=== PATIENT | female | born 1940 | race Caucasian/White ===

== ENCOUNTER 2017-09-07 13:44 | Inpatient (IN) ==
--- NOTE | 2017-09-07 18:03 | Emergency Department Note ---
Disposition Clinical Impression: Compression fracture, Hyponatremia Pneumonia Qualifiers: Pneumonia type: due to unspecified organism Laterality: unspecified laterality Lung location: unspecified part of lung Qualified Code(s): J18.9 - Pneumonia, unspecified organism Disposition: Admitted As Inpatient Condition: Fair Referrals: Yared Akhtar Jr, MD [Primary Care Provider] - Forms: ED Satisfaction Letter Time of Disposition: 21:38 Fall HPI - General Chief Complaint: ED Fall Stated Complaint: Fall/Back Pain Time Seen by Provider: 09/07/17 17:46 Source: patient Mode of arrival: ambulatory Limitations: no limitations Nursing Notes Reviewed: Yes Vital Signs Reviewed: Yes - History of Present Illness HPI Narrative: 77-year-old who says she's been treated for a cold for the last couple weeks was taking a bath today got out of the tub and thinks she got her legs tangled up in a rug and fell. She complains of back pain she did strike her head. Patient denies being on a blood thinner. Pt Subjective Complaint: fall Onset (ago): Just [employer]INE[employer] Fall From: standing Fall Witnessed: no Place Fall Occurred: home Loss of Consciousness: none Prolonged Down Time?: no Symptoms Prior to Fall: none Context: tripped/slipped Location of injury: head, neck, back Severity: moderate Quality: aching Associated symptoms (after fall): Reports: neck pain - Related Data Home Medications Medication Instructions Recorded Confirmed Amlodipine Besylate 2.5 mg PO DAILY 02/03/17 09/07/17 Folic Acid 1 mg PO DAILY 02/03/17 09/07/17 Levothyroxine [Synthroid] 100 mcg PO 0630 02/03/17 09/07/17 Losartan Potassium [Cozaar] 100 mg PO DAILY 02/03/17 09/07/17 Omeprazole 20 mg PO DAILY 02/03/17 09/07/17 Multivit-Min/Iron/Folic/Lutein 1 each PO DAILY 02/24/17 09/07/17 [Centrum Silver Women Tablet] Propranolol [Inderal] 20 mg PO BID 09/07/17 09/07/17 predniSONE [PredniSONE] 5 mg PO DAILY 09/07/17 09/07/17 Allergies Allergy/AdvReac Type Severity Reaction Status Date / Time No Known Allergies Allergy Verified 07/31/16 13:26 All systems ED: reviewed and negative except as stated. Constitutional: Denies: fever, chills, weakness, weight change Eyes: Denies: eye pain, eye discharge, vision change ENT ED: Denies: ear pain, throat pain, dental pain, hearing loss, epistaxis, congestion, dysphagia Cardiovascular: Denies: chest pain, palpitations, dyspnea on exertion, edema, syncope Respiratory: Denies: cough, dyspnea, wheezes, hemoptysis, stridor Gastrointestinal: Denies: abdominal pain, nausea, vomiting, diarrhea, constipation, hematemesis, melena, hematochezia Genitourinary: Denies: dysuria, frequency, hematuria, discharge Musculoskeletal: Denies: back pain, neck pain, arthralgia, myalgia Integumentary: Denies: rash, abrasion, lesions Neurological: Denies: headache, weakness, numbness, paresthesias, confusion, abnormal gait, vertigo Psychiatric: Denies: anxiety, depression, suicidal thoughts, homicidal thoughts , auditory hallucinations, visual hallucinations Endocrine: Denies: fatigue Hematological/Lymphatic: Denies: easy bleeding, easy bruising Allergic/Immunologic: Denies: facial swelling, urticaria Fall PMH - Past Medical History Medical history: Reports: COPD, hyperlipidemia, hypertension, RA, thyroid disease Psychiatric history: Reports: no psych history - Social History Smoking Status: Never smoker Alcohol use: Reports: none Drug use: Reports: none Physical Exam - General Limitations: no limitations General appearance: alert Course - Reevaluation(s) Reevaluation #1: 77-year-old female who comes in after a fall she's got compression fractures of the back. She is also noted to have a sodium of 117 and pneumonia on chest x- ray. Time: 22:08 - Consultations Consultation #1: I discussed with , admit. Time: 22:06 Consultation #2: S with Dr. Rg he will see the patient in consult. Time: 22:08 Vital Signs Temperature 97.9 F 09/07/17 14:25 Pulse Rate 119 09/07/17 14:25 Respiratory Rate 22 09/07/17 14:25 Blood Pressure 152/76 09/07/17 14:25 O2 Sat by Pulse Oximetry 0 09/07/17 14:25 Temperature 97.9 F 09/07/17 14:25 Pulse Rate 77 09/07/17 20:09 Respiratory Rate 16 09/07/17 20:09 Blood Pressure 149/85 09/07/17 20:09 O2 Sat by Pulse Oximetry 90 09/07/17 20:09 Oxygen Delivery Oxygen Delivery Nasal Cannula Fall - Lab Data Lab results reviewed: Yes I reviewed the patient's lab results. Result diagrams: 09/07/17 20:46 09/07/17 18:59 Lab Results 09/07/17 09/07/17 09/07/17 Range/Units 18:59 18:59 20:46 WBC 10.6 (4.3-11.1) K/mcL RBC 3.77 L (3.82-4.97) M/mcL Hgb 11.1 L (11.5-15.4) g/dL Hct 30.5 L (35.3-44.9) % MCV 80.9 L (83.0-100.0) fL MCH 29.4 (28.0-33.3) pg MCHC 36.4 H (31.6-35.5) g/dL RDW 13.0 (11.5-14.5) % Plt Count TNP MPV TNP Immature Gran % 3.5 (0-4) % Seg Neutrophils % 81.5 % Lymphocytes % 4.6 % Monocytes % 10.2 % Eosinophils % 0.1 % Basophils % 0.1 % Neutrophils # 8.6 (1.6-8.9) K/mcL Lymphocytes # 0.5 L (0.6-4.6) K/mcL Monocytes # 1.1 (0.0-1.3) K/mcL Eosinophils # 0.0 (0.0-0.6) K/mcL Basophils # 0.0 (0.0-0.2) K/mcL Nucleated RBCs/100 WBC 0.2 H (0) /100 WBC Plt Count ,Citrate (150-600) Immature Plt Fraction TNP Sodium 117 L* (136-145) mEq/L Potassium 3.6 (3.5-4.5) mEq/L Chloride 77 L (98-109) mEq/L Carbon Dioxide 30 H (19-29) mEq/L BUN 11 (7-20) mg/dL Creatinine 0.47 L (0.57-1.11) mg/dL Est GFR ( Amer) > 60 (> 60) Est GFR (Non-Af Amer) > 60 (> 60) BUN/Creatinine Ratio 23 (6-26) Glucose 94 (70-99) mg/dL Calculated Osmolality 243 L (280-300) Calcium 8.8 (8.6-10.8) mg/dL Specimen Rejected Miscellaneous 09/07/17 Range/Units 20:46 WBC (4.3-11.1) K/mcL RBC (3.82-4.97) M/mcL Hgb (11.5-15.4) g/dL Hct (35.3-44.9) % MCV (83.0-100.0) fL MCH (28.0-33.3) pg MCHC (31.6-35.5) g/dL RDW (11.5-14.5) % Plt Count MPV 9.0 L Immature Gran % (0-4) % Seg Neutrophils % % Lymphocytes % % Monocytes % % Eosinophils % % Basophils % % Neutrophils # (1.6-8.9) K/mcL Lymphocytes # (0.6-4.6) K/mcL Monocytes # (0.0-1.3) K/mcL Eosinophils # (0.0-0.6) K/mcL Basophils # (0.0-0.2) K/mcL Nucleated RBCs/100 WBC (0) /100 WBC Plt Count ,Citrate 147.4 L (150-600) Immature Plt Fraction Sodium (136-145) mEq/L Potassium (3.5-4.5) mEq/L Chloride (98-109) mEq/L Carbon Dioxide (19-29) mEq/L BUN (7-20) mg/dL Creatinine (0.57-1.11) mg/dL Est GFR ( Amer) (> 60) Est GFR (Non-Af Amer) (> 60) BUN/Creatinine Ratio (6-26) Glucose (70-99) mg/dL Calculated Osmolality (280-300) Calcium (8.6-10.8) mg/dL Specimen Rejected - Radiology Data Radiology results reviewed: Yes I reviewed the patient's radiology results. Cervical Spine CT 09/07/17 18:00 IMPRESSION: No acute abnormality of the cervical spine. D/ / Florence Acevedo MD / Florence Acevedo MD Interpreting Provider: Florence Acevedo MD Chest X-Ray 09/07/17 18:00 IMPRESSION: New right lower lobe airspace disease suggesting pneumonia. Follow-up is recommended to ensure resolution D/ / Chadwick Joel MD / Chadwick Joel MD Interpreting Provider: Chadwick Joel MD Head CT 09/07/17 18:00 IMPRESSION: No acute intracranial abnormality. D/ / 09/07/2017 18:57:16 Florence Acevedo MD / neal Interpreting Provider: Florence Acevedo MD Lumbar Spine CT 09/07/17 18:00 IMPRESSION: 1. Acute compression deformities of T5 and T7 as described. 2. Diffuse airspace opacities, findings are concerning for acute infection versus aspiration superimposed on chronic lung changes including bronchiectasis. 3. 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 4. Thyromegaly with a large left thyroid nodule. Nodule is increased in size since 2010. Dedicated thyroid ultrasound can be considered. RECOMMENDATIONS: Managing Incidental Thyroid Nodule Detected at CT or MRI or US 1. Further evaluation by thyroid Ultrasound recommended for these incidental nodules: Patient Age 35 years or more - Nodule 1.5 cm in size or greater Note: These recommendations do not apply to pts. w/ increased risk for thyroid cancer or pts. with symptomatic thyroid disease. Recommendations for f/u of Incidental Thyroid Nodules (ITN) found on CT, MR, NM and Extrathyroidal US are based upon the ACR white paper and Keith 3-tiered system for managing ITNs: J Am Rogerio Radiol. 2015 Nov;12(2): 143-50 D/ / 09/07/2017 19:08:31 Mohini Smith MD / neal Interpreting Provider: Mohini Smith MD Thoracic Spine CT 09/07/17 18:00
[2017-09-07 19:22] LABS: BUN/Creatinine Ratio 23 (6-26); Blood Urea Nitrogen 11 mg/dL (7-20); Calcium 8.8 mg/dL (8.6-10.8); Carbon Dioxide 30 mEq/L (19-29); Chloride 77 mEq/L (98-109); Glucose 94 mg/dL (70-99); Osmolality,Calculated 243 (280-300); Potassium 3.6 mEq/L (3.5-4.5); eGFR For African Americans > 60 (> 60); eGFR For Non-African Americans > 60 (> 60)
[2017-09-07 19:24] LABS: Sodium 117 mEq/L (136-145)
[2017-09-07] MEDS ORDERED: Azithromycin 500 MG in D5% in Water 250 ML IVPB ONE (19:25)
[2017-09-07] MEDS ORDERED: 0.9 % Sodium Chloride 1,000 ML IVC SCH (19:30)
[2017-09-07 21:06] LABS: Basophils % 0.1 %; Eosinophils % 0.1 %; Hematocrit 30.5 % (35.3-44.9); Hemoglobin 11.1 g/dL (11.5-15.4); Immature Granulocytes % 3.5 % (0-4); Lymphocytes # 0.5 K/mcL (0.6-4.6); Lymphocytes % 4.6 %; Mean Corpuscular HGB Conc 36.4 g/dL (31.6-35.5); Mean Corpuscular Hemoglobin 29.4 pg (28.0-33.3); Mean Corpuscular Volume 80.9 fL (83.0-100.0); Monocytes # 1.1 K/mcL (0.0-1.3); Monocytes % 10.2 %; Nucleated Red Blood Cells 0.2 /100 WBC (0); Red Blood Count 3.77 M/mcL (3.82-4.97); Segmented Neutrophils % 81.5 %
[2017-09-07 21:16] LABS: Neutrophils # 8.6 K/mcL (1.6-8.9)
[2017-09-07] MEDS ORDERED: cefTRIAXone 1,000 MG in Water for inj. (sterile) 10 ML IVP ONE (23:00)
[2017-09-08] MEDS ORDERED: Naloxone 0.4 MG/ML INJ IVP PRN (01:05)
[2017-09-08] MEDS ORDERED: Acetaminophen 325 MG TABLET PO PRN (01:05)
[2017-09-08] MEDS ORDERED: *HR* HYDROmorphone (PF) 1 MG/ML SYRINGE IVP PRN (01:05)
--- NOTE | 2017-09-08 01:27 | Internal Med History&Physical ---
<LetaEnrique - Last Filed: 09/08/17 01:25> Date of Encounter: 09/08/17 Time of Encounter: 00:15 Assessment and Plan (1) Compression fracture Current visit: Yes Status: Acute - Ortho consult. - PRN Pain control with dilaudid, norco, and tylenol. (2) Pneumonia Current visit: Yes Status: Acute Afebrile. BP 149/85. Given 1st dose of azithromycin and ceftriaxone today. Patient will need a 5-day course. - UA. - Blood culture. Qualifiers: Pneumonia type: due to unspecified organism Laterality: right Lung location: lower lobe of lung Qualified Code(s): J18.1 - Lobar pneumonia, unspecified organism (3) Hyponatremia Current visit: Yes Status: Acute - NS IVF 60 ml/hr. - Chem 6 panel q4hr. (4) Hypertension Current visit: Yes Status: Acute Placed on home meds. - Amlodipine - Losartan - Propanolol. Qualifiers: Hypertension type: unspecified Qualified Code(s): I10 - Essential (primary ) hypertension (5) Hypothyroidism Current visit: Yes Status: Acute - Synthroid. Qualifiers: Hypothyroidism type: unspecified Qualified Code(s): E03.9 - Hypothyroidism , unspecified (6) Thyroid nodule Current visit: Yes Status: Acute Thyromegaly with a large left thyroid nodule. Nodule is increased in size since 2010. Size is 1.5 cm or greater. - TSH. - Patient will need to f/u with outpatient care for thyroid u/s and FNA pending TSH results. (7) Rheumatoid arthritis Current visit: No Status: Acute - Prednisone. Qualifiers: Laterality: bilateral Qualified Code(s): M06.9 - Rheumatoid arthritis, unspecified Internal Medicine - H&P: HPI Chief complaint: Fall/Back pain Admitted From: Emergency Dept History of present illness: Ms. Laurent is a 77 year old female with a PMH of HTN, hyperlipidemia, rheumatoid arthritis, and hypothyroidism that presents s/p mechanical fall. Patient says that she was taking a shower and accidentally slipped on the bathroom rug. She landed on her back and hit her head. She denies LOC, dizziness , light-headedness, weakness, chest pain, RFANK, or vision changes. She was brought to the ER where imaging found acute decompression fracture of T5 and T7. She denies any numbness/tingling and denies any loss of bladder function. She states she has non-radiating mid-thoracic back pain and rates it as a 5/10 on pain scale. Patient also states that she was diagnosed with PNA on August 24. She was placed on a 7-day course of antibiotics, for which she said she started to feel better after completing the course. However, 2 days ago, she has started to have a productive cough with yellow sputum. She denies any fever , chills, or shortness of breath. CXR in ER found new right lower lobe airspace disease suggesting pneumonia. She was placed on azithromycin and ceftriaxone. Past Med Surg Social Fam HX - Past Medical History Medical history: COPD, hyperlipidemia, hypertension, RA, thyroid disease Psychiatric history: no psych history - Social History Smoking Status: Never smoker Smokeless Tobacco Status: No Alcohol use: none Drug use: none Internal Medicine - H&P: Meds Amlodipine Besylate 2.5 mg PO DAILY 02/03/17 [History] Folic Acid 1 mg PO DAILY 02/03/17 [History] Levothyroxine [Synthroid] 100 mcg PO 0630 02/03/17 [History] Losartan Potassium [Cozaar] 100 mg PO DAILY 02/03/17 [History] Omeprazole 20 mg PO DAILY 02/03/17 [History] Multivit-Min/Iron/Folic/Lutein [Centrum Silver Women Tablet] 1 each PO DAILY 07/05 [History] Propranolol [Inderal] 20 mg PO BID 09/07/17 [History] predniSONE [PredniSONE] 5 mg PO DAILY 09/07/17 [History] 3 Allergy/AdvReac Type Severity Reaction Status Date / Time No Known Allergies Allergy Verified 07/31/16 13:26 All Systems PM: A 10-system review of systems was performed and is negative for pertinent findings except as documented above in the HPI. - Constitutional Constitutional: as per HPI, lethargy, no chills, no fever(s), no weakness - EENT Eyes: no blurry vision, no change in vision, no spots in vision - Cardiovascular Cardiovascular ROS IM: no chest pain, no dyspnea, no lightheadedness, no syncope - Respiratory Respiratory: cough, change in phlegm color, no dyspnea, no hemoptysis, no wheezing - Gastrointestinal Gastrointestinal: as per HPI - Genitourinary Genitourinary: as per HPI, no difficulty urinating, no difficulty voiding - Musculoskeletal Musculoskeletal ROS IM: back pain, limited range of motion, myalgias Additional comments: Mid-thoracic back pain. - Neurological Neurological ROS: no dizziness, no focal weakness, no headache(s), no numbness, no tingling, no weakness - Constitutional Vitals: Temp Pulse Resp BP Pulse Ox 97.7 F 71 20 155/94 94 09/07/17 22:51 09/07/17 22:51 09/07/17 22:51 09/07/17 22:51 09/07/17 22:51 General appearance: Present: cachectic, A&O X 3, no acute distress, answers questions appropriately - Respiratory Respiratory exam: Present: CTAB. Absent: wheezes, tachypnea - Cardiovascular Cardiovascular exam: Present: RRR, +S1, +S2 - GI/Abdominal GI/Abdominal exam: Present: normal bowel sounds, soft. Absent: guarding, rebound, tenderness - Extremities Exam Extremities exam: Present: radial pulses palpable and symmetrical. Absent: pedal edema Additional comments: Severe rheumatoid arthritic features of hands (ulnar deviation with flexure contraction bilaterally). - Back Exam Back exam: Present: vertebral tenderness Additional comments: Tenderness to mid-throacic region. Severe scoliosis. - Neurological Exam Neurological exam: Present: CN II-XII intact, reflexes normal, no focal deficits , strengths equal and symetr throughout Internal Med - H&P Results - Labs CBC & Chem 7: 09/07/17 20:46 09/07/17 18:59 <Jaden Whaley - Last Filed: 09/08/17 02:46> Date of Encounter: 09/08/17 Internal Medicine - H&P: HPI History of present illness: Ms. Laurent is a 77 year old female All Systems PM: A 10-system review of systems was performed and is negative for pertinent findings except as documented above in the HPI. - Constitutional Vitals: Temp Pulse Resp BP Pulse Ox 97.7 F 71 20 155/94 94 09/07/17 22:51 09/07/17 22:51 09/07/17 22:51 09/07/17 22:51 09/07/17 22:51 Internal Med - H&P Results - Labs CBC & Chem 7: 09/08/17 01:40 09/08/17 01:40 Labs: Short CBC 09/08/17 Range/Units 01:40 WBC 7.6 (4.3-11.1) K/mcL Hgb 10.5 L (11.5-15.4) g/dL Hct 30.1 L (35.3-44.9) % Plt Count 106 L (140-400) K/mcL Neutrophils # 6.5 (1.6-8.9) K/mcL BMP 09/08/17 01:40 Sodium 116 L* Potassium 2.8 L Chloride 82 L Carbon Dioxide 29 BUN 7 Creatinine 0.40 L Glucose 75 Calcium 7.4 L D - Attending Attestation I have independelty seen and this patient with the resident on 09/08/17 and discussed plan of care with resident and patient Agree with plan 77 F who presented with fall, she has steroid dependent RA,, recently treated for PNA as out-patient No urinary retention, no LE weakness She is cachectic, not in distress, moves all extremities, sensation is intact. Chest with RLL rhonchi, otherwise clinicaly stable Labs and Imaging reviewed Pnuemonia with failed Outpatient therapy Severe hyponatremia Fall Compression fractures Rheumatoid arthritis Malnutrition OP Steroid dependent Check lipids/TSH/UA/Urine Osm, Chem q6h, goal Na correction within 24 hrs 6 meq. Nephrology eval. Spine eval for fractures. Continue home meds Pain control Rest of details as in resident physician's documentation
[2017-09-08 01:47] LABS: Basophils % 0.3 %; Eosinophils % 0.3 %; Hematocrit 30.1 % (35.3-44.9); Hemoglobin 10.5 g/dL (11.5-15.4); Immature Granulocytes % 0.7 % (0-4); Lymphocytes # 0.4 K/mcL (0.6-4.6); Lymphocytes % 4.8 %; Mean Corpuscular HGB Conc 34.9 g/dL (31.6-35.5); Mean Corpuscular Hemoglobin 29.1 pg (28.0-33.3); Mean Corpuscular Volume 83.4 fL (83.0-100.0); Monocytes # 0.6 K/mcL (0.0-1.3); Monocytes % 8.3 %; Neutrophils # 6.5 K/mcL (1.6-8.9); Platelet Count 106 K/mcL (140-400); Red Blood Count 3.61 M/mcL (3.82-4.97); Red Cell Distribution Width 12.9 % (11.5-14.5); Segmented Neutrophils % 85.6 %
[2017-09-08 01:59] LABS: BUN/Creatinine Ratio 18 (6-26); Blood Urea Nitrogen 7 mg/dL (7-20); Carbon Dioxide 29 mEq/L (19-29); Chloride 82 mEq/L (98-109); Glucose 75 mg/dL (70-99); Osmolality,Calculated 239 (280-300); Potassium 2.8 mEq/L (3.5-4.5); eGFR For African Americans > 60 (> 60); eGFR For Non-African Americans > 60 (> 60)
[2017-09-08 02:00] LABS: Calcium 7.4 mg/dL (8.6-10.8); Chol/HDL Ratio 2.5 (0-4.9)
[2017-09-08 02:01] LABS: Sodium 116 mEq/L (136-145)
[2017-09-08] MEDS ORDERED: 0.9 % Sodium Chloride 250 ML IVC ONE (02:30)
[2017-09-08] MEDS: 0.9 % Sodium Chloride 1,000 ML IVC SCH ×2 (04:40→18:54)
[2017-09-08] MEDS: *HR* HYDROcodone/Acet 5/325 mg TABLET PO PRN ×2 (04:41→13:52)
[2017-09-08 06:28] LABS: BUN/Creatinine Ratio 13 (6-26); Blood Urea Nitrogen 6 mg/dL (7-20); Calcium 7.9 mg/dL (8.6-10.8); Carbon Dioxide 25 mEq/L (19-29); Chloride 84 mEq/L (98-109); Glucose 76 mg/dL (70-99); Osmolality,Calculated 246 (280-300); Potassium 3.2 mEq/L (3.5-4.5); eGFR For African Americans > 60 (> 60); eGFR For Non-African Americans > 60 (> 60)
[2017-09-08 06:39] LABS: Sodium 120 mEq/L (136-145)
[2017-09-08] MEDS: Folic Acid 1 MG TABLET PO SCH (08:19)
[2017-09-08] MEDS: predniSONE 5 MG TABLET PO SCH (08:19)
[2017-09-08] MEDS: Multivit/Ca/Min/Fe/FA 1 TAB TABLET PO SCH (08:19)
[2017-09-08] MEDS: amLODIPine 5 MG TABLET PO SCH (08:20)
[2017-09-08 08:23] LABS: BUN/Creatinine Ratio 17 (6-26); Blood Urea Nitrogen 7 mg/dL (7-20); Calcium 7.9 mg/dL (8.6-10.8); Carbon Dioxide 26 mEq/L (19-29); Chloride 85 mEq/L (98-109); Glucose 78 mg/dL (70-99); Osmolality,Calculated 247 (280-300); Potassium 3.6 mEq/L (3.5-4.5); eGFR For African Americans > 60 (> 60); eGFR For Non-African Americans > 60 (> 60)
[2017-09-08 08:26] LABS: Sodium 120 mEq/L (136-145)
[2017-09-08 10:23] LABS: BUN/Creatinine Ratio 17 (6-26); Blood Urea Nitrogen 7 mg/dL (7-20); Calcium 7.8 mg/dL (8.6-10.8); Carbon Dioxide 26 mEq/L (19-29); Chloride 85 mEq/L (98-109); Glucose 77 mg/dL (70-99); Osmolality,Calculated 245 (280-300); eGFR For African Americans > 60 (> 60); eGFR For Non-African Americans > 60 (> 60)
[2017-09-08 10:24] LABS: Sodium 119 mEq/L (136-145)
[2017-09-08 12:01] LABS: Bilirubin,Urine Negative (Negative); Blood,Urine Negative (Negative); Clarity,Urine Clear (Clear); Color,Urine Yellow (Yellow); Glucose,Urine (UA) Normal (Normal); Ketones,Urine 15 mg/dL (Negative); Leukocyte Esterase,Urine Negative (Negative); Nitrite,Urine Negative (Negative); Protein,Urine Negative (Neg-Trace); Specific Gravity,Urine 1.013 (1.010-1.025); Urobilinogen,Urine Normal (Normal)
[2017-09-08] MEDS: Levofloxacin 750 MG/150 ML 750 MG/150 ML BAG IVPB SCH (13:52)
--- NOTE | 2017-09-08 14:22 | Electrocardiograph Report ---
[address] [place], [place] [address] Test Date: 2017-09-07 Pat Name: Shyla Laurent Department: 102 Room: 2NE28 Gender: F Backup Administrator: Ang : 1940 Requested By: Jim Lal Order Number: [id number] Reading MD: Magaly Martínez Measurements Intervals [place] Rate: 75 P: 61 WA: 158 QRS: 1 QRSD: 93 T: 41 QT: 405 QTc: 434 Interpretive Statements SINUS RHYTHM SEPTAL MYOCARDIAL INFARCTION [40+ ms Q WAVE IN V1/V2], OF INDETERMINATE AGE Electronically Signed On 09-08-2017 14:20:40 EST by Magaly Martínez
--- NOTE | 2017-09-08 17:17 | Pain Management Consultation ---
Date of Encounter: 09/08/17 Time of Encounter: 17:14 Assessment and Plan (1) Compression fracture Current Visit: Yes Status: Chronic Medically, the patient does not have pain associated with her fractures. This finding suggests that the fracture sites are old and healed. No interventional options needed at this time. I did have a discussion with the patient, her , and her son in the room today that she should be aware of the risk for further fracture in years to come. If she would experience severe pain in her back as a result of coughing, she should seek out the advice of spine Center physicians. As of now, recommend allowing her to eat. Recommend allowing her activity out of bed with respect to making sure that she is safe when it comes to ambulating and keeping the risk of fall at a minimum. The assessment and plan as outlined above was discussed with the patient and/or family members who expressed understanding and agreement. All questions were answered. History of Present Illness Chief complaint: compression fracture HPI: Ms. Laurent is a 77 year old female who was recently admitted to the hospital for suspected pneumonia. A CT scan of her lungs incidentally revealed a compression fracture at T5 and T7. The patient denies pain. She states that she had a bout of severe coughing approximately 2 years ago which seemed to have been associated with severe pain in her upper back just above her bra strap. Pain at that time was severe, 10/10, but the pain subsided after a few weeks. She denied any radiating pain now or then. She feels able to get up out of bed. Prior to coming into the hospital, she had experienced no falls. She denies any pain in her back at this time. She does not routinely take pain medication at home. No radiating pain. Past Med Surg Social Fam HX - Past Medical History Medical history: COPD, hyperlipidemia, hypertension, RA, thyroid disease Psychiatric history: no psych history - Past Surgical History Surgical History: hysterectomy - Social History Smoking Status: Never smoker Smokeless Tobacco Status: No Alcohol use: none Drug use: none Medications and Allergies Amlodipine Besylate 2.5 mg PO DAILY 02/03/17 [History] Folic Acid 1 mg PO DAILY 02/03/17 [History] Levothyroxine [Synthroid] 100 mcg PO 0630 02/03/17 [History] Losartan Potassium [Cozaar] 100 mg PO DAILY 02/03/17 [History] Omeprazole 20 mg PO DAILY 02/03/17 [History] Multivit-Min/Iron/Folic/Lutein [Centrum Silver Women Tablet] 1 each PO DAILY 07/05 [History] Propranolol [Inderal] 20 mg PO BID 09/07/17 [History] predniSONE [PredniSONE] 5 mg PO DAILY 09/07/17 [History] 3 Allergy/AdvReac Type Severity Reaction Status Date / Time No Known Allergies Allergy Verified 07/31/16 13:26 Review of Systems - Constitutional Constitutional ROS IM: no photophobia, no phonophobia, no daytime sleepiness, no fever(s), no stops breathing during sleep - EENT Nose, mouth and throat: no headache(s), no neck pain, no neck trauma - Cardiovascular Cardiovascular ROS: no chest pain, no leg edema, no lightheadedness - Respiratory Respiratory: no pain on inspiration, no pain with cough - Gastrointestinal Gastrointestinal: no abdominal pain, no constipation, no diarrhea, no heartburn - Genitourinary Genitourinary ROS: no difficulty urinating, no flank pain, no urinary hesitancy - Musculoskeletal Musculoskeletal ROS: no muscle weakness, no numbness, no radiating pain into limb, no tingling - Integumentary Integumentary: no erythema, no lesions, no swelling - Neurological Neurological ROS: no abnormal gait, no behavioral changes, no focal weakness, no radicular pain - Psychiatric Psychiatric general: no anxiety, no confusion, no depression - Hematologic/Lymphatic Hematologic/Lymphatic pediatric: no easy bleeding, no easy bruising Physical Exam Initial Vital Signs Temp Pulse Resp BP Pulse Ox 97.9 F 119 22 152/76 0 09/07/17 14:25 09/07/17 14:25 09/07/17 14:25 09/07/17 14:25 09/07/17 14:25 - Additional Findings EYES:: pupils equal and round, no myosis. SKIN:: no areas of echymoses or petechiae CARDIOVASCULAR:: regular rate PULMONARY:: Quiet, normal respiratory pattern. GASTROINTESTINAL:: active bowel sounds. MUSCULOSKELETAL GAIT:: antalgic. INSPECTION:: severe kyphosis in thoracic spine PALPATION:: There is no tenderness in the upper thoracic spine. Percussion of the spine is nonpainful. ROM:: Active flexion and extension are reduced in the lumbar area. Active Rotation is reduced in the lumbar area. STRENGTH:: RIGHT hip flexors: 5/5 :: LEFT hip flexors: 5/5 RIGHT hip adduction 5/5 :: LEFT hip adduction 5/5 RIGHT hip abduction 5/5 :: LEFT hip abduction 5/5 RIGHT knee extension 5/5 :: LEFT knee extension 5/5 RIGHT knee flexion 5/5 :: LEFT knee flexion 5/5 RIGHT ankle dorsiflexion 5/5 :: LEFT ankle dorsiflexion 5/5 RIGHT ankle plantarflexion 5/5 :: LEFT ankle plantarflexion 5/5 RIGHT great toe dorsiflexion 5/5 :: LEFT great toe dorsiflexion 5/5 RIGHT great toe plantarflexion 5/5 :: LEFT great toe plantarflexion 5/5 NEUROLOGIC SENSATION:: hypesthesia is not noted in lower extremity dermatomes. PSYCHIATRIC:: ORIENTATION:: awake and alert. INSIGHT:: good awareness of illness. AFFECT:: pleasant. Radiology Images Viewed By Me:: August 2017 CT scan of the chest incidentally shows T5 and T7 compression fractures. I have reviewed and agree with information documented in the scribed documentation, ROS, patient medications, allergies, medical history, surgical history, social history, and family history. Results - Labs 09/08/17 01:40 09/08/17 10:00 Abnormal lab results RBC 3.61 M/mcL (3.82-4.97) L 09/08/17 01:40 Hgb 10.5 g/dL (11.5-15.4) L 09/08/17 01:40 Hct 30.1 % (35.3-44.9) L 09/08/17 01:40 Plt Count 106 K/mcL (140-400) L 09/08/17 01:40 Lymphocytes # 0.4 K/mcL (0.6-4.6) L 09/08/17 01:40 Nucleated RBCs/100 WBC 0.2 /100 WBC (0) H 09/07/17 20:46 Plt Count ,Citrate 147.4 (150-600) L 09/07/17 20:46 Sodium 119 mEq/L (136-145) L* 09/08/17 10:00 Chloride 85 mEq/L (98-109) L 09/08/17 10:00 Creatinine 0.42 mg/dL (0.57-1.11) L 09/08/17 10:00 Calculated Osmolality 245 (280-300) L 09/08/17 10:00 Calcium 7.8 mg/dL (8.6-10.8) L 09/08/17 10:00 Urine Ketones 15 mg/dL (Negative) H 09/08/17 09:15 Diabetes panel 09/08/17 09/08/17 09/08/17 Range/Units 01:40 01:40 05:50 Sodium 116 L* 120 L* (136-145) mEq/L Potassium 2.8 L 3.2 L (3.5-4.5) mEq/L Chloride 82 L 84 L (98-109) mEq/L Carbon Dioxide 29 25 (19-29) mEq/L BUN 7 6 L (7-20) mg/dL Creatinine 0.40 L 0.45 L (0.57-1.11) mg/dL Glucose 75 76 (70-99) mg/dL Calcium 7.4 L D 7.9 L (8.6-10.8) mg/dL Triglycerides 68 (< 150) mg/dL HDL Cholesterol 45 (40-59) mg/dL 09/08/17 09/08/17 Range/Units 07:55 10:00 Sodium 120 L* 119 L* (136-145) mEq/L Potassium 3.6 4.0 (3.5-4.5) mEq/L Chloride 85 L 85 L (98-109) mEq/L Carbon Dioxide 26 26 (19-29) mEq/L BUN 7 7 (7-20) mg/dL Creatinine 0.42 L 0.42 L (0.57-1.11) mg/dL Glucose 78 77 (70-99) mg/dL Calcium 7.9 L 7.8 L (8.6-10.8) mg/dL Triglycerides (< 150) mg/dL HDL Cholesterol (40-59) mg/dL Thyroid panel 09/08/17 Range/Units 01:40 TSH 2.904 (0.350-4.840) mcIU/mL Calcium panel 09/08/17 09/08/17 09/08/17 Range/Units 01:40 05:50 07:55 Calcium 7.4 L D 7.9 L 7.9 L (8.6-10.8) mg/dL 09/08/17 Range/Units 10:00 Calcium 7.8 L (8.6-10.8) mg/dL Pituitary panel 09/08/17 09/08/17 09/08/17 Range/Units 01:40 01:40 05:50 Sodium 116 L* 120 L* (136-145) mEq/L Potassium 2.8 L 3.2 L (3.5-4.5) mEq/L Chloride 82 L 84 L (98-109) mEq/L Carbon Dioxide 29 25 (19-29) mEq/L BUN 7 6 L (7-20) mg/dL Creatinine 0.40 L 0.45 L (0.57-1.11) mg/dL Glucose 75 76 (70-99) mg/dL Calcium 7.4 L D 7.9 L (8.6-10.8) mg/dL TSH 2.904 (0.350-4.840) mcIU/mL 09/08/17 09/08/17 Range/Units 07:55 10:00 Sodium 120 L* 119 L* (136-145) mEq/L Potassium 3.6 4.0 (3.5-4.5) mEq/L Chloride 85 L 85 L (98-109) mEq/L Carbon Dioxide 26 26 (19-29) mEq/L BUN 7 7 (7-20) mg/dL Creatinine 0.42 L 0.42 L (0.57-1.11) mg/dL Glucose 78 77 (70-99) mg/dL Calcium 7.9 L 7.8 L (8.6-10.8) mg/dL TSH (0.350-4.840) mcIU/mL Adrenal panel 09/08/17 09/08/17 09/08/17 Range/Units 01:40 05:50 07:55 Sodium 116 L* 120 L* 120 L* (136-145) mEq/L Potassium 2.8 L 3.2 L 3.6 (3.5-4.5) mEq/L Chloride 82 L 84 L 85 L (98-109) mEq/L Carbon Dioxide 29 25 26 (19-29) mEq/L BUN 7 6 L 7 (7-20) mg/dL Creatinine 0.40 L 0.45 L 0.42 L (0.57-1.11) mg/dL Glucose 75 76 78 (70-99) mg/dL Calcium 7.4 L D 7.9 L 7.9 L (8.6-10.8) mg/dL 09/08/17 Range/Units 10:00 Sodium 119 L* (136-145) mEq/L Potassium 4.0 (3.5-4.5) mEq/L Chloride 85 L (98-109) mEq/L Carbon Dioxide 26 (19-29) mEq/L BUN 7 (7-20) mg/dL Creatinine 0.42 L (0.57-1.11) mg/dL Glucose 77 (70-99) mg/dL Calcium 7.8 L (8.6-10.8) mg/dL All other labs normal. Consult Discharge Plan - Plan Referrals: Yared Akhtar Jr, MD [Primary Care Provider] -
--- NOTE | 2017-09-08 18:29 | Internal Med Progress Note ---
Date of Encounter: 09/08/17 Time of Encounter: 11:00 - Assessment and plan (1) Compression fracture Current Visit: Yes Status: Chronic Assessment and plan: -Patient with thoracic compression fracture and orthopedics was consulted. -Appreciate recommendations. (2) Pneumonia Current Visit: Yes Status: Acute Assessment and plan: -Continue treatment with IV Levaquin. Qualifiers: Pneumonia type: due to unspecified organism Laterality: right Lung location: lower lobe of lung Qualified Code(s): J18.1 - Lobar pneumonia, unspecified organism (3) Hyponatremia Current Visit: Yes Status: Acute Assessment and plan: -Continue IV fluids with normal saline to gradually raise sodium levels. -Will monitor sodium levels. (4) Hypertension Current Visit: Yes Status: Acute Assessment and plan: -Stable; continue current management Qualifiers: Hypertension type: unspecified Qualified Code(s): I10 - Essential (primary ) hypertension (5) Hypothyroidism Current Visit: Yes Status: Acute Assessment and plan: -Stable; continue current management. Qualifiers: Hypothyroidism type: unspecified Qualified Code(s): E03.9 - Hypothyroidism , unspecified (6) Rheumatoid arthritis Current Visit: No Status: Acute Assessment and plan: -Continue home medications. Qualifiers: Laterality: unspecified laterality Qualified Code(s): M06.9 - Rheumatoid arthritis, unspecified - Subjective Interval history: No acute events overnight. - Constitutional Vitals: Temp Pulse Resp BP Pulse Ox 97.7 F 77 12 155/91 99 09/08/17 15:13 09/08/17 15:13 09/08/17 15:13 09/08/17 15:13 09/08/17 15:13 General appearance: Present: cachectic, A&O X 3, no acute distress, answers questions appropriately - Respiratory Respiratory exam: Present: CTAB. Absent: accessory muscle use, rales, rhonchi, wheezes - Cardiovascular Cardiovascular exam: Present: RRR, +S1, +S2. Absent: diastolic murmur, gallop, rubs, systolic murmur Internal Medicine: Result - Labs CBC & Chem 7: 09/08/17 01:40 09/08/17 10:00 Labs: Short CBC 09/08/17 Range/Units 01:40 WBC 7.6 (4.3-11.1) K/mcL Hgb 10.5 L (11.5-15.4) g/dL Hct 30.1 L (35.3-44.9) % Plt Count 106 L (140-400) K/mcL Neutrophils # 6.5 (1.6-8.9) K/mcL BMP 09/08/17 09/08/17 09/08/17 01:40 05:50 07:55 Sodium 116 L* 120 L* 120 L* Potassium 2.8 L 3.2 L 3.6 Chloride 82 L 84 L 85 L Carbon Dioxide 29 25 26 BUN 7 6 L 7 Creatinine 0.40 L 0.45 L 0.42 L Glucose 75 76 78 Calcium 7.4 L D 7.9 L 7.9 L 09/08/17 10:00 Sodium 119 L* Potassium 4.0 Chloride 85 L Carbon Dioxide 26 BUN 7 Creatinine 0.42 L Glucose 77 Calcium 7.8 L Urine 09/08/17 Range/Units 09:15 Urine Color Yellow (Yellow) Urine Clarity Clear (Clear) Urine pH 7.0 (5.0-8.0) pH Units Ur Specific [place] 1.013 (1.010-1.025) Urine Protein Negative (Neg-Trace) mg/dL Urine Glucose (UA) Normal (Normal) mg/dL Consult Discharge Plan - Plan Referrals: Yared Akhtar Jr, MD [Primary Care Provider] -
[2017-09-08] MEDS: Ondansetron 4 MG/2 ML VIAL IVP PRN (18:54)
[2017-09-09 08:51] LABS: Basophils % 0.2 %; Eosinophils % 0.2 %; Hemoglobin 11.3 g/dL (11.5-15.4); Immature Granulocytes % 0.5 % (0-4); Lymphocytes # 0.3 K/mcL (0.6-4.6); Lymphocytes % 4.5 %; Mean Corpuscular HGB Conc 33.2 g/dL (31.6-35.5); Mean Corpuscular Hemoglobin 29.4 pg (28.0-33.3); Mean Corpuscular Volume 88.5 fL (83.0-100.0); Mean Platelet Volume 9.1 fL (9.4-12.4); Monocytes # 0.5 K/mcL (0.0-1.3); Monocytes % 7.4 %; Neutrophils # 5.4 K/mcL (1.6-8.9); Red Blood Count 3.84 M/mcL (3.82-4.97); Red Cell Distribution Width 13.5 % (11.5-14.5); Segmented Neutrophils % 87.2 %
[2017-09-09 09:06] LABS: BUN/Creatinine Ratio 19 (6-26); Blood Urea Nitrogen 10 mg/dL (7-20); Calcium 8.3 mg/dL (8.6-10.8); Carbon Dioxide 25 mEq/L (19-29); Chloride 90 mEq/L (98-109); Glucose 127 mg/dL (70-99); Osmolality,Calculated 253 (280-300); Sodium 121 mEq/L (136-145); eGFR For African Americans > 60 (> 60); eGFR For Non-African Americans > 60 (> 60)
[2017-09-09] MEDS: Folic Acid 1 MG TABLET PO SCH (10:08)
[2017-09-09] MEDS: *HR* HYDROcodone/Acet 5/325 mg TABLET PO PRN (10:08)
[2017-09-09] MEDS: predniSONE 5 MG TABLET PO SCH (10:08)
[2017-09-09] MEDS: Multivit/Ca/Min/Fe/FA 1 TAB TABLET PO SCH (10:08)
[2017-09-09] MEDS: Levofloxacin 750 MG/150 ML 750 MG/150 ML BAG IVPB SCH (10:09)
[2017-09-09] MEDS: amLODIPine 5 MG TABLET PO SCH (10:12)
[2017-09-09] MEDS: 0.9 % Sodium Chloride 1,000 ML IVC SCH (10:19)
[2017-09-09] MEDS: *HR* Heparin 5,000 UNIT/ML VIAL SQ SCH (17:10)
--- NOTE | 2017-09-09 19:04 | Internal Med Progress Note ---
Date of Encounter: 09/09/17 Time of Encounter: 11:00 - Assessment and plan (1) Compression fracture Current Visit: Yes Status: Chronic Assessment and plan: -Patient with thoracic compression fracture and orthopedics was consulted for recommendations for medical management and pain control. (2) Pneumonia Current Visit: Yes Status: Acute Assessment and plan: -Continue treatment with IV Levaquin. Qualifiers: Pneumonia type: due to unspecified organism Laterality: right Lung location: lower lobe of lung Qualified Code(s): J18.1 - Lobar pneumonia, unspecified organism (3) Hyponatremia Current Visit: Yes Status: Acute Assessment and plan: -Continue IV fluids with normal saline to gradually raise sodium levels. -Will monitor sodium levels. (4) Hypertension Current Visit: Yes Status: Acute Assessment and plan: -Stable; continue current management Qualifiers: Hypertension type: unspecified Qualified Code(s): I10 - Essential (primary ) hypertension (5) Hypothyroidism Current Visit: Yes Status: Acute Assessment and plan: -Stable; continue current management. Qualifiers: Hypothyroidism type: unspecified Qualified Code(s): E03.9 - Hypothyroidism , unspecified (6) Rheumatoid arthritis Current Visit: No Status: Acute Assessment and plan: -Continue home medications. Qualifiers: Laterality: unspecified laterality Qualified Code(s): M06.9 - Rheumatoid arthritis, unspecified - Subjective Interval history: No acute events overnight. - Constitutional Vitals: Temp Pulse Resp BP Pulse Ox 97.5 F L 77 12 99/59 97 09/09/17 15:19 09/09/17 15:19 09/09/17 15:19 09/09/17 15:19 09/09/17 15:19 General appearance: Present: cachectic, A&O X 3, no acute distress, answers questions appropriately - Respiratory Respiratory exam: Present: CTAB. Absent: accessory muscle use, rales, rhonchi, wheezes - Cardiovascular Cardiovascular exam: Present: RRR, +S1, +S2. Absent: diastolic murmur, gallop, rubs, systolic murmur Internal Medicine: Result - Labs CBC & Chem 7: 09/09/17 08:43 09/09/17 08:43 Labs: Short CBC 09/09/17 Range/Units 08:43 WBC 6.2 (4.3-11.1) K/mcL Hgb 11.3 L (11.5-15.4) g/dL Hct 34.0 L (35.3-44.9) % Plt Count TNP Neutrophils # 5.4 (1.6-8.9) K/mcL [facility] 09/09/17 08:43 Sodium 121 L Potassium 4.0 Chloride 90 L Carbon Dioxide 25 BUN 10 Creatinine 0.53 L Glucose 127 H Calcium 8.3 L Consult Discharge Plan - Plan Referrals: Yared Akhtar Jr, MD [Primary Care Provider] -
[2017-09-10] MEDS: 0.9 % Sodium Chloride 1,000 ML IVC SCH (00:19)
[2017-09-10] MEDS: *HR* Heparin 5,000 UNIT/ML VIAL SQ SCH ×2 (05:36→18:28)
[2017-09-10 10:40] LABS: Basophils % 0.2 %; Eosinophils % 0.2 %; Hematocrit 33.2 % (35.3-44.9); Hemoglobin 10.7 g/dL (11.5-15.4); Immature Granulocytes % 1.9 % (0-4); Lymphocytes # 0.3 K/mcL (0.6-4.6); Lymphocytes % 4.5 %; Mean Corpuscular HGB Conc 32.2 g/dL (31.6-35.5); Mean Corpuscular Hemoglobin 28.9 pg (28.0-33.3); Mean Corpuscular Volume 89.7 fL (83.0-100.0); Monocytes # 0.7 K/mcL (0.0-1.3); Monocytes % 11.5 %; Red Cell Distribution Width 13.7 % (11.5-14.5); Segmented Neutrophils % 81.7 %
[2017-09-10 10:51] LABS: BUN/Creatinine Ratio 24 (6-26); Blood Urea Nitrogen 14 mg/dL (7-20); Calcium 8.2 mg/dL (8.6-10.8); Carbon Dioxide 25 mEq/L (19-29); Chloride 94 mEq/L (98-109); Glucose 119 mg/dL (70-99); Osmolality,Calculated 260 (280-300); Potassium 4.6 mEq/L (3.5-4.5); Sodium 124 mEq/L (136-145); eGFR For African Americans > 60 (> 60); eGFR For Non-African Americans > 60 (> 60)
[2017-09-10 10:52] LABS: Neutrophils # 4.7 K/mcL (1.6-8.9)
[2017-09-10 11:19] LABS: Mean Platelet Volume 8.5 fL (9.4-12.4)
[2017-09-10] MEDS: Folic Acid 1 MG TABLET PO SCH (11:33)
[2017-09-10] MEDS: amLODIPine 5 MG TABLET PO SCH (11:34)
[2017-09-10] MEDS: Multivit/Ca/Min/Fe/FA 1 TAB TABLET PO SCH (11:34)
[2017-09-10] MEDS: Levofloxacin 750 MG/150 ML 750 MG/150 ML BAG IVPB SCH (11:34)
[2017-09-10] MEDS: predniSONE 5 MG TABLET PO SCH (11:34)
[2017-09-10] MEDS: Ketorolac 15 MG/ML VIAL IVP PRN (11:42)
[2017-09-10] MEDS: GuaiFENesin/Dextromethorphan TABLET PO SCH ×2 (16:36→20:43)
[2017-09-10] MEDS: Ondansetron 4 MG/2 ML VIAL IVP PRN (18:23)
--- NOTE | 2017-09-10 20:11 | Internal Med Progress Note ---
Date of Encounter: 09/10/17 Time of Encounter: 11:00 - Assessment and plan (1) Compression fracture Current Visit: Yes Status: Chronic Assessment and plan: -Patient with thoracic compression fracture and orthopedics was consulted for recommendations for medical management and pain control. (2) Pneumonia Current Visit: Yes Status: Acute Assessment and plan: -Continue treatment with IV Levaquin. Qualifiers: Pneumonia type: due to unspecified organism Laterality: right Lung location: lower lobe of lung Qualified Code(s): J18.1 - Lobar pneumonia, unspecified organism (3) Hyponatremia Current Visit: Yes Status: Acute Assessment and plan: -Hypornatremia gradually improving from 117 to 124 over 3 days -Will monitor sodium levels. (4) Hypertension Current Visit: Yes Status: Acute Assessment and plan: -Stable; continue current management Qualifiers: Hypertension type: unspecified Qualified Code(s): I10 - Essential (primary ) hypertension (5) Hypothyroidism Current Visit: Yes Status: Acute Assessment and plan: -Stable; continue current management. Qualifiers: Hypothyroidism type: unspecified Qualified Code(s): E03.9 - Hypothyroidism , unspecified (6) Rheumatoid arthritis Current Visit: No Status: Acute Assessment and plan: -Continue home medications. Qualifiers: Laterality: unspecified laterality Qualified Code(s): M06.9 - Rheumatoid arthritis, unspecified - Subjective Interval history: No acute events overnight. - Constitutional Vitals: Temp Pulse Resp BP Pulse Ox 98.5 F 64 12 111/68 98 09/10/17 19:21 09/10/17 19:21 09/10/17 19:21 09/10/17 19:21 09/10/17 19:21 General appearance: Present: cachectic, A&O X 3, no acute distress, answers questions appropriately - Respiratory Respiratory exam: Present: CTAB. Absent: accessory muscle use, rales, rhonchi, wheezes - Cardiovascular Cardiovascular exam: Present: RRR, +S1, +S2. Absent: diastolic murmur, gallop, rubs, systolic murmur Internal Medicine: Result - Labs CBC & Chem 7: 09/10/17 10:33 09/10/17 10:33 Labs: Short CBC 09/10/17 Range/Units 10:33 WBC 5.8 (4.3-11.1) K/mcL Hgb 10.7 L (11.5-15.4) g/dL Hct 33.2 L (35.3-44.9) % Plt Count TNP Neutrophils # 4.7 (1.6-8.9) K/mcL [facility] 09/10/17 10:33 Sodium 124 L Potassium 4.6 H Chloride 94 L Carbon Dioxide 25 BUN 14 Creatinine 0.59 Glucose 119 H Calcium 8.2 L Consult Discharge Plan - Plan Referrals: Yared Akhtar Jr, MD [Primary Care Provider] -
[2017-09-11] MEDS: *HR* Heparin 5,000 UNIT/ML VIAL SQ SCH ×2 (05:41→18:16)
[2017-09-11] MEDS ORDERED: Naloxone 0.4 MG/ML INJ IVP ONE (08:34)
[2017-09-11] MEDS ORDERED: Naloxone 0.4 MG/ML INJ ONE (08:39)
[2017-09-11 08:51] LABS: ABG Base Excess 1 mEq/L (-2 to 3); ABG HCO3 27 mEq/L (21-27); ABG Oxygen Saturation 92 % (95-98); ABG PCO2 50 mmHg (35-45); ABG PH 7.34 pH Units (7.32-7.45); ABG PO2 68 mmHg (85-104); ABG TCO2 29 mEq/L (20-26)
[2017-09-11] MEDS ORDERED: 0.9 % Sodium Chloride 1,000 ML ONE (08:52)
[2017-09-11 09:41] LABS: Basophils % 0.2 %; Hematocrit 31.3 % (35.3-44.9); Hemoglobin 10.4 g/dL (11.5-15.4); Immature Platelets 18.4 % (1.1-6.1); Lymphocytes # 0.3 K/mcL (0.6-4.6); Lymphocytes % 3.9 %; Mean Corpuscular HGB Conc 33.2 g/dL (31.6-35.5); Mean Corpuscular Volume 87.2 fL (83.0-100.0); Monocytes # 0.9 K/mcL (0.0-1.3); Monocytes % 11.2 %; Red Blood Count 3.59 M/mcL (3.82-4.97); Red Cell Distribution Width 13.6 % (11.5-14.5); Segmented Neutrophils % 83.7 %
[2017-09-11 09:51] LABS: Alanine Aminotransferase 16 Units/L (0-55); Albumin 2.6 g/dL (3.5-5.0); Albumin/Globulin Ratio 0.7 (1.1-2.2); Alkaline Phosphatase 86 Units/L (38-126); Aspartate Amino Transferase 37 Units/L (5-34); BUN/Creatinine Ratio 23 (6-26); Bilirubin,Total 0.3 mg/dL (0.2-1.2); Blood Urea Nitrogen 12 mg/dL (7-20); Calcium 8.5 mg/dL (8.6-10.8); Carbon Dioxide 25 mEq/L (19-29); Chloride 89 mEq/L (98-109); Globulin 3.7 g/dL (2.4-3.5); Glucose 117 mg/dL (70-99); Magnesium 1.5 mg/dL (1.6-2.6); Osmolality,Calculated 257 (280-300); Phosphorous 1.7 mg/dL (2.3-4.7); Potassium 3.6 mEq/L (3.5-4.5); Sodium 123 mEq/L (136-145); Total Protein 6.3 g/dL (6.0-8.3); eGFR For African Americans > 60 (> 60); eGFR For Non-African Americans > 60 (> 60)
--- NOTE | 2017-09-11 09:53 | Pulmonology Consult Note ---
<EnriquemarvaMoise barajas M - Last Filed: 09/11/17 12:41> Date of Encounter: 09/11/17 Medications and Allergies Amlodipine Besylate 2.5 mg PO DAILY 02/03/17 [History] Folic Acid 1 mg PO DAILY 02/03/17 [History] Levothyroxine [Synthroid] 100 mcg PO 0630 02/03/17 [History] Losartan Potassium [Cozaar] 100 mg PO DAILY 02/03/17 [History] Omeprazole 20 mg PO DAILY 02/03/17 [History] Multivit-Min/Iron/Folic/Lutein [Centrum Silver Women Tablet] 1 each PO DAILY 07/05 [History] Propranolol [Inderal] 20 mg PO BID 09/07/17 [History] predniSONE [PredniSONE] 5 mg PO DAILY 09/07/17 [History] 3 Allergy/AdvReac Type Severity Reaction Status Date / Time No Known Allergies Allergy Verified 07/31/16 13:26 All Systems: A 10-system review of systems was performed and is negative for pertinent findings except as documented above in the HPI. Physical Examination Vital Signs: Vital Signs, Last 4 Hours Temp Pulse Resp BP Pulse Ox 09/11/17 12:14 22 100 09/11/17 11:11 87 123/71 97 09/11/17 10:04 81 28 105/65 98 09/11/17 09:30 134 16 106/74 96 09/11/17 09:00 98.0 F 82 24 108/63 100 Results - Laboratory Findings CBC and BMP: 09/11/17 08:40 09/11/17 08:40 ABG ABG pH 7.34 pH Units (7.32-7.45) 09/11/17 08:47 ABG pCO2 50 mmHg (35-45) H 09/11/17 08:47 ABG pO2 68 mmHg (85-104) L 09/11/17 08:47 ABG O2 Saturation 92 % (95-98) L 09/11/17 08:47 PT/INR, D-dimer PT 12.8 Seconds (9.4-12.1) H 09/11/17 08:40 Abnormal lab findings: Abnormal lab results RBC 3.59 M/mcL (3.82-4.97) L 09/11/17 08:40 Hgb 10.4 g/dL (11.5-15.4) L 09/11/17 08:40 Hct 31.3 % (35.3-44.9) L 09/11/17 08:40 MPV 8.9 fL (9.4-12.4) L 09/11/17 08:40 Lymphocytes # 0.3 K/mcL (0.6-4.6) L 09/11/17 08:40 Nucleated RBCs/100 WBC 0.2 /100 WBC (0) H 09/07/17 20:46 Plt Count ,Citrate 148.5 (150-600) L 09/11/17 08:40 Immature Plt Fraction 18.4 % (1.1-6.1) H 09/11/17 08:40 PT 12.8 Seconds (9.4-12.1) H 09/11/17 08:40 ABG pCO2 50 mmHg (35-45) H 09/11/17 08:47 ABG pO2 68 mmHg (85-104) L 09/11/17 08:47 ABG Total CO2 29 mEq/L (20-26) H 09/11/17 08:47 ABG O2 Saturation 92 % (95-98) L 09/11/17 08:47 Sodium 123 mEq/L (136-145) L 09/11/17 08:40 Chloride 89 mEq/L (98-109) L 09/11/17 08:40 Creatinine 0.52 mg/dL (0.57-1.11) L 09/11/17 08:40 Glucose 117 mg/dL (70-99) H 09/11/17 08:40 POC Glucose 99 (58-89) H 09/11/17 09:22 Calculated Osmolality 257 (280-300) L 09/11/17 08:40 Calcium 8.5 mg/dL (8.6-10.8) L 09/11/17 08:40 Phosphorus 1.7 mg/dL (2.3-4.7) L 09/11/17 08:40 Magnesium 1.5 mg/dL (1.6-2.6) L 09/11/17 08:40 AST 37 Units/L (5-34) H 09/11/17 08:40 Troponin I 0.65 ng/mL (0-0.03) H* 09/11/17 08:40 Albumin 2.6 g/dL (3.5-5.0) L 09/11/17 08:40 Globulin 3.7 g/dL (2.4-3.5) H 09/11/17 08:40 Albumin/Globulin Ratio 0.7 (1.1-2.2) L 09/11/17 08:40 Urine Ketones 15 mg/dL (Negative) H 09/08/17 09:15 - Microbiology Findings Microbiology Findings: Microbiology, Last 48 Hours 09/10/17 16:56 Sputum Culture - Preliminary Sputum - Clinical Findings Intake & Output: Intake & Output 09/10/17 09/11/17 09/11/17 23:59 07:59 15:59 Intake Total 120 / 120 1000 / 1000 Output Total 300 / 300 50 / 50 Balance -180 / -180 950 / 950 Weight 48.3 kg 48.3 kg Consult Discharge Plan - Plan Referrals: Yared Akhtar Jr, MD [Primary Care Provider] - - Attending Attestation I examined this patient and my medical decision-making was reviewed with the Resident Physician. I agree with the documented findings, disposition and treatment plan as described except to the extent set forth below. Patient seen and examined. Labs, radiology, chart personally reviewed. 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 Gradually patient was more responsive and will continue to monitor. Pulmonary: Concerns about protecting the airway and as patient become more responsive she had some cough and try to do airway clearance, patient has significant thick secretion that needed a bronchoscopy. I discussed with the and the family if she does not protect her airway. She will need invasive mechanical ventilation and they agreed. At this time noninvasive is acceptable oxygenation and ventilation on noninvasive ventilation. I will change her antibiotics for more broad-spectrum. Cardiovascular: Patient with new onset A. fib which I suspect could be related to the respiratory acute respiratory failure and hypoxia will treat symptomatically. Echocardiogram and follow-up troponin trend. GI: Nutrition per dietary and GI prophylaxis per routine she will be nothing by mouth at this time Heme: DVT prophylaxis per routine ID: Continue antibiotics and plan to de-escalation Renal; urine out put and renal funtion reviewed Endorcine: blood glucose is monitored Lines: all lines checked and no evidence of infections Skin: skin care to prevent pressure ulcers per nursing routine care Patient has multiple comorbidities and she could deteriorate clinically. Discussed with the family multiple times. I spent 40 min of Critical Care time with this patient. It involved decision making of high complexity to assess, manipulate, and support vital organ system failure and/or to prevent further life threatening deterioration of the patient' s condition. The time involved in the performance of separately reportable procedures was not counted toward critical care time. <Leigh Fuller - Last Filed: 09/11/17 13:27> Date of Encounter: 09/11/17 Time of Encounter: 09:00 Assessment and Plan (1) Acute respiratory failure with hypoxia Current Visit: Yes Status: Acute - Desaturation to 85% noted when patient is off from BiPAP. - ABG pH 7.34, pCO2 50, pO2 68 and HCO3 27. - Likely secondary to mucus plug in the setting of pneumonia. - Bronchoscopy today found mucus plug in the right main bronchus. BAL was obtained. - IV Zosyn for pneumonia. - Continue non-invasive ventilation. - Patient is full code and patient's is okay for intubation if it's medically necessary. (2) Acute encephalopathy Current Visit: Yes Status: Acute - Patient was noted to be unresponsive this morning that triggered the rapid response. - Likely related to patient's acute respiratory failure in the setting of pneumonia and hyponatremia. - CT head found no acute intracranial abnormality. - Improves as patient becomes more awake. - Continue to monitor. (3) Pneumonia Current Visit: Yes Status: Acute - CXR on admission found new right lower lobe airspace disease suggesting pneumonia. - Sputum gram stain found few GPC with culture pending. - BAL was obtained today and gram stain/culture ordered. - Due to levofloxacin's potential contribution to patient's unresponsiveness, will switch IV Zosyn which also gives broader coverage. Further de-escalation based on clinical course and culture result. Qualifiers: Pneumonia type: due to unspecified organism Laterality: right Lung location: lower lobe of lung Qualified Code(s): J18.1 - Lobar pneumonia, unspecified organism (4) New onset atrial fibrillation Current Visit: Yes Status: Acute - Patient was noted to have A-fib at rate of 130s-140s during the rapid response this morning. - Likely related to acute respiratory failure. - Converted back to sinus rhythm at rate of 70s-80s after one dose of Cardizem IV 10 mg. - Will obtain echocardiogram as further work-up. - Continue to monitor with telemetry. (5) Hyponatremia Current Visit: Yes Status: Acute - Na 117 on admission. - Hypotonoic hypovolemic hyponatremia - Jerrod 74 and FENa = 1% today. Likely renal loss or SIADH. - Na stable at 123 today. - Continue IV NS. - Continue to monitor Na. (6) Elevated troponin Current Visit: Yes Status: Acute - Troponin 0.65 today. - Likely secondary to new-onset A-fib. - No significant ischemic change on EKG. - Continue to trend troponin. (7) Compression fracture Current Visit: Yes Status: Chronic - Acute compression deformities of T5 and T7 per spine X-ray - Continue medical management and pain control as recommended by orthopedic. (8) Rheumatoid arthritis Current Visit: No Status: Chronic - Continue home dose prednisone 5 mg daily. Qualifiers: Rheumatoid arthritis location: multiple sites Rheumatoid factor presence: unspecified presence Qualified Code(s): M06.9 - Rheumatoid arthritis, unspecified (9) Hypothyroidism Current Visit: Yes Status: Chronic - Continue Synthroid. Qualifiers: Hypothyroidism type: unspecified Qualified Code(s): E03.9 - Hypothyroidism , unspecified (10) DVT prophylaxis Current Visit: Yes Status: Acute - Continue SQ heparin. History of Present Illness Consult date: 09/11/17 Requesting physician: Gil Healy Reason for consult: other (Unresponsiveness and desaturation if off from BiPAP. Concern if patient's airway is protected.) Chief complaint: Unresponsiveness History of present illness: Ms. Laurent is a 77 yo female with PMH with HTN, hyperlipidemia, rheumatoid arthritis, and hypothyroidism who was sent to ED after a mechanical fall. Spine XR found acute compression deformities of T5 and T7. CXR also found new right lower lobe airspace disease suggesting pneumonia. Patient was admitted on for thoracic spine compression fracture and pneumonia and started on IV levofloxacin. Rapid response was called at about 8:30 this morning for unresponsiveness. Patient is on BiPAP and appeared to have A-fib with rate of 130s-140s per bedside monitor. Narcan 0.2 mg IV was given but patient remained unresponsiveness despite of noxious stimuli. Patient's heart rate changed back to sinus rhythm with rate of 70s-80s after one dose of Cardizem 10mg IV. Blood gas showed pH 7.34, pCO2 50, pO2 68 and HCO3 27. Given the concern if patient can protect her airway on BiPAP while remaining unresponsive, patient was transferred to ICU for further monitoring and management and critical care/ pulmonology is consulted. Patient was seen and examined in ICU this morning. Patient remains unresponsive despite of verbal and noxious stimuli. Given patient's mental status, much of history was obtained from reviewing medical record and talking to patient's at bedside. Per patient's , patient was alerted and oriented prior but became more confused for past two days. No known history of A-fib in the past but patient does have family history of heart diseases (brothers had open heart surgeries). Patient is full code per patient's . Past Med Surg Social Fam HX - Past Medical History Medical history: COPD, hyperlipidemia, hypertension, RA, thyroid disease Psychiatric history: no psych history - Past Surgical History Surgical History: hysterectomy - Social History Smoking Status: Never smoker Smokeless Tobacco Status: No Alcohol use: none Drug use: none - Family History Mother Living Status: Age at : 86 Hx Family Cardiac Disorders: Yes (NH, HTN) Hx Family Endocrine Disorder: Yes (DM) Father Living Status: Age at : 58 Hx Family Cardiac Disorders: Yes (NH) Brother Hx Family Cardiac Disorders: Yes (Heart disease) ROS unobtainable: due to mental status Physical Examination Vital Signs: Vital Signs, Last 4 Hours Pulse Resp BP Pulse Ox 09/11/17 09:30 134 16 106/74 96 09/11/17 07:00 118 21 133/79 94 General appearance: no acute distress, other (Unresponsive to verbal and noxious stimuli, on BiPAP) ENT: oropharynx dry Neck: supple Effort: mildly labored Auscultation: bilateral: diminished breath sounds Cardiovascular: regular rate and rhythm Gastrointestinal: hypoactive bowel sounds, soft, non-distended Integumentary: normal Extremities: no cyanosis, no edema Results - Laboratory Findings CBC and BMP: 09/11/17 08:40 09/11/17 08:40 ABG ABG pH 7.34 pH Units (7.32-7.45) 09/11/17 08:47 ABG pCO2 50 mmHg (35-45) H 09/11/17 08:47 ABG pO2 68 mmHg (85-104) L 09/11/17 08:47 ABG O2 Saturation 92 % (95-98) L 09/11/17 08:47 Abnormal lab findings: Abnormal lab results RBC 3.59 M/mcL (3.82-4.97) L 09/11/17 08:40 Hgb 10.4 g/dL (11.5-15.4) L 09/11/17 08:40 Hct 31.3 % (35.3-44.9) L 09/11/17 08:40 Lymphocytes # 0.3 K/mcL (0.6-4.6) L 09/11/17 08:40 Nucleated RBCs/100 WBC 0.2 /100 WBC (0) H 09/07/17 20:46 Plt Count ,Citrate 141.9 (150-600) L 09/10/17 11:06 Immature Plt Fraction 18.4 % (1.1-6.1) H 09/11/17 08:40 ABG pCO2 50 mmHg (35-45) H 09/11/17 08:47 ABG pO2 68 mmHg (85-104) L 09/11/17 08:47 ABG Total CO2 29 mEq/L (20-26) H 09/11/17 08:47 ABG O2 Saturation 92 % (95-98) L 09/11/17 08:47 Sodium 124 mEq/L (136-145) L 09/10/17 10:33 Potassium 4.6 mEq/L (3.5-4.5) H 09/10/17 10:33 Chloride 94 mEq/L (98-109) L 09/10/17 10:33 Glucose 119 mg/dL (70-99) H 09/10/17 10:33 POC Glucose 99 (58-89) H 09/11/17 09:22 Calculated Osmolality 260 (280-300) L 09/10/17 10:33 Calcium 8.2 mg/dL (8.6-10.8) L 09/10/17 10:33 Troponin I 0.65 ng/mL (0-0.03) H* 09/11/17 08:40 Urine Ketones 15 mg/dL (Negative) H 09/08/17 09:15 - Diagnostic Findings Chest x-ray: report reviewed, image reviewed - Clinical Findings Intake & Output: Intake & Output 09/10/17 09/11/17 09/11/17 23:59 07:59 15:59 Intake Total 120 / 120 Output Total 300 / 300 Balance -180 / -180 Weight 48.3 kg
[2017-09-11 09:56] LABS: Mean Platelet Volume 8.9 fL (9.4-12.4)
[2017-09-11] MEDS: 0.9 % Sodium Chloride 1,000 ML IVC SCH ×3 (10:01→23:06)
[2017-09-11 10:06] LABS: INR 1.2; Prothrombin Time 12.8 Seconds (9.4-12.1)
[2017-09-11 10:09] LABS: Activated Partial Thrombo Time 28.8 Seconds (26.0-36.0)
[2017-09-11 11:05] LABS: Thyroid Stimulating Hormone 0.874 mcIU/mL (0.350-4.840)
[2017-09-11] MEDS ORDERED: Lidocaine Viscous Oral Soln 15 ML SOLUTION ONE (11:43)
[2017-09-11] MEDS ORDERED: cefTRIAXone 2,000 MG in Water for inj. (sterile) 20 ML IVP SCH (13:00)
[2017-09-11] MEDS ORDERED: *HR* Metoprolol 5 MG/5 ML VIAL IVP ONE (14:33)
[2017-09-11] MEDS: Piperacillin/Tazobactam 3.375 GM in 0.9 % Sodium Chloride Mini Bag 100 ML IVPB SCH ×2 (15:01→23:19)
[2017-09-11 15:04] LABS: Appearance of Body Fluid Cloudy (Clear); Volume of Body Fluid 18 mL
[2017-09-11] MEDS ORDERED: Lidocaine -MPF 1% 5 ML AMPUL INFILT ONE (15:46)
[2017-09-11] MEDS: GuaiFENesin/Dextromethorphan TABLET PO SCH ×2 (16:13→19:27)
[2017-09-11] MEDS: Folic Acid 1 MG TABLET PO SCH (16:13)
[2017-09-11] MEDS: amLODIPine 5 MG TABLET PO SCH (16:13)
[2017-09-11] MEDS: predniSONE 5 MG TABLET PO SCH (16:13)
[2017-09-11] MEDS: Multivit/Ca/Min/Fe/FA 1 TAB TABLET PO SCH (16:13)
[2017-09-11] MEDS ORDERED: *HR* Metoprolol 5 MG/5 ML VIAL IVP PRN (16:26)
--- NOTE | 2017-09-11 18:33 | Internal Med Progress Note ---
Date of Encounter: 09/11/17 Time of Encounter: 08:00 - Assessment and plan (1) Altered mental status Current Visit: Yes Status: Acute Assessment and plan: -Called by nurse to evaluate patient this morning due to being found unresponsive. -Rapid response was called and labs and imaging were ordered. -She was placed on BiPAP and a bolus of Cardizem was given due to atrial fibrillation with RVR; patient cardioverted -She was transferred to ICU for closer monitoring Qualifiers: Altered mental status type: unspecified Qualified Code(s): R41.82 - Altered mental status, unspecified (2) Compression fracture Current Visit: Yes Status: Chronic Assessment and plan: -Patient with thoracic compression fracture and orthopedics was consulted for recommendations for medical management and pain control. (3) Pneumonia Current Visit: Yes Status: Acute Assessment and plan: -Continue treatment with IV Levaquin. Qualifiers: Pneumonia type: due to unspecified organism Laterality: right Lung location: lower lobe of lung Qualified Code(s): J18.1 - Lobar pneumonia, unspecified organism (4) Hyponatremia Current Visit: Yes Status: Acute Assessment and plan: -Hypornatremia gradually improving from 117 to 124 over 4 days -Will monitor sodium levels. (5) Hypertension Current Visit: Yes Status: Acute Assessment and plan: -Stable; continue current management Qualifiers: Hypertension type: unspecified Qualified Code(s): I10 - Essential (primary ) hypertension (6) Hypothyroidism Current Visit: Yes Status: Chronic Assessment and plan: -Stable; continue current management. Qualifiers: Hypothyroidism type: unspecified Qualified Code(s): E03.9 - Hypothyroidism , unspecified (7) Rheumatoid arthritis Current Visit: No Status: Chronic Assessment and plan: -Continue home medications. Qualifiers: Rheumatoid arthritis location: multiple sites Rheumatoid factor presence: unspecified presence Qualified Code(s): M06.9 - Rheumatoid arthritis, unspecified - Subjective Interval history: -Called by nurse to evaluate patient this morning due to being found unresponsive. -Rapid response was called and labs and imaging were ordered. -She was placed on BiPAP and a bolus of Cardizem was given due to atrial fibrillation with RVR; patient cardioverted -She was transferred to ICU for closer monitoring - Constitutional Vitals: Temp Pulse Resp BP Pulse Ox 97.8 F 108 20 135/89 97 09/11/17 16:00 09/11/17 17:00 09/11/17 17:00 09/11/17 17:00 09/11/17 17:00 General appearance: Present: cachectic, A&O X 0, A&O X 3, no acute distress, severe distress, answers questions appropriately - Cardiovascular Cardiovascular exam: Present: tachycardia Internal Medicine: Result - Labs CBC & Chem 7: 09/11/17 08:40 09/11/17 08:40 Labs: Short CBC 09/11/17 Range/Units 08:40 WBC 8.4 (4.3-11.1) K/mcL Hgb 10.4 L (11.5-15.4) g/dL Hct 31.3 L (35.3-44.9) % Plt Count TNP Neutrophils # 7.0 (1.6-8.9) K/mcL BMP 09/11/17 08:40 Sodium 123 L Potassium 3.6 D Chloride 89 L Carbon Dioxide 25 BUN 12 Creatinine 0.52 L Glucose 117 H Calcium 8.5 L Cardiac Enzymes 09/11/17 09/11/17 Range/Units 08:40 14:51 Troponin I 0.65 H* 0.55 H* (0-0.03) ng/mL Liver Function 09/11/17 Range/Units 08:40 Total Bilirubin 0.3 (0.2-1.2) mg/dL AST 37 H (5-34) Units/L ALT 16 (0-55) Units/L Alkaline Phosphatase 86 (38-126) Units/L Albumin 2.6 L (3.5-5.0) g/dL - ABG Interpretation ABG results: ABG ABG pH 7.34 pH Units (7.32-7.45) 09/11/17 08:47 ABG pCO2 50 mmHg (35-45) H 09/11/17 08:47 ABG pO2 68 mmHg (85-104) L 09/11/17 08:47 ABG O2 Saturation 92 % (95-98) L 09/11/17 08:47 PT/INR, D-dimer PT 12.8 Seconds (9.4-12.1) H 09/11/17 08:40 - Impressions Impressions Head CT 09/11/17 08:27 IMPRESSION: 1. No acute intracranial abnormality. 2. Global parenchymal volume loss with chronic microvascular ischemic change. 3. Atherosclerosis. 4. Trace left mastoid effusion. D/ / Jerrod Mendoza MD / Jerrod Mendoza MD Interpreting Provider: Jerrod Mendoza MD Chest X-Ray 09/11/17 10:16 IMPRESSION: Small to moderate bilateral pleural effusions, right slightly greater than left. There are bilateral airspace opacities, right greater than left as well suspicious for pneumonia. Prominence of the right hilum is also noted which could be related to patient rotation. D/ / 09/11/2017 11:03:12 Isamar Paula MD / Naomi Malagon Interpreting Provider: Isamar Paula MD Echocardiogram 09/11/17 10:19 Impressions: LVEF 60-65%. Normal LV chamber size, wall thickness and function. Mild left ventricular diastolic dysfunction. Normal right ventricular structure and function. Moderately dilated left atrium. No evidence of pulmonary hypertension. No significant valvular dysfunction. Left Ventricular Wall Motion: Rest Echo Findings All wall segments showed normal motion. Findings: Study Quality * Technically adequate exam. ECG Findings * Normal sinus rhythm. Left Ventricle * LVEF 60-65%. * Normal LV chamber size, wall thickness and function. * Mild left ventricular diastolic dysfunction. Right Ventricle * Normal right ventricular structure and function. Left Atrium * Moderately dilated left atrium. Right Atrium * Mildly dilated right atrium. Interatrial Septum * Interatrial septum not well evaluated. Aortic Valve * Trileaflet aortic valve. * Moderately calcified noncoronary cusp. * No aortic regurgitation. * No aortic stenosis. Mitral Valve * Normal mitral valve structure and function. * No mitral stenosis. * Trace mitral regurgitation. Tricuspid Valve * Normal tricuspid valve structure and function. * Trace tricuspid regurgitation. * No evidence of pulmonary hypertension. Pulmonic Valve * Normal pulmonic valve structure and function. * Trace pulmonic regurgitation. Aorta * Normally sized aortic root. Pericardium * The pericardium appears normal. IVC * Normal IVC dimensions and inspiratory collapse. Pulmonary Artery * Normal visualized portions of the main pulmonary artery. Consult Discharge Plan - Plan Referrals: Yared Akhtar Jr, MD [Primary Care Provider] -
[2017-09-11] MEDS: *HR* Metoprolol 5 MG/5 ML VIAL IVP SCH (23:19)
[2017-09-12 03:44] LABS: Basophils % 0.1 %; Hemoglobin 9.2 g/dL (11.5-15.4); Immature Granulocytes % 0.5 % (0-4); Lymphocytes # 0.4 K/mcL (0.6-4.6); Lymphocytes % 5.5 %; Mean Corpuscular HGB Conc 31.7 g/dL (31.6-35.5); Mean Corpuscular Hemoglobin 28.8 pg (28.0-33.3); Mean Corpuscular Volume 90.6 fL (83.0-100.0); Mean Platelet Volume 8.8 fL (9.4-12.4); Monocytes # 0.9 K/mcL (0.0-1.3); Monocytes % 12.1 %; Neutrophils # 6.3 K/mcL (1.6-8.9); Platelet Count 135 K/mcL (140-400); Red Cell Distribution Width 13.7 % (11.5-14.5); Segmented Neutrophils % 81.8 %
[2017-09-12 03:56] LABS: BUN/Creatinine Ratio 27 (6-26); Blood Urea Nitrogen 13 mg/dL (7-20); Carbon Dioxide 23 mEq/L (19-29); Chloride 98 mEq/L (98-109); Glucose 85 mg/dL (70-99); Magnesium 1.2 mg/dL (1.6-2.6); Osmolality,Calculated 265 (280-300); Potassium 3.7 mEq/L (3.5-4.5); Sodium 128 mEq/L (136-145); eGFR For African Americans > 60 (> 60); eGFR For Non-African Americans > 60 (> 60)
[2017-09-12 03:57] LABS: Phosphorous 2.6 mg/dL (2.3-4.7)
[2017-09-12] MEDS: *HR* Heparin 5,000 UNIT/ML VIAL SQ SCH ×2 (04:01→18:06)
[2017-09-12] MEDS ORDERED: Magnesium Sulfate 1 GM in 0.9 % Sodium Chloride 50 ML IVPB ONE (06:00)
[2017-09-12] MEDS: 0.9 % Sodium Chloride 1,000 ML IVC SCH ×3 (08:01→21:49)
[2017-09-12] MEDS: Piperacillin/Tazobactam 3.375 GM in 0.9 % Sodium Chloride Mini Bag 100 ML IVPB SCH ×2 (08:05→15:35)
[2017-09-12] MEDS: *HR* Metoprolol 5 MG/5 ML VIAL IVP SCH (08:05)
--- NOTE | 2017-09-12 08:50 | Pulmonology Progress Note ---
<Leigh Fuller - Last Filed: 09/12/17 10:12> Date of Encounter: 09/12/17 Time of Encounter: 07:30 Assessment and Plan (1) Acute respiratory failure with hypoxia Current Visit: Yes Status: Acute - Desaturation to 85% noted when patient was off from BiPAP. - ABG pH 7.34, pCO2 50, pO2 68 and HCO3 27. - Likely secondary to mucus plug in the setting of pneumonia. - Bronchoscopy on 09/11 found mucus plug in the right main bronchus. BAL culture pending. - IV Zosyn for pneumonia. - Patient is full code and patient's is okay for intubation if it's medically necessary. - Will wean off from BiPAP to see if patient tolerates just supplemental oxygen. - Continue to monitor closely. (2) Pneumonia Current Visit: Yes Status: Acute - CXR on admission found new right lower lobe airspace disease suggesting pneumonia. - Concern of aspiration pneumonia as significant mucus plug was found only on the right lung per bronchoscopy. - Sputum gram stain found few GPC with culture pending. - BAL was obtained today and gram stain/culture ordered. - Continue IV Zosyn (since 09/11/17). Further de-escalation based on clinical course and culture result. - Will obtain swallow evaluation. Qualifiers: Pneumonia type: due to unspecified organism Laterality: right Lung location: lower lobe of lung Qualified Code(s): J18.1 - Lobar pneumonia, unspecified organism (3) Acute encephalopathy Current Visit: Yes Status: Resolved - Patient was noted to be unresponsive 09/11 morning that triggered the rapid response. - Likely multifactorial including acute respiratory failure in the setting of pneumonia, hyponatremia and A-fib - CT head found no acute intracranial abnormality. - Improves as patient becomes more alert and oriented. - Continue to monitor. (4) New onset atrial fibrillation Current Visit: Yes Status: Acute - Patient was noted to have A-fib at rate of 130s-140s during the rapid response on 09/11/17 morning. - Likely related to acute respiratory failure in the setting of missing home dose propanolol. - Converted back to sinus rhythm at rate of 70s-80s after one dose of Cardizem IV 10 mg. - Echocardiogram on 09/11/17 found LVEF 60-65%, mild LV diastolic dysfunction, no significant valvular dysfunction nor evidence of pulmonary hypertension. - Continue IV Lopressor scheduled with prn for rate control but will switch back to her home PO propanolol once patient passes swallow evaluation. - Continue to monitor with telemetry. (5) Hyponatremia Current Visit: Yes Status: Acute - Na 117 on admission. - Hypotonoic hypovolemic hyponatremia - Jerrod 74 and FENa = 1% today. Likely renal loss or SIADH. - Na continues to improve with 128 today. - Continue IV NS but will decrease the rate to 75 cc/hr - Continue to monitor Na. (6) Elevated troponin Current Visit: Yes Status: Acute - Elevated troponin 0.65 on 09/11/17 but then downtrend to 0.55 and 0.39. - No significant ischemic change on EKG. - Likely secondary to new-onset A-fib during the rapid response. (7) Compression fracture Current Visit: Yes Status: Chronic - Acute compression deformities of T5 and T7 per spine X-ray - Continue medical management and pain control as recommended by orthopedic. (8) Rheumatoid arthritis Current Visit: No Status: Chronic - Continue home dose prednisone 5 mg daily. Qualifiers: Rheumatoid arthritis location: multiple sites Rheumatoid factor presence: unspecified presence Qualified Code(s): M06.9 - Rheumatoid arthritis, unspecified (9) Hypothyroidism Current Visit: Yes Status: Chronic - Continue Synthroid. Qualifiers: Hypothyroidism type: unspecified Qualified Code(s): E03.9 - Hypothyroidism , unspecified (10) DVT prophylaxis Current Visit: Yes Status: Acute - Continue SQ heparin. Subjective Principal diagnosis: Acute respiratory failure with hypoxia Interval history: No significant event noted overnight. Patient was seen and examined this morning. Patient is much more alert and oriented compared to yesterday. Patient is still on BiPAP on my encounter. Patient reports breathing better and denies chest pain, abdominal pain. Objective PUL Vital signs: Last Vital Signs Temp 97.7 F 09/12/17 08:07 Pulse 66 09/12/17 08:00 Resp 14 09/12/17 08:00 BP 117/63 09/12/17 08:00 Pulse Ox 99 09/12/17 08:00 General appearance: no acute distress Eyes: nonicteric ENT: oropharynx dry Neck: supple Effort: normal Auscultation: bilateral: rhonchi Cardiovascular: regular rate and rhythm Gastrointestinal: hypoactive bowel sounds, soft, non-tender Integumentary: normal Extremities: no cyanosis, no edema Musculoskeletal: no deformities normal mental status, non-focal exam Results - Laboratory Findings CBC and BMP: 09/12/17 03:35 09/12/17 03:35 ABG ABG pH 7.34 pH Units (7.32-7.45) 09/11/17 08:47 ABG pCO2 50 mmHg (35-45) H 09/11/17 08:47 ABG pO2 68 mmHg (85-104) L 09/11/17 08:47 ABG O2 Saturation 92 % (95-98) L 09/11/17 08:47 PT/INR, D-dimer PT 12.8 Seconds (9.4-12.1) H 09/11/17 08:40 Abnormal lab findings: Abnormal lab results RBC 3.20 M/mcL (3.82-4.97) L 09/12/17 03:35 Hgb 9.2 g/dL (11.5-15.4) L 09/12/17 03:35 Hct 29.0 % (35.3-44.9) L 09/12/17 03:35 Plt Count 135 K/mcL (140-400) L 09/12/17 03:35 MPV 8.8 fL (9.4-12.4) L 09/12/17 03:35 Lymphocytes # 0.4 K/mcL (0.6-4.6) L 09/12/17 03:35 Nucleated RBCs/100 WBC 0.2 /100 WBC (0) H 09/07/17 20:46 Plt Count ,Citrate 148.5 (150-600) L 09/11/17 08:40 Immature Plt Fraction 18.4 % (1.1-6.1) H 09/11/17 08:40 PT 12.8 Seconds (9.4-12.1) H 09/11/17 08:40 ABG pCO2 50 mmHg (35-45) H 09/11/17 08:47 ABG pO2 68 mmHg (85-104) L 09/11/17 08:47 ABG Total CO2 29 mEq/L (20-26) H 09/11/17 08:47 ABG O2 Saturation 92 % (95-98) L 09/11/17 08:47 Sodium 128 mEq/L (136-145) L 09/12/17 03:35 Creatinine 0.49 mg/dL (0.57-1.11) L 09/12/17 03:35 BUN/Creatinine Ratio 27 (6-26) H 09/12/17 03:35 POC Glucose 99 (58-89) H 09/11/17 09:22 Calculated Osmolality 265 (280-300) L 09/12/17 03:35 Calcium 8.0 mg/dL (8.6-10.8) L 09/12/17 03:35 Magnesium 1.2 mg/dL (1.6-2.6) L 09/12/17 03:35 AST 37 Units/L (5-34) H 09/11/17 08:40 Troponin I 0.39 ng/mL (0-0.03) H* 09/11/17 20:30 Albumin 2.6 g/dL (3.5-5.0) L 09/11/17 08:40 Globulin 3.7 g/dL (2.4-3.5) H 09/11/17 08:40 Albumin/Globulin Ratio 0.7 (1.1-2.2) L 09/11/17 08:40 Urine Ketones 15 mg/dL (Negative) H 09/08/17 09:15 Fluid Appearance Cloudy (Clear) A 09/11/17 12:57 - Microbiology Findings Microbiology Findings: Microbiology, Last 48 Hours 09/10/17 16:56 Sputum Culture - Preliminary Sputum Gram Negative Adam 09/11/17 12:56 Gram Stain - Final Right Lower Lobe Lung - Clinical Findings Intake & Output: Intake & Output 09/11/17 09/12/17 09/12/17 23:59 07:59 15:59 Intake Total 1100 / 1100 100 / 100 1000 / 1000 Output Total 275 / 275 60 / 60 50 / 50 Balance 825 / 825 40 / 40 950 / 950 Weight 49.2 kg Consult Discharge Plan - Plan Referrals: Yared Akhtar Jr, MD [Primary Care Provider] - <Moise Aquino - Last Filed: 09/12/17 10:54> Date of Encounter: 09/12/17 Objective PUL Vital signs: Last Vital Signs Temp 97.7 F 09/12/17 08:07 Pulse 64 09/12/17 10:00 Resp 17 09/12/17 10:00 BP 115/60 09/12/17 10:00 Pulse Ox 100 09/12/17 10:00 Results - Laboratory Findings CBC and BMP: 09/12/17 03:35 09/12/17 03:35 ABG ABG pH 7.34 pH Units (7.32-7.45) 09/11/17 08:47 ABG pCO2 50 mmHg (35-45) H 09/11/17 08:47 ABG pO2 68 mmHg (85-104) L 09/11/17 08:47 ABG O2 Saturation 92 % (95-98) L 09/11/17 08:47 PT/INR, D-dimer PT 12.8 Seconds (9.4-12.1) H 09/11/17 08:40 Abnormal lab findings: Abnormal lab results RBC 3.20 M/mcL (3.82-4.97) L 09/12/17 03:35 Hgb 9.2 g/dL (11.5-15.4) L 09/12/17 03:35 Hct 29.0 % (35.3-44.9) L 09/12/17 03:35 Plt Count 135 K/mcL (140-400) L 09/12/17 03:35 MPV 8.8 fL (9.4-12.4) L 09/12/17 03:35 Lymphocytes # 0.4 K/mcL (0.6-4.6) L 09/12/17 03:35 Nucleated RBCs/100 WBC 0.2 /100 WBC (0) H 09/07/17 20:46 Plt Count ,Citrate 148.5 (150-600) L 09/11/17 08:40 Immature Plt Fraction 18.4 % (1.1-6.1) H 09/11/17 08:40 PT 12.8 Seconds (9.4-12.1) H 09/11/17 08:40 ABG pCO2 50 mmHg (35-45) H 09/11/17 08:47 ABG pO2 68 mmHg (85-104) L 09/11/17 08:47 ABG Total CO2 29 mEq/L (20-26) H 09/11/17 08:47 ABG O2 Saturation 92 % (95-98) L 09/11/17 08:47 Sodium 128 mEq/L (136-145) L 09/12/17 03:35 Creatinine 0.49 mg/dL (0.57-1.11) L 09/12/17 03:35 BUN/Creatinine Ratio 27 (6-26) H 09/12/17 03:35 POC Glucose 99 (58-89) H 09/11/17 09:22 Calculated Osmolality 265 (280-300) L 09/12/17 03:35 Calcium 8.0 mg/dL (8.6-10.8) L 09/12/17 03:35 Magnesium 1.2 mg/dL (1.6-2.6) L 09/12/17 03:35 AST 37 Units/L (5-34) H 09/11/17 08:40 Troponin I 0.39 ng/mL (0-0.03) H* 09/11/17 20:30 Albumin 2.6 g/dL (3.5-5.0) L 09/11/17 08:40 Globulin 3.7 g/dL (2.4-3.5) H 09/11/17 08:40 Albumin/Globulin Ratio 0.7 (1.1-2.2) L 09/11/17 08:40 Urine Ketones 15 mg/dL (Negative) H 09/08/17 09:15 Fluid Appearance Cloudy (Clear) A 09/11/17 12:57 - Microbiology Findings Microbiology Findings: Microbiology, Last 48 Hours 09/10/17 16:56 Sputum Culture - Preliminary Sputum Gram Negative Adam 09/11/17 12:56 Gram Stain - Final Right Lower Lobe Lung - Clinical Findings Intake & Output: Intake & Output 09/11/17 09/12/17 09/12/17 23:59 07:59 15:59 Intake Total 1100 / 1100 100 / 100 1050 / 1050 Output Total 275 / 275 60 / 60 50 / 50 Balance 825 / 825 40 / 40 1000 / 1000 Weight 49.2 kg - Attending Attestation I examined this patient and my medical decision-making was reviewed with the Resident Physician. I agree with the documented findings, disposition and treatment plan as described except to the extent set forth below. Patient seen and examined. Labs, radiology, chart personally reviewed. 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 Pulmonary: Acceptable oxygenation and ventilation. Continue pulmonary hygiene and incentive spirometry with noninvasive ventilation when necessary. Cardiovascular: stable GI: Nutrition per dietary and GI prophylaxis per routine Heme: DVT prophylaxis per routine ID: Continue antibiotics and plan to de-escalation Renal; urine out put and renal funtion reviewed. Lower IV fluid rate with improvement and hyponatremia. Endorcine: blood glucose is monitored Lines: all lines checked and no evidence of infections Skin: skin care to prevent pressure ulcers per nursing routine care Continue monitoring in ICU for another 1-2 days. She will high risk for complications due to her comorbidities.
[2017-09-12] MEDS: GuaiFENesin/Dextromethorphan TABLET PO SCH ×2 (09:36→20:01)
[2017-09-12] MEDS: predniSONE 5 MG TABLET PO SCH (09:36)
[2017-09-12] MEDS: Multivit/Ca/Min/Fe/FA 1 TAB TABLET PO SCH (09:36)
[2017-09-12] MEDS: Folic Acid 1 MG TABLET PO SCH (09:36)
[2017-09-12] MEDS: amLODIPine 5 MG TABLET PO SCH (09:42)
[2017-09-13] MEDS: Piperacillin/Tazobactam 3.375 GM in 0.9 % Sodium Chloride Mini Bag 100 ML IVPB SCH ×3 (00:27→15:58)
[2017-09-13 04:13] LABS: Basophils % 0.1 %; Eosinophils % 0.1 %; Hematocrit 30.2 % (35.3-44.9); Hemoglobin 9.5 g/dL (11.5-15.4); Immature Granulocytes % 0.8 % (0-4); Lymphocytes # 0.5 K/mcL (0.6-4.6); Lymphocytes % 4.7 %; Mean Corpuscular HGB Conc 31.5 g/dL (31.6-35.5); Mean Corpuscular Hemoglobin 28.7 pg (28.0-33.3); Mean Corpuscular Volume 91.2 fL (83.0-100.0); Mean Platelet Volume 8.9 fL (9.4-12.4); Monocytes # 1.4 K/mcL (0.0-1.3); Monocytes % 14.1 %; Neutrophils # 7.8 K/mcL (1.6-8.9); Platelet Count 153 K/mcL (140-400); Red Blood Count 3.31 M/mcL (3.82-4.97); Red Cell Distribution Width 13.8 % (11.5-14.5); Segmented Neutrophils % 80.2 %
[2017-09-13 04:27] LABS: BUN/Creatinine Ratio 36 (6-26); Blood Urea Nitrogen 19 mg/dL (7-20); Calcium 7.9 mg/dL (8.6-10.8); Carbon Dioxide 22 mEq/L (19-29); Chloride 103 mEq/L (98-109); Glucose 100 mg/dL (70-99); Magnesium 1.4 mg/dL (1.6-2.6); Osmolality,Calculated 274 (280-300); Phosphorous 2.8 mg/dL (2.3-4.7); Potassium 4.2 mEq/L (3.5-4.5); Sodium 131 mEq/L (136-145); eGFR For African Americans > 60 (> 60); eGFR For Non-African Americans > 60 (> 60)
[2017-09-13 04:29] LABS: VBG HCO3 22 mEq/L (21-27); VBG PCO2 43 mmHg (41-51); VBG PH 7.33 pH Units (7.32-7.42); VBG PO2 144 mmHg (25-50)
[2017-09-13 05:00] LABS: VBG Ionized Calcium 1.11 mmol/L (1.15-1.35); VBG PH 7.43 pH Units (7.32-7.42)
[2017-09-13] MEDS: *HR* Heparin 5,000 UNIT/ML VIAL SQ SCH ×2 (06:17→17:07)
--- NOTE | 2017-09-13 08:57 | Pulmonology Progress Note ---
<MilesMoise M - Last Filed: 09/13/17 12:11> Date of Encounter: 09/13/17 Objective PUL Vital signs: Last Vital Signs Temp 97.9 F 09/13/17 12:05 Pulse 83 09/13/17 11:00 Resp 27 09/13/17 11:00 BP 138/96 09/13/17 11:00 Pulse Ox 97 09/13/17 11:00 Results - Laboratory Findings CBC and BMP: 09/13/17 04:05 09/13/17 04:05 ABG ABG pH 7.34 pH Units (7.32-7.45) 09/11/17 08:47 ABG pCO2 50 mmHg (35-45) H 09/11/17 08:47 ABG pO2 68 mmHg (85-104) L 09/11/17 08:47 ABG O2 Saturation 92 % (95-98) L 09/11/17 08:47 PT/INR, D-dimer PT 12.8 Seconds (9.4-12.1) H 09/11/17 08:40 Abnormal lab findings: Abnormal lab results RBC 3.31 M/mcL (3.82-4.97) L 09/13/17 04:05 Hgb 9.5 g/dL (11.5-15.4) L 09/13/17 04:05 Hct 30.2 % (35.3-44.9) L 09/13/17 04:05 MCHC 31.5 g/dL (31.6-35.5) L 09/13/17 04:05 MPV 8.9 fL (9.4-12.4) L 09/13/17 04:05 Lymphocytes # 0.5 K/mcL (0.6-4.6) L 09/13/17 04:05 Monocytes # 1.4 K/mcL (0.0-1.3) H 09/13/17 04:05 Nucleated RBCs/100 WBC 0.2 /100 WBC (0) H 09/07/17 20:46 Plt Count ,Citrate 148.5 (150-600) L 09/11/17 08:40 Immature Plt Fraction 18.4 % (1.1-6.1) H 09/11/17 08:40 PT 12.8 Seconds (9.4-12.1) H 09/11/17 08:40 ABG pCO2 50 mmHg (35-45) H 09/11/17 08:47 ABG pO2 68 mmHg (85-104) L 09/11/17 08:47 ABG Total CO2 29 mEq/L (20-26) H 09/11/17 08:47 ABG O2 Saturation 92 % (95-98) L 09/11/17 08:47 VBG pH 7.43 pH Units (7.32-7.42) H 09/13/17 04:57 VBG pO2 144 mmHg (25-50) H 09/13/17 04:21 Sodium 131 mEq/L (136-145) L 09/13/17 04:05 Creatinine 0.53 mg/dL (0.57-1.11) L 09/13/17 04:05 BUN/Creatinine Ratio 36 (6-26) H 09/13/17 04:05 Glucose 100 mg/dL (70-99) H 09/13/17 04:05 POC Glucose 99 (58-89) H 09/11/17 09:22 Calculated Osmolality 274 (280-300) L 09/13/17 04:05 Calcium 7.9 mg/dL (8.6-10.8) L 09/13/17 04:05 Venous Ioniz Calcium 1.11 mmol/L (1.15-1.35) L 09/13/17 04:57 Magnesium 1.4 mg/dL (1.6-2.6) L 09/13/17 04:05 AST 37 Units/L (5-34) H 09/11/17 08:40 Troponin I 0.39 ng/mL (0-0.03) H* 09/11/17 20:30 Albumin 2.6 g/dL (3.5-5.0) L 09/11/17 08:40 Globulin 3.7 g/dL (2.4-3.5) H 09/11/17 08:40 Albumin/Globulin Ratio 0.7 (1.1-2.2) L 09/11/17 08:40 Urine Ketones 15 mg/dL (Negative) H 09/08/17 09:15 Fluid Appearance Cloudy (Clear) A 09/11/17 12:57 - Microbiology Findings Microbiology Findings: Microbiology, Last 48 Hours 09/11/17 12:56 Gram Stain - Final Right Lower Lobe Lung Respiratory Culture - Preliminary Yeast Species Staphylococcus aureus 09/10/17 16:56 Sputum Culture - Final Sputum Serratia marcescens 09/11/17 10:42 Urine Culture - Final Urine,Clean Catch No growth. - Clinical Findings Intake & Output: Intake & Output 09/12/17 09/13/17 09/13/17 23:59 07:59 15:59 Intake Total 1360 / 1360 150 / 150 1000 / 1000 Output Total 275 / 275 150 / 150 525 / 525 Balance 1085 / 1085 0 / 0 475 / 475 Weight 52.5 kg Consult Discharge Plan - Plan Referrals: Yared Akhtar Jr, MD [Primary Care Provider] - - Attending Attestation I examined this patient and my medical decision-making was reviewed with the Resident Physician. I agree with the documented findings, disposition and treatment plan as described except to the extent set forth below. Patient seen and examined. Labs, radiology, chart personally reviewed. 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 Continue broad-spectrum antibiotics and CT chest to make sure there is no parapneumonic empyema. Cardiovascular: Patient with evidence of A. fib with slow rate and EKG confirmed that. GI: Nutrition per dietary and GI prophylaxis per routine. Heme: DVT prophylaxis per routine ID: Continue antibiotics and plan to de-escalation Renal; urine out put and renal funtion reviewed Endorcine: blood glucose is monitored Lines: all lines checked and no evidence of infections Skin: skin care to prevent pressure ulcers per nursing routine care Patient still have symptoms even though she is improving I would prefer to keep her in ICU for next 24 hours. Discussed with the at the bedside. <Leigh Fuller - Last Filed: 09/13/17 13:11> Date of Encounter: 09/13/17 Time of Encounter: 08:00 Assessment and Plan (1) Acute respiratory failure with hypoxia Current Visit: Yes Status: Acute - Desaturation to 85% noted when patient was off from BiPAP. - ABG pH 7.34, pCO2 50, pO2 68 and HCO3 27 on 09/11 - Likely secondary to mucus plug in the setting of pneumonia. - Bronchoscopy on 09/11 found mucus plug in the right main bronchus. - Continue IV Zosyn (since 09/11) and add IV vancomycin for pneumonia. - Patient is full code and patient's is okay for intubation if it's medically necessary. - Continue supplemental oxygen and close monitoring. Patient can use BiPAP as needed. (2) Pneumonia Current Visit: Yes Status: Acute - CXR on admission found new right lower lobe airspace disease suggesting pneumonia. - Concern of aspiration pneumonia as significant mucus plug was found only on the right lung per bronchoscopy. - Sputum culture form 09/10/17 grew Serratia marcescens, torres-sensitive except resistance to cefazolin. - RLLL BAL from 09/11/17 grew yeast species and MRSA. - CT chest today found moderate bilateral pleural effusions with near complete right middle lobe and left lower lobe atelectasis and complete atelectasis of the right lower lobe. Focal narrowing of the right interlobar bronchus with occlusion of the right lower lobe bronchus which could be related to mucoid impaction. Multifocal airspace opacities are noted predominately within the right upper lobe suspicious for pneumonia. - Continue IV Zosyn (since 09/11) and add IV vancomycin for MRSA coverage. Further de-escalation based on clinical course and culture result. Qualifiers: Pneumonia type: due to unspecified organism Laterality: right Lung location: lower lobe of lung Qualified Code(s): J18.1 - Lobar pneumonia, unspecified organism (3) Hyponatremia Current Visit: Yes Status: Acute - Na 117 on admission. - Hypotonoic hypovolemic hyponatremia - Jerrod 74 and FENa = 1%. Likely renal loss or SIADH. - Na continues to improve with 131 today. - Continue IV fluid. - Continue to monitor Na. (4) New onset atrial fibrillation Current Visit: Yes Status: Acute - Patient was noted to have A-fib at rate of 130s-140s during the rapid response on 09/11/17 morning. - Likely related to acute respiratory failure in the setting of missing doses of propanolol. - Converted back to sinus rhythm at rate of 70s-80s after one dose of Cardizem IV 10 mg. - Echocardiogram on 09/11/17 found LVEF 60-65%, mild LV diastolic dysfunction, no significant valvular dysfunction nor evidence of pulmonary hypertension. - Continue reate control with home dose Propranolol. - Continue to monitor with telemetry. (5) Acute encephalopathy Current Visit: Yes Status: Resolved - Patient was noted to be unresponsive 09/11 morning that triggered the rapid response. - Likely multifactorial including acute respiratory failure in the setting of pneumonia, hyponatremia and A-fib - CT head found no acute intracranial abnormality. - Resolved as patient becomes more alert and oriented. - Continue to monitor. (6) Elevated troponin Current Visit: Yes Status: Acute - Elevated troponin 0.65 on 09/11/17 but then downtrend to 0.55 and 0.39. - No significant ischemic change on EKG. - Likely secondary to new-onset A-fib during the rapid response. (7) Compression fracture Current Visit: Yes Status: Chronic - Acute compression deformities of T5 and T7 per spine X-ray - Continue medical management and pain control as recommended by orthopedic. (8) Rheumatoid arthritis Current Visit: No Status: Chronic - Continue home dose prednisone 5 mg daily. Qualifiers: Rheumatoid arthritis location: multiple sites Rheumatoid factor presence: unspecified presence Qualified Code(s): M06.9 - Rheumatoid arthritis, unspecified (9) Hypothyroidism Current Visit: Yes Status: Chronic - Continue Synthroid. Qualifiers: Hypothyroidism type: unspecified Qualified Code(s): E03.9 - Hypothyroidism , unspecified (10) DVT prophylaxis Current Visit: Yes Status: Acute - Continue SQ heparin. Subjective Principal diagnosis: Acute respiratory failure with hypoxia Interval history: Patient did not require BiPAP overnight. Patient was seen and examined this morning. Patient is alert and oriented. Patient reports breathing fine and denies chest pain, abdominal pain, fever, chills. Objective PUL Vital signs: Last Vital Signs Temp 98.0 F 09/13/17 08:26 Pulse 61 09/13/17 07:00 Resp 20 09/13/17 07:00 BP 141/64 09/13/17 07:00 Pulse Ox 97 09/13/17 07:00 General appearance: no acute distress, alert Eyes: nonicteric ENT: oropharynx dry Neck: supple Effort: normal Auscultation: bilateral: diminished breath sounds Cardiovascular: regular rate and rhythm Gastrointestinal: normoactive bowel sounds, soft, non-tender Integumentary: normal Extremities: no cyanosis, no edema Musculoskeletal: no deformities Results - Laboratory Findings CBC and BMP: 09/13/17 04:05 09/13/17 04:05 ABG ABG pH 7.34 pH Units (7.32-7.45) 09/11/17 08:47 ABG pCO2 50 mmHg (35-45) H 09/11/17 08:47 ABG pO2 68 mmHg (85-104) L 09/11/17 08:47 ABG O2 Saturation 92 % (95-98) L 09/11/17 08:47 PT/INR, D-dimer PT 12.8 Seconds (9.4-12.1) H 09/11/17 08:40 Abnormal lab findings: Abnormal lab results RBC 3.31 M/mcL (3.82-4.97) L 09/13/17 04:05 Hgb 9.5 g/dL (11.5-15.4) L 09/13/17 04:05 Hct 30.2 % (35.3-44.9) L 09/13/17 04:05 MCHC 31.5 g/dL (31.6-35.5) L 09/13/17 04:05 MPV 8.9 fL (9.4-12.4) L 09/13/17 04:05 Lymphocytes # 0.5 K/mcL (0.6-4.6) L 09/13/17 04:05 Monocytes # 1.4 K/mcL (0.0-1.3) H 09/13/17 04:05 Nucleated RBCs/100 WBC 0.2 /100 WBC (0) H 09/07/17 20:46 Plt Count ,Citrate 148.5 (150-600) L 09/11/17 08:40 Immature Plt Fraction 18.4 % (1.1-6.1) H 09/11/17 08:40 PT 12.8 Seconds (9.4-12.1) H 09/11/17 08:40 ABG pCO2 50 mmHg (35-45) H 09/11/17 08:47 ABG pO2 68 mmHg (85-104) L 09/11/17 08:47 ABG Total CO2 29 mEq/L (20-26) H 09/11/17 08:47 ABG O2 Saturation 92 % (95-98) L 09/11/17 08:47 VBG pH 7.43 pH Units (7.32-7.42) H 09/13/17 04:57 VBG pO2 144 mmHg (25-50) H 09/13/17 04:21 Sodium 131 mEq/L (136-145) L 09/13/17 04:05 Creatinine 0.53 mg/dL (0.57-1.11) L 09/13/17 04:05 BUN/Creatinine Ratio 36 (6-26) H 09/13/17 04:05 Glucose 100 mg/dL (70-99) H 09/13/17 04:05 POC Glucose 99 (58-89) H 09/11/17 09:22 Calculated Osmolality 274 (280-300) L 09/13/17 04:05 Calcium 7.9 mg/dL (8.6-10.8) L 09/13/17 04:05 Venous Ioniz Calcium 1.11 mmol/L (1.15-1.35) L 09/13/17 04:57 Magnesium 1.4 mg/dL (1.6-2.6) L 09/13/17 04:05 AST 37 Units/L (5-34) H 09/11/17 08:40 Troponin I 0.39 ng/mL (0-0.03) H* 09/11/17 20:30 Albumin 2.6 g/dL (3.5-5.0) L 09/11/17 08:40 Globulin 3.7 g/dL (2.4-3.5) H 09/11/17 08:40 Albumin/Globulin Ratio 0.7 (1.1-2.2) L 09/11/17 08:40 Urine Ketones 15 mg/dL (Negative) H 09/08/17 09:15 Fluid Appearance Cloudy (Clear) A 09/11/17 12:57 - Microbiology Findings Microbiology Findings: Microbiology, Last 48 Hours 09/11/17 12:56 Gram Stain - Final Right Lower Lobe Lung Respiratory Culture - Preliminary Yeast Species Staphylococcus aureus 09/10/17 16:56 Sputum Culture - Final Sputum Serratia marcescens 09/11/17 10:42 Urine Culture - Final Urine,Clean Catch No growth. - Diagnostic Findings Chest x-ray: report reviewed, image reviewed CT scan - chest: report reviewed, image reviewed - Clinical Findings Intake & Output: Intake & Output 09/12/17 09/13/17 09/13/17 23:59 07:59 15:59 Intake Total 1360 / 1360 150 / 150 Output Total 275 / 275 150 / 150 225 / 225 Balance 1085 / 1085 0 / 0 -225 / -225 Weight 52.5 kg
[2017-09-13] MEDS ORDERED: Vancomycin 1,000 MG in D5% in Water 250 ML IVPB SCH ×2 (09:00→11:00)
[2017-09-13] MEDS: Folic Acid 1 MG TABLET PO SCH (09:09)
[2017-09-13] MEDS: GuaiFENesin/Dextromethorphan TABLET PO SCH ×3 (09:09→21:21)
[2017-09-13] MEDS: Multivit/Ca/Min/Fe/FA 1 TAB TABLET PO SCH (09:10)
[2017-09-13] MEDS: predniSONE 5 MG TABLET PO SCH (09:10)
[2017-09-13] MEDS: amLODIPine 5 MG TABLET PO SCH (09:10)
[2017-09-13] MEDS: 0.9 % Sodium Chloride 1,000 ML IVC SCH (11:21)
[2017-09-13] MEDS: Vancomycin 1,000 MG in D5% in Water 250 ML IVPB SCH (13:26)
[2017-09-13 17:17] LABS: Magnesium 1.5 mg/dL (1.6-2.6); Phosphorous 2.7 mg/dL (2.3-4.7)
[2017-09-13] MEDS: Ketorolac 15 MG/ML VIAL IVP PRN (17:35)
[2017-09-13 21:31] LABS: ABG Base Excess 0 mEq/L (-2 to 3); ABG HCO3 26 mEq/L (21-27); ABG Oxygen Saturation 100 % (95-98); ABG PCO2 46 mmHg (35-45); ABG PH 7.36 pH Units (7.32-7.45); ABG PO2 172 mmHg (85-104); ABG TCO2 27 mEq/L (20-26)
[2017-09-14] MEDS: Piperacillin/Tazobactam 3.375 GM in 0.9 % Sodium Chloride Mini Bag 100 ML IVPB SCH ×3 (00:12→16:34)
[2017-09-14] MEDS: 0.9 % Sodium Chloride 1,000 ML IVC SCH (00:48)
[2017-09-14 04:12] LABS: Basophils % 0.1 %; Hematocrit 28.1 % (35.3-44.9); Immature Granulocytes % 0.8 % (0-4); Lymphocytes # 0.3 K/mcL (0.6-4.6); Lymphocytes % 2.4 %; Mean Corpuscular Hemoglobin 29.2 pg (28.0-33.3); Mean Corpuscular Volume 91.2 fL (83.0-100.0); Monocytes # 1.6 K/mcL (0.0-1.3); Monocytes % 13.3 %; Neutrophils # 9.9 K/mcL (1.6-8.9); Platelet Count 125 K/mcL (140-400); Red Blood Count 3.08 M/mcL (3.82-4.97); Red Cell Distribution Width 14.2 % (11.5-14.5); Segmented Neutrophils % 83.4 %
[2017-09-14 04:21] LABS: BUN/Creatinine Ratio 26 (6-26); Blood Urea Nitrogen 12 mg/dL (7-20); Calcium 7.9 mg/dL (8.6-10.8); Carbon Dioxide 26 mEq/L (19-29); Chloride 103 mEq/L (98-109); Glucose 115 mg/dL (70-99); Magnesium 2.2 mg/dL (1.6-2.6); Osmolality,Calculated 279 (280-300); Potassium 3.2 mEq/L (3.5-4.5); Sodium 134 mEq/L (136-145); eGFR For African Americans > 60 (> 60); eGFR For Non-African Americans > 60 (> 60)
[2017-09-14 04:32] LABS: Phosphorous 4.2 mg/dL (2.3-4.7)
[2017-09-14] MEDS: *HR* Heparin 5,000 UNIT/ML VIAL SQ SCH ×2 (05:19→17:59)
[2017-09-14] MEDS ORDERED: Furosemide 20 MG/2 ML VIAL IVP ONE (07:24)
[2017-09-14] MEDS: amLODIPine 5 MG TABLET PO SCH (08:42)
[2017-09-14] MEDS: Multivit/Ca/Min/Fe/FA 1 TAB TABLET PO SCH (08:42)
[2017-09-14] MEDS: predniSONE 5 MG TABLET PO SCH (08:42)
[2017-09-14] MEDS: GuaiFENesin/Dextromethorphan TABLET PO SCH ×3 (08:42→21:10)
[2017-09-14] MEDS: Folic Acid 1 MG TABLET PO SCH (08:43)
--- NOTE | 2017-09-14 09:47 | Pulmonology Progress Note ---
<Leigh Fuller - Last Filed: 09/14/17 14:01> Date of Encounter: 09/14/17 Time of Encounter: 09:15 Assessment and Plan (1) Acute respiratory failure with hypoxia Current Visit: Yes Status: Acute - Desaturation to 85% noted when patient was off from BiPAP. - ABG pH 7.34, pCO2 50, pO2 68 and HCO3 27 on 09/11 - Likely secondary to mucus plug in the setting of pneumonia. - Bronchoscopy on 09/11 found mucus plug in the right main bronchus. - Continue IV Zosyn (since 09/11) and IV vancomycin (since 09/13) for pneumonia. - Start chest physiotherapy/pulmonary toileting to facilitate mucus movement. - Continue supplemental oxygen/non-invasive ventilation. Continue close monitoring. - Patient is full code and patient's is okay for intubation if it's medically necessary. (2) Pneumonia Current Visit: Yes Status: Acute - CXR on admission found new right lower lobe airspace disease suggesting pneumonia. - Concern of aspiration pneumonia as significant mucus plug was found only on the right lung per bronchoscopy. - Sputum culture form 09/10/17 grew Serratia marcescens, torres-sensitive except resistance to cefazolin. - RLLL BAL from 09/11/17 grew yeast species, MRSA and GNR. - CT chest on 09/13/17 found moderate bilateral pleural effusions with near complete right middle lobe and left lower lobe atelectasis and complete atelectasis of the right lower lobe. Focal narrowing of the right interlobar bronchus with occlusion of the right lower lobe bronchus which could be related to mucoid impaction. Multifocal airspace opacities are noted predominately within the right upper lobe suspicious for pneumonia. - Continue IV Zosyn (since 09/11) and IV vancomycin (since 09/13). Further de- escalation based on clinical course and culture result. Qualifiers: Pneumonia type: due to unspecified organism Laterality: right Lung location: lower lobe of lung Qualified Code(s): J18.1 - Lobar pneumonia, unspecified organism (3) Hyponatremia Current Visit: Yes Status: Acute - Na 117 on admission. - Hypotonoic hypovolemic hyponatremia - Jerrod 74 and FENa = 1%. Likely renal loss or SIADH. - Na continues to improve with 134 today. - Will discontinue IV saline at this time. - Continue to monitor Na. (4) New onset atrial fibrillation Current Visit: Yes Status: Acute - Patient was noted to have A-fib at rate of 130s-140s during the rapid response on 09/11/17 morning. - Likely related to acute respiratory failure in the setting of missing doses of propanolol. - Converted back to sinus rhythm at rate of 70s-80s after one dose of Cardizem IV 10 mg. - Echocardiogram on 09/11/17 found LVEF 60-65%, mild LV diastolic dysfunction, no significant valvular dysfunction nor evidence of pulmonary hypertension. - Continue rate control with home dose Propranolol. - Continue to monitor with telemetry. (5) Acute encephalopathy Current Visit: Yes Status: Resolved - Patient was noted to be unresponsive 09/11 morning that triggered the rapid response. - Likely multifactorial including acute respiratory failure in the setting of pneumonia, hyponatremia and A-fib - CT head found no acute intracranial abnormality. - Improves as patient becomes more alert and oriented. - Continue to monitor. (6) Elevated troponin Current Visit: Yes Status: Acute - Elevated troponin 0.65 on 09/11/17 but then downtrend to 0.55 and 0.39. - No significant ischemic change on EKG. - Likely secondary to new-onset A-fib during the rapid response. (7) Compression fracture Current Visit: Yes Status: Chronic - Acute compression deformities of T5 and T7 per spine X-ray - Continue medical management and pain control as recommended by orthopedic. (8) Rheumatoid arthritis Current Visit: No Status: Chronic - Continue home dose prednisone 5 mg daily. Qualifiers: Rheumatoid arthritis location: multiple sites Rheumatoid factor presence: unspecified presence Qualified Code(s): M06.9 - Rheumatoid arthritis, unspecified (9) Hypothyroidism Current Visit: Yes Status: Chronic - Continue Synthroid. Qualifiers: Hypothyroidism type: unspecified Qualified Code(s): E03.9 - Hypothyroidism , unspecified (10) DVT prophylaxis Current Visit: Yes Status: Acute - Continue SQ heparin. Subjective Principal diagnosis: Acute respiratory failure with hypoxia Interval history: Patient was on BiPAP overnight and nurse reports patient becomes tachycardic every times being off from BiPAP. Patient was seen and examined this morning. Patient is somnolent but arousable by verbal stimuli. Patient denies chest pain or abdominal pain. Objective PUL Vital signs: Last Vital Signs Temp 97.7 F 09/14/17 07:10 Pulse 112 09/14/17 09:00 Resp 28 09/14/17 09:00 BP 140/73 09/14/17 09:00 Pulse Ox 99 09/14/17 09:00 General appearance: asleep (Arousable by verbal stimuli) Eyes: nonicteric ENT: other (On BiPAP) Neck: supple Effort: normal Auscultation: bilateral: rales (Bibasilar crackles) Cardiovascular: regular rate and rhythm Gastrointestinal: normoactive bowel sounds, soft, non-tender Integumentary: normal Extremities: no cyanosis, no edema Musculoskeletal: no deformities non-focal exam Results - Laboratory Findings CBC and BMP: 09/14/17 03:56 09/14/17 11:05 ABG ABG pH 7.36 pH Units (7.32-7.45) 09/13/17 21:24 ABG pCO2 46 mmHg (35-45) H 09/13/17 21:24 ABG pO2 172 mmHg (85-104) H 09/13/17 21:24 ABG O2 Saturation 100 % (95-98) H 09/13/17 21:24 PT/INR, D-dimer PT 12.8 Seconds (9.4-12.1) H 09/11/17 08:40 Abnormal lab findings: Abnormal lab results WBC 11.9 K/mcL (4.3-11.1) H 09/14/17 03:56 RBC 3.08 M/mcL (3.82-4.97) L 09/14/17 03:56 Hgb 9.0 g/dL (11.5-15.4) L 09/14/17 03:56 Hct 28.1 % (35.3-44.9) L 09/14/17 03:56 Plt Count 125 K/mcL (140-400) L 09/14/17 03:56 MPV 9.0 fL (9.4-12.4) L 09/14/17 03:56 Neutrophils # 9.9 K/mcL (1.6-8.9) H 09/14/17 03:56 Lymphocytes # 0.3 K/mcL (0.6-4.6) L 09/14/17 03:56 Monocytes # 1.6 K/mcL (0.0-1.3) H 09/14/17 03:56 Nucleated RBCs/100 WBC 0.2 /100 WBC (0) H 09/07/17 20:46 Plt Count ,Citrate 148.5 (150-600) L 09/11/17 08:40 Immature Plt Fraction 18.4 % (1.1-6.1) H 09/11/17 08:40 PT 12.8 Seconds (9.4-12.1) H 09/11/17 08:40 ABG pCO2 46 mmHg (35-45) H 09/13/17 21:24 ABG pO2 172 mmHg (85-104) H 09/13/17 21:24 ABG Total CO2 27 mEq/L (20-26) H 09/13/17 21:24 ABG O2 Saturation 100 % (95-98) H 09/13/17 21:24 VBG pH 7.43 pH Units (7.32-7.42) H 09/13/17 04:57 VBG pO2 144 mmHg (25-50) H 09/13/17 04:21 Sodium 134 mEq/L (136-145) L 09/14/17 03:56 Potassium 3.2 mEq/L (3.5-4.5) L D 09/14/17 03:56 Creatinine 0.46 mg/dL (0.57-1.11) L 09/14/17 03:56 Glucose 115 mg/dL (70-99) H 09/14/17 03:56 POC Glucose 99 (58-89) H 09/11/17 09:22 Calculated Osmolality 279 (280-300) L 09/14/17 03:56 Calcium 7.9 mg/dL (8.6-10.8) L 09/14/17 03:56 Venous Ioniz Calcium 1.11 mmol/L (1.15-1.35) L 09/13/17 04:57 AST 37 Units/L (5-34) H 09/11/17 08:40 Troponin I 0.39 ng/mL (0-0.03) H* 09/11/17 20:30 Albumin 2.6 g/dL (3.5-5.0) L 09/11/17 08:40 Globulin 3.7 g/dL (2.4-3.5) H 09/11/17 08:40 Albumin/Globulin Ratio 0.7 (1.1-2.2) L 09/11/17 08:40 Urine Ketones 15 mg/dL (Negative) H 09/08/17 09:15 Fluid Appearance Cloudy (Clear) A 09/11/17 12:57 - Microbiology Findings Microbiology Findings: Microbiology, Last 48 Hours 09/11/17 12:56 Gram Stain - Final Right Lower Lobe Lung Respiratory Culture - Preliminary Yeast Species Methicillin Resistant S.aureus Gram Negative Adam 09/10/17 16:56 Sputum Culture - Final Sputum Serratia marcescens 09/11/17 10:42 Urine Culture - Final Urine,Clean Catch No growth. - Clinical Findings Intake & Output: Intake & Output 09/13/17 09/14/17 09/14/17 23:59 07:59 15:59 Intake Total 150 / 150 1600 / 1600 Output Total 200 / 200 525 / 525 Balance -50 / -50 1075 / 1075 Weight 56.6 kg Consult Discharge Plan - Plan Referrals: Yared Akhtar Jr, MD [Primary Care Provider] - <Niles Huber - Last Filed: 09/14/17 22:59> Date of Encounter: 09/14/17 Objective PUL Vital signs: Last Vital Signs Temp 98.0 F 09/14/17 18:08 Pulse 82 09/14/17 18:00 Resp 19 09/14/17 18:00 BP 116/72 09/14/17 18:00 Pulse Ox 100 09/14/17 18:00 Results - Laboratory Findings CBC and BMP: 09/14/17 03:56 09/14/17 11:05 ABG ABG pH 7.36 pH Units (7.32-7.45) 09/13/17 21:24 ABG pCO2 46 mmHg (35-45) H 09/13/17 21:24 ABG pO2 172 mmHg (85-104) H 09/13/17 21:24 ABG O2 Saturation 100 % (95-98) H 09/13/17 21:24 PT/INR, D-dimer PT 12.8 Seconds (9.4-12.1) H 09/11/17 08:40 Abnormal lab findings: Abnormal lab results WBC 11.9 K/mcL (4.3-11.1) H 09/14/17 03:56 RBC 3.08 M/mcL (3.82-4.97) L 09/14/17 03:56 Hgb 9.0 g/dL (11.5-15.4) L 09/14/17 03:56 Hct 28.1 % (35.3-44.9) L 09/14/17 03:56 Plt Count 125 K/mcL (140-400) L 09/14/17 03:56 MPV 9.0 fL (9.4-12.4) L 09/14/17 03:56 Neutrophils # 9.9 K/mcL (1.6-8.9) H 09/14/17 03:56 Lymphocytes # 0.3 K/mcL (0.6-4.6) L 09/14/17 03:56 Monocytes # 1.6 K/mcL (0.0-1.3) H 09/14/17 03:56 Nucleated RBCs/100 WBC 0.2 /100 WBC (0) H 09/07/17 20:46 Plt Count ,Citrate 148.5 (150-600) L 09/11/17 08:40 Immature Plt Fraction 18.4 % (1.1-6.1) H 09/11/17 08:40 PT 12.8 Seconds (9.4-12.1) H 09/11/17 08:40 ABG pCO2 46 mmHg (35-45) H 09/13/17 21:24 ABG pO2 172 mmHg (85-104) H 09/13/17 21:24 ABG Total CO2 27 mEq/L (20-26) H 09/13/17 21:24 ABG O2 Saturation 100 % (95-98) H 09/13/17 21:24 VBG pH 7.43 pH Units (7.32-7.42) H 09/13/17 04:57 VBG pO2 144 mmHg (25-50) H 09/13/17 04:21 Sodium 134 mEq/L (136-145) L 09/14/17 03:56 Potassium 3.3 mEq/L (3.5-4.5) L 09/14/17 11:05 Creatinine 0.46 mg/dL (0.57-1.11) L 09/14/17 03:56 Glucose 115 mg/dL (70-99) H 09/14/17 03:56 POC Glucose 99 (58-89) H 09/11/17 09:22 Calculated Osmolality 279 (280-300) L 09/14/17 03:56 Calcium 7.9 mg/dL (8.6-10.8) L 09/14/17 03:56 Venous Ioniz Calcium 1.11 mmol/L (1.15-1.35) L 09/13/17 04:57 AST 37 Units/L (5-34) H 09/11/17 08:40 Troponin I 0.39 ng/mL (0-0.03) H* 09/11/17 20:30 Albumin 2.6 g/dL (3.5-5.0) L 09/11/17 08:40 Globulin 3.7 g/dL (2.4-3.5) H 09/11/17 08:40 Albumin/Globulin Ratio 0.7 (1.1-2.2) L 09/11/17 08:40 Urine Ketones 15 mg/dL (Negative) H 09/08/17 09:15 Fluid Appearance Cloudy (Clear) A 09/11/17 12:57 - Microbiology Findings Microbiology Findings: Microbiology, Last 48 Hours 09/11/17 12:56 Gram Stain - Final Right Lower Lobe Lung Respiratory Culture - Preliminary Yeast Species Methicillin Resistant S.aureus Gram Negative Adam 09/10/17 16:56 Sputum Culture - Final Sputum Serratia marcescens - Clinical Findings Intake & Output: Intake & Output 09/14/17 09/14/17 09/14/17 07:59 15:59 23:59 Intake Total 1600 / 1600 910 / 910 450 / 450 Output Total 525 / 525 850 / 850 550 / 550 Balance 1075 / 1075 60 / 60 -100 / -100 Weight 56.6 kg - Attending Attestation I saw the patient with the resident agree with History and Physical exam findings. Labs and Radiology were reviewed Patient is on BIPAP TRANSPORT SPECIALIST: Patient is conscious following commands with on and off confusion NECK : No JVD appreciated Pulmonary : Patient has hypoxic respiratory failure due to Right lower lobe pneumonia , patient had mucous plugging in the Right main bronchus had bronchoscopy with lot of secretion BAL is growing MRSA and GNR . Will do aggressive bronchopulmonary toileting . Cardiac : Hemodynamically stable , A fib with RVR episodes happens when there is increased work of breathing Nutrition/GI: Patient is NPO except for meds . PPI prophylaxis Renal : Labs and UOP reviewed Heme onc : No acute issues ID : Pneumonia BAL growing MRSA and GNR to continue broad spectrum antibiotics Musculo skeletal / skin issues : no acute issues Disposition : High chance of respiratory decline will monitor in ICU Code status: Full Code Family/POA: and Daughter . Spent 35 minutes of Critical Care in making medical decision making in prevention of vital organ decline and support of vital organ function.
--- NOTE | 2017-09-14 11:37 | Electrocardiograph Report ---
[address] [place], [place] [address] Test Date: 2017-09-13 Pat Name: Shyla Laurent Department: 109 Room: [facility] Gender: F Margarine Churn Operator: MINERVA : 1940 Requested By: Moise Aquino Order Number: [id number] Reading MD: Jay Martínez Measurements Intervals [place] Rate: 72 P: [place]: 0 QRS: -4 QRSD: 95 T: -2 QT: 356 QTc: 381 Interpretive Statements ATRIAL FIBRILLATION ABNORMAL RHYTHM ECG Electronically Signed On 09-14-2017 11:36:14 EST by Jay Martínez
[2017-09-14] MEDS: Vancomycin 1,000 MG in D5% in Water 250 ML IVPB SCH (14:15)
--- NOTE | 2017-09-14 19:14 | Electrocardiograph Report ---
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
--- NOTE | 2017-09-14 19:22 | Electrocardiograph Report ---
[address] [place], [place] [address] Test Date: 2017-09-11 Pat Name: Shyla Laurent Department: 109 Room: [facility] Gender: F Machine I Coremaker: : 1940 Requested By: Leigh Fuller Order Number: [id number] Reading MD: Joe Smith MD Measurements Intervals [place] Rate: 87 P: 59 [place]: 146 QRS: 7 QRSD: 86 T: 53 QT: 351 QTc: 396 Interpretive Statements SINUS RHYTHM WITH OCCASIONAL SUPRAVENTRICULAR PREMATURE COMPLEXES Electronically Signed On 09-14-2017 19:20:46 EST by Joe Smith MD
[2017-09-15] MEDS: Piperacillin/Tazobactam 3.375 GM in 0.9 % Sodium Chloride Mini Bag 100 ML IVPB SCH ×2 (01:11→07:49)
[2017-09-15 03:25] LABS: Basophils % 0.1 %; Eosinophils # 0.1 K/mcL (0.0-0.6); Eosinophils % 0.6 %; Hematocrit 27.5 % (35.3-44.9); Hemoglobin 8.9 g/dL (11.5-15.4); Immature Granulocytes % 1.2 % (0-4); Lymphocytes # 0.7 K/mcL (0.6-4.6); Mean Corpuscular HGB Conc 32.4 g/dL (31.6-35.5); Mean Corpuscular Volume 89.6 fL (83.0-100.0); Mean Platelet Volume 9.8 fL (9.4-12.4); Monocytes # 1.3 K/mcL (0.0-1.3); Monocytes % 12.6 %; Neutrophils # 7.8 K/mcL (1.6-8.9); Platelet Count 125 K/mcL (140-400); Red Blood Count 3.07 M/mcL (3.82-4.97); Red Cell Distribution Width 14.3 % (11.5-14.5); Segmented Neutrophils % 78.5 %
[2017-09-15 03:38] LABS: BUN/Creatinine Ratio 24 (6-26); Blood Urea Nitrogen 12 mg/dL (7-20); Carbon Dioxide 27 mEq/L (19-29); Chloride 101 mEq/L (98-109); Glucose 94 mg/dL (70-99); Magnesium 1.5 mg/dL (1.6-2.6); Osmolality,Calculated 276 (280-300); Potassium 3.9 mEq/L (3.5-4.5); Sodium 133 mEq/L (136-145); eGFR For African Americans > 60 (> 60); eGFR For Non-African Americans > 60 (> 60)
[2017-09-15 03:39] LABS: Phosphorous 1.9 mg/dL (2.3-4.7)
[2017-09-15] MEDS: *HR* Heparin 5,000 UNIT/ML VIAL SQ SCH ×2 (05:39→18:01)
--- NOTE | 2017-09-15 09:41 | Pulmonology Progress Note ---
<Leigh Fuller - Last Filed: 09/15/17 11:17> Date of Encounter: 09/15/17 Time of Encounter: 08:30 Assessment and Plan (1) Acute respiratory failure with hypoxia Current Visit: Yes Status: Acute - Desaturation to 85% noted when patient was off from BiPAP. - ABG pH 7.34, pCO2 50, pO2 68 and HCO3 27 on 09/11 - Likely secondary to mucus plug in the setting of pneumonia. - Bronchoscopy on 09/11 found mucus plug in the right main bronchus. - Continue IV Zosyn (since 09/11) and IV vancomycin (since 09/13) for pneumonia. - Continue chest physiotherapy/pulmonary toileting to facilitate mucus movement. - Continue Lasix to minimize fluid overload. - Continue supplemental oxygen/non-invasive ventilation. Continue close monitoring. - Patient is full code and patient's is okay for intubation if it's medically necessary. (2) Pneumonia Current Visit: Yes Status: Acute - CXR on admission found new right lower lobe airspace disease suggesting pneumonia. - Concern of aspiration pneumonia as significant mucus plug was found only on the right lung per bronchoscopy. - Sputum culture form 09/10/17 grew Serratia marcescens, torres-sensitive except resistance to cefazolin. - RLLL BAL from 09/11/17 grew yeast species, MRSA and Serratia marcescens. - CT chest on 09/13/17 found moderate bilateral pleural effusions with near complete right middle lobe and left lower lobe atelectasis and complete atelectasis of the right lower lobe. Focal narrowing of the right interlobar bronchus with occlusion of the right lower lobe bronchus which could be related to mucoid impaction. Multifocal airspace opacities are noted predominately within the right upper lobe suspicious for pneumonia. - Continue IV Zosyn (since 09/11) and IV vancomycin (since 09/13). Further de- escalation based on clinical course and culture result. Qualifiers: Pneumonia type: due to methicillin-resistant Staphylococcus aureus (MRSA) Laterality: right Lung location: lower lobe of lung Qualified Code(s): J15.212 - Pneumonia due to Methicillin resistant Staphylococcus aureus (3) Hyponatremia Current Visit: Yes Status: Acute - Na 117 on admission. - Hypotonoic hypovolemic hyponatremia - Jerrod 74 and FENa = 1%. Likely renal loss or SIADH. - Improves as Na 133 today. - Continue to monitor. (4) New onset atrial fibrillation Current Visit: Yes Status: Acute - Patient was noted to have A-fib at rate of 130s-140s during the rapid response on 09/11/17 morning. - Likely related to acute respiratory failure in the setting of missing doses of propanolol. - Converted back to sinus rhythm at rate of 70s-80s after one dose of Cardizem IV 10 mg. - Echocardiogram on 09/11/17 found LVEF 60-65%, mild LV diastolic dysfunction, no significant valvular dysfunction nor evidence of pulmonary hypertension. - Noted to have tachycardia while being off from BiPAP. - Given patient is currently NPO, will switch to Cardizem IV 10 mg q6H for now. - Continue to monitor with telemetry. (5) Acute encephalopathy Current Visit: Yes Status: Resolved - Patient was noted to be unresponsive 09/11 morning that triggered the rapid response. - Likely multifactorial including acute respiratory failure in the setting of pneumonia, hyponatremia and A-fib - CT head found no acute intracranial abnormality. - Improves as patient becomes more alert and oriented. - Continue to monitor. (6) Elevated troponin Current Visit: Yes Status: Acute - Elevated troponin 0.65 on 09/11/17 but then downtrend to 0.55 and 0.39. - No significant ischemic change on EKG. - Likely secondary to new-onset A-fib during the rapid response. (7) Compression fracture Current Visit: Yes Status: Chronic - Acute compression deformities of T5 and T7 per spine X-ray - Continue medical management and pain control as recommended by orthopedic. (8) Rheumatoid arthritis Current Visit: No Status: Chronic - On prednisone 5 mg daily at home. Qualifiers: Rheumatoid arthritis location: multiple sites Rheumatoid factor presence: unspecified presence Qualified Code(s): M06.9 - Rheumatoid arthritis, unspecified (9) Hypothyroidism Current Visit: Yes Status: Chronic - Continue Synthroid. Qualifiers: Hypothyroidism type: unspecified Qualified Code(s): E03.9 - Hypothyroidism , unspecified (10) DVT prophylaxis Current Visit: Yes Status: Acute - Continue SQ heparin. Subjective Principal diagnosis: Acute respiratory failure with hypoxia Interval history: Patient remained on BiPAP overnight. Patient was seen and examined this morning. Patient is more alert compared to yesterday. Patient denies chest pain or abdominal pain. Objective PUL Vital signs: Last Vital Signs Temp 98.3 F 09/15/17 07:59 Pulse 81 09/15/17 06:00 Resp 25 09/15/17 08:38 BP 142/51 09/15/17 08:38 Pulse Ox 100 09/15/17 08:38 General appearance: no acute distress Eyes: nonicteric ENT: oropharynx dry (On BiPAP) Neck: supple Effort: normal Auscultation: bilateral: diminished breath sounds Cardiovascular: regular rate and rhythm Gastrointestinal: normoactive bowel sounds, soft, non-tender Integumentary: normal Extremities: no cyanosis, no edema Musculoskeletal: other (Significant hadn arthritis consistent with rheumatoid arthritis.) normal mental status Results - Laboratory Findings CBC and BMP: 09/15/17 03:10 09/15/17 03:10 ABG ABG pH 7.36 pH Units (7.32-7.45) 09/13/17 21:24 ABG pCO2 46 mmHg (35-45) H 09/13/17 21:24 ABG pO2 172 mmHg (85-104) H 09/13/17 21:24 ABG O2 Saturation 100 % (95-98) H 09/13/17 21:24 PT/INR, D-dimer PT 12.8 Seconds (9.4-12.1) H 09/11/17 08:40 Abnormal lab findings: Abnormal lab results RBC 3.07 M/mcL (3.82-4.97) L 09/15/17 03:10 Hgb 8.9 g/dL (11.5-15.4) L 09/15/17 03:10 Hct 27.5 % (35.3-44.9) L 09/15/17 03:10 Plt Count 125 K/mcL (140-400) L 09/15/17 03:10 Nucleated RBCs/100 WBC 0.2 /100 WBC (0) H 09/07/17 20:46 Plt Count ,Citrate 148.5 (150-600) L 09/11/17 08:40 Immature Plt Fraction 18.4 % (1.1-6.1) H 09/11/17 08:40 PT 12.8 Seconds (9.4-12.1) H 09/11/17 08:40 ABG pCO2 46 mmHg (35-45) H 09/13/17 21:24 ABG pO2 172 mmHg (85-104) H 09/13/17 21:24 ABG Total CO2 27 mEq/L (20-26) H 09/13/17 21:24 ABG O2 Saturation 100 % (95-98) H 09/13/17 21:24 VBG pH 7.43 pH Units (7.32-7.42) H 09/13/17 04:57 VBG pO2 144 mmHg (25-50) H 09/13/17 04:21 Sodium 133 mEq/L (136-145) L 09/15/17 03:10 Creatinine 0.49 mg/dL (0.57-1.11) L 09/15/17 03:10 POC Glucose 99 (58-89) H 09/11/17 09:22 Calculated Osmolality 276 (280-300) L 09/15/17 03:10 Calcium 8.0 mg/dL (8.6-10.8) L 09/15/17 03:10 Venous Ioniz Calcium 1.11 mmol/L (1.15-1.35) L 09/13/17 04:57 Phosphorus 1.9 mg/dL (2.3-4.7) L D 09/15/17 03:10 Magnesium 1.5 mg/dL (1.6-2.6) L 09/15/17 03:10 AST 37 Units/L (5-34) H 09/11/17 08:40 Troponin I 0.39 ng/mL (0-0.03) H* 09/11/17 20:30 Albumin 2.6 g/dL (3.5-5.0) L 09/11/17 08:40 Globulin 3.7 g/dL (2.4-3.5) H 09/11/17 08:40 Albumin/Globulin Ratio 0.7 (1.1-2.2) L 09/11/17 08:40 Urine Ketones 15 mg/dL (Negative) H 09/08/17 09:15 Fluid Appearance Cloudy (Clear) A 09/11/17 12:57 - Microbiology Findings Microbiology Findings: Microbiology, Last 48 Hours 09/11/17 12:56 Gram Stain - Final Right Lower Lobe Lung Respiratory Culture - Preliminary Yeast Species Methicillin Resistant S.aureus Gram Negative Adam - Clinical Findings Intake & Output: Intake & Output 09/14/17 09/15/17 09/15/17 23:59 07:59 15:59 Intake Total 710 / 710 200 / 200 100 / 100 Output Total 700 / 700 150 / 150 Balance 50 / 50 100 / 100 Weight 55.28 kg Consult Discharge Plan - Plan Referrals: Yared Akhtar Jr, MD [Primary Care Provider] - <DarrinNiles che S - Last Filed: 09/15/17 20:09> Date of Encounter: 09/15/17 Objective PUL Vital signs: Last Vital Signs Temp 98.0 F 09/15/17 15:53 Pulse 89 09/15/17 18:00 Resp 22 09/15/17 18:00 BP 133/83 09/15/17 18:00 Pulse Ox 90 09/15/17 18:29 Results - Laboratory Findings CBC and BMP: 09/15/17 03:10 09/15/17 12:25 ABG ABG pH 7.36 pH Units (7.32-7.45) 09/13/17 21:24 ABG pCO2 46 mmHg (35-45) H 09/13/17 21:24 ABG pO2 172 mmHg (85-104) H 09/13/17 21:24 ABG O2 Saturation 100 % (95-98) H 09/13/17 21:24 PT/INR, D-dimer PT 12.8 Seconds (9.4-12.1) H 09/11/17 08:40 Abnormal lab findings: Abnormal lab results RBC 3.07 M/mcL (3.82-4.97) L 09/15/17 03:10 Hgb 8.9 g/dL (11.5-15.4) L 09/15/17 03:10 Hct 27.5 % (35.3-44.9) L 09/15/17 03:10 Plt Count 125 K/mcL (140-400) L 09/15/17 03:10 Nucleated RBCs/100 WBC 0.2 /100 WBC (0) H 09/07/17 20:46 Plt Count ,Citrate 148.5 (150-600) L 09/11/17 08:40 Immature Plt Fraction 18.4 % (1.1-6.1) H 09/11/17 08:40 PT 12.8 Seconds (9.4-12.1) H 09/11/17 08:40 ABG pCO2 46 mmHg (35-45) H 09/13/17 21:24 ABG pO2 172 mmHg (85-104) H 09/13/17 21:24 ABG Total CO2 27 mEq/L (20-26) H 09/13/17 21:24 ABG O2 Saturation 100 % (95-98) H 09/13/17 21:24 VBG pH 7.43 pH Units (7.32-7.42) H 09/13/17 04:57 VBG pO2 144 mmHg (25-50) H 09/13/17 04:21 Sodium 133 mEq/L (136-145) L 09/15/17 03:10 Creatinine 0.49 mg/dL (0.57-1.11) L 09/15/17 03:10 POC Glucose 99 (58-89) H 09/11/17 09:22 Calculated Osmolality 276 (280-300) L 09/15/17 03:10 Calcium 8.0 mg/dL (8.6-10.8) L 09/15/17 03:10 Venous Ioniz Calcium 1.11 mmol/L (1.15-1.35) L 09/13/17 04:57 Phosphorus 1.9 mg/dL (2.3-4.7) L D 09/15/17 03:10 AST 37 Units/L (5-34) H 09/11/17 08:40 Troponin I 0.39 ng/mL (0-0.03) H* 09/11/17 20:30 Albumin 2.6 g/dL (3.5-5.0) L 09/11/17 08:40 Globulin 3.7 g/dL (2.4-3.5) H 09/11/17 08:40 Albumin/Globulin Ratio 0.7 (1.1-2.2) L 09/11/17 08:40 Urine Ketones 15 mg/dL (Negative) H 09/08/17 09:15 Fluid Appearance Cloudy (Clear) A 09/11/17 12:57 Vancomycin Trough 6.7 mcg/mL (10-20) L 09/15/17 12:25 - Microbiology Findings Microbiology Findings: Microbiology, Last 48 Hours 09/11/17 12:56 Gram Stain - Final Right Lower Lobe Lung Respiratory Culture - Final Amalia albicans Methicillin Resistant S.aureus Serratia marcescens - Clinical Findings Intake & Output: Intake & Output 09/15/17 09/15/17 09/15/17 07:59 15:59 23:59 Intake Total 250 / 250 800 / 800 460 / 460 Output Total 150 / 150 1700 / 1700 Balance 100 / 100 -900 / -900 460 / 460 Weight 55.28 kg - Attending Attestation I saw the patient with the resident agree with History and Physical exam findings. Labs and Radiology were reviewed Patient is on BIPAP settings reviewed , tolerating well . 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 Patient V/Q mismatch is getting better will try to give break from BIPAP put her on high flow BIPAP will need BIPAP in the night Cardiac : Hemodynamically stable , A fib with RVR episodes happens when there is increased work of breathing , started on IV Cardizem if stable will transition to PO cardizem or PO Lopressor Nutrition/GI: According to speech patient passed the evaluation will follow their recs . PPI prophylaxis Renal : Labs and UOP reviewed Heme onc : No acute issues ID : Pneumonia BAL growing MRSA and Serratia to continue broad spectrum antibiotics Musculo skeletal / skin issues : no acute issues Disposition : High chance of respiratory decline will monitor in ICU Code status: Full Code Family/POA: and Daughter . Spent 35 minutes of Critical care time in making medical decision making to support vital organ function
[2017-09-15] MEDS: amLODIPine 5 MG TABLET PO SCH (10:11)
[2017-09-15] MEDS: GuaiFENesin/Dextromethorphan TABLET PO SCH (10:11)
[2017-09-15] MEDS: Folic Acid 1 MG TABLET PO SCH (10:11)
[2017-09-15] MEDS: Multivit/Ca/Min/Fe/FA 1 TAB TABLET PO SCH (10:11)
[2017-09-15] MEDS: predniSONE 5 MG TABLET PO SCH (10:11)
[2017-09-15] MEDS: Furosemide 20 MG/2 ML VIAL IVP SCH (10:23)
[2017-09-15 12:52] LABS: Magnesium 1.6 mg/dL (1.6-2.6); Potassium 3.9 mEq/L (3.5-4.5)
[2017-09-15 13:09] LABS: Vancomycin,Trough 6.7 mcg/mL (10-20)
[2017-09-15] MEDS: Vancomycin 1,000 MG in D5% in Water 250 ML IVPB SCH (13:31)
[2017-09-15] MEDS: Piperacillin/Tazobactam 3.375 GM/200 ML BAG IVPB SCH ×2 (16:42→23:56)
[2017-09-15 21:13] LABS: VBG HCO3 31 mEq/L (21-27); VBG Ionized Calcium 1.06 mmol/L (1.15-1.35); VBG PCO2 55 mmHg (41-51); VBG PH 7.36 pH Units (7.32-7.42); VBG PO2 91 mmHg (25-50)
[2017-09-15 22:33] LABS: Magnesium 1.9 mg/dL (1.6-2.6); Phosphorous 2.9 mg/dL (2.3-4.7); Potassium 3.8 mEq/L (3.5-4.5)
[2017-09-15] MEDS: Calcium Gluconate 1,000 MG in D5% in Water 100 ML IVPB PRN (23:52)
[2017-09-16] MEDS: Vancomycin 750 MG in D5% in Water 250 ML IVPB SCH ×2 (03:46→16:15)
[2017-09-16 04:05] LABS: Basophils % 0.2 %; Eosinophils # 0.1 K/mcL (0.0-0.6); Eosinophils % 1.1 %; Hematocrit 28.7 % (35.3-44.9); Hemoglobin 9.1 g/dL (11.5-15.4); Immature Granulocytes % 0.6 % (0-4); Lymphocytes # 0.7 K/mcL (0.6-4.6); Lymphocytes % 6.4 %; Mean Corpuscular HGB Conc 31.7 g/dL (31.6-35.5); Mean Corpuscular Hemoglobin 29.2 pg (28.0-33.3); Mean Platelet Volume 9.4 fL (9.4-12.4); Monocytes # 1.1 K/mcL (0.0-1.3); Monocytes % 10.6 %; Neutrophils # 8.7 K/mcL (1.6-8.9); Platelet Count 125 K/mcL (140-400); Red Blood Count 3.12 M/mcL (3.82-4.97); Red Cell Distribution Width 14.2 % (11.5-14.5); Segmented Neutrophils % 81.1 %
[2017-09-16 04:07] LABS: BUN/Creatinine Ratio 17 (6-26); Blood Urea Nitrogen 7 mg/dL (7-20); Calcium 7.4 mg/dL (8.6-10.8); Carbon Dioxide 27 mEq/L (19-29); Chloride 96 mEq/L (98-109); Glucose 83 mg/dL (70-99); Osmolality,Calculated 279 (280-300); Potassium 4.1 mEq/L (3.5-4.5); Sodium 136 mEq/L (136-145); eGFR For African Americans > 60 (> 60); eGFR For Non-African Americans > 60 (> 60)
[2017-09-16 04:25] LABS: Phosphorous 15.3 mg/dL (2.3-4.7)
[2017-09-16] MEDS: *HR* Heparin 5,000 UNIT/ML VIAL SQ SCH ×2 (05:18→17:47)
[2017-09-16] MEDS: Piperacillin/Tazobactam 3.375 GM/200 ML BAG IVPB SCH ×2 (08:18→17:45)
--- NOTE | 2017-09-16 08:57 | Pulmonology Progress Note ---
<Leigh Fuller - Last Filed: 09/16/17 10:57> Date of Encounter: 09/16/17 Time of Encounter: 08:20 Assessment and Plan (1) Acute respiratory failure with hypoxia Current Visit: Yes Status: Acute - Desaturation to 85% noted when patient was off from BiPAP. - ABG pH 7.34, pCO2 50, pO2 68 and HCO3 27 on 09/11 - Likely secondary to mucus plug in the setting of pneumonia. - Bronchoscopy on 09/11 found mucus plug in the right main bronchus. - Continue IV Zosyn (since 09/11) and IV vancomycin (since 09/13) for pneumonia. - Continue chest physiotherapy/pulmonary toileting to facilitate mucus movement. - Continue Lasix to minimize fluid overload. - Continue supplemental oxygen. Continue close monitoring. - Patient is full code and patient's is okay for intubation if it's medically necessary. (2) Pneumonia Current Visit: Yes Status: Acute - CXR on admission found new right lower lobe airspace disease suggesting pneumonia. - Concern of aspiration pneumonia as significant mucus plug was found only on the right lung per bronchoscopy. - Sputum culture form 09/10/17 grew Serratia marcescens, torres-sensitive except resistance to cefazolin. - RLLL BAL from 09/11/17 grew yeast species, MRSA and Serratia marcescens. - CT chest on 09/13/17 found moderate bilateral pleural effusions with near complete right middle lobe and left lower lobe atelectasis and complete atelectasis of the right lower lobe. Focal narrowing of the right interlobar bronchus with occlusion of the right lower lobe bronchus which could be related to mucoid impaction. Multifocal airspace opacities are noted predominately within the right upper lobe suspicious for pneumonia. - Continue IV Zosyn (since 09/11) and IV vancomycin (since 09/13). Qualifiers: Pneumonia type: due to methicillin-resistant Staphylococcus aureus (MRSA) Laterality: right Lung location: lower lobe of lung Qualified Code(s): J15.212 - Pneumonia due to Methicillin resistant Staphylococcus aureus (3) Hyponatremia Current Visit: Yes Status: Acute - Na 117 on admission. - Hypotonoic hypovolemic hyponatremia - Jerrod 74 and FENa = 1%. Likely renal loss or SIADH. - Improves as Na 136 today. - Continue to monitor. (4) New onset atrial fibrillation Current Visit: Yes Status: Acute - Patient was noted to have A-fib at rate of 130s-140s during the rapid response on 09/11/17 morning. - Likely related to acute respiratory failure in the setting of missing doses of propanolol. - Converted back to sinus rhythm at rate of 70s-80s after one dose of Cardizem IV 10 mg. - Echocardiogram on 09/11/17 found LVEF 60-65%, mild LV diastolic dysfunction, no significant valvular dysfunction nor evidence of pulmonary hypertension. - As patient is weaned off from BiPAP, will switch Cardizem from IV to PO 30 mg q6H. - Continue to monitor with telemetry. (5) Acute encephalopathy Current Visit: Yes Status: Resolved - Patient was noted to be unresponsive 09/11 morning that triggered the rapid response. - Likely multifactorial including acute respiratory failure in the setting of pneumonia, hyponatremia and A-fib - CT head found no acute intracranial abnormality. - Resolved as patient becomes alert and oriented. - Continue to monitor. (6) Elevated troponin Current Visit: Yes Status: Acute - Elevated troponin 0.65 on 09/11/17 but then downtrend to 0.55 and 0.39. - No significant ischemic change on EKG. - Likely secondary to new-onset A-fib during the rapid response. (7) Compression fracture Current Visit: Yes Status: Chronic - Acute compression deformities of T5 and T7 per spine X-ray - Continue medical management and pain control as recommended by orthopedic. (8) Rheumatoid arthritis Current Visit: No Status: Chronic - On prednisone 5 mg daily at home. Qualifiers: Rheumatoid arthritis location: multiple sites Rheumatoid factor presence: unspecified presence Qualified Code(s): M06.9 - Rheumatoid arthritis, unspecified (9) Hypothyroidism Current Visit: Yes Status: Chronic - Continue Synthroid. Qualifiers: Hypothyroidism type: unspecified Qualified Code(s): E03.9 - Hypothyroidism , unspecified (10) DVT prophylaxis Current Visit: Yes Status: Acute - Continue SQ heparin. Subjective Principal diagnosis: Acute respiratory failure with hypoxia Interval history: Patient remained on high-flow oxygen overnight. Patient was seen and examined this morning. Patient is sleepy but arousable to verbal stimuli. Patient denies chest pain or abdominal pain. Objective PUL Vital signs: Last Vital Signs Temp 98.1 F 09/16/17 07:40 Pulse 101 09/16/17 08:50 Resp 19 09/16/17 08:50 BP 111/93 09/16/17 08:50 Pulse Ox 98 09/16/17 08:50 General appearance: no acute distress, asleep Eyes: nonicteric ENT: oropharynx dry Neck: supple Effort: normal Auscultation: bilateral: clear Cardiovascular: regular rate and rhythm Gastrointestinal: normoactive bowel sounds, soft, non-tender Integumentary: normal Extremities: no cyanosis, no edema Musculoskeletal: no deformities normal mental status, non-focal exam mood appropriate, affect normal Results - Laboratory Findings CBC and BMP: 09/16/17 03:45 09/16/17 03:45 ABG ABG pH 7.36 pH Units (7.32-7.45) 09/13/17 21:24 ABG pCO2 46 mmHg (35-45) H 09/13/17 21:24 ABG pO2 172 mmHg (85-104) H 09/13/17 21:24 ABG O2 Saturation 100 % (95-98) H 09/13/17 21:24 PT/INR, D-dimer PT 12.8 Seconds (9.4-12.1) H 09/11/17 08:40 Abnormal lab findings: Abnormal lab results RBC 3.12 M/mcL (3.82-4.97) L 09/16/17 03:45 Hgb 9.1 g/dL (11.5-15.4) L 09/16/17 03:45 Hct 28.7 % (35.3-44.9) L 09/16/17 03:45 Plt Count 125 K/mcL (140-400) L 09/16/17 03:45 Nucleated RBCs/100 WBC 0.2 /100 WBC (0) H 09/07/17 20:46 Plt Count ,Citrate 148.5 (150-600) L 09/11/17 08:40 Immature Plt Fraction 18.4 % (1.1-6.1) H 09/11/17 08:40 PT 12.8 Seconds (9.4-12.1) H 09/11/17 08:40 ABG pCO2 46 mmHg (35-45) H 09/13/17 21:24 ABG pO2 172 mmHg (85-104) H 09/13/17 21:24 ABG Total CO2 27 mEq/L (20-26) H 09/13/17 21:24 ABG O2 Saturation 100 % (95-98) H 09/13/17 21:24 VBG pCO2 55 mmHg (41-51) H 09/15/17 21:08 VBG pO2 91 mmHg (25-50) H 09/15/17 21:08 VBG HCO3 31 mEq/L (21-27) H 09/15/17 21:08 Chloride 96 mEq/L (98-109) L 09/16/17 03:45 Creatinine 0.41 mg/dL (0.57-1.11) L 09/16/17 03:45 POC Glucose 99 (58-89) H 09/11/17 09:22 Calculated Osmolality 279 (280-300) L 09/16/17 03:45 Calcium 7.4 mg/dL (8.6-10.8) L 09/16/17 03:45 Venous Ioniz Calcium 1.06 mmol/L (1.15-1.35) L 09/15/17 21:08 Phosphorus 15.3 mg/dL (2.3-4.7) H D 09/16/17 03:45 AST 37 Units/L (5-34) H 09/11/17 08:40 Troponin I 0.39 ng/mL (0-0.03) H* 09/11/17 20:30 Albumin 2.6 g/dL (3.5-5.0) L 09/11/17 08:40 Globulin 3.7 g/dL (2.4-3.5) H 09/11/17 08:40 Albumin/Globulin Ratio 0.7 (1.1-2.2) L 09/11/17 08:40 Urine Ketones 15 mg/dL (Negative) H 09/08/17 09:15 Fluid Appearance Cloudy (Clear) A 09/11/17 12:57 Vancomycin Trough 6.7 mcg/mL (10-20) L 09/15/17 12:25 - Microbiology Findings Microbiology Findings: Microbiology, Last 48 Hours 09/11/17 12:56 Gram Stain - Final Right Lower Lobe Lung Respiratory Culture - Final Amalia albicans Methicillin Resistant S.aureus Serratia marcescens - Clinical Findings Intake & Output: Intake & Output 09/15/17 09/16/17 09/16/17 23:59 07:59 15:59 Intake Total 710 / 710 1010 / 1010 Output Total 775 / 775 900 / 900 Balance -65 / -65 110 / 110 Weight 57.8 kg Consult Discharge Plan - Plan Referrals: Yared Akhtar Jr, MD [Primary Care Provider] - <Niles Huber S - Last Filed: 09/16/17 20:48> Date of Encounter: 09/16/17 Objective PUL Vital signs: Last Vital Signs Temp 98.3 F 09/16/17 16:34 Pulse 95 09/16/17 20:00 Resp 22 09/16/17 20:00 BP 132/72 09/16/17 20:00 Pulse Ox 93 09/16/17 20:00 Results - Laboratory Findings CBC and BMP: 09/16/17 03:45 09/16/17 03:45 ABG ABG pH 7.36 pH Units (7.32-7.45) 09/13/17 21:24 ABG pCO2 46 mmHg (35-45) H 09/13/17 21:24 ABG pO2 172 mmHg (85-104) H 09/13/17 21:24 ABG O2 Saturation 100 % (95-98) H 09/13/17 21:24 PT/INR, D-dimer PT 12.8 Seconds (9.4-12.1) H 09/11/17 08:40 Abnormal lab findings: Abnormal lab results RBC 3.12 M/mcL (3.82-4.97) L 09/16/17 03:45 Hgb 9.1 g/dL (11.5-15.4) L 09/16/17 03:45 Hct 28.7 % (35.3-44.9) L 09/16/17 03:45 Plt Count 125 K/mcL (140-400) L 09/16/17 03:45 Nucleated RBCs/100 WBC 0.2 /100 WBC (0) H 09/07/17 20:46 Plt Count ,Citrate 148.5 (150-600) L 09/11/17 08:40 Immature Plt Fraction 18.4 % (1.1-6.1) H 09/11/17 08:40 PT 12.8 Seconds (9.4-12.1) H 09/11/17 08:40 ABG pCO2 46 mmHg (35-45) H 09/13/17 21:24 ABG pO2 172 mmHg (85-104) H 09/13/17 21:24 ABG Total CO2 27 mEq/L (20-26) H 09/13/17 21:24 ABG O2 Saturation 100 % (95-98) H 09/13/17 21:24 VBG pCO2 55 mmHg (41-51) H 09/15/17 21:08 VBG pO2 91 mmHg (25-50) H 09/15/17 21:08 VBG HCO3 31 mEq/L (21-27) H 09/15/17 21:08 Chloride 96 mEq/L (98-109) L 09/16/17 03:45 Creatinine 0.41 mg/dL (0.57-1.11) L 09/16/17 03:45 POC Glucose 96 (58-89) H 09/16/17 11:44 Calculated Osmolality 279 (280-300) L 09/16/17 03:45 Calcium 7.4 mg/dL (8.6-10.8) L 09/16/17 03:45 Venous Ioniz Calcium 1.06 mmol/L (1.15-1.35) L 09/15/17 21:08 AST 37 Units/L (5-34) H 09/11/17 08:40 Troponin I 0.39 ng/mL (0-0.03) H* 09/11/17 20:30 Albumin 2.6 g/dL (3.5-5.0) L 09/11/17 08:40 Globulin 3.7 g/dL (2.4-3.5) H 09/11/17 08:40 Albumin/Globulin Ratio 0.7 (1.1-2.2) L 09/11/17 08:40 Urine Ketones 15 mg/dL (Negative) H 09/08/17 09:15 Fluid Appearance Cloudy (Clear) A 09/11/17 12:57 Vancomycin Trough 6.7 mcg/mL (10-20) L 09/15/17 12:25 - Microbiology Findings Microbiology Findings: Microbiology, Last 48 Hours 09/11/17 12:56 Gram Stain - Final Right Lower Lobe Lung Respiratory Culture - Final Amalia albicans Methicillin Resistant S.aureus Serratia marcescens - Clinical Findings Intake & Output: Intake & Output 09/16/17 09/16/17 09/16/17 07:59 15:59 23:59 Intake Total 1270 / 1270 400 / 400 250 / 250 Output Total 900 / 900 2075 / 2075 725 / 725 Balance 370 / 370 -1675 / -1675 -475 / -475 Weight 57.8 kg - Attending Attestation I saw the patient with the resident agree with History and Physical exam findings. 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 PPI prophylaxis Renal : Labs and UOP reviewed , to continue gentle diuresis Heme onc : No acute issues ID : Pneumonia BAL growing MRSA and Serratia to continue broad spectrum antibiotics Musculo skeletal / skin issues : no acute issues Disposition : High chance of respiratory decline will monitor in ICU Code status: Full Code Family/POA: and Daughter .
[2017-09-16] MEDS: Furosemide 20 MG/2 ML VIAL IVP SCH (08:58)
[2017-09-16] MEDS: Multivit/Ca/Min/Fe/FA 1 TAB TABLET PO SCH (08:58)
[2017-09-16] MEDS: Folic Acid 1 MG TABLET PO SCH (08:58)
[2017-09-16] MEDS: predniSONE 5 MG TABLET PO SCH (08:58)
[2017-09-16] MEDS: amLODIPine 5 MG TABLET PO SCH (09:11)
[2017-09-17] MEDS: Piperacillin/Tazobactam 3.375 GM/200 ML BAG IVPB SCH ×2 (02:30→08:11)
[2017-09-17 05:11] LABS: Basophils % 0.1 %; Eosinophils # 0.1 K/mcL (0.0-0.6); Eosinophils % 0.7 %; Hematocrit 30.2 % (35.3-44.9); Hemoglobin 9.8 g/dL (11.5-15.4); Immature Granulocytes % 0.5 % (0-4); Lymphocytes # 0.5 K/mcL (0.6-4.6); Lymphocytes % 5.6 %; Mean Corpuscular HGB Conc 32.5 g/dL (31.6-35.5); Mean Corpuscular Hemoglobin 28.7 pg (28.0-33.3); Mean Corpuscular Volume 88.6 fL (83.0-100.0); Mean Platelet Volume 9.8 fL (9.4-12.4); Monocytes # 0.9 K/mcL (0.0-1.3); Monocytes % 9.7 %; Neutrophils # 7.7 K/mcL (1.6-8.9); Platelet Count 133 K/mcL (140-400); Red Blood Count 3.41 M/mcL (3.82-4.97); Red Cell Distribution Width 13.8 % (11.5-14.5); Segmented Neutrophils % 83.4 %
[2017-09-17 05:12] LABS: VBG Ionized Calcium 1.02 mmol/L (1.15-1.35); VBG PH 7.41 pH Units (7.32-7.42)
[2017-09-17 05:24] LABS: BUN/Creatinine Ratio 13 (6-26); Carbon Dioxide 38 mEq/L (19-29); Chloride 87 mEq/L (98-109); Glucose 91 mg/dL (70-99); Magnesium 1.5 mg/dL (1.6-2.6); Osmolality,Calculated 269 (280-300); Phosphorous 2.2 mg/dL (2.3-4.7); Sodium 131 mEq/L (136-145); eGFR For African Americans > 60 (> 60); eGFR For Non-African Americans > 60 (> 60)
[2017-09-17 05:25] LABS: Blood Urea Nitrogen 5 mg/dL (7-20); Potassium 2.7 mEq/L (3.5-4.5)
[2017-09-17] MEDS: Vancomycin 750 MG in D5% in Water 250 ML IVPB SCH (06:07)
[2017-09-17] MEDS: *HR* Heparin 5,000 UNIT/ML VIAL SQ SCH ×2 (06:10→17:17)
[2017-09-17] MEDS: Calcium Gluconate 1,000 MG in D5% in Water 100 ML IVPB PRN ×2 (06:25→20:23)
--- NOTE | 2017-09-17 07:37 | Pulmonology Progress Note ---
Addendum entered and electronically signed by Jayjay Will DO 09/17/17 17:35: Zosyn discontinued and patient started on Cefepime based on BAL culture sensitivity results. Original Note: <Jayjay Will - Last Filed: 09/17/17 17:24> Date of Encounter: 09/17/17 Time of Encounter: 07:37 Assessment and Plan (1) Acute respiratory failure with hypoxia Current Visit: Yes Status: Acute -Desaturation to 85% noted when patient was off from BiPAP. - ABG pH 7.34, pCO2 50, pO2 68 and HCO3 27 on 09/11 - Likely secondary to mucus plug in the setting of pneumonia. - Bronchoscopy on 09/11 found mucus plug in the right main bronchus. - Continue IV Zosyn (since 09/11) and IV vancomycin (since 09/13) for pneumonia. - Continue chest physiotherapy/pulmonary toileting to facilitate mucus movement. - Continue Lasix to minimize fluid overload. - Continue supplemental oxygen. Continue close monitoring. - Patient is full code and patient's is okay for intubation if it's medically necessary. (2) Pneumonia Current Visit: Yes Status: Acute - CXR on admission found new right lower lobe airspace disease suggesting pneumonia. - Concern of aspiration pneumonia as significant mucus plug was found only on the right lung per bronchoscopy. - Sputum culture form 09/10/17 grew Serratia marcescens, torres-sensitive except resistance to cefazolin. - RLLL BAL from 09/11/17 grew yeast species, MRSA and Serratia marcescens. - CT chest on 09/13/17 found moderate bilateral pleural effusions with near complete right middle lobe and left lower lobe atelectasis and complete atelectasis of the right lower lobe. Focal narrowing of the right interlobar bronchus with occlusion of the right lower lobe bronchus which could be related to mucoid impaction. Multifocal airspace opacities are noted predominately within the right upper lobe suspicious for pneumonia. - Continue IV Zosyn (since 09/11) and IV vancomycin (since 09/13). Qualifiers: Pneumonia type: due to methicillin-resistant Staphylococcus aureus (MRSA) Laterality: right Lung location: lower lobe of lung Qualified Code(s): J15.212 - Pneumonia due to Methicillin resistant Staphylococcus aureus (3) Acute encephalopathy Current Visit: Yes Status: Resolved - Patient was noted to be unresponsive 09/11 morning that triggered the rapid response. - Likely multifactorial including acute respiratory failure in the setting of pneumonia, hyponatremia and A-fib - CT head found no acute intracranial abnormality. - Resolved as patient becomes alert and oriented. - Continue to monitor. (4) Compression fracture Current Visit: Yes Status: Chronic - Acute compression deformities of T5 and T7 per spine X-ray - Continue medical management and pain control as recommended by orthopedic surgery. (5) New onset atrial fibrillation Current Visit: Yes Status: Acute - Patient was noted to have A-fib at rate of 130s-140s during the rapid response on 09/11/17 morning. - Likely related to acute respiratory failure in the setting of missing doses of propanolol. - Converted back to sinus rhythm at rate of 70s-80s after one dose of Cardizem IV 10 mg. - Echocardiogram on 09/11/17 found LVEF 60-65%, mild LV diastolic dysfunction, no significant valvular dysfunction nor evidence of pulmonary hypertension. - As patient is weaned off from BiPAP, switched Cardizem from IV to PO 30 mg q6H. - Continue to monitor with telemetry. (6) Elevated troponin Current Visit: Yes Status: Acute - Elevated troponin 0.65 on 09/11/17 but then downtrend to 0.55 and 0.39. - No significant ischemic change on EKG. - Likely secondary to new-onset A-fib during the rapid response. (7) Hyponatremia Current Visit: Yes Status: Acute - Na 117 on admission. - Hypotonoic hypovolemic hyponatremia - Jerrod 74 and FENa = 1%. Likely renal loss or SIADH. - Continue to monitor. (8) Rheumatoid arthritis Current Visit: No Status: Chronic - On prednisone 5 mg daily at home. Qualifiers: Rheumatoid arthritis location: multiple sites Rheumatoid factor presence: unspecified presence Qualified Code(s): M06.9 - Rheumatoid arthritis, unspecified (9) Hypothyroidism Current Visit: Yes Status: Chronic - Continue Synthroid. Qualifiers: Hypothyroidism type: unspecified Qualified Code(s): E03.9 - Hypothyroidism , unspecified (10) DVT prophylaxis Current Visit: Yes Status: Acute - Continue SQ heparin. Subjective Principal diagnosis: Acute respiratory failure with hypoxia Interval history: Patient remained on high-flow oxygen overnight. Patient was seen and examined this morning. Patient is awake and reports constipation. Patient denies chest pain or abdominal pain. Objective PUL Vital signs: Last Vital Signs Temp 97.5 F L 09/17/17 04:00 Pulse 101 09/17/17 06:00 Resp 18 09/17/17 06:00 BP 144/86 09/17/17 06:00 Pulse Ox 98 09/17/17 06:00 General appearance: no acute distress Eyes: nonicteric ENT: oropharynx dry Mallampati (class): 3 Neck: supple, no JVD Effort: normal Auscultation: bilateral: clear Percussion: bilateral: not dull Cardiovascular: other (tachycardia) Gastrointestinal: normoactive bowel sounds, soft, non-tender Integumentary: normal Extremities: no cyanosis, no edema Musculoskeletal: no deformities normal mental status, non-focal exam mood appropriate, affect normal Results - Laboratory Findings CBC and BMP: 09/17/17 04:53 09/17/17 04:53 ABG ABG pH 7.36 pH Units (7.32-7.45) 09/13/17 21:24 ABG pCO2 46 mmHg (35-45) H 09/13/17 21:24 ABG pO2 172 mmHg (85-104) H 09/13/17 21:24 ABG O2 Saturation 100 % (95-98) H 09/13/17 21:24 PT/INR, D-dimer PT 12.8 Seconds (9.4-12.1) H 09/11/17 08:40 Abnormal lab findings: Abnormal lab results RBC 3.41 M/mcL (3.82-4.97) L 09/17/17 04:53 Hgb 9.8 g/dL (11.5-15.4) L 09/17/17 04:53 Hct 30.2 % (35.3-44.9) L 09/17/17 04:53 Plt Count 133 K/mcL (140-400) L 09/17/17 04:53 Lymphocytes # 0.5 K/mcL (0.6-4.6) L 09/17/17 04:53 Nucleated RBCs/100 WBC 0.2 /100 WBC (0) H 09/07/17 20:46 Plt Count ,Citrate 148.5 (150-600) L 09/11/17 08:40 Immature Plt Fraction 18.4 % (1.1-6.1) H 09/11/17 08:40 PT 12.8 Seconds (9.4-12.1) H 09/11/17 08:40 ABG pCO2 46 mmHg (35-45) H 09/13/17 21:24 ABG pO2 172 mmHg (85-104) H 09/13/17 21:24 ABG Total CO2 27 mEq/L (20-26) H 09/13/17 21:24 ABG O2 Saturation 100 % (95-98) H 09/13/17 21:24 VBG pCO2 55 mmHg (41-51) H 09/15/17 21:08 VBG pO2 91 mmHg (25-50) H 09/15/17 21:08 VBG HCO3 31 mEq/L (21-27) H 09/15/17 21:08 Sodium 131 mEq/L (136-145) L 09/17/17 04:53 Potassium 2.7 mEq/L (3.5-4.5) L D 09/17/17 04:53 Chloride 87 mEq/L (98-109) L 09/17/17 04:53 Carbon Dioxide 38 mEq/L (19-29) H 09/17/17 04:53 BUN 5 mg/dL (7-20) L 09/17/17 04:53 Creatinine 0.39 mg/dL (0.57-1.11) L 09/17/17 04:53 POC Glucose 98 (58-89) H 09/17/17 00:18 Calculated Osmolality 269 (280-300) L 09/17/17 04:53 Calcium 8.0 mg/dL (8.6-10.8) L 09/17/17 04:53 Venous Ioniz Calcium 1.02 mmol/L (1.15-1.35) L 09/17/17 05:08 Phosphorus 2.2 mg/dL (2.3-4.7) L 09/17/17 04:53 Magnesium 1.5 mg/dL (1.6-2.6) L 09/17/17 04:53 AST 37 Units/L (5-34) H 09/11/17 08:40 Troponin I 0.39 ng/mL (0-0.03) H* 09/11/17 20:30 Albumin 2.6 g/dL (3.5-5.0) L 09/11/17 08:40 Globulin 3.7 g/dL (2.4-3.5) H 09/11/17 08:40 Albumin/Globulin Ratio 0.7 (1.1-2.2) L 09/11/17 08:40 Urine Ketones 15 mg/dL (Negative) H 09/08/17 09:15 Fluid Appearance Cloudy (Clear) A 09/11/17 12:57 Vancomycin Trough 9.1 mcg/mL (10-20) L 09/17/17 04:53 - Microbiology Findings Microbiology Findings: Microbiology, Last 48 Hours 09/11/17 12:56 Gram Stain - Final Right Lower Lobe Lung Respiratory Culture - Final Amalia albicans Methicillin Resistant S.aureus Serratia marcescens - Clinical Findings Intake & Output: Intake & Output 09/16/17 09/16/17 09/17/17 15:59 23:59 07:59 Intake Total 400 / 400 710 / 710 300 / 300 Output Total 2075 / 2075 1475 / 1475 525 / 525 Balance -1675 / -1675 -765 / -765 -225 / -225 Weight 53.31 kg Consult Discharge Plan - Plan Referrals: Yared Akhtar Jr, MD [Primary Care Provider] - (SENT WEB REQUEST ON 09-17-17 @ 1395) <Niles Huber S - Last Filed: 09/18/17 00:29> Date of Encounter: 09/18/17 Objective PUL Vital signs: Last Vital Signs Temp 97.8 F 09/18/17 00:04 Pulse 102 09/18/17 00:04 Resp 16 09/18/17 00:04 BP 131/72 09/18/17 00:04 Pulse Ox 98 09/18/17 00:04 Results - Laboratory Findings CBC and BMP: 09/17/17 04:53 09/17/17 18:00 ABG ABG pH 7.36 pH Units (7.32-7.45) 09/13/17 21:24 ABG pCO2 46 mmHg (35-45) H 09/13/17 21:24 ABG pO2 172 mmHg (85-104) H 09/13/17 21:24 ABG O2 Saturation 100 % (95-98) H 09/13/17 21:24 PT/INR, D-dimer PT 12.8 Seconds (9.4-12.1) H 09/11/17 08:40 Abnormal lab findings: Abnormal lab results RBC 3.41 M/mcL (3.82-4.97) L 09/17/17 04:53 Hgb 9.8 g/dL (11.5-15.4) L 09/17/17 04:53 Hct 30.2 % (35.3-44.9) L 09/17/17 04:53 Plt Count 133 K/mcL (140-400) L 09/17/17 04:53 Lymphocytes # 0.5 K/mcL (0.6-4.6) L 09/17/17 04:53 Nucleated RBCs/100 WBC 0.2 /100 WBC (0) H 09/07/17 20:46 Plt Count ,Citrate 148.5 (150-600) L 09/11/17 08:40 Immature Plt Fraction 18.4 % (1.1-6.1) H 09/11/17 08:40 PT 12.8 Seconds (9.4-12.1) H 09/11/17 08:40 ABG pCO2 46 mmHg (35-45) H 09/13/17 21:24 ABG pO2 172 mmHg (85-104) H 09/13/17 21:24 ABG Total CO2 27 mEq/L (20-26) H 09/13/17 21:24 ABG O2 Saturation 100 % (95-98) H 09/13/17 21:24 VBG pCO2 55 mmHg (41-51) H 09/15/17 21:08 VBG pO2 91 mmHg (25-50) H 09/15/17 21:08 VBG HCO3 31 mEq/L (21-27) H 09/15/17 21:08 Sodium 128 mEq/L (136-145) L 09/17/17 18:00 Potassium 3.2 mEq/L (3.5-4.5) L 09/17/17 18:00 Chloride 82 mEq/L (98-109) L 09/17/17 18:00 Carbon Dioxide 36 mEq/L (19-29) H 09/17/17 18:00 BUN 6 mg/dL (7-20) L 09/17/17 18:00 Creatinine 0.52 mg/dL (0.57-1.11) L 09/17/17 18:00 Glucose 196 mg/dL (70-99) H 09/17/17 18:00 POC Glucose 126 (58-89) H 09/17/17 11:36 Calculated Osmolality 269 (280-300) L 09/17/17 18:00 Calcium 7.8 mg/dL (8.6-10.8) L 09/17/17 18:00 Venous Ioniz Calcium 1.02 mmol/L (1.15-1.35) L 09/17/17 05:08 Magnesium 1.5 mg/dL (1.6-2.6) L 09/17/17 18:00 AST 37 Units/L (5-34) H 09/11/17 08:40 Troponin I 0.39 ng/mL (0-0.03) H* 09/11/17 20:30 Albumin 2.6 g/dL (3.5-5.0) L 09/11/17 08:40 Globulin 3.7 g/dL (2.4-3.5) H 09/11/17 08:40 Albumin/Globulin Ratio 0.7 (1.1-2.2) L 09/11/17 08:40 Urine Ketones 15 mg/dL (Negative) H 09/08/17 09:15 Fluid Appearance Cloudy (Clear) A 09/11/17 12:57 Vancomycin Trough 9.1 mcg/mL (10-20) L 09/17/17 04:53 - Clinical Findings Intake & Output: Intake & Output 09/17/17 09/17/17 09/18/17 15:59 23:59 07:59 Intake Total 1040 / 1040 330 / 330 60 / 60 Output Total 1999 / 1999 300 / 300 Balance -960 / -960 60 / 60 - Attending Attestation I saw the patient with the resident agree with History and Physical exam findings. 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 A X3 NECK : No JVD appreciated Pulmonary : Patient has hypoxic respiratory failure due to Right lower lobe pneumonia , patient had mucous plugging in the Right main bronchus had bronchoscopy with lot of secretion BAL is growing MRSA and growing serratia Will continue aggressive bronchopulmonary toileting , will do high flow Nc cannula to consider BIPAP at night Cardiac : Hemodynamically stable , A fib with RVR on Cardizem Nutrition/GI: PPI prophylaxis Renal : Labs and UOP reviewed , to continue gentle diuresis Heme onc : No acute issues ID : Pneumonia BAL growing MRSA and Serratia to continue broad spectrum antibiotics Musculo skeletal / skin issues : no acute issues Disposition : Transfer to Code status: Full Code Family/POA: and Daughter .
[2017-09-17] MEDS: Multivit/Ca/Min/Fe/FA 1 TAB TABLET PO SCH (08:43)
[2017-09-17] MEDS: Folic Acid 1 MG TABLET PO SCH (08:43)
[2017-09-17] MEDS: predniSONE 5 MG TABLET PO SCH (08:43)
[2017-09-17] MEDS: Furosemide 20 MG/2 ML VIAL IVP SCH (08:43)
[2017-09-17] MEDS: amLODIPine 5 MG TABLET PO SCH (08:43)
[2017-09-17] MEDS ORDERED: *HR* Alteplase (Cathflo) 2 MG VIAL IVP ONE ×2 (11:55→13:20)
[2017-09-17] MEDS ORDERED: Bisacodyl 10 MG RECTAL SUPPOSITORY RC ONE ×2 (12:00→13:20)
[2017-09-17] MEDS ORDERED: Ondansetron 4 MG/2 ML VIAL IVP PRN (13:20)
[2017-09-17] MEDS ORDERED: Naloxone 0.4 MG/ML INJ IVP PRN (13:20)
[2017-09-17] MEDS ORDERED: Vancomycin 1,000 MG in D5% in Water 250 ML IVPB SCH (14:00)
[2017-09-17] MEDS: Vancomycin 1,000 MG in D5% in Water 250 ML IVPB SCH (15:02)
[2017-09-17] MEDS ORDERED: Cefepime HCl 2,000 MG in Water for inj. (sterile) 20 ML IVP SCH (16:00)
[2017-09-17] MEDS: Cefepime HCl 2,000 MG in Water for inj. (sterile) 20 ML IVP SCH ×2 (16:04→23:22)
[2017-09-17 18:26] LABS: BUN/Creatinine Ratio 12 (6-26); Blood Urea Nitrogen 6 mg/dL (7-20); Calcium 7.8 mg/dL (8.6-10.8); Carbon Dioxide 36 mEq/L (19-29); Chloride 82 mEq/L (98-109); Glucose 196 mg/dL (70-99); Magnesium 1.5 mg/dL (1.6-2.6); Osmolality,Calculated 269 (280-300); Phosphorous 2.4 mg/dL (2.3-4.7); Potassium 3.2 mEq/L (3.5-4.5); Sodium 128 mEq/L (136-145); eGFR For African Americans > 60 (> 60); eGFR For Non-African Americans > 60 (> 60)
[2017-09-17] MEDS: Sennosides/Docusate Sodium TABLET PO SCH (20:05)
[2017-09-17] MEDS ORDERED: Sennosides/Docusate Sodium TABLET PO SCH (21:00)
[2017-09-18] MEDS: Vancomycin 1,000 MG in D5% in Water 250 ML IVPB SCH ×2 (01:59→14:55)
[2017-09-18 04:42] LABS: Hematocrit 28.4 % (35.3-44.9); Hemoglobin 9.2 g/dL (11.5-15.4); Mean Corpuscular HGB Conc 32.4 g/dL (31.6-35.5)
[2017-09-18 04:44] LABS: Immature Platelets 18.4 % (1.1-6.1); Mean Corpuscular Hemoglobin 28.8 pg (28.0-33.3); Mean Platelet Volume 10.8 fL (9.4-12.4); Red Blood Count 3.19 M/mcL (3.82-4.97)
[2017-09-18 04:58] LABS: Alanine Aminotransferase 14 Units/L (0-55); Albumin/Globulin Ratio 0.6 (1.1-2.2); Alkaline Phosphatase 93 Units/L (38-126); Aspartate Amino Transferase 33 Units/L (5-34); BUN/Creatinine Ratio 13 (6-26); Bilirubin,Total 0.3 mg/dL (0.2-1.2); Blood Urea Nitrogen 6 mg/dL (7-20); Calcium 7.7 mg/dL (8.6-10.8); Carbon Dioxide 39 mEq/L (19-29); Chloride 83 mEq/L (98-109); Globulin 3.4 g/dL (2.4-3.5); Glucose 102 mg/dL (70-99); Magnesium 1.8 mg/dL (1.6-2.6); Osmolality,Calculated 264 (280-300); Potassium 2.8 mEq/L (3.5-4.5); Sodium 128 mEq/L (136-145); Total Protein 5.4 g/dL (6.0-8.3); eGFR For African Americans > 60 (> 60); eGFR For Non-African Americans > 60 (> 60)
[2017-09-18 04:59] LABS: Phosphorous 3.7 mg/dL (2.3-4.7)
[2017-09-18 05:01] LABS: VBG Ionized Calcium 1.01 mmol/L (1.15-1.35)
[2017-09-18] MEDS: *HR* Heparin 5,000 UNIT/ML VIAL SQ SCH (06:01)
[2017-09-18] MEDS: Calcium Gluconate 1,000 MG in D5% in Water 100 ML IVPB PRN (06:37)
[2017-09-18] MEDS: predniSONE 5 MG TABLET PO SCH (08:17)
[2017-09-18] MEDS: Multivit/Ca/Min/Fe/FA 1 TAB TABLET PO SCH (08:18)
[2017-09-18] MEDS: Sennosides/Docusate Sodium TABLET PO SCH ×2 (08:18→22:00)
[2017-09-18] MEDS: Cefepime HCl 2,000 MG in Water for inj. (sterile) 20 ML IVP SCH ×2 (08:18→17:18)
[2017-09-18] MEDS: Folic Acid 1 MG TABLET PO SCH (08:18)
[2017-09-18] MEDS: amLODIPine 5 MG TABLET PO SCH (08:18)
[2017-09-18] MEDS: Furosemide 20 MG/2 ML VIAL IVP SCH (08:19)
--- NOTE | 2017-09-18 13:25 | Internal Med Progress Note ---
Date of Encounter: 09/18/17 Time of Encounter: 13:23 - Assessment and plan (1) Acute respiratory failure with hypoxia Current Visit: Yes Status: Acute Assessment and plan: Current Visit: Yes Status: Acute Acute hypoxic and hypercapnic respiratory failure secondary to multifocal pneumonia with MRSA and Serratia infection associated with bilateral pleural effusions worse on the right than the left likely due to diastolic CHF exacerbation -Desaturation to 85% noted when patient was off from BiPAP. - ABG pH 7.34, pCO2 50, pO2 68 and HCO3 27 on 09/11 - Likely secondary to mucus plug in the setting of pneumonia. - Bronchoscopy on 09/11 found mucus plug in the right main bronchus. - Continue IV Zosyn D8 (since 09/11) and IV vancomycin D6 (since 09/13) for pneumonia. - Continue Lasix - Continue supplemental oxygen. - Patient is full code and patient's is okay for intubation if it's medically necessary. (2) Pneumonia Current Visit: Yes Status: Acute - CXR on admission found new right lower lobe airspace disease suggesting pneumonia. - Concern of aspiration pneumonia as significant mucus plug was found only on the right lung per bronchoscopy. - Sputum culture form 09/10/17 grew Serratia marcescens, torres-sensitive except resistance to cefazolin. - RLLL BAL from 09/11/17 grew yeast species, MRSA and Serratia marcescens. - CT chest on 09/13/17 found moderate bilateral pleural effusions with near complete right middle lobe and left lower lobe atelectasis and complete atelectasis of the right lower lobe. Focal narrowing of the right interlobar bronchus with occlusion of the right lower lobe bronchus which could be related to mucoid impaction. Multifocal airspace opacities are noted predominately within the right upper lobe suspicious for pneumonia. Qualifiers: Pneumonia type: due to methicillin-resistant Staphylococcus aureus (MRSA) Laterality: right Lung location: lower lobe of lung Qualified Code(s): J15.212 - Pneumonia due to Methicillin resistant Staphylococcus aureus (3) Acute encephalopathy Current Visit: Yes Status: Resolved - Patient was noted to be unresponsive 09/11 morning that triggered the rapid response. - Likely multifactorial including acute respiratory failure in the setting of pneumonia, hyponatremia and A-fib - CT head found no acute intracranial abnormality. (4) Compression fracture Current Visit: Yes Status: Chronic - Acute compression deformities of T5 and T7 per spine X-ray - Continue medical management and pain control as recommended by orthopedic surgery. (5) New onset atrial fibrillation Current Visit: Yes Status: Acute - Patient was noted to have A-fib at rate of 130s-140s during the rapid response on 09/11/17 morning. - Likely related to acute respiratory failure in the setting of missing doses of propanolol. - Converted back to sinus rhythm at rate of 70s-80s after one dose of Cardizem IV 10 mg. - Echocardiogram on 09/11/17 found LVEF 60-65%, mild LV diastolic dysfunction, no significant valvular dysfunction nor evidence of pulmonary hypertension. - As patient is weaned off from BiPAP, switched Cardizem from IV to PO 30 mg q6H. (6) Elevated troponin Current Visit: Yes Status: Acute - Elevated troponin 0.65 on 09/11/17 but then downtrend to 0.55 and 0.39. - No significant ischemic change on EKG. - Likely secondary to new-onset A-fib during the rapid response. (7) Hyponatremia and hypokalemia Current Visit: Yes Status: Acute - Na 117 on admission. - Hypotonoic hypovolemic hyponatremia - Jerrod 74 and FENa = 1%. Likely renal loss or SIADH. Replete as needed (8) Rheumatoid arthritis Current Visit: No Status: Chronic - On prednisone 5 mg daily at home. Qualifiers: Rheumatoid arthritis location: multiple sites Rheumatoid factor presence: unspecified presence Qualified Code(s): M06.9 - Rheumatoid arthritis, unspecified (9) Hypothyroidism Current Visit: Yes Status: Chronic - Continue Synthroid. Qualifiers: Hypothyroidism type: unspecified Qualified Code(s): E03.9 - Hypothyroidism , unspecified - Subjective Interval history: Very hard of hearing, still feeling short of breath and bringing up less phlegm. No fevers overnight denies any chest pain, no abdominal pain or dysuria. Feels very weak - Constitutional Vitals: Temp Pulse Resp BP Pulse Ox 98.0 F 73 15 127/73 100 09/18/17 06:51 09/18/17 08:20 09/18/17 06:51 09/18/17 06:51 09/18/17 06:51 General appearance: Present: cachectic, A&O X 0, A&O X 3, no acute distress, severe distress, answers questions appropriately Exam: Severe deconditioning - Head Head exam: Present: atraumatic, normocephalic - Eye Eye exam: Present: PERRL, conjuntiva pink, sclera anicteric Pupils: Present: PERRL - Neck Neck exam general surgery: Present: supple, trachea midline. Absent: lymphadenopathy - Respiratory Respiratory exam: Present: CTAB. Absent: accessory muscle use, rales, rhonchi, wheezes Additional comments: Blunted breath sounds in both bases worse on the right with diffuse crackles Severe kyphosis - Cardiovascular Cardiovascular exam: Present: RRR, +S1, +S2. Absent: diastolic murmur, gallop, rubs, systolic murmur - GI/Abdominal GI/Abdominal exam: Present: normal bowel sounds, soft, no peritoneal signs. Absent: distended, tenderness - Extremities Exam Extremities exam: Present: warm, radial pulses palpable and symmetrical. Absent : calf tenderness, cyanotic, pedal edema - Neurological Exam Neurological exam: Present: CN II-XII intact, oriented X3, no focal deficits. Absent: pronater drift, facial droop, speech deficit - Skin Skin exam: Present: dry, intact Additional comments: Severe deformities in all upper and lower extremities from rheumatoid arthritis Internal Medicine: Result - Labs CBC & Chem 7: 09/18/17 04:10 09/18/17 04:10 Labs: Short CBC 09/18/17 Range/Units 04:10 WBC 10.8 (4.3-11.1) K/mcL Hgb 9.2 L (11.5-15.4) g/dL Hct 28.4 L (35.3-44.9) % Plt Count 65 L D (140-400) K/mcL BMP 09/17/17 09/18/17 18:00 04:10 Sodium 128 L 128 L Potassium 3.2 L 2.8 L Chloride 82 L 83 L Carbon Dioxide 36 H 39 H BUN 6 L 6 L Creatinine 0.52 L 0.48 L Glucose 196 H 102 H Calcium 7.8 L 7.7 L Liver Function 09/18/17 Range/Units 04:10 Total Bilirubin 0.3 (0.2-1.2) mg/dL AST 33 (5-34) Units/L ALT 14 (0-55) Units/L Alkaline Phosphatase 93 (38-126) Units/L Albumin 2.0 L (3.5-5.0) g/dL - ABG Interpretation ABG results: ABG ABG pH 7.36 pH Units (7.32-7.45) 09/13/17 21:24 ABG pCO2 46 mmHg (35-45) H 09/13/17 21:24 ABG pO2 172 mmHg (85-104) H 09/13/17 21:24 ABG O2 Saturation 100 % (95-98) H 09/13/17 21:24 PT/INR, D-dimer PT 12.8 Seconds (9.4-12.1) H 09/11/17 08:40 - VTE Documentation of Mechanical Device: Intermittent pneumatic compression device Consult Discharge Plan - Plan Referrals: Renetta Hurtado CNP [Partnered Physician] - 09/28/17 2:00 pm Yared Akhtar Jr, MD [Primary Care Provider] - (SENT WEB REQUEST ON 09-17-17 @ 0300)
[2017-09-18 14:14] LABS: VBG Ionized Calcium 1.01 mmol/L (1.15-1.35)
[2017-09-18 19:40] LABS: Magnesium 1.8 mg/dL (1.6-2.6); Potassium 3.6 mEq/L (3.5-4.5)
[2017-09-18] MEDS: Acetaminophen 325 MG TABLET PO PRN (22:10)
[2017-09-19] MEDS: Cefepime HCl 2,000 MG in Water for inj. (sterile) 20 ML IVP SCH ×3 (00:36→16:14)
[2017-09-19] MEDS: Vancomycin 1,000 MG in D5% in Water 250 ML IVPB SCH ×2 (03:03→14:39)
[2017-09-19 03:54] LABS: BUN/Creatinine Ratio 20 (6-26); Blood Urea Nitrogen 10 mg/dL (7-20); Carbon Dioxide 38 mEq/L (19-29); Chloride 82 mEq/L (98-109); Glucose 94 mg/dL (70-99); Osmolality,Calculated 263 (280-300); Potassium 3.8 mEq/L (3.5-4.5); Sodium 127 mEq/L (136-145); eGFR For African Americans > 60 (> 60); eGFR For Non-African Americans > 60 (> 60)
[2017-09-19 08:04] LABS: Magnesium 1.6 mg/dL (1.6-2.6)
[2017-09-19 08:15] LABS: VBG HCO3 44 mEq/L (21-27); VBG Ionized Calcium 1.01 mmol/L (1.15-1.35); VBG PCO2 62 mmHg (41-51); VBG PH 7.46 pH Units (7.32-7.42); VBG PO2 67 mmHg (25-50)
[2017-09-19] MEDS: Folic Acid 1 MG TABLET PO SCH (08:18)
[2017-09-19] MEDS: Multivit/Ca/Min/Fe/FA 1 TAB TABLET PO SCH (08:19)
[2017-09-19] MEDS: amLODIPine 5 MG TABLET PO SCH (08:19)
[2017-09-19] MEDS: predniSONE 5 MG TABLET PO SCH (08:19)
[2017-09-19] MEDS: Furosemide 20 MG/2 ML VIAL IVP SCH (08:20)
[2017-09-19] MEDS: Sennosides/Docusate Sodium TABLET PO SCH ×2 (08:20→21:38)
[2017-09-19] MEDS ORDERED: Water for inj. (sterile) 10 ML IV ONE (08:22)
--- NOTE | 2017-09-19 10:22 | Internal Med Progress Note ---
Date of Encounter: 09/19/17 Time of Encounter: 10:20 - Assessment and plan (1) Acute respiratory failure with hypoxia Current Visit: Yes Status: Acute Assessment and plan: Current Visit: Yes Status: Acute Acute hypoxic and hypercapnic respiratory failure secondary to multifocal pneumonia with MRSA and Serratia infection associated with bilateral pleural effusions worse on the right than the left likely due to diastolic CHF exacerbation -Desaturation to 85% noted when patient was off from BiPAP. - ABG pH 7.34, pCO2 50, pO2 68 and HCO3 27 on 09/11 - Likely secondary to mucus plug in the setting of pneumonia. - Bronchoscopy on 09/11 found mucus plug in the right main bronchus. - Took Zosyn for 7 days D8 (since 09/11 discontinued on 09/17), was switched to Cefepime Day 3 and IV vancomycin D7 (since 09/13) for pneumonia. - Continue Lasix - Continue supplemental oxygen. - Patient is full code and patient's is okay for intubation if it's medically necessary. (2) Pneumonia Current Visit: Yes Status: Acute - CXR on admission found new right lower lobe airspace disease suggesting pneumonia. - Concern of aspiration pneumonia as significant mucus plug was found only on the right lung per bronchoscopy. - Sputum culture form 09/10/17 grew Serratia marcescens, torres-sensitive except resistance to cefazolin. - RLLL BAL from 09/11/17 grew yeast species, MRSA and Serratia marcescens. - CT chest on 09/13/17 found moderate bilateral pleural effusions with near complete right middle lobe and left lower lobe atelectasis and complete atelectasis of the right lower lobe. Focal narrowing of the right interlobar bronchus with occlusion of the right lower lobe bronchus which could be related to mucoid impaction. Multifocal airspace opacities are noted predominately within the right upper lobe suspicious for pneumonia. Qualifiers: Pneumonia type: due to methicillin-resistant Staphylococcus aureus (MRSA) Laterality: right Lung location: lower lobe of lung Qualified Code(s): J15.212 - Pneumonia due to Methicillin resistant Staphylococcus aureus (3) Acute encephalopathy Current Visit: Yes Status: Resolved - Patient was noted to be unresponsive 09/11 morning that triggered the rapid response. - Likely multifactorial including acute respiratory failure in the setting of pneumonia, hyponatremia and A-fib - CT head found no acute intracranial abnormality. (4) Compression fracture Current Visit: Yes Status: Chronic - Acute compression deformities of T5 and T7 per spine X-ray - Continue medical management and pain control as recommended by orthopedic surgery. (5) New onset atrial fibrillation Current Visit: Yes Status: Acute - Patient was noted to have A-fib at rate of 130s-140s during the rapid response on 09/11/17 morning. - Likely related to acute respiratory failure in the setting of missing doses of propanolol. - Converted back to sinus rhythm at rate of 70s-80s after one dose of Cardizem IV 10 mg. - Echocardiogram on 09/11/17 found LVEF 60-65%, mild LV diastolic dysfunction, no significant valvular dysfunction nor evidence of pulmonary hypertension. - As patient is weaned off from BiPAP, switched Cardizem from IV to PO 30 mg q6H. (6) Elevated troponin Current Visit: Yes Status: Acute - Elevated troponin 0.65 on 09/11/17 but then downtrend to 0.55 and 0.39. - No significant ischemic change on EKG. - Likely secondary to new-onset A-fib during the rapid response. (7) Hyponatremia and hypokalemia Current Visit: Yes Status: Acute - Na 117 on admission. - Hypotonoic hypovolemic hyponatremia - Jerrod 74 and FENa = 1%. Likely renal loss or SIADH. Replete as needed (8) Rheumatoid arthritis Current Visit: No Status: Chronic - On prednisone 5 mg daily at home. Qualifiers: Rheumatoid arthritis location: multiple sites Rheumatoid factor presence: unspecified presence Qualified Code(s): M06.9 - Rheumatoid arthritis, unspecified (9) Hypothyroidism Current Visit: Yes Status: Chronic - Continue Synthroid. Qualifiers: Hypothyroidism type: unspecified Qualified Code(s): E03.9 - Hypothyroidism , unspecified - Subjective Interval history: No new complaints Very hard of hearing, still feeling short of breath and bringing up less phlegm. No fevers overnight denies any chest pain, no abdominal pain or dysuria. Feels very weak - Constitutional Vitals: Temp Pulse Resp BP Pulse Ox 97.1 F L 70 18 139/96 95 09/19/17 08:15 09/19/17 08:15 09/19/17 08:15 09/19/17 08:15 09/19/17 03:28 General appearance: Present: cachectic, A&O X 0, A&O X 3, no acute distress, severe distress, answers questions appropriately Exam: Severe deconditioning - Head Head exam: Present: atraumatic, normocephalic - Eye Eye exam: Present: PERRL, conjuntiva pink, sclera anicteric Pupils: Present: PERRL - Neck Neck exam general surgery: Present: supple, trachea midline. Absent: lymphadenopathy - Respiratory Respiratory exam: Present: CTAB. Absent: accessory muscle use, rales, rhonchi, wheezes Additional comments: Blunted breath sounds in both bases worse on the right with diffuse crackles Severe kyphosis - Cardiovascular Cardiovascular exam: Present: RRR, +S1, +S2. Absent: diastolic murmur, gallop, rubs, systolic murmur - GI/Abdominal GI/Abdominal exam: Present: normal bowel sounds, soft, no peritoneal signs. Absent: distended, tenderness - Extremities Exam Extremities exam: Present: warm, radial pulses palpable and symmetrical. Absent : calf tenderness, cyanotic - Neurological Exam Neurological exam: Present: CN II-XII intact, oriented X3, no focal deficits. Absent: pronater drift, facial droop, speech deficit - Skin Skin exam: Present: dry, intact Additional comments: Severe deformities in all upper and lower extremities from rheumatoid arthritis +2 pitting edema in both lower extremities Internal Medicine: Result - Labs CBC & Chem 7: 09/18/17 04:10 09/19/17 03:20 Labs: BMP 09/18/17 09/19/17 13:40 03:20 Sodium 127 L Potassium 3.6 3.8 Chloride 82 L Carbon Dioxide 38 H BUN 10 Creatinine 0.51 L Glucose 94 Calcium 8.0 L - ABG Interpretation ABG results: ABG ABG pH 7.36 pH Units (7.32-7.45) 09/13/17 21:24 ABG pCO2 46 mmHg (35-45) H 09/13/17 21:24 ABG pO2 172 mmHg (85-104) H 09/13/17 21:24 ABG O2 Saturation 100 % (95-98) H 09/13/17 21:24 PT/INR, D-dimer PT 12.8 Seconds (9.4-12.1) H 09/11/17 08:40 - VTE Documentation of Mechanical Device: Intermittent pneumatic compression device Consult Discharge Plan - Plan Referrals: Renetta Hurtado CNP [Partnered Physician] - 09/28/17 2:00 pm Yared Akhtar Jr, MD [Primary Care Provider] - (SENT WEB REQUEST ON 09-17-17 @ [phone])
[2017-09-20] MEDS: Cefepime HCl 2,000 MG in Water for inj. (sterile) 20 ML IVP SCH ×3 (01:00→17:24)
[2017-09-20] MEDS: Vancomycin 1,000 MG in D5% in Water 250 ML IVPB SCH (02:47)
[2017-09-20] MEDS: Sennosides/Docusate Sodium TABLET PO SCH ×2 (08:47→21:25)
[2017-09-20] MEDS: amLODIPine 5 MG TABLET PO SCH (08:47)
[2017-09-20] MEDS: Furosemide 20 MG/2 ML VIAL IVP SCH (08:47)
[2017-09-20] MEDS: Multivit/Ca/Min/Fe/FA 1 TAB TABLET PO SCH (08:47)
[2017-09-20] MEDS: Folic Acid 1 MG TABLET PO SCH (08:48)
[2017-09-20] MEDS: predniSONE 5 MG TABLET PO SCH (08:48)
--- NOTE | 2017-09-20 09:21 | Internal Med Progress Note ---
Date of Encounter: 09/20/17 Time of Encounter: 09:14 - Assessment and plan (1) Acute respiratory failure with hypoxia Current Visit: Yes Status: Acute Assessment and plan: Current Visit: Yes Status: Acute Acute metabolic encephalopathy due to Acute hypoxic and hypercapnic respiratory failure secondary to multifocal pneumonia with MRSA and Serratia infection associated with bilateral pleural effusions worse on the right than the left likely due to diastolic CHF exacerbation -Desaturation to 85% noted when patient was off from BiPAP. - Likely secondary to mucus plug in the setting of pneumonia. - Bronchoscopy on 09/11 found mucus plug in the right main bronchus. - Took Zosyn for 7 days (since 09/11 discontinued on 09/17), was switched to Cefepime Day 4 and IV vancomycin D8 (since 09/13) for pneumonia. - Continue Lasix - Continue supplemental oxygen. - Patient is full code and patient's is okay for intubation if it's medically necessary. REPEAT ABG due to confusion (2) Pneumonia Current Visit: Yes Status: Acute - CXR on admission found new right lower lobe airspace disease suggesting pneumonia. - Concern of aspiration pneumonia as significant mucus plug was found only on the right lung per bronchoscopy. - Sputum culture form 09/10/17 grew Serratia marcescens, torres-sensitive except resistance to cefazolin. - RLLL BAL from 09/11/17 grew yeast species, MRSA and Serratia marcescens. - CT chest on 09/13/17 found moderate bilateral pleural effusions with near complete right middle lobe and left lower lobe atelectasis and complete atelectasis of the right lower lobe. Focal narrowing of the right interlobar bronchus with occlusion of the right lower lobe bronchus which could be related to mucoid impaction. Multifocal airspace opacities are noted predominately within the right upper lobe suspicious for pneumonia. Qualifiers: Pneumonia type: due to methicillin-resistant Staphylococcus aureus (MRSA) Laterality: right Lung location: lower lobe of lung Qualified Code(s): J15.212 - Pneumonia due to Methicillin resistant Staphylococcus aureus (3) Acute encephalopathy Current Visit: Yes Status: Resolved - Patient was noted to be unresponsive 09/11 morning that triggered the rapid response. - Likely multifactorial including acute respiratory failure in the setting of pneumonia, hyponatremia and A-fib - CT head found no acute intracranial abnormality. (4) Compression fracture Current Visit: Yes Status: Chronic - Acute compression deformities of T5 and T7 per spine X-ray - Continue medical management and pain control as recommended by orthopedic surgery. (5) New onset atrial fibrillation Current Visit: Yes Status: Acute - Patient was noted to have A-fib at rate of 130s-140s during the rapid response on 09/11/17 morning. - Likely related to acute respiratory failure in the setting of missing doses of propanolol. - Converted back to sinus rhythm at rate of 70s-80s after one dose of Cardizem IV 10 mg. - Echocardiogram on 09/11/17 found LVEF 60-65%, mild LV diastolic dysfunction, no significant valvular dysfunction nor evidence of pulmonary hypertension. - As patient is weaned off from BiPAP, switched Cardizem from IV to PO 30 mg q6H. (6) Elevated troponin Current Visit: Yes Status: Acute - Elevated troponin 0.65 on 09/11/17 but then downtrend to 0.55 and 0.39. - No significant ischemic change on EKG. - Likely secondary to new-onset A-fib during the rapid response. (7) Hyponatremia and hypokalemia Current Visit: Yes Status: Acute - Na 117 on admission. - Hypotonoic hypovolemic hyponatremia - Jerrod 74 and FENa = 1%. Likely renal loss or SIADH. Replete as needed (8) Rheumatoid arthritis Current Visit: No Status: Chronic - On prednisone 5 mg daily at home. Qualifiers: Rheumatoid arthritis location: multiple sites Rheumatoid factor presence: unspecified presence Qualified Code(s): M06.9 - Rheumatoid arthritis, unspecified (9) Hypothyroidism Current Visit: Yes Status: Chronic - Continue Synthroid. Qualifiers: Hypothyroidism type: unspecified Qualified Code(s): E03.9 - Hypothyroidism , unspecified - Subjective Interval history: Very confused. Very hard of hearing, feeling less short of breath and bringing up less phlegm. No fevers overnight denies any chest pain, no abdominal pain or dysuria. Feels very weak - Constitutional Vitals: Temp Pulse Resp BP Pulse Ox 98.0 F 78 18 124/78 98 09/20/17 08:13 09/20/17 08:13 09/20/17 08:13 09/20/17 08:13 09/20/17 08:13 General appearance: Present: cachectic, A&O X 1, no acute distress, severe distress, answers questions appropriately. Absent: A&O X 0, A&O X 3 Exam: Severe deconditioning - Head Head exam: Present: atraumatic, normocephalic - Eye Eye exam: Present: PERRL, conjuntiva pink, sclera anicteric Pupils: Present: PERRL - Neck Neck exam general surgery: Present: supple, trachea midline. Absent: lymphadenopathy - Respiratory Respiratory exam: Present: CTAB. Absent: accessory muscle use, rales, rhonchi, wheezes Additional comments: Blunted breath sounds in both bases worse on the right with diffuse crackles Severe kyphosis - Cardiovascular Cardiovascular exam: Present: RRR, +S1, +S2. Absent: diastolic murmur, gallop, rubs, systolic murmur - GI/Abdominal GI/Abdominal exam: Present: normal bowel sounds, soft, no peritoneal signs. Absent: distended, tenderness - Extremities Exam Extremities exam: Present: warm, radial pulses palpable and symmetrical. Absent : calf tenderness, cyanotic - Neurological Exam Neurological exam: Present: CN II-XII intact, oriented X1, no focal deficits. Absent: pronater drift, facial droop, speech deficit - Skin Skin exam: Present: dry, intact Additional comments: Severe deformities in all upper and lower extremities from rheumatoid arthritis +2 pitting edema in both lower extremities Internal Medicine: Result - Labs CBC & Chem 7: 09/18/17 04:10 09/19/17 03:20 - ABG Interpretation ABG results: ABG ABG pH 7.36 pH Units (7.32-7.45) 09/13/17 21:24 ABG pCO2 46 mmHg (35-45) H 09/13/17 21:24 ABG pO2 172 mmHg (85-104) H 09/13/17 21:24 ABG O2 Saturation 100 % (95-98) H 09/13/17 21:24 PT/INR, D-dimer PT 12.8 Seconds (9.4-12.1) H 09/11/17 08:40 - VTE Documentation of Mechanical Device: Intermittent pneumatic compression device Consult Discharge Plan - Plan Referrals: Renetta Hurtado CNP [Partnered Physician] - 09/28/17 2:00 pm Yared Akhtar Jr, MD [Primary Care Provider] - (SENT WEB REQUEST ON 09-17-17 @ [phone])
[2017-09-20 11:16] LABS: ABG Base Excess 16 mEq/L (-2 to 3); ABG HCO3 42 mEq/L (21-27); ABG Oxygen Saturation 95 % (95-98); ABG PCO2 55 mmHg (35-45); ABG PH 7.49 pH Units (7.32-7.45); ABG PO2 72 mmHg (85-104); ABG TCO2 43 mEq/L (20-26)
[2017-09-20] MEDS ORDERED: Vancomycin 1 EACH in D5% in Water 250 ML IVPB PRN (13:00)
[2017-09-21] MEDS: Cefepime HCl 2,000 MG in Water for inj. (sterile) 20 ML IVP SCH ×4 (00:50→23:49)
[2017-09-21 04:25] LABS: Red Cell Distribution Width 14.3 % (11.5-14.5)
[2017-09-21 04:27] LABS: Hematocrit 26.6 % (35.3-44.9); Hemoglobin 8.6 g/dL (11.5-15.4); Immature Platelets 19.5 % (1.1-6.1); Mean Corpuscular HGB Conc 32.3 g/dL (31.6-35.5); Mean Corpuscular Hemoglobin 29.1 pg (28.0-33.3); Mean Corpuscular Volume 89.9 fL (83.0-100.0); Mean Platelet Volume 10.9 fL (9.4-12.4); Red Blood Count 2.96 M/mcL (3.82-4.97)
[2017-09-21 04:39] LABS: BUN/Creatinine Ratio 19 (6-26); Blood Urea Nitrogen 10 mg/dL (7-20); Calcium 8.1 mg/dL (8.6-10.8); Chloride 78 mEq/L (98-109); Glucose 97 mg/dL (70-99); Osmolality,Calculated 265 (280-300); Potassium 3.6 mEq/L (3.5-4.5); Sodium 128 mEq/L (136-145); eGFR For African Americans > 60 (> 60); eGFR For Non-African Americans > 60 (> 60)
[2017-09-21 04:47] LABS: Carbon Dioxide 42 mEq/L (19-29)
[2017-09-21] MEDS: Vancomycin 1,000 MG in D5% in Water 250 ML IVPB SCH (05:35)
[2017-09-21] MEDS: Sennosides/Docusate Sodium TABLET PO SCH ×2 (08:53→20:37)
[2017-09-21] MEDS: Folic Acid 1 MG TABLET PO SCH (08:53)
[2017-09-21] MEDS: Multivit/Ca/Min/Fe/FA 1 TAB TABLET PO SCH (08:53)
[2017-09-21] MEDS: amLODIPine 5 MG TABLET PO SCH (08:53)
[2017-09-21] MEDS: predniSONE 5 MG TABLET PO SCH (08:53)
[2017-09-21] MEDS: Furosemide 20 MG/2 ML VIAL IVP SCH (08:53)
--- NOTE | 2017-09-21 09:29 | Internal Med Progress Note ---
<Johann Sánchez - Last Filed: 09/21/17 11:45> Date of Encounter: 09/21/17 Time of Encounter: 11:45 - Assessment and plan (1) Acute respiratory failure with hypoxia Current Visit: Yes Status: Acute Assessment and plan: Acute metabolic encephalopathy due to Acute hypoxic and hypercapnic respiratory failure secondary to multifocal pneumonia with MRSA and Serratia infection associated with bilateral pleural effusions worse on the right than the left likely due to diastolic CHF exacerbation Likely secondary to mucus plug in the setting of pneumonia. Bronchoscopy on 09/11 found mucus plug in the right main bronchus. Took Zosyn for 7 days (since 09/11 discontinued on 09/17), was switched to Cefepime Day 5 and IV vancomycin D9 (since 09/13) for pneumonia. Patient is full code and patient's is okay for intubation if it's medically necessary. Plan: d/c lasix today-concern for contraction alkalosis Cefepime day 5, vanc day 9 placement and discharge planning pending patient tolerating nasal canula well, continue to monitor. (2) Pneumonia Current Visit: Yes Status: Acute Assessment and plan: CXR on admission showed new right lower lobe airspace disease suggesting pneumonia. Concern of aspiration pneumonia as significant mucus plug was found only on the right lung per bronchoscopy. Sputum culture form 09/10/17 grew Serratia marcescens, torres-sensitive except resistance to cefazolin. RLLL BAL from 09/11/17 grew yeast species, MRSA and Serratia marcescens. CT chest on 09/13/17 found moderate bilateral pleural effusions with near complete right middle lobe and left lower lobe atelectasis and complete atelectasis of the right lower lobe. Focal narrowing of the right interlobar bronchus with occlusion of the right lower lobe bronchus which could be related to mucoid impaction. Multifocal airspace opacities are noted predominately within the right upper lobe suspicious for pneumonia. Qualifiers: Pneumonia type: due to methicillin-resistant Staphylococcus aureus (MRSA) Laterality: right Lung location: lower lobe of lung Qualified Code(s): J15.212 - Pneumonia due to Methicillin resistant Staphylococcus aureus (3) Acute encephalopathy Current Visit: Yes Status: Resolved Assessment and plan: likey secondary to acute hypoxic respiratory failure secondary to pneumonia patient noted to be unresponse 09/11 morning that triggerd rapid response. CT head showed no acute intracranial abnormality 09/21 patient is alert and oriented x1 had BiPAP on yesterday. continue to monitor. (4) Compression fracture Current Visit: Yes Status: Chronic Assessment and plan: CT showed acute compression defomities of T5 and T7, diffuse airspace opacities. patient was seen by pain management on 09/08; findings likely old and healed. no interventional options indicated. Plan: continue medical management. (5) New onset atrial fibrillation Current Visit: Yes Status: Acute Assessment and plan: new onset Afib during raipid ressponse on 09/11/17 likely secondary to acute respiratory failure in setting of mised doses of propanolol converted back to sinus rhythm after IV cardizem 10mg Echo on 09/11/17 showed LVEF 60-65%, normal LV chamber size, wall thickness, and function, mild LV diastolic dysfunction, normal RV structure and funciton, moderately dilated left atrium, no evidence of pulmonary HTN, no significant valvular dysfunction. CHADS/VASC: 5 (age, sex, CHF, HTN) Plan: continue PO cardizem patient not a candidate for anticoagulation due to fall risk. (6) Elevated troponin Current Visit: Yes Status: Acute Assessment and plan: down trended wth no EKG changes likely secondary to new onset Afib (7) Hyponatremia Current Visit: Yes Status: Acute Assessment and plan: chronically hyponatremic Jerrod 74 FeNa: 1% replete as needed (8) Rheumatoid arthritis Current Visit: No Status: Chronic Assessment and plan: on prednisone at home Qualifiers: Rheumatoid arthritis location: multiple sites Rheumatoid factor presence: unspecified presence Qualified Code(s): M06.9 - Rheumatoid arthritis, unspecified (9) Hypothyroidism Current Visit: Yes Status: Chronic Assessment and plan: continue synthroid Qualifiers: Hypothyroidism type: unspecified Qualified Code(s): E03.9 - Hypothyroidism , unspecified (10) DVT prophylaxis Current Visit: Yes Status: Acute Assessment and plan: EPCD - Constitutional Vitals: Temp Pulse Resp BP Pulse Ox 98.3 F 88 16 120/68 97 09/21/17 07:15 09/21/17 07:15 09/21/17 07:15 09/21/17 07:15 09/21/17 07:15 General appearance: Present: cachectic, A&O X 1, no acute distress, severe distress. Absent: A&O X 0, A&O X 3 - Head Head exam: Present: atraumatic, normocephalic - Neck Neck exam general surgery: Present: supple, trachea midline - Respiratory Respiratory exam: Present: rales, rhonchi - Cardiovascular Cardiovascular exam: Present: RRR, +S1, +S2 - GI/Abdominal GI/Abdominal exam: Present: normal bowel sounds, soft. Absent: distended, tenderness - Extremities Exam Additional comments: +2 pitting edema present on right leg. - Neurological Exam Neurological exam: Present: alert, oriented X3, no focal deficits - Psychiatric Psychiatric exam: Present: normal affect, normal mood Internal Medicine: Result - Labs CBC & Chem 7: 09/21/17 03:45 09/21/17 03:45 Labs: Short CBC 09/21/17 Range/Units 03:45 WBC 11.6 H (4.3-11.1) K/mcL Hgb 8.6 L (11.5-15.4) g/dL Hct 26.6 L (35.3-44.9) % Plt Count 55 L (140-400) K/mcL BMP 09/21/17 03:45 Sodium 128 L Potassium 3.6 Chloride 78 L Carbon Dioxide 42 H* BUN 10 Creatinine 0.54 L Glucose 97 Calcium 8.1 L - ABG Interpretation ABG results: ABG ABG pH 7.49 pH Units (7.32-7.45) H 09/20/17 11:10 ABG pCO2 55 mmHg (35-45) H 09/20/17 11:10 ABG pO2 72 mmHg (85-104) L 09/20/17 11:10 ABG O2 Saturation 95 % (95-98) 09/20/17 11:10 PT/INR, D-dimer PT 12.8 Seconds (9.4-12.1) H 09/11/17 08:40 - VTE Documentation of Mechanical Device: Intermittent pneumatic compression device Consult Discharge Plan - Plan Referrals: Renetta Hurtado CNP [Partnered Physician] - (THIS PATIENT IS GOING TO [facility] NO PCP APPOINTMENT NEEDED) Yared Akhtar Jr, MD [Primary Care Provider] - (SENT WEB REQUEST ON 09-17-17 @ 4029) <Yuki Mccall - Last Filed: 09/21/17 12:33> Date of Encounter: 09/21/17 - Constitutional Vitals: Temp Pulse Resp BP Pulse Ox 98.5 F 96 16 133/79 99 09/21/17 11:13 09/21/17 11:13 09/21/17 07:15 09/21/17 11:13 09/21/17 11:13 Internal Medicine: Result - Labs CBC & Chem 7: 09/21/17 03:45 09/21/17 03:45 Labs: Short CBC 09/21/17 Range/Units 03:45 WBC 11.6 H (4.3-11.1) K/mcL Hgb 8.6 L (11.5-15.4) g/dL Hct 26.6 L (35.3-44.9) % Plt Count 55 L (140-400) K/mcL BMP 09/21/17 03:45 Sodium 128 L Potassium 3.6 Chloride 78 L Carbon Dioxide 42 H* BUN 10 Creatinine 0.54 L Glucose 97 Calcium 8.1 L - ABG Interpretation ABG results: ABG ABG pH 7.49 pH Units (7.32-7.45) H 09/20/17 11:10 ABG pCO2 55 mmHg (35-45) H 09/20/17 11:10 ABG pO2 72 mmHg (85-104) L 09/20/17 11:10 ABG O2 Saturation 95 % (95-98) 09/20/17 11:10 PT/INR, D-dimer PT 12.8 Seconds (9.4-12.1) H 09/11/17 08:40 - Attending Attestation I examined this patient and my medical decision-making was reviewed with the Resident Physician. I agree with the documented findings, disposition and treatment plan as described except to the extent set forth below.
[2017-09-21] MEDS ORDERED: *HR* Heparin 5,000 UNIT/ML VIAL SQ SCH (09:30)
[2017-09-21] MEDS ORDERED: Furosemide 20 MG TABLET PO PRN (09:53)
[2017-09-21] MEDS: Acetaminophen 325 MG TABLET PO PRN (14:46)
[2017-09-22 05:37] LABS: Basophils % 0.1 %; Eosinophils # 0.1 K/mcL (0.0-0.6); Eosinophils % 1.2 %; Hematocrit 26.5 % (35.3-44.9); Hemoglobin 8.6 g/dL (11.5-15.4); Immature Granulocytes % 0.5 % (0-4); Lymphocytes # 0.6 K/mcL (0.6-4.6); Lymphocytes % 5.8 %; Mean Corpuscular HGB Conc 32.5 g/dL (31.6-35.5); Mean Corpuscular Hemoglobin 29.2 pg (28.0-33.3); Mean Corpuscular Volume 89.8 fL (83.0-100.0); Mean Platelet Volume 10.8 fL (9.4-12.4); Monocytes # 0.9 K/mcL (0.0-1.3); Monocytes % 8.7 %; Neutrophils # 8.5 K/mcL (1.6-8.9); Red Blood Count 2.95 M/mcL (3.82-4.97); Red Cell Distribution Width 14.3 % (11.5-14.5); Segmented Neutrophils % 83.7 %
[2017-09-22 05:38] LABS: Platelet Count 65 K/mcL (140-400)
[2017-09-22 05:52] LABS: BUN/Creatinine Ratio 25 (6-26); Blood Urea Nitrogen 14 mg/dL (7-20); Calcium 8.3 mg/dL (8.6-10.8); Chloride 80 mEq/L (98-109); Glucose 91 mg/dL (70-99); Osmolality,Calculated 266 (280-300); Potassium 3.5 mEq/L (3.5-4.5); Sodium 128 mEq/L (136-145); eGFR For African Americans > 60 (> 60); eGFR For Non-African Americans > 60 (> 60)
[2017-09-22 05:54] LABS: Carbon Dioxide 42 mEq/L (19-29)
[2017-09-22] MEDS: Vancomycin 1,000 MG in D5% in Water 250 ML IVPB SCH (06:46)
[2017-09-22] MEDS: amLODIPine 5 MG TABLET PO SCH (09:18)
[2017-09-22] MEDS: Multivit/Ca/Min/Fe/FA 1 TAB TABLET PO SCH (09:18)
[2017-09-22] MEDS: predniSONE 5 MG TABLET PO SCH (09:19)
[2017-09-22] MEDS: Sennosides/Docusate Sodium TABLET PO SCH ×2 (09:19→20:27)
[2017-09-22] MEDS: Folic Acid 1 MG TABLET PO SCH (09:19)
[2017-09-22] MEDS: Cefepime HCl 2,000 MG in Water for inj. (sterile) 20 ML IVP SCH ×2 (09:20→18:24)
[2017-09-22] MEDS ORDERED: Carbamide Peroxide 150 DROP/15 ML BOTTLE RIGHT EAR SCH (10:15)
[2017-09-22] MEDS: Carbamide Peroxide 150 DROP/15 ML BOTTLE BOTH EARS SCH ×3 (15:50→20:28)
--- NOTE | 2017-09-22 16:23 | Internal Med Progress Note ---
<Johann Sánchez - Last Filed: 09/22/17 16:21> Date of Encounter: 09/22/17 Time of Encounter: 16:21 - Assessment and plan (1) Acute respiratory failure with hypoxia Current Visit: Yes Status: Acute Assessment and plan: Acute metabolic encephalopathy due to Acute hypoxic and hypercapnic respiratory failure secondary to multifocal pneumonia with MRSA and Serratia infection associated with bilateral pleural effusions worse on the right than the left likely due to diastolic CHF exacerbation Likely secondary to mucus plug in the setting of pneumonia. Bronchoscopy on 09/11 found mucus plug in the right main bronchus. Took Zosyn for 7 days (since 09/11 discontinued on 09/17), was switched to Cefepime Day 5 and IV vancomycin D9 (since 09/13) for pneumonia. Patient is full code and patient's is okay for intubation if it's medically necessary. Plan: d/c lasix today-concern for contraction alkalosis Cefepime day 6, vanc day 10 placement and discharge planning pending patient tolerating nasal canula well, continue to monitor. (2) Pneumonia Current Visit: Yes Status: Acute Assessment and plan: CXR on admission showed new right lower lobe airspace disease suggesting pneumonia. Concern of aspiration pneumonia as significant mucus plug was found only on the right lung per bronchoscopy. Sputum culture form 09/10/17 grew Serratia marcescens, torres-sensitive except resistance to cefazolin. RLLL BAL from 09/11/17 grew yeast species, MRSA and Serratia marcescens. CT chest on 09/13/17 found moderate bilateral pleural effusions with near complete right middle lobe and left lower lobe atelectasis and complete atelectasis of the right lower lobe. Focal narrowing of the right interlobar bronchus with occlusion of the right lower lobe bronchus which could be related to mucoid impaction. Multifocal airspace opacities are noted predominately within the right upper lobe suspicious for pneumonia. Qualifiers: Pneumonia type: due to methicillin-resistant Staphylococcus aureus (MRSA) Laterality: right Lung location: lower lobe of lung Qualified Code(s): J15.212 - Pneumonia due to Methicillin resistant Staphylococcus aureus (3) Acute encephalopathy Current Visit: Yes Status: Resolved Assessment and plan: patient noted to be unresponsive 09/11 morning that triggerd rapid response. CT head x2 showed no acute intracranial abnormality MRI brain showed small acute left temporal lobe infarct, moderate chronic microvascular ischemic changes. Plan: consult to neurology-appreciate recs started ASA 325 daily consult to speech for therapy PT/OT (4) Ischemic stroke Current Visit: Yes Status: Acute Assessment and plan: plan as above (5) Metabolic alkalosis Current Visit: Yes Status: Acute Assessment and plan: serum bicarb 42, likely secodary to over diuresis Plan: gentle fluid hydration. (6) Compression fracture Current Visit: Yes Status: Chronic Assessment and plan: CT showed acute compression defomities of T5 and T7, diffuse airspace opacities. patient was seen by pain management on 09/08; findings likely old and healed. no interventional options indicated. Plan: continue medical management. (7) New onset atrial fibrillation Current Visit: Yes Status: Acute Assessment and plan: new onset Afib during raipid ressponse on 09/11/17 likely secondary to acute respiratory failure in setting of mised doses of propanolol converted back to sinus rhythm after IV cardizem 10mg Echo on 09/11/17 showed LVEF 60-65%, normal LV chamber size, wall thickness, and function, mild LV diastolic dysfunction, normal RV structure and funciton, moderately dilated left atrium, no evidence of pulmonary HTN, no significant valvular dysfunction. CHADS/VASC: 5 (age, sex, CHF, HTN) Plan: continue PO cardizem patient not a candidate for anticoagulation due to fall risk. (8) Elevated troponin Current Visit: Yes Status: Acute Assessment and plan: down trended wth no EKG changes likely secondary to new onset Afib (9) Hyponatremia Current Visit: Yes Status: Acute Assessment and plan: chronically hyponatremic Jerrod 74 FeNa: 1% replete as needed (10) Rheumatoid arthritis Current Visit: No Status: Chronic Assessment and plan: on prednisone at home Qualifiers: Rheumatoid arthritis location: multiple sites Rheumatoid factor presence: unspecified presence Qualified Code(s): M06.9 - Rheumatoid arthritis, unspecified (11) Hypothyroidism Current Visit: Yes Status: Chronic Assessment and plan: continue synthroid Qualifiers: Hypothyroidism type: unspecified Qualified Code(s): E03.9 - Hypothyroidism , unspecified (12) DVT prophylaxis Current Visit: Yes Status: Acute Assessment and plan: EPCD - Subjective Interval history: 77 F evaluated at bedside. patient has aphasia from recent stroke, but is more verbal today than she was yesterday. she denies pain, nausea, vomiting, fever, chills. - Constitutional Vitals: Temp Pulse Resp BP Pulse Ox 98.2 F 82 16 143/80 100 09/22/17 16:04 09/22/17 16:04 09/22/17 16:04 09/22/17 16:04 09/22/17 11:29 General appearance: Present: cachectic, pleasant, no acute distress. Absent: A& O X 0, A&O X 3, answers questions appropriately - Head Head exam: Present: atraumatic, normocephalic - Neck Neck exam general surgery: Present: supple, trachea midline - Respiratory Respiratory exam: Present: rales, wheezes - Cardiovascular Cardiovascular exam: Present: RRR, +S1, +S2 - GI/Abdominal GI/Abdominal exam: Present: normal bowel sounds, soft. Absent: distended, tenderness - Extremities Exam Extremities exam: Absent: cyanotic, pedal edema - Neurological Exam Neurological exam: Present: alert Additional comments: aphasia, severe weakness - Psychiatric Psychiatric exam: Present: normal affect, normal mood - Skin Skin exam: Absent: cyanosis Internal Medicine: Result - Labs CBC & Chem 7: 09/22/17 05:00 09/22/17 05:00 Labs: Short CBC 09/22/17 Range/Units 05:00 WBC 10.1 (4.3-11.1) K/mcL Hgb 8.6 L (11.5-15.4) g/dL Hct 26.5 L (35.3-44.9) % Plt Count 65 L (140-400) K/mcL Neutrophils # 8.5 (1.6-8.9) K/mcL BMP 09/22/17 05:00 Sodium 128 L Potassium 3.5 Chloride 80 L Carbon Dioxide 42 H* BUN 14 Creatinine 0.55 L Glucose 91 Calcium 8.3 L - ABG Interpretation ABG results: ABG ABG pH 7.49 pH Units (7.32-7.45) H 09/20/17 11:10 ABG pCO2 55 mmHg (35-45) H 09/20/17 11:10 ABG pO2 72 mmHg (85-104) L 09/20/17 11:10 ABG O2 Saturation 95 % (95-98) 09/20/17 11:10 PT/INR, D-dimer PT 12.8 Seconds (9.4-12.1) H 09/11/17 08:40 - Impressions Impressions Brain MRI 09/22/17 10:01 IMPRESSION: Small acute left temporal lobe infarct. Age related involutional changes and moderate chronic microvascular ischemic disease. The findings were sent to the Radiology Results Communication Center at 1:13 pm on 09/22/2017to be communicated to a licensed caregiver. D/ 09/22/2017 13:22:03 Valarie Paula MD / [facility] Interpreting Provider: Valarie Paula MD - VTE Documentation of Mechanical Device: Intermittent pneumatic compression device Consult Discharge Plan - Plan Referrals: Renetta Hurtado CNP [Partnered Physician] - (THIS PATIENT IS GOING TO [facility] NO PCP APPOINTMENT NEEDED) Yared Akhtar Jr, MD [Primary Care Provider] - (SENT WEB REQUEST ON 09-17-17 @ [id number]) <Sebastian Christensen - Last Filed: 09/22/17 19:44> Date of Encounter: 09/22/17 - Assessment and plan (1) Acute respiratory failure with hypoxia Current Visit: Yes Status: Acute (2) Pneumonia Current Visit: Yes Status: Acute Qualifiers: Pneumonia type: due to methicillin-resistant Staphylococcus aureus (MRSA) Laterality: right Lung location: lower lobe of lung Qualified Code(s): J15.212 - Pneumonia due to Methicillin resistant Staphylococcus aureus (3) Pneumonia Current Visit: Yes Status: Suspected Qualifiers: Pneumonia type: aspiration pneumonia Laterality: bilateral Lung location : lower lobe of lung Qualified Code(s): J69.0 - Pneumonitis due to inhalation of food and vomit (4) CVA (cerebral vascular accident) Current Visit: Yes Status: Acute Qualifiers: CVA mechanism: thrombosis Precerebral and cerebral artery: middle cerebral artery Laterality of affected vessel: left Qualified Code(s): I63.312 - Cerebral infarction due to thrombosis of left middle cerebral artery (5) Hypertension Current Visit: Yes Status: Chronic Qualifiers: Hypertension type: essential hypertension Qualified Code(s): I10 - Essential (primary) hypertension (6) Hyponatremia Current Visit: Yes Status: Acute (7) Compression fracture Current Visit: Yes Status: Chronic (8) Rheumatoid arthritis Current Visit: No Status: Chronic Qualifiers: Rheumatoid arthritis location: multiple sites Rheumatoid factor presence: unspecified presence Qualified Code(s): M06.9 - Rheumatoid arthritis, unspecified (9) Hypothyroidism Current Visit: Yes Status: Chronic Qualifiers: Hypothyroidism type: acquired Qualified Code(s): E03.9 - Hypothyroidism, unspecified (10) Anemia Current Visit: Yes Status: Acute Qualifiers: Anemia type: other cause Other causes of anemia: chronic disease, other Qualified Code(s): D63.8 - Anemia in other chronic diseases classified elsewhere - Constitutional Vitals: Temp Pulse Resp BP Pulse Ox 98.9 F 96 18 134/79 99 09/22/17 19:04 09/22/17 19:04 09/22/17 19:04 09/22/17 19:04 09/22/17 19:04 Internal Medicine: Result - Labs CBC & Chem 7: 09/22/17 05:00 09/22/17 05:00 Labs: Short CBC 09/22/17 Range/Units 05:00 WBC 10.1 (4.3-11.1) K/mcL Hgb 8.6 L (11.5-15.4) g/dL Hct 26.5 L (35.3-44.9) % Plt Count 65 L (140-400) K/mcL Neutrophils # 8.5 (1.6-8.9) K/mcL BMP 09/22/17 05:00 Sodium 128 L Potassium 3.5 Chloride 80 L Carbon Dioxide 42 H* BUN 14 Creatinine 0.55 L Glucose 91 Calcium 8.3 L - ABG Interpretation ABG results: ABG ABG pH 7.49 pH Units (7.32-7.45) H 09/20/17 11:10 ABG pCO2 55 mmHg (35-45) H 09/20/17 11:10 ABG pO2 72 mmHg (85-104) L 09/20/17 11:10 ABG O2 Saturation 95 % (95-98) 09/20/17 11:10 PT/INR, D-dimer PT 12.8 Seconds (9.4-12.1) H 09/11/17 08:40 - Impressions Impressions Brain MRI 09/22/17 10:01 IMPRESSION: Small acute left temporal lobe infarct. Age related involutional changes and moderate chronic microvascular ischemic disease. The findings were sent to the Radiology Results Communication Center at 1:13 pm on 09/22/2017to be communicated to a licensed caregiver. D/ / 09/22/2017 13:22:03 Valarie Paula MD / [facility] Interpreting Provider: Valarie Paula MD - Attending Attestation I examined this patient and my medical decision-making was reviewed with the Resident Physician on 09/22/17. I agree with the documented findings, disposition and treatment plan as described except to the extent set forth below. Ms Laurent is currently admitted for acute hypoxic resp failure from pneumonia. She has had progressive confusion and MRI shows CVA. She remains high risk due to potential for worsening neuro and respiratory status. Ms Laurent is confused and has difficulty with speech. Diffusely weak. at bedside is concerned about confusion. No fever or chills. No CP. Exam Alert. Only answers her own name. Mucus membranes dry Heart reg No wheeze but rhonchi heard Abd soft No edema I/P 1. PNA 2. CVA 3. Anemia - r/o blood loss. Transfuse today. Further diagnoses and plan as above
[2017-09-22] MEDS ORDERED: Potassium Chloride Elixir 20 MEQ/15 ML UDC PO ONE (16:29)
[2017-09-22] MEDS ORDERED: Aspirin Enteric Coated 325 MG Tablet PO SCH (16:30)
[2017-09-22] MEDS ORDERED: 0.9 % Sodium Chloride 1,000 ML IVC SCH (16:45)
--- NOTE | 2017-09-22 17:46 | Neurology - Consult Note ---
Date of Encounter: 09/22/17 Time of Encounter: 17:43 Assessment and Plan (1) Ischemic stroke Current Visit: Yes Status: Acute Patient is a 77 year old woman with recent history of pneumonia, who had a recent fall two weeks ago, who developed acute onset of unresponsiveness associated with acute respiratory failure, new onset of atrial fibrillation. Patient's mental status has been improving but MRI of brain showed presence of acute cerebral infarct at the left temporal lobe, involving cerebral cortex. This appears to be embolic or thromboembolic in nature. Due to presence of new found atrial fibrillation, it is most likely that we are dealing with embolic phenomenon. Patient has multiple risk factors for CVA and her CHADs2 score is 5 therefore is at risk of developing recurrent CVA if not anticoagulated. Risk of fall alone is not considered sufficient reason not to anticoagulted. patient does have multiple ongoing medical conditions including anemia and low platelet counts. Case discussed with the medical team and would recommend close clinical monitoring regarding her CBC and HBG. if no active bleeding or other absolute contraindication is present then i would recommend anticoagulation therapy preferably one of the NOACs. The side of the stroke is small and it would not be considered contraindication for antcoagulation therapy. meanwhile before anticoagulation could be initiated Aspirin 325mg daily is recommended. As usual, would like get stroke work up including carotid artery duplex Echocardiography already completed. neurologically the size of stroke is small and expect her not to have significant neurologically deficits but she does have multiple medical conditions therefore the use of anticoagulation therapy can be associated with increased bleeding risk, treatment plan discussed with the family members and medical tea. History of Present Illness Chief complaint: CVA HPI: Ms. Laurent is a 77 year old female with PMH significant for recent fall injury 09/07/2017, pneumonia who is consulted due to mental status changes and finding of acute cerebral infarct on MRI. Patient seen in the presence of her daughter. Patient has been feeling sick few days prior to a fall on 09/07/2017. She was admitted to the hospital and while in the hospital she developed unresponsiveness on 09/11/2017 developed acute respiratory failure and found new onset of atrial fibrillation. She was found to have compression fracture of thoracic region which has been evaluated by ortho. this was thought to be old and healed. No intervention indicated. No activity bleeding identified. Patient noticed to have been improving slowly after being treated in the ICU and she was finally transferred onto medical floor. She was found to have speech difficulty and completed MRI of brain today which showed acute left temporal lobe infarct. She has no significant focal weakness. She is weak but follow simple commands. She is wide awake now. Initially she was thought not to be a candidate for anticoagulation therapy. Her CHADS2 score is now 5 which put her in high risk of recurrent CVA if not anti-coagulated. Past Med Surg Social Fam HX - Past Medical History Medical history: COPD, hyperlipidemia, hypertension, RA, thyroid disease Psychiatric history: no psych history - Past Surgical History Surgical History: hysterectomy - Social History Smoking Status: Never smoker Smokeless Tobacco Status: No Alcohol use: none Drug use: none - Family History Mother Living Status: Age at : 86 Hx Family Cardiac Disorders: Yes (IN, HTN) Hx Family Endocrine Disorder: Yes (DM) Father Living Status: Age at : 58 Hx Family Cardiac Disorders: Yes (IN) Brother Hx Family Cardiac Disorders: Yes (Heart disease) Medications and Allergies Amlodipine Besylate 2.5 mg PO DAILY 02/03/17 [History] Folic Acid 1 mg PO DAILY 02/03/17 [History] Levothyroxine [Synthroid] 100 mcg PO 0630 02/03/17 [History] Losartan Potassium [Cozaar] 100 mg PO DAILY 02/03/17 [History] Omeprazole 20 mg PO DAILY 02/03/17 [History] Multivit-Min/Iron/Folic/Lutein [Centrum Silver Women Tablet] 1 each PO DAILY 07/05 [History] Propranolol [Inderal] 20 mg PO BID 09/07/17 [History] predniSONE [PredniSONE] 5 mg PO DAILY 09/07/17 [History] 3 Allergy/AdvReac Type Severity Reaction Status Date / Time No Known Allergies Allergy Verified 07/31/16 13:26 All Systems: A 10-system review of systems was performed and is negative for pertinent findings except as documented above in the HPI. Physical Examination - Vital Signs Vital Signs: Initial Vital Signs Temp Pulse Resp BP Pulse Ox 97.9 F 119 22 152/76 0 09/07/17 14:25 09/07/17 14:25 09/07/17 14:25 09/07/17 14:25 09/07/17 14:25 - Constitutional General appearance: chronically ill - Neurologic Sensorimotor examination: other (Patient is laying in bed no acute distress but she appears fragile and weak. ) Detailed motor examination: grossly full strength in all extremities (Muscle strength appear at her baseline but she is weak all over. 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 Has deformities to her digits due to arthritis. ) Detailed sensory examination: other (Grossly intact) Posture: other (None) Reflexes: Biceps: 2+, Triceps: 2+, Brachioradialis: 2+, Patella: 2+, Achilles: 2 + Mental Status Examination: awake, alert, oriented to person, oriented to place, oriented to time, follows commands appropriately, answers questions appropriately, no agnosia, no aphasia, no aproxia, makes eye contact, follows simple commands Cranial nerve examination: PERRL, EOMI, visual cedeno intact, corneal reflexes brisk symmetrically, sensory to face intact, mastication intact, no facial asymmetry is present, no dysarthria, hearing is intact symmetrically, soft palate elevates bilaterally upon phonation, gag reflex intact, flexes SCM and trapezius muscles symmetrically with full power, tongue protrudes midline, no atrophy or facial fasiculations present Results - Laboratory Findings CBC and BMP: 09/22/17 05:00 09/22/17 05:00 Abnormal lab findings: Abnormal lab results RBC 2.95 M/mcL (3.82-4.97) L 09/22/17 05:00 Hgb 8.6 g/dL (11.5-15.4) L 09/22/17 05:00 Hct 26.5 % (35.3-44.9) L 09/22/17 05:00 Plt Count 65 K/mcL (140-400) L 09/22/17 05:00 Nucleated RBCs/100 WBC 0.2 /100 WBC (0) H 09/07/17 20:46 Plt Count ,Citrate 148.5 (150-600) L 09/11/17 08:40 Immature Plt Fraction 19.5 % (1.1-6.1) H 09/21/17 03:45 PT 12.8 Seconds (9.4-12.1) H 09/11/17 08:40 ABG pH 7.49 pH Units (7.32-7.45) H 09/20/17 11:10 ABG pCO2 55 mmHg (35-45) H 09/20/17 11:10 ABG pO2 72 mmHg (85-104) L 09/20/17 11:10 ABG HCO3 42 mEq/L (21-27) H 09/20/17 11:10 ABG Total CO2 43 mEq/L (20-26) H 09/20/17 11:10 ABG Base Excess 16 mEq/L (-2 to 3) H 09/20/17 11:10 VBG pH 7.46 pH Units (7.32-7.42) H 09/19/17 08:10 VBG pCO2 62 mmHg (41-51) H 09/19/17 08:10 VBG pO2 67 mmHg (25-50) H 09/19/17 08:10 VBG HCO3 44 mEq/L (21-27) H 09/19/17 08:10 Sodium 128 mEq/L (136-145) L 09/22/17 05:00 Chloride 80 mEq/L (98-109) L 09/22/17 05:00 Carbon Dioxide 42 mEq/L (19-29) H* 09/22/17 05:00 Creatinine 0.55 mg/dL (0.57-1.11) L 09/22/17 05:00 POC Glucose 126 (58-89) H 09/17/17 11:36 Calculated Osmolality 266 (280-300) L 09/22/17 05:00 Calcium 8.3 mg/dL (8.6-10.8) L 09/22/17 05:00 Venous Ioniz Calcium 1.01 mmol/L (1.15-1.35) L 09/19/17 08:10 Phosphorus 2.0 mg/dL (2.3-4.7) L 09/19/17 03:20 Troponin I 0.39 ng/mL (0-0.03) H* 09/11/17 20:30 B-Natriuretic Peptide 655 pg/mL (0-100) H 09/21/17 03:45 Serum Total Protein 5.4 g/dL (6.0-8.3) L 09/18/17 04:10 Albumin 2.0 g/dL (3.5-5.0) L 09/18/17 04:10 Albumin/Globulin Ratio 0.6 (1.1-2.2) L 09/18/17 04:10 Urine Ketones 15 mg/dL (Negative) H 09/08/17 09:15 Fluid Appearance Cloudy (Clear) A 09/11/17 12:57 Vancomycin Trough 20.6 mcg/mL (10-20) H* 09/21/17 00:50 Consult Discharge Plan - Plan Referrals: Renetta Hurtado CNP [Partnered Physician] - (THIS PATIENT IS GOING TO [facility] NO PCP APPOINTMENT NEEDED) Yraed Akhtar Jr, MD [Primary Care Provider] - (SENT WEB REQUEST ON 09-17-17 @ [id number])
[2017-09-22] MEDS: Aspirin Enteric Coated 325 MG Tablet PO SCH (18:24)
[2017-09-22] MEDS ORDERED: 0.9 % Sodium Chloride 250 ML ONE (18:38)
[2017-09-23] MEDS: Cefepime HCl 2,000 MG in Water for inj. (sterile) 20 ML IVP SCH ×3 (01:40→15:29)
[2017-09-23 05:10] LABS: Basophils % 0.2 %; Mean Corpuscular Volume 89.1 fL (83.0-100.0); Red Cell Distribution Width 14.6 % (11.5-14.5)
[2017-09-23 05:12] LABS: Eosinophils # 0.1 K/mcL (0.0-0.6); Eosinophils % 1.5 %; Hematocrit 29.4 % (35.3-44.9); Hemoglobin 9.5 g/dL (11.5-15.4); Immature Granulocytes % 0.7 % (0-4); Lymphocytes # 0.6 K/mcL (0.6-4.6); Lymphocytes % 6.2 %; Mean Corpuscular HGB Conc 32.3 g/dL (31.6-35.5); Mean Corpuscular Hemoglobin 28.8 pg (28.0-33.3); Monocytes % 10.3 %; Segmented Neutrophils % 81.1 %
[2017-09-23 05:19] LABS: Neutrophils # 7.5 K/mcL (1.6-8.9)
[2017-09-23 05:22] LABS: BUN/Creatinine Ratio 29 (6-26); Blood Urea Nitrogen 16 mg/dL (7-20); Calcium 8.5 mg/dL (8.6-10.8); Carbon Dioxide 34 mEq/L (19-29); Chloride 85 mEq/L (98-109); Glucose 95 mg/dL (70-99); Osmolality,Calculated 267 (280-300); Potassium 3.9 mEq/L (3.5-4.5); Sodium 128 mEq/L (136-145); eGFR For African Americans > 60 (> 60); eGFR For Non-African Americans > 60 (> 60)
[2017-09-23 05:33] LABS: Mean Platelet Volume 9.3 fL (9.4-12.4)
[2017-09-23] MEDS: Vancomycin 1,000 MG in D5% in Water 250 ML IVPB SCH (06:43)
[2017-09-23] MEDS: Multivit/Ca/Min/Fe/FA 1 TAB TABLET PO SCH (08:42)
[2017-09-23] MEDS: Aspirin Enteric Coated 325 MG Tablet PO SCH (08:42)
[2017-09-23] MEDS: predniSONE 5 MG TABLET PO SCH (08:43)
[2017-09-23] MEDS: amLODIPine 5 MG TABLET PO SCH (08:43)
[2017-09-23] MEDS: Sennosides/Docusate Sodium TABLET PO SCH ×2 (08:43→20:31)
[2017-09-23] MEDS: Folic Acid 1 MG TABLET PO SCH (08:43)
[2017-09-23] MEDS: Carbamide Peroxide 150 DROP/15 ML BOTTLE BOTH EARS SCH ×3 (08:44→20:31)
[2017-09-23] MEDS ORDERED: Aminoglycoside Consult 1 EACH MC ONE (13:08)
--- NOTE | 2017-09-23 15:08 | Internal Med Progress Note ---
<Johann Sánchez - Last Filed: 09/23/17 15:05> Date of Encounter: 09/23/17 Time of Encounter: 15:05 - Assessment and plan (1) Acute respiratory failure with hypoxia Current Visit: Yes Status: Acute Assessment and plan: Acute metabolic encephalopathy due to Acute hypoxic and hypercapnic respiratory failure secondary to multifocal pneumonia with MRSA and Serratia infection associated with bilateral pleural effusions worse on the right than the left likely due to diastolic CHF exacerbation Likely secondary to mucus plug in the setting of pneumonia. Bronchoscopy on 09/11 found mucus plug in the right main bronchus. Took Zosyn for 7 days (since 09/11 discontinued on 09/17), was switched to Cefepime and vanc Patient is full code and patient's is okay for intubation if it's medically necessary. Plan: d/c lasix today-concern for contraction alkalosis Cefepime day 7, vanc day 11- will continue Antibiotics through Wednesday 09/26 patient tolerating nasal canula well, continue to monitor. discharge tomorrow. (2) Pneumonia Current Visit: Yes Status: Acute Assessment and plan: CXR on admission showed new right lower lobe airspace disease suggesting pneumonia. Concern of aspiration pneumonia as significant mucus plug was found only on the right lung per bronchoscopy. Sputum culture form 09/10/17 grew Serratia marcescens, torres-sensitive except resistance to cefazolin. RLLL BAL from 09/11/17 grew yeast species, MRSA and Serratia marcescens. CT chest on 09/13/17 found moderate bilateral pleural effusions with near complete right middle lobe and left lower lobe atelectasis and complete atelectasis of the right lower lobe. Focal narrowing of the right interlobar bronchus with occlusion of the right lower lobe bronchus which could be related to mucoid impaction. Multifocal airspace opacities are noted predominately within the right upper lobe suspicious for pneumonia. Qualifiers: Pneumonia type: due to methicillin-resistant Staphylococcus aureus (MRSA) Laterality: right Lung location: lower lobe of lung Qualified Code(s): J15.212 - Pneumonia due to Methicillin resistant Staphylococcus aureus (3) Acute encephalopathy Current Visit: Yes Status: Resolved Assessment and plan: patient noted to be unresponsive 09/11 morning that triggerd rapid response. CT head x2 showed no acute intracranial abnormality MRI brain showed small acute left temporal lobe infarct, moderate chronic microvascular ischemic changes. Plan: consult to neurology-anticoagulation recommended. started ASA 325 daily consult to speech for therapy PT/OT waiting for stool occult blood before starting on anticoagulation, have not gotten stool occult yet. if H/H stable tomorrow and we are not able to get stool guiac, will stop ASA, discharge on anticoagulation and have her monitored at the retirement. (4) Ischemic stroke Current Visit: Yes Status: Acute Assessment and plan: plan as above (5) Metabolic alkalosis Current Visit: Yes Status: Acute Assessment and plan: resolved (6) Compression fracture Current Visit: Yes Status: Chronic Assessment and plan: CT showed acute compression defomities of T5 and T7, diffuse airspace opacities. patient was seen by pain management on 09/08; findings likely old and healed. no interventional options indicated. Plan: continue medical management. (7) New onset atrial fibrillation Current Visit: Yes Status: Acute Assessment and plan: new onset Afib during raipid ressponse on 09/11/17 likely secondary to acute respiratory failure in setting of missed doses of propanolol converted back to sinus rhythm after IV cardizem 10mg Echo on 09/11/17 showed LVEF 60-65%, normal LV chamber size, wall thickness, and function, mild LV diastolic dysfunction, normal RV structure and funciton, moderately dilated left atrium, no evidence of pulmonary HTN, no significant valvular dysfunction. CHADS/VASC: 5 (age, sex, CHF, HTN) Plan: continue PO cardizem (8) Elevated troponin Current Visit: Yes Status: Acute Assessment and plan: down trended wth no EKG changes likely secondary to new onset Afib (9) Hyponatremia Current Visit: Yes Status: Acute Assessment and plan: chronically hyponatremic replete as needed (10) Rheumatoid arthritis Current Visit: No Status: Chronic Assessment and plan: on prednisone at home Qualifiers: Rheumatoid arthritis location: multiple sites Rheumatoid factor presence: unspecified presence Qualified Code(s): M06.9 - Rheumatoid arthritis, unspecified (11) Hypothyroidism Current Visit: Yes Status: Chronic Assessment and plan: continue synthroid Qualifiers: Hypothyroidism type: acquired Qualified Code(s): E03.9 - Hypothyroidism, unspecified (12) DVT prophylaxis Current Visit: Yes Status: Acute Assessment and plan: EPCD - Subjective Interval history: 77 F evaluated at bedside. patient has been doing a lot better in terms of speech. speech pathology was in the room working with the patient during examination. patient denies nausea, vomiting, diarrhea, fever, chills, chest pain. she is alert and oriented to person and place. she denies any new problems today. - Constitutional Vitals: Temp Pulse Resp BP Pulse Ox 97.8 F 98 16 144/82 100 09/23/17 07:26 09/23/17 12:25 09/23/17 12:25 09/23/17 11:00 09/23/17 12:25 General appearance: Present: cachectic, A&O X 2, pleasant, no acute distress. Absent: answers questions appropriately Exam: speech is significantly better compared to yesterday. - Head Head exam: Present: atraumatic, normocephalic - Neck Neck exam general surgery: Present: supple, trachea midline - Respiratory Additional comments: diffuse rales present. - Cardiovascular Cardiovascular exam: Present: irregular rhythm - GI/Abdominal GI/Abdominal exam: Present: normal bowel sounds, soft. Absent: distended, splenomegaly - Extremities Exam Extremities exam: Absent: cyanotic, pedal edema - Back Exam Back exam: Absent: CVA tenderness (L), CVA tenderness (R) - Neurological Exam Neurological exam: Present: alert, oriented X3, no focal deficits - Psychiatric Psychiatric exam: Present: normal affect, normal mood Internal Medicine: Result - Labs CBC & Chem 7: 09/23/17 04:50 09/23/17 04:50 Labs: Short CBC 09/23/17 Range/Units 04:50 WBC 9.2 (4.3-11.1) K/mcL Hgb 9.5 L (11.5-15.4) g/dL Hct 29.4 L (35.3-44.9) % Plt Count TNP Neutrophils # 7.5 (1.6-8.9) K/mcL BMP 09/23/17 04:50 Sodium 128 L Potassium 3.9 Chloride 85 L Carbon Dioxide 34 H BUN 16 Creatinine 0.56 L Glucose 95 Calcium 8.5 L - ABG Interpretation ABG results: ABG ABG pH 7.49 pH Units (7.32-7.45) H 09/20/17 11:10 ABG pCO2 55 mmHg (35-45) H 09/20/17 11:10 ABG pO2 72 mmHg (85-104) L 09/20/17 11:10 ABG O2 Saturation 95 % (95-98) 09/20/17 11:10 PT/INR, D-dimer PT 12.8 Seconds (9.4-12.1) H 09/11/17 08:40 - VTE Documentation of Mechanical Device: Intermittent pneumatic compression device Consult Discharge Plan - Plan Referrals: Renetta Hurtado CNP [Partnered Physician] - (THIS PATIENT IS GOING TO [facility] NO PCP APPOINTMENT NEEDED) Yared Akhtar Jr, MD [Primary Care Provider] - (SENT WEB REQUEST ON 09-17-17 @ [id number]) <Sebastian Christensen - Last Filed: 09/23/17 18:50> Date of Encounter: 09/23/17 - Assessment and plan (1) Acute respiratory failure with hypoxia Current Visit: Yes Status: Acute (2) Pneumonia Current Visit: Yes Status: Acute Qualifiers: Pneumonia type: due to methicillin-resistant Staphylococcus aureus (MRSA) Laterality: right Lung location: lower lobe of lung Qualified Code(s): J15.212 - Pneumonia due to Methicillin resistant Staphylococcus aureus (3) Pneumonia Current Visit: Yes Status: Suspected Qualifiers: Pneumonia type: aspiration pneumonia Laterality: bilateral Lung location : lower lobe of lung Qualified Code(s): J69.0 - Pneumonitis due to inhalation of food and vomit (4) CVA (cerebral vascular accident) Current Visit: Yes Status: Acute Qualifiers: CVA mechanism: thrombosis Precerebral and cerebral artery: middle cerebral artery Laterality of affected vessel: left Qualified Code(s): I63.312 - Cerebral infarction due to thrombosis of left middle cerebral artery (5) Hypertension Current Visit: Yes Status: Chronic Qualifiers: Hypertension type: essential hypertension Qualified Code(s): I10 - Essential (primary) hypertension (6) Hyponatremia Current Visit: Yes Status: Acute (7) Compression fracture Current Visit: Yes Status: Chronic (8) Rheumatoid arthritis Current Visit: No Status: Chronic Qualifiers: Rheumatoid arthritis location: multiple sites Rheumatoid factor presence: unspecified presence Qualified Code(s): M06.9 - Rheumatoid arthritis, unspecified (9) Hypothyroidism Current Visit: Yes Status: Chronic Qualifiers: Hypothyroidism type: acquired Qualified Code(s): E03.9 - Hypothyroidism, unspecified (10) Anemia Current Visit: Yes Status: Acute Qualifiers: Anemia type: other cause Other causes of anemia: chronic disease, other Qualified Code(s): D63.8 - Anemia in other chronic diseases classified elsewhere - Constitutional Vitals: Temp Pulse Resp BP Pulse Ox 97.8 F 93 16 144/82 100 09/23/17 07:26 09/23/17 18:00 09/23/17 18:00 09/23/17 11:00 09/23/17 18:00 Internal Medicine: Result - Labs CBC & Chem 7: 09/23/17 04:50 09/23/17 04:50 Labs: Short CBC 09/23/17 Range/Units 04:50 WBC 9.2 (4.3-11.1) K/mcL Hgb 9.5 L (11.5-15.4) g/dL Hct 29.4 L (35.3-44.9) % Plt Count TNP Neutrophils # 7.5 (1.6-8.9) K/mcL BMP 09/23/17 04:50 Sodium 128 L Potassium 3.9 Chloride 85 L Carbon Dioxide 34 H BUN 16 Creatinine 0.56 L Glucose 95 Calcium 8.5 L - ABG Interpretation ABG results: ABG ABG pH 7.49 pH Units (7.32-7.45) H 09/20/17 11:10 ABG pCO2 55 mmHg (35-45) H 09/20/17 11:10 ABG pO2 72 mmHg (85-104) L 09/20/17 11:10 ABG O2 Saturation 95 % (95-98) 09/20/17 11:10 PT/INR, D-dimer PT 12.8 Seconds (9.4-12.1) H 09/11/17 08:40 - Attending Attestation I examined this patient and my medical decision-making was reviewed with the Resident Physician on 09/23/17. I agree with the documented findings, disposition and treatment plan as described except to the extent set forth below. Ms Laurent is currently admitted for pneumonia and acute CVA. She remains moderate to high risk due to potential for worsening neuro and respiratory status. Ms Laurent is more alert and interactive today. She is still confused to time and place. No fever or chills. No CP or SOB. Continuing abx. Exam Alert. Comfortable Mucus membranes dry Heart reg Bilateral wheeze and rhonchi heard Abd soft No edema I/P 1. PNA 2. CVA Further diagnoses and plan as above.
[2017-09-24] MEDS: Cefepime HCl 2,000 MG in Water for inj. (sterile) 20 ML IVP SCH ×2 (00:42→08:14)
[2017-09-24 05:13] LABS: Basophils % 0.3 %; Eosinophils # 0.2 K/mcL (0.0-0.6); Eosinophils % 2.1 %; Hematocrit 28.1 % (35.3-44.9); Hemoglobin 9.1 g/dL (11.5-15.4); Immature Granulocytes % 0.8 % (0-4); Lymphocytes # 0.7 K/mcL (0.6-4.6); Lymphocytes % 6.7 %; Mean Corpuscular HGB Conc 32.4 g/dL (31.6-35.5); Mean Corpuscular Hemoglobin 29.4 pg (28.0-33.3); Mean Corpuscular Volume 90.6 fL (83.0-100.0); Mean Platelet Volume 9.9 fL (9.4-12.4); Monocytes # 1.2 K/mcL (0.0-1.3); Monocytes % 11.9 %; Neutrophils # 7.6 K/mcL (1.6-8.9); Platelet Count 138 K/mcL (140-400); Red Cell Distribution Width 14.5 % (11.5-14.5); Segmented Neutrophils % 78.2 %
[2017-09-24 05:24] LABS: BUN/Creatinine Ratio 32 (6-26); Blood Urea Nitrogen 19 mg/dL (7-20); Calcium 8.6 mg/dL (8.6-10.8); Carbon Dioxide 30 mEq/L (19-29); Chloride 87 mEq/L (98-109); Glucose 90 mg/dL (70-99); Magnesium 1.6 mg/dL (1.6-2.6); Osmolality,Calculated 266 (280-300); Potassium 4.2 mEq/L (3.5-4.5); Sodium 127 mEq/L (136-145); eGFR For African Americans > 60 (> 60); eGFR For Non-African Americans > 60 (> 60)
[2017-09-24] MEDS: Vancomycin 1,000 MG in D5% in Water 250 ML IVPB SCH (06:17)
--- NOTE | 2017-09-24 08:09 | Discharge Summary ---
<Johann Sánchez - Last Filed: 09/24/17 08:05> Date of Encounter: 09/24/17 Time of Encounter: 08:05 - Discharge Diagnosis (1) Acute respiratory failure with hypoxia Priority: Primary Status: Acute (2) Pneumonia Priority: Secondary Status: Acute Qualifiers: Pneumonia type: due to methicillin-resistant Staphylococcus aureus (MRSA) Laterality: right Lung location: lower lobe of lung Qualified Code(s): J15.212 - Pneumonia due to Methicillin resistant Staphylococcus aureus (3) Acute encephalopathy Priority: Secondary Status: Resolved (4) Ischemic stroke Priority: Secondary Status: Acute (5) Metabolic alkalosis Priority: Secondary Status: Acute (6) Compression fracture Priority: Secondary Status: Chronic (7) New onset atrial fibrillation Priority: Secondary Status: Acute (8) Elevated troponin Priority: Secondary Status: Acute (9) Hyponatremia Priority: Secondary Status: Acute (10) Rheumatoid arthritis Priority: Secondary Status: Chronic Qualifiers: Rheumatoid arthritis location: multiple sites Rheumatoid factor presence: unspecified presence Qualified Code(s): M06.9 - Rheumatoid arthritis, unspecified (11) Hypothyroidism Priority: Secondary Status: Chronic Qualifiers: Hypothyroidism type: acquired Qualified Code(s): E03.9 - Hypothyroidism, unspecified (12) DVT prophylaxis Priority: Secondary Status: Acute - Discharge Medications Prescriptions: Cefepime HCl [Maxipime] 2,000 mg IVPB Q8HR 3 Days vial Vancomycin HCl in Dextrose 5 % [Vancomycin 1 Gram/250 ml-D5w] 1 gm IV Q24H #3 mls Home Medications: Amlodipine Besylate 2.5 mg PO DAILY 02/03/17 [History] Folic Acid 1 mg PO DAILY 02/03/17 [History] Levothyroxine [Synthroid] 100 mcg PO 0630 02/03/17 [History] Losartan Potassium [Cozaar] 100 mg PO DAILY 02/03/17 [History] Omeprazole 20 mg PO DAILY 02/03/17 [History] Multivit-Min/Iron/Folic/Lutein [Centrum Silver Women Tablet] 1 each PO DAILY 07/05 [History] Propranolol [Inderal] 20 mg PO BID 09/07/17 [History] predniSONE [PredniSONE] 5 mg PO DAILY 09/07/17 [History] Apixaban [Eliquis] 5 mg PO BID tablet 09/24/17 [Rx] Aspirin 81 mg PO DAILY tab.chew 09/24/17 [Rx] Atorvastatin [Lipitor] 40 mg PO HS tablet 09/24/17 [Rx] Cefepime HCl [Maxipime] 2,000 mg IVPB Q8HR 3 Days vial 09/24/17 [Rx] Diltiazem [Cardizem] 30 mg PO Q6HR tablet 09/24/17 [Rx] Vancomycin HCl in Dextrose 5 % [Vancomycin 1 Gram/250 ml-D5w] 1 gm IV Q24H #3 mls 09/24/17 [Rx] Allergies/Adverse Reactions: 3 Allergy/AdvReac Type Severity Reaction Status Date / Time No Known Allergies Allergy Verified 07/31/16 13:26 Procedures/tests Complete & Pending: Procedures Performed prior 72 hours Category Date Time Status MR head/brain wo con [MR] Routine MRI 09/22/17 10:01 Draft Date of admission: 09/07/17 22:31 Primary care physician: Yared Akhtar Jr, MD Consults: 09/08/17 01:19 Consult to Nutrition [CONS] Routine Comment: Consulting Provider: NUTRITION Reason for Dietary Consult: Other Other:: Malnutrition 09/09/17 09:25 Consult to Physical Therapy [CONS] Routine Comment: Evaluate, develop and implement POC Reason for Consult: Fall at home; difficulty ambulating 09/09/17 09:26 Consult to Occupational Therapy [CONS] Routine Comment: Evaluate, develop and implement POC Reason for Consult: Fall at home; difficulty ambulating; patient has RA 09/09/17 15:22 Consult to Railway Yard Assistant [CONS] Routine Reason for SW Consult: PT recommending rehab 09/11/17 08:50 Consult to Pulmonology [CONS] Routine Consulting Provider: [facility] [place] Reason for Consult: Resp. Call Completed: No 09/12/17 08:28 Consult to Speech Therapy [CONS] Routine Comment: Evaluate, develop and implement POC Reason for Consult: Swallow evaluation Call Completed: No 09/22/17 10:03 Consult to Speech Therapy [CONS] Routine Comment: Evaluate, develop and implement POC Reason for Consult: AMS, possibl ischemic stroke. Please evaluate her speech Call Completed: No 09/22/17 15:37 Consult to Neurology [CONS] Routine Consulting Provider: [facility] Reason for Consult: acute ischemic stroke Call Completed: Yes Discharging clinician: Johann Sánchez Anticipated date of discharge: 09/24/17 - Patient Status Disposition: Transfer SNF Condition: Fair Functional capacity at discharge: uses cane/walker Overall status at discharge: patient is not back to baseline - Discharge Instructions Instructions: Vancomycin (Injection), Cefepime (Injection), Atrial Fibrillation (DC) Follow Up With: Renetta Hurtado CNP [Partnered Physician] - (THIS PATIENT IS GOING TO [facility] NO PCP APPOINTMENT NEEDED) Yared Akhtar Jr, MD [Primary Care Provider] - (SENT WEB REQUEST ON 09-17-17 @ [phone]) Isra Fajardo MD [Partnered Physician] - Additional Instructions: discharge to correction for continued PT/OT/rehab - Diet and Activity Activity: as per physical therapy Diet: advance to your usual diet Hospital course: Ms. Laurent is a 77 year old female with PMHx of HTN, HLD, RA, hypothyroidism , COPD. Patient presented to [facility] on 09/08/17 s/p mechanical fall with associated back pain. She stated that she was taking a shower and accidentally slipped. She was subsequently admitted for further workup. Patient also stated she was diagnosed with pneumonia recently and was placed on a 7 day course of antibiotics, but still had productive cough with sputum production. Cervical spine CT, head CT unremarkable. 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 Patient was evaluated by pain management, their suggestion was that her pain is not associated with fractures, and the fractures are likely old and healed. No interventional options were recommended at that time. Patient's family was educated on risks of further fractures. Patient was also admitted for acute hypoxic hypercapnic respiratory failure, likely secondary to multifoca PNA. CXR showed right lower lobe airspace disease suggesting pneumonia. blood cultures x2 shoed no growth. Patient did have bronchoscopy done 09/11, cultures came back positive for MRSA. bronchoscopy showed right lower lobe pneumonia with mucous plug in right mainstem bronchus with copious mucopurulent thick secretions found in the tracheobronchial tree. bronchoalveolar lavage was performed. Patient was treated with broad spectrum antibiotic coverage. During her hospitalization, patient was confused and had acute encephalopathy. ABG showed elevated CO2, and CT x2 was negative for any acute abnormality. Ammonia levels were normal. MRI of brain showed small acute left temporal lobe infarct. It is likely this stroke was acute and occurred as a result of new onset Afib during her hospitalization, likely secondary to her pneumonia (CHADS/VASC: 5). Neurology was consulted, and their recommendation was to start anticoagulation due to high risk of further CVA. Neurology also suggested that fall risk is not considered sufficient reason to not anticoagulate. Her Hg was low but stable. Stool guiac was ordered but never obtained. Since patient's Hg was stable, she will be started on ASA 81 and Eliquis 5mg BID. she will need stool guiac as outpatient and need to be monitored for bleeding. Echo showed lVEF 60-65%, normal LV chamber size, wall thickness and function, mild LV diastolic dysfunction, normal RV structure and function, moderately dilated left atrium, no evidence of pulmonary HTN, no significant valvular dysfunction. patient was evaluated by PT/OT, who recommended SNF. Patient will need outpatient follow up with neurology, PCP, and will need carotid duplex done outpatient. Plan: go to SNF follow up with PCP outpatient, and neurology recommend outpatient carotid artery duplex. - Time Spent with Patient Total time spent providing and/or coordinating discharge services: Greater than 30 minutes - Constitutional Vitals: Temp Pulse Resp BP Pulse Ox 98.6 F 71 18 110/68 98 09/24/17 03:32 09/24/17 07:50 09/24/17 07:50 09/24/17 07:50 09/24/17 07:50 General appearance: Present: cachectic, A&O X 2, pleasant, no acute distress. Absent: answers questions appropriately - Head Head exam: Present: atraumatic, normocephalic - Neck Neck exam general surgery: Present: supple, trachea midline - Respiratory Respiratory exam: Present: rales, rhonchi - Cardiovascular Cardiovascular exam: Present: irregular rhythm - GI/Abdominal GI/Abdominal exam: Present: distended, normal bowel sounds, soft. Absent: tenderness - Extremities Exam Extremities exam: Absent: cyanotic, pedal edema - Neurological Exam Neurological exam: Present: alert, speech deficit Additional comments: speech and motor deficit present. - Psychiatric Psychiatric exam: Present: normal affect, normal mood - Skin Skin exam: Present: intact - VTE Documentation of Mechanical Device: Intermittent pneumatic compression device <Sebastian Christensen - Last Filed: 09/24/17 17:38> Date of Encounter: 09/24/17 - Discharge Diagnosis (1) Acute respiratory failure with hypoxia Status: Acute (2) Pneumonia Status: Acute Qualifiers: Pneumonia type: due to methicillin-resistant Staphylococcus aureus (MRSA) Laterality: right Lung location: lower lobe of lung Qualified Code(s): J15.212 - Pneumonia due to Methicillin resistant Staphylococcus aureus (3) CVA (cerebral vascular accident) Priority: Primary Status: Acute Qualifiers: CVA mechanism: thrombosis Precerebral and cerebral artery: middle cerebral artery Laterality of affected vessel: left Qualified Code(s): I63.312 - Cerebral infarction due to thrombosis of left middle cerebral artery (4) Impacted cerumen of both ears Priority: Secondary Status: Acute (5) Hypertension Priority: Secondary Status: Chronic Qualifiers: Hypertension type: essential hypertension Qualified Code(s): I10 - Essential (primary) hypertension (6) Hyponatremia Status: Acute (7) Compression fracture Status: Chronic (8) Rheumatoid arthritis Status: Chronic Qualifiers: Rheumatoid arthritis location: multiple sites Rheumatoid factor presence: unspecified presence Qualified Code(s): M06.9 - Rheumatoid arthritis, unspecified (9) Hypothyroidism Status: Chronic Qualifiers: Hypothyroidism type: acquired Qualified Code(s): E03.9 - Hypothyroidism, unspecified (10) Anemia Priority: Secondary Status: Acute Qualifiers: Anemia type: other cause Other causes of anemia: chronic disease, other Qualified Code(s): D63.8 - Anemia in other chronic diseases classified elsewhere Procedures/tests Complete & Pending: Procedures Performed prior 72 hours Category Date Time Status MR head/brain wo con [MR] Routine MRI 09/22/17 10:01 Completed Date of admission: 09/07/17 22:31 Primary care physician: Yared Akhtar Jr, MD Consults: 09/08/17 01:19 Consult to Nutrition [CONS] Routine Comment: Consulting Provider: NUTRITION Reason for Dietary Consult: Other Other:: Malnutrition 09/09/17 09:25 Consult to Physical Therapy [CONS] Routine Comment: Evaluate, develop and implement POC Reason for Consult: Fall at home; difficulty ambulating 09/09/17 09:26 Consult to Occupational Therapy [CONS] Routine Comment: Evaluate, develop and implement POC Reason for Consult: Fall at home; difficulty ambulating; patient has RA 09/09/17 15:22 Consult to Railway Yard Assistant [CONS] Routine Reason for SW Consult: PT recommending rehab 09/11/17 08:50 Consult to Pulmonology [CONS] Routine Consulting Provider: Pulm Crit [facility] [place] Reason for Consult: Resp. Call Completed: No 09/12/17 08:28 Consult to Speech Therapy [CONS] Routine Comment: Evaluate, develop and implement POC Reason for Consult: Swallow evaluation Call Completed: No 09/22/17 10:03 Consult to Speech Therapy [CONS] Routine Comment: Evaluate, develop and implement POC Reason for Consult: AMS, possibl ischemic stroke. Please evaluate her speech Call Completed: No 09/22/17 15:37 Consult to Neurology [CONS] Routine Consulting Provider: [facility] Reason for Consult: acute ischemic stroke Call Completed: Yes Hospital course: Ms. Laurent is a 77 year old female - Time Spent with Patient Total time spent providing and/or coordinating discharge services: 41min - Constitutional Vitals: Temp Pulse Resp BP Pulse Ox 97.9 F 80 18 117/58 98 09/24/17 11:56 09/24/17 11:56 09/24/17 11:56 09/24/17 11:56 09/24/17 11:56 - Attending Attestation I examined this patient and my medical decision-making was reviewed with the Resident Physician on 09/24/17. I agree with the documented findings, disposition and treatment plan as described except to the extent set forth below. Ms. Laurent has been admitted for fall and hyponatremia. She was found to have thoracic compression fractures. She had unresponsive episode and found to have R side mucus plug and pneumonia with MRSA and Serratia. She had mental status change and MRI found L temporal CVA. She also complained of difficulty hearing and concern for cerumen impaction. Debrox started. Today she is alert and more conversant. She is afebrile with stable vitals and ready for d/c to SNF. Exam Alert. Oriented to person Conversant Heart reg No wheeze B/L EACs with minimal wax after irrigation. Abd soft Plan D/C to SNF today Both ears were irrigated with warm tap water using a 10ml syringe and angiocath. Minimal wax returned.
[2017-09-24] MEDS: Multivit/Ca/Min/Fe/FA 1 TAB TABLET PO SCH (08:14)
[2017-09-24] MEDS: predniSONE 5 MG TABLET PO SCH (08:14)
[2017-09-24] MEDS: Sennosides/Docusate Sodium TABLET PO SCH (08:15)
[2017-09-24] MEDS: amLODIPine 5 MG TABLET PO SCH (08:15)
[2017-09-24] MEDS: Folic Acid 1 MG TABLET PO SCH (08:15)
[2017-09-24] MEDS: Carbamide Peroxide 150 DROP/15 ML BOTTLE BOTH EARS SCH (08:30)
[2017-09-24] MEDS ORDERED: Aspirin 81 MG TAB.CHEW PO SCH (09:00)
--- NOTE | 2017-09-24 09:39 | Physician Discharge Referral ---
ExtendedCare Referral Info Provider in Charge after Transfer: PCP Institutional Level of Care: Skilled - Diagnosis (1) Acute respiratory failure with hypoxia Priority: Primary Status: Acute (2) Pneumonia Priority: Primary Status: Acute (3) CVA (cerebral vascular accident) Priority: Primary Status: Acute (4) Hypertension Priority: Secondary Status: Chronic (5) Hyponatremia Priority: Secondary Status: Acute (6) Compression fracture Priority: Secondary Status: Chronic (7) Rheumatoid arthritis Priority: Secondary Status: Chronic (8) Hypothyroidism Priority: Secondary Status: Chronic (9) Anemia Priority: Secondary Status: Acute Expected Duration of Placement: Less than 30 days Prognosis: Fair Aware of Diagnosis: Patient, Family Aware of Prognosis: Patient, Family - Transfer Medications Prescriptions: Cefepime HCl [Maxipime] 2,000 mg IVPB Q8HR 3 Days vial Vancomycin HCl in Dextrose 5 % [Vancomycin 1 Gram/250 ml-D5w] 1 gm IV Q24H #3 mls Home Medications: Amlodipine Besylate 2.5 mg PO DAILY 02/03/17 [History] Folic Acid 1 mg PO DAILY 02/03/17 [History] Levothyroxine [Synthroid] 100 mcg PO 0630 02/03/17 [History] Losartan Potassium [Cozaar] 100 mg PO DAILY 02/03/17 [History] Omeprazole 20 mg PO DAILY 02/03/17 [History] Multivit-Min/Iron/Folic/Lutein [Centrum Silver Women Tablet] 1 each PO DAILY 07/05 [History] Propranolol [Inderal] 20 mg PO BID 09/07/17 [History] predniSONE [PredniSONE] 5 mg PO DAILY 09/07/17 [History] Apixaban [Eliquis] 5 mg PO BID tablet 09/24/17 [Rx] Aspirin 81 mg PO DAILY tab.chew 09/24/17 [Rx] Atorvastatin [Lipitor] 40 mg PO HS tablet 09/24/17 [Rx] Cefepime HCl [Maxipime] 2,000 mg IVPB Q8HR 3 Days vial 09/24/17 [Rx] Diltiazem [Cardizem] 30 mg PO Q6HR tablet 09/24/17 [Rx] Vancomycin HCl in Dextrose 5 % [Vancomycin 1 Gram/250 ml-D5w] 1 gm IV Q24H #3 mls 09/24/17 [Rx] Allergies/Adverse Reactions: 3 Allergy/AdvReac Type Severity Reaction Status Date / Time No Known Allergies Allergy Verified 07/31/16 13:26 - Respiratory Orders Other (Maintain saturation greater than 90%) Smoking Cessation: Smoking cessation has been advised. For more information, call the [place] Tobacco Quit Line at 1-331-GNNT-NOW. - Lab Orders Lab Orders: 2 Step Mantoux Test per State regulation - Ancillary Orders May use pressure relief devices daily prn, May consult with Dentist, Recruiting Internship, Media Buyer PRN - Advance Directives Code Status: Full Code - History and Physical History/Physical reviewed & approved w/add comments: Pt disoriented to place and time. - Mobility Orders Ambulate - Rehabiliation Orders Rehab Potential: Fair Rehab Orders: Evaluation for Physical Therapy, Evaluation for Occupational Therapy, Evaluation for Speech Therapy - Treatments Skin tear care topically daily PRN per policy, May check for fecal impaction rectally daily PRN, Fleet enema rectally every other day PRN cleansing purposes - Diet Orders Cardiac (1800 ml fluid restriction) CERTIFICATION: I certify that the transfer of the above named patient to an Extended Care Facility is necessary for the continuing treatment of the diagnosis listed. The above information is true and accurate reflection of patient's current condition. Confidential - Redisclosure prohibited without a patient's written consent.
[2017-09-24] MEDS: APIXABAN 5 MG TABLET PO SCH ×2 (09:56→09:57)
[2017-09-24 11:57] VITALS: BP 117/58
== END 2017-09-24 13:09 | DRG 166 ==
LOC: 2NENU 13:44 → EMEROO 13:44 → SUATTDRO 22:31 → 2NENU 22:48 → ICNU 09-11 09:19 → 2NNU 09-17 14:17
PROVIDERS: ADMIT Internal Medicine; ATTEND Internal Medicine

== ENCOUNTER 2017-09-29 19:41 | Inpatient (IN) ==
[2017-09-29 23:28] LABS: ABG Base Excess 1 mEq/L (-2 to 3); ABG HCO3 24 mEq/L (21-27); ABG Oxygen Saturation 100 % (95-98); ABG PCO2 30 mmHg (35-45); ABG PH 7.52 pH Units (7.32-7.45); ABG PO2 519 mmHg (85-104); ABG TCO2 25 mEq/L (20-26); Blood Gas Modality VC; Blood Gas PEEP 5 cm H2O; Blood Gas Respiration Rate 16; Blood Gas VT 450 cc
[2017-09-30] MEDS ORDERED: Naloxone 0.4 MG/ML INJ IVP PRN (01:16)
[2017-09-30] MEDS ORDERED: Lacri-Lube 3.5 GM TUBE BOTH EYES PRN (01:18)
[2017-09-30] MEDS ORDERED: Ipratropium/Albuterol Neb 3 ML IH PRN (01:24)
--- NOTE | 2017-09-30 01:32 | Internal Med History&Physical ---
Date of Encounter: 09/30/17 Time of Encounter: 01:32 Assessment and Plan (1) Acute respiratory failure with hypoxia Current visit: No Status: Acute Possible refractory PNA ??? Has hx of COPD as well Consult pulm to manage vent IV vanco, cefepime, azithro overnight - monitor vanc level, pharmacy assisting (2) Afib Current visit: Yes Status: Acute AFib - rate controlled On eliquis at home Hold for now in case procedure needed INR appears elevated. Trend INR,PTT Consider heparin gtt in the morning if no evidence of bleeding and elimination of eliquis Qualifiers: Atrial fibrillation type: persistent Qualified Code(s): I48.1 - Persistent atrial fibrillation (3) Anemia Current visit: Yes Status: Acute reports of positive FOBT in [facility] ED but no overt bleed seen Hold anticoagulation now Repeat Hb in a.m Watch for source of upper or LGIB in the ICU check studies Qualifiers: Qualified Code(s): D64.9 - Anemia, unspecified (4) Acute encephalopathy Current visit: No Status: Resolved likely 2/2 respiratory process Internal Medicine - H&P: HPI Chief complaint: AMS History of present illness: Ms. Laurent is a 77 year old female with PMHx of HTN, HLD, RA, hypothyroidism , COPD who presents as a transfer from [facility] for AMS, hypercapnia and was intubated in their ED. Transferred for further management of hypercapneic respiratory failure. She had been admitted at [facility] from 09/08/17 to 09/24/17 prior to being sent out to a SNF for rehab. In regards to her last admission, she s/p fall and was found to have multi-focal PNA. Patient did have bronchoscopy done 09/11 with mucus plugging and with cultures positive for MRSA. obronchial tree. bronchoalveolar lavage was performed. Patient was treated with broad spectrum antibiotic coverage. During her hospitalization, patient was confused and MRI of brain showed small acute left temporal lobe infarct. She was also found to have new onset Afib then and rec were to start eliquis AC. TTE then showed lVEF 60-65%, normal LV chamber size, wall thickness and function, mild LV diastolic dysfunction, normal RV structure and function, moderately dilated left atrium, no evidence of pulmonary HTN, no significant valvular dysfunction. [facility] un[facility]. Reports were that she was noted to be hypoxic to 60s pulse ox and altered. Upon transfer to [facility] ED, she was found to be in hypercapneic failure as well with PCO2 77. Hb was noted to be low - FOBT done at [facility] positive but she did not appear to be overtly bleeding. Was given van/azithro/zosyn at [facility] Outside labs reviewed with WBC 10.3, Cr 0.7, ABG with PCO2 77, pH 7.25, pO2 77, INR 2.27 EKG reviewed with rate74, AFib XR/XR chest 1V portable IMPRESSION: 1. Endotracheal tube tip 3.3 cm above the wade. 2. Enteric tube tip and side-port in the proximal stomach below the gastroesophageal junction. 3. Stable right greater left layering pleural effusions with bibasilar opacity that may reflect atelectasis or pneumonia if the patient has fever or leukocytosis. Past Med Surg Social Fam HX - Past Medical History Medical history: atrial fibrillation, COPD, CVA, hyperlipidemia, hypertension, RA, thyroid disease Psychiatric history: no psych history - Past Surgical History Surgical History: hysterectomy - Social History Smoking Status: Never smoker Smokeless Tobacco Status: No Alcohol use: none Drug use: none - Family History Mother Living Status: Hx Family Cardiac Disorders: Yes (NM, HTN) Hx Family Endocrine Disorder: Yes (DM) Father Living Status: Hx Family Cardiac Disorders: Yes (NM) Brother Hx Family Cardiac Disorders: Yes (Heart disease) Internal Medicine - H&P: Meds Amlodipine Besylate 2.5 mg PO DAILY 02/03/17 [History] Folic Acid 1 mg PO DAILY 02/03/17 [History] Levothyroxine [Synthroid] 100 mcg PO 0630 02/03/17 [History] Losartan Potassium [Cozaar] 100 mg PO DAILY 02/03/17 [History] Omeprazole 20 mg PO DAILY 02/03/17 [History] Multivit-Min/Iron/Folic/Lutein [Centrum Silver Women Tablet] 1 each PO DAILY 07/05 [History] Propranolol [Inderal] 20 mg PO BID 09/07/17 [History] predniSONE [PredniSONE] 5 mg PO DAILY 09/07/17 [History] Apixaban [Eliquis] 5 mg PO BID tablet 09/24/17 [Rx] Aspirin 81 mg PO DAILY tab.chew 09/24/17 [Rx] Atorvastatin [Lipitor] 40 mg PO HS tablet 09/24/17 [Rx] Cefepime HCl [Maxipime] 2,000 mg IVPB Q8HR 3 Days vial 09/24/17 [Rx] Diltiazem [Cardizem] 30 mg PO Q6HR tablet 09/24/17 [Rx] Vancomycin HCl in Dextrose 5 % [Vancomycin 1 Gram/250 ml-D5w] 1 gm IV Q24H #3 mls 09/24/17 [Rx] 3 Allergy/AdvReac Type Severity Reaction Status Date / Time No Known Allergies Allergy Verified 07/31/16 13:26 All Systems PM: A 10-system review of systems was performed and is negative for pertinent findings except as documented above in the HPI. Review of systems: ROS 14 point review of systems reviewed as best as possible given presentation and obtained through dtr and . Pertinent positive or negative as per HPI or otherwise reviewed as negative - Constitutional Vitals: Temp Pulse Resp BP Pulse Ox 97.7 F 68 16 111/68 100 09/29/17 22:00 09/30/17 01:00 09/30/17 01:16 09/30/17 01:16 09/30/17 01:16 Exam: General - sedated Psych - sedated Eyes - Eye lids intact. No scleral icterus Neuro - Intubated and sedated Heart - Irregular. RRR. S1 and S2 present. No added HS/murmurs appreciated. No elevated JVD appreciated. Lung - Coarse ventilator BS. Bibasal crackles GI - Soft, non-tender. No hepatosplenomegaly/ascites. BS+ - No CVA/suprapubic tenderness or palpable bladder distension. [place] Skin - Intact. No rash/petechiae/ecchymosis. Warm extremities MSK - Joints with normal ROM. No joint swellings Internal Med - H&P Results - ABG Interpretation ABG results: 09/29/17 23:22 ABG pH 7.52 H ABG pCO2 30 L ABG pO2 519 H ABG HCO3 24 ABG Total CO2 25 ABG O2 Saturation 100 H ABG Base Excess 1 - Impressions ITS Impressions Chest X-Ray 09/29/17 22:51 IMPRESSION: 1. Endotracheal tube tip 3.3 cm above the wade. 2. Enteric tube tip and side-port in the proximal stomach below the gastroesophageal junction. 3. Stable right greater left layering pleural effusions with bibasilar opacity that may reflect atelectasis or pneumonia if the patient has fever or leukocytosis. D/ / Lg Hawthorne / Lg Hawthorne Interpreting Provider: Lg Hawthorne
[2017-09-30] MEDS: Ringers Solution, Lactated 1,000 ML IVC SCH ×3 (01:40→22:05)
[2017-09-30] MEDS ORDERED: Cefepime HCl 2,000 MG in Water for inj. (sterile) 20 ML IVP SCH (02:00)
[2017-09-30] MEDS ORDERED: Vancomycin 0 MG in D5% in Water 250 ML IVPB SCH (02:00)
[2017-09-30] MEDS: Vancomycin 1,000 MG in D5% in Water 250 ML IVPB SCH (03:55)
[2017-09-30] MEDS: Lacri-Lube 3.5 GM TUBE BOTH EYES SCH ×6 (03:55→23:11)
[2017-09-30] MEDS: Ipratropium/Albuterol Neb 3 ML IH SCH ×3 (04:06→16:18)
[2017-09-30 04:12] LABS: ABG Base Excess 4 mEq/L (-2 to 3); ABG HCO3 27 mEq/L (21-27); ABG Oxygen Saturation 97 % (95-98); ABG PCO2 37 mmHg (35-45); ABG PH 7.48 pH Units (7.32-7.45); ABG PO2 80 mmHg (85-104); ABG TCO2 28 mEq/L (20-26); Blood Gas Modality VC; Blood Gas PEEP 5 cm H2O; Blood Gas Respiration Rate 16; Blood Gas VT 450 cc
[2017-09-30] MEDS: FentaNYL (PF) 1,000 MCG in 0.9 % Sodium Chloride 80 ML IVC SCH ×2 (04:17→21:23)
[2017-09-30 04:45] LABS: Immature Reticulocyte % 22.9 % (11.0-38.0); Retculocyte # 0.07 M/mcL (0.05-0.10); Reticulocyte % 3.4 % (1.6-2.8)
[2017-09-30 04:49] LABS: Eosinophils % 1.2 %; Hematocrit 18.9 % (35.3-44.9)
[2017-09-30 04:51] LABS: Basophils % 0.1 %; Eosinophils # 0.1 K/mcL (0.0-0.6); Immature Granulocytes % 1.2 % (0-4); Lymphocytes # 0.6 K/mcL (0.6-4.6); Lymphocytes % 8.7 %; Mean Corpuscular HGB Conc 31.2 g/dL (31.6-35.5); Mean Corpuscular Hemoglobin 29.6 pg (28.0-33.3); Mean Platelet Volume 10.9 fL (9.4-12.4); Monocytes # 0.8 K/mcL (0.0-1.3); Monocytes % 11.6 %; Neutrophils # 5.3 K/mcL (1.6-8.9); Red Blood Count 1.99 M/mcL (3.82-4.97); Red Cell Distribution Width 15.2 % (11.5-14.5); Segmented Neutrophils % 77.2 %
[2017-09-30 04:52] LABS: % Iron Saturation 20 % (15-50); Iron 43 mcg/dL (50-170); Platelet Count 91 K/mcL (140-400); Transferrin 152 mg/dL (180-382)
[2017-09-30 04:53] LABS: Alanine Aminotransferase 19 Units/L (0-55); Albumin 2.1 g/dL (3.5-5.0); Albumin/Globulin Ratio 0.6 (1.1-2.2); Alkaline Phosphatase 181 Units/L (38-126); Aspartate Amino Transferase 33 Units/L (5-34); BUN/Creatinine Ratio 47 (6-26); Bilirubin,Direct 0.4 mg/dL (0.0-0.5); Bilirubin,Indirect 0.4 mg/dL (0.0-1.2); Bilirubin,Total 0.8 mg/dL (0.2-1.2); Blood Urea Nitrogen 27 mg/dL (7-20); Calcium 8.1 mg/dL (8.6-10.8); Carbon Dioxide 25 mEq/L (19-29); Chloride 103 mEq/L (98-109); Globulin 3.4 g/dL (2.4-3.5); Glucose 85 mg/dL (70-99); Magnesium 1.4 mg/dL (1.6-2.6); Osmolality,Calculated 286 (280-300); Potassium 3.7 mEq/L (3.5-4.5); Sodium 136 mEq/L (136-145); Total Protein 5.5 g/dL (6.0-8.3); eGFR For African Americans > 60 (> 60); eGFR For Non-African Americans > 60 (> 60)
[2017-09-30 04:55] LABS: INR 1.8; Prothrombin Time 19.3 Seconds (9.4-12.1)
[2017-09-30 04:57] LABS: Hemoglobin 5.9 g/dL (11.5-15.4)
[2017-09-30 04:58] LABS: Activated Partial Thrombo Time 22.7 Seconds (26.0-36.0)
[2017-09-30 05:13] LABS: Ferritin 652 ng/ml (5-204)
[2017-09-30 05:26] LABS: Folate 16.7 ng/mL (7.0-31.4)
[2017-09-30 05:35] LABS: Platelet Estimate Decreased (Normal)
[2017-09-30] MEDS: Cefepime HCl 2,000 MG in Water for inj. (sterile) 20 ML IVP SCH ×2 (05:52→17:38)
[2017-09-30] MEDS ORDERED: Cefepime HCl 2,000 MG in D5% in Water (Mini-Bag+) 100 ML IVPB SCH (06:00)
[2017-09-30 06:02] LABS: Adenovirus Not Detected (Not Detect); Bordetella Pertussis Not Detected (Not Detect); Chlamydophila pneumoniae Not Detected (Not Detect); Coronavirus 229E Not Detected (Not Detect); Coronavirus HKU1 Not Detected (Not Detect); Coronavirus NL63 Not Detected (Not Detect); Coronavirus OC43 Not Detected (Not Detect); Human Metapneumovirus Not Detected (Not Detect); Human Rhinovirus/Enterovirus Not Detected (Not Detect); Influenza A Subtype 2009 H1 Not Detected (Not Detect); Influenza A Untypeable Not Detected (Not Detect); Influenza B Not Detected (Not Detect); Mycoplasma pneumoniae Not Detected (Not Detect); Parainfluenza Virus 1 Not Detected (Not Detect); Parainfluenza Virus 2 Not Detected (Not Detect); Parainfluenza Virus 3 Not Detected (Not Detect); Parainfluenza Virus 4 Not Detected (Not Detect); Respiratory Syncytial Virus Not Detected (Not Detect)
[2017-09-30] MEDS ORDERED: 0.9 % Sodium Chloride 1,000 ML IVC ONE (07:09)
[2017-09-30] MEDS ORDERED: 0.9 % Sodium Chloride 250 ML ONE (07:19)
--- NOTE | 2017-09-30 08:11 | Pulmonology Consult Note ---
<Leigh Fuller - Last Filed: 09/30/17 10:29> Date of Encounter: 09/30/17 Time of Encounter: 07:15 Assessment and Plan (1) Acute and chronic respiratory failure ([id number]) Current Visit: Yes Status: Acute - With hypoxia (reported O2 sat 60% in long-term) and hypercapnia (ABG pCO2 77 at [facility] ED). - Likely multifactorial including significant anemia (Hgb 5.9), recent pneumonia , potential mucus plugs and COPD. - Currently intubated and on ventilation support. - pRBC transfusion for anemia, antibiotics for pneumonia, Duoneb for COPD. - Continue to monitor closely in ICU. Qualifiers: Respiratory failure complication: hypoxia and hypercapnia Qualified Code(s) : J96.21 - Acute and chronic respiratory failure with hypoxia; J96.22 - Acute and chronic respiratory failure with hypercapnia; J96.22 - Acute and chronic respiratory failure with hypercapnia; J96.22 - Acute and chronic respiratory failure with hypercapnia (2) Acute blood loss anemia Current Visit: Yes Status: Acute - Hgb 5.9 today which dropped from Hgb 9.1 on 09/24/17. - Most likely secondary to GI bleed related to anticoagulation use given positive stool occult test at [facility] ED. - Will give 2 units of pRBC transfusion. - Continue to monitor H&H closely. Consider more transfusion if Hgb < 7.0. (3) GI bleed Current Visit: Yes Status: Acute - Significant Hgb drop with positive stool occult test at [facility] ED. - Likely related to anticoagulation use. - Continue Protonix IV BID. - Will obtain CT A/P. - NPO for possible scope - GI consulted and appreciate possible further evaluation and management such as scope. Qualifiers: GI bleed type/associated pathology: unspecified gastrointestinal hemorrhage type Qualified Code(s): K92.2 - Gastrointestinal hemorrhage, unspecified (4) Pneumonia Current Visit: No Status: Suspected - Found to have multifocal pneumonia, predominately right lower lobe, during prior hospitalization and RLLL BAL cultures from 09/11/17 grew yeast species, MRSA and Serratia marcescens. - Patient was discharged on 09/24/17 with 3 more days of IV vancomycin and cefepime to finish 14-day course of antibiotics. - CXR on 09/29/17 found stable right greater left layering pleural effusions with bibasilar opacity compared to prior CXR from 09/13/17. - Questionable active pneumonia at this time given no fever nor leukocytosis noted. - Currently on IV vancomycin, cefepime and azithromycin. - Will obtain CT chest and sputum culture if possible as further investigation. Qualifiers: Pneumonia type: due to methicillin-resistant Staphylococcus aureus (MRSA) Laterality: bilateral Lung location: lower lobe of lung Qualified Code(s): J15.212 - Pneumonia due to Methicillin resistant Staphylococcus aureus (5) Afib Current Visit: Yes Status: Acute - Found to have A-fib and started on Eliquis for significant CVA risk (CHADS- VASc Score 5 and had ischemic stroke on prior hospitalization). - Currently rate-controlled most of time. - Continue Cardizem. - Hold anticoagulation for now given current acute blood loss anemia likely secondary to GI bleed. Qualifiers: Atrial fibrillation type: persistent Qualified Code(s): I48.1 - Persistent atrial fibrillation (6) DVT prophylaxis Current Visit: No Status: Acute - Hold anticoagulation at this time given current acute blood loss anemia likely from GI bleed. - Continue EPCD. History of Present Illness Consult date: 09/30/17 Requesting physician: Nikita Castaneda Reason for consult: dyspnea (Respiratory failure, intubated in [facility] ED) Chief complaint: Unresponsiveness History of present illness: Ms. Laurent is a 77 year old female with PMHx of HTN, HLD, RA, hypothyroidism , COPD, A-fib on Eliquis who was transferred from [facility] for altered mental status, hypercapnia and intubated at [facility] ED. Patient was admitted to ICU on 09/30/17 for acute respiratory failure and acute blood loss anemia and critical care is consulted for further management. Patient was seen and examined this morning. Patient is intubated with some degree of response to verbal stimuli. Given patient is intubated and no family member at bedside, much of history was obtained from review of medical records. Per [facility] ED note, patient was found unresponsiveness at [facility] with O2 sat in 60%. Patient was noted to have Hgb 7.5 and positive stool occult test along with ABG pH 7.25, pCO2 77, pO2 77 & HCO3 33.8 at [facility] ED. Patient was intubated and received IV vancomycin, Zosyn and azithromycin at [facility]. Patient was recently hospitalized on 09/08/17 after a fall and found to have MRSA & Serratia marcescens pneumonia, A-fib and ischemic stroke. Patient was discharged to long-term on 09/24/17 with IV vancomycin, cefepime and Eliquis. Past Med Surg Social Fam HX - Past Medical History Medical history: atrial fibrillation, COPD, CVA, hyperlipidemia, hypertension, RA, thyroid disease Psychiatric history: no psych history - Past Surgical History Surgical History: hysterectomy - Social History Smoking Status: Never smoker Smokeless Tobacco Status: No Alcohol use: none Drug use: none - Family History Mother Living Status: Hx Family Cardiac Disorders: Yes ([place], HTN) Hx Family Endocrine Disorder: Yes (DM) Father Living Status: Hx Family Cardiac Disorders: Yes ([place]) Brother Hx Family Cardiac Disorders: Yes (Heart disease) Medications and Allergies Amlodipine Besylate 2.5 mg PO DAILY 02/03/17 [History] Folic Acid 1 mg PO DAILY 02/03/17 [History] Levothyroxine [Synthroid] 100 mcg PO 0630 02/03/17 [History] Losartan Potassium [Cozaar] 100 mg PO DAILY 02/03/17 [History] Omeprazole 20 mg PO DAILY 02/03/17 [History] Multivit-Min/Iron/Folic/Lutein [Centrum Silver Women Tablet] 1 each PO DAILY 07/05 [History] Propranolol [Inderal] 20 mg PO BID 09/07/17 [History] predniSONE [PredniSONE] 5 mg PO DAILY 09/07/17 [History] Apixaban [Eliquis] 5 mg PO BID tablet 09/24/17 [Rx] Aspirin 81 mg PO DAILY tab.chew 09/24/17 [Rx] Atorvastatin [Lipitor] 40 mg PO HS tablet 09/24/17 [Rx] Cefepime HCl [Maxipime] 2,000 mg IVPB Q8HR 3 Days vial 09/24/17 [Rx] Diltiazem [Cardizem] 30 mg PO Q6HR tablet 09/24/17 [Rx] Vancomycin HCl in Dextrose 5 % [Vancomycin 1 Gram/250 ml-D5w] 1 gm IV Q24H #3 mls 09/24/17 [Rx] 3 Allergy/AdvReac Type Severity Reaction Status Date / Time No Known Allergies Allergy Verified 07/31/16 13:26 ROS unobtainable: due to endotracheal tube Physical Examination Vital Signs: Vital Signs, Last 4 Hours Temp Pulse Resp BP Pulse Ox 09/30/17 07:48 98.6 F 70 14 91/62 09/30/17 07:33 98.4 F 70 14 99/54 09/30/17 07:26 14 100 09/30/17 07:00 60 14 70/44 100 09/30/17 06:00 102 16 84/59 99 09/30/17 05:56 16 83/52 99 09/30/17 05:00 96 16 110/77 100 09/30/17 04:51 98.0 F General appearance: alert (Some degree of responses to verbal stimuli) Eyes: nonicteric ENT: other (Intubated) Neck: supple Effort: normal Inspection: normal Auscultation: bilateral: rales (Bibasilar), other (Course breath sounds) Cardiovascular: regular rate and rhythm Gastrointestinal: normoactive bowel sounds, soft Integumentary: decubitus ulcer (lower thoracic/lumbar and sacral) Extremities: no cyanosis, no edema Musculoskeletal: no deformities unable to assess due to mental status Ventilator Settings Ventilator Settings: Ventilator Settings, Last 8 Hours Ventilator Mode VC+ Ventilator Mode VC+ Ventilator Mode VC+ Ventilator Mode VC+ Ventilator Mode VC+ Ventilator Mode VC+ Ventilator Mode VC+ Ventilator Mode VC+ Ventilator Mode VC+ Ventilator Mode VC+ Ventilator Mode VC+ Ventilator Mode VC+ Ventilator Mode VC+ Ventilator Tidal Volume 450 Setting Ventilator Tidal Volume 450 Setting Ventilator Tidal Volume 450 Setting Ventilator Tidal Volume 450 Setting Ventilator Tidal Volume 450 Setting Ventilator Tidal Volume 450 Setting Ventilator Tidal Volume 450 Setting Ventilator Tidal Volume 450 Setting Ventilator Tidal Volume 450 Setting Ventilator Tidal Volume 450 Setting Ventilator Tidal Volume 450 Setting Ventilator Tidal Volume 450 Setting Ventilator Tidal Volume 450 Setting Ventilator Respiratory Rate 14 Setting Ventilator Respiratory Rate 14 Setting Ventilator Respiratory Rate 16 Setting Ventilator Respiratory Rate 16 Setting Ventilator Respiratory Rate 16 Setting Ventilator Respiratory Rate 16 Setting Ventilator Respiratory Rate 16 Setting Ventilator Respiratory Rate 16 Setting Ventilator Respiratory Rate 16 Setting Ventilator Respiratory Rate 16 Setting Ventilator Respiratory Rate 16 Setting Ventilator Respiratory Rate 16 Setting Ventilator Respiratory Rate 16 Setting Actual Respiratory Rate 14 Actual Respiratory Rate 14 Actual Respiratory Rate 16 Actual Respiratory Rate 16 Actual Respiratory Rate 16 Positive End Expiratory 5 Pressure Positive End Expiratory 5 Pressure Positive End Expiratory 5 Pressure Positive End Expiratory 5 Pressure Positive End Expiratory 5 Pressure Positive End Expiratory 5 Pressure Positive End Expiratory 5 Pressure Positive End Expiratory 5 Pressure Positive End Expiratory 5 Pressure Positive End Expiratory 5 Pressure Positive End Expiratory 5 Pressure Positive End Expiratory 5 Pressure Positive End Expiratory 5 Pressure Peak Inspiratory Airway 25 Pressure Peak Inspiratory Airway 25 Pressure Peak Inspiratory Airway 27 Pressure Peak Inspiratory Airway 27 Pressure Peak Inspiratory Airway 28 Pressure Results - Laboratory Findings CBC and BMP: 09/30/17 04:09 09/30/17 04:09 ABG ABG pH 7.48 pH Units (7.32-7.45) H 09/30/17 04:08 ABG pCO2 37 mmHg (35-45) 09/30/17 04:08 ABG pO2 80 mmHg (85-104) L D 09/30/17 04:08 ABG O2 Saturation 97 % (95-98) 09/30/17 04:08 PT/INR, D-dimer PT 19.3 Seconds (9.4-12.1) H 09/30/17 04:09 Abnormal lab findings: Abnormal lab results RBC 1.99 M/mcL (3.82-4.97) L 09/30/17 04:09 Hgb 5.9 g/dL (11.5-15.4) L* D 09/30/17 04:09 Hct 18.9 % (35.3-44.9) L 09/30/17 04:09 MCHC 31.2 g/dL (31.6-35.5) L 09/30/17 04:09 RDW 15.2 % (11.5-14.5) H 09/30/17 04:09 Plt Count 91 K/mcL (140-400) L 09/30/17 04:09 Platelet Estimate Decreased (Normal) L 09/30/17 04:09 Percent Retic 3.4 % (1.6-2.8) H 09/30/17 04:09 PT 19.3 Seconds (9.4-12.1) H 09/30/17 04:09 APTT 22.7 Seconds (26.0-36.0) L 09/30/17 04:09 ABG pH 7.48 pH Units (7.32-7.45) H 09/30/17 04:08 ABG pO2 80 mmHg (85-104) L D 09/30/17 04:08 ABG Total CO2 28 mEq/L (20-26) H 09/30/17 04:08 ABG Base Excess 4 mEq/L (-2 to 3) H 09/30/17 04:08 BUN 27 mg/dL (7-20) H 09/30/17 04:09 BUN/Creatinine Ratio 47 (6-26) H 09/30/17 04:09 Calcium 8.1 mg/dL (8.6-10.8) L 09/30/17 04:09 Magnesium 1.4 mg/dL (1.6-2.6) L 09/30/17 04:09 Iron 43 mcg/dL (50-170) L 09/30/17 04:09 Transferrin 152 mg/dL (180-382) L 09/30/17 04:09 Ferritin 652 ng/ml (5-204) H 09/30/17 04:09 Alkaline Phosphatase 181 Units/L (38-126) H 09/30/17 04:09 Serum Total Protein 5.5 g/dL (6.0-8.3) L 09/30/17 04:09 Albumin 2.1 g/dL (3.5-5.0) L 09/30/17 04:09 Albumin/Globulin Ratio 0.6 (1.1-2.2) L 09/30/17 04:09 - Diagnostic Findings Chest x-ray: report reviewed, image reviewed - Clinical Findings Intake & Output: Intake & Output 09/29/17 09/30/17 09/30/17 23:59 07:59 15:59 Intake Total 270 / 270 Output Total 350 / 350 150 / 150 Balance -350 / -350 120 / 120 Weight 47.9 kg Consult Discharge Plan - Plan Referrals: Yared Akhtar Jr, MD [Primary Care Provider] - <Moise Aquino - Last Filed: 09/30/17 12:25> Date of Encounter: 09/30/17 All Systems: A 10-system review of systems was performed and is negative for pertinent findings except as documented above in the HPI. Physical Examination Vital Signs: Vital Signs, Last 4 Hours Temp Pulse Resp BP Pulse Ox 09/30/17 12:06 98.8 F 92 14 114/80 100 09/30/17 11:37 97.6 F 09/30/17 11:04 14 99 09/30/17 11:00 84 14 98/66 99 09/30/17 10:00 82 14 99/61 99 09/30/17 09:57 98.7 F 80 14 103/62 09/30/17 09:42 98.7 F 84 14 103/62 09/30/17 09:35 98.9 F 86 14 93/59 99 09/30/17 09:32 98.8 F 81 14 93/59 99 09/30/17 09:11 14 98 09/30/17 09:00 70 14 100/78 98 Ventilator Settings Ventilator Settings: Ventilator Settings, Last 8 Hours Ventilator Mode VC+ Ventilator Mode VC+ Ventilator Mode VC+ Ventilator Mode VC+ Ventilator Mode VC+ Ventilator Mode VC+ Ventilator Mode VC+ Ventilator Mode VC+ Ventilator Tidal Volume 450 Setting Ventilator Tidal Volume 450 Setting Ventilator Tidal Volume 450 Setting Ventilator Tidal Volume 450 Setting Ventilator Tidal Volume 450 Setting Ventilator Tidal Volume 450 Setting Ventilator Tidal Volume 450 Setting Ventilator Tidal Volume 450 Setting Ventilator Tidal Volume 450 Setting Ventilator Tidal Volume 450 Setting Ventilator Tidal Volume 450 Setting Ventilator Respiratory Rate 14 Setting Ventilator Respiratory Rate 14 Setting Ventilator Respiratory Rate 14 Setting Ventilator Respiratory Rate 14 Setting Ventilator Respiratory Rate 14 Setting Ventilator Respiratory Rate 14 Setting Ventilator Respiratory Rate 14 Setting Ventilator Respiratory Rate 14 Setting Ventilator Respiratory Rate 16 Setting Ventilator Respiratory Rate 16 Setting Ventilator Respiratory Rate 16 Setting Actual Respiratory Rate 14 Actual Respiratory Rate 14 Actual Respiratory Rate 14 Actual Respiratory Rate 14 Actual Respiratory Rate 14 Actual Respiratory Rate 14 Actual Respiratory Rate 14 Actual Respiratory Rate 14 Actual Respiratory Rate 16 Positive End Expiratory 5 Pressure Positive End Expiratory 5 Pressure Positive End Expiratory 5 Pressure Positive End Expiratory 5 Pressure Positive End Expiratory 5 Pressure Positive End Expiratory 5 Pressure Positive End Expiratory 5 Pressure Positive End Expiratory 5 Pressure Positive End Expiratory 5 Pressure Positive End Expiratory 5 Pressure Positive End Expiratory 5 Pressure Peak Inspiratory Airway 24 Pressure Peak Inspiratory Airway 28 Pressure Peak Inspiratory Airway 26 Pressure Peak Inspiratory Airway 25 Pressure Peak Inspiratory Airway 25 Pressure Peak Inspiratory Airway 25 Pressure Peak Inspiratory Airway 25 Pressure Peak Inspiratory Airway 25 Pressure Peak Inspiratory Airway 27 Pressure Results - Laboratory Findings CBC and BMP: 09/30/17 04:09 09/30/17 04:09 ABG ABG pH 7.48 pH Units (7.32-7.45) H 09/30/17 04:08 ABG pCO2 37 mmHg (35-45) 09/30/17 04:08 ABG pO2 80 mmHg (85-104) L D 09/30/17 04:08 ABG O2 Saturation 97 % (95-98) 09/30/17 04:08 PT/INR, D-dimer PT 19.3 Seconds (9.4-12.1) H 09/30/17 04:09 Abnormal lab findings: Abnormal lab results RBC 1.99 M/mcL (3.82-4.97) L 09/30/17 04:09 Hgb 5.9 g/dL (11.5-15.4) L* D 09/30/17 04:09 Hct 18.9 % (35.3-44.9) L 09/30/17 04:09 MCHC 31.2 g/dL (31.6-35.5) L 09/30/17 04:09 RDW 15.2 % (11.5-14.5) H 09/30/17 04:09 Plt Count 91 K/mcL (140-400) L 09/30/17 04:09 Platelet Estimate Decreased (Normal) L 09/30/17 04:09 Percent Retic 3.4 % (1.6-2.8) H 09/30/17 04:09 PT 19.3 Seconds (9.4-12.1) H 09/30/17 04:09 APTT 22.7 Seconds (26.0-36.0) L 09/30/17 04:09 ABG pH 7.48 pH Units (7.32-7.45) H 09/30/17 04:08 ABG pO2 80 mmHg (85-104) L D 09/30/17 04:08 ABG Total CO2 28 mEq/L (20-26) H 09/30/17 04:08 ABG Base Excess 4 mEq/L (-2 to 3) H 09/30/17 04:08 BUN 27 mg/dL (7-20) H 09/30/17 04:09 BUN/Creatinine Ratio 47 (6-26) H 09/30/17 04:09 Calcium 8.1 mg/dL (8.6-10.8) L 09/30/17 04:09 Magnesium 1.4 mg/dL (1.6-2.6) L 09/30/17 04:09 Iron 43 mcg/dL (50-170) L 09/30/17 04:09 Transferrin 152 mg/dL (180-382) L 09/30/17 04:09 Ferritin 652 ng/ml (5-204) H 09/30/17 04:09 Alkaline Phosphatase 181 Units/L (38-126) H 09/30/17 04:09 Serum Total Protein 5.5 g/dL (6.0-8.3) L 09/30/17 04:09 Albumin 2.1 g/dL (3.5-5.0) L 09/30/17 04:09 Albumin/Globulin Ratio 0.6 (1.1-2.2) L 09/30/17 04:09 - Clinical Findings Intake & Output: Intake & Output 09/29/17 09/30/17 09/30/17 23:59 07:59 15:59 Intake Total 270 / 270 600 / 600 Output Total 350 / 350 225 / 225 75 / 75 Balance -350 / -350 45 / 45 525 / 525 Weight 47.9 kg - Attending Attestation I examined this patient and my medical decision-making was reviewed with the Resident Physician. I agree with the documented findings, disposition and treatment plan as described except to the extent set forth below. Patient seen and examined. Labs, radiology, chart personally reviewed. Agree with resident's history and physical, assessment, plan with following comments: INTERVENTIONAL RADIOLOGY TECHNOLOGIST: Patient does not follows commands, patient is sedated for comfort. Pulmonary: Acceptable oxygenation and ventilation. There is no plan for spontaneous breathing trial due to hemodynamic instability and patient was treated previously for healthcare associated pneumonia to continue antibiotics for now until we have the repeat cultures. Vent setting changed just on her ABG result. Cardiovascular: She did not with hypotension secondary to blood loss. Explained to the family that without anticoagulation she is always at risk of further clot. GI: Nutrition per dietary and GI prophylaxis per routine. GI consult for possible endoscopy Heme: DVT prophylaxis per routine. Blood transfusion and when she is more stable then she will need screening CT chest to make sure there is no other source of bleeding such as retroperitoneal since patient on anticoagulation. ID: Continue antibiotics and plan to de-escalation Renal; urine out put and renal funtion reviewed Endorcine: blood glucose is monitored Lines: all lines checked and no evidence of infections Skin: skin care to prevent pressure ulcers per nursing routine care I had discussions with her family at the bedside that the overall prognosis is poor and need to discuss with the patient when she is more awake about her CODE STATUS. She will remain full code at this point. I spent 40 min of Critical Care time with this patient. It involved decision making of high complexity to assess, manipulate, and support vital organ system failure and/or to prevent further life threatening deterioration of the patient' s condition. The time involved in the performance of separately reportable procedures was not counted toward critical care time.
[2017-09-30] MEDS: Levothyroxine Sodium 100 MCG VIAL IVP SCH (08:23)
[2017-09-30] MEDS: Chlorhexidine Rinse 15 ML MOUTHWASH MM SCH ×2 (08:23→19:45)
[2017-09-30] MEDS: Aspirin 81 MG TAB.CHEW PO SCH (08:44)
[2017-09-30] MEDS ORDERED: Pantoprazole 40 MG VIAL IVP SCH (09:00)
[2017-09-30] MEDS ORDERED: amLODIPine 5 MG TABLET PO SCH (09:00)
[2017-09-30] MEDS ORDERED: Potassium Phosphate 44 MEQ in 0.9 % Sodium Chloride 250 ML IVPB PRN (10:25)
--- NOTE | 2017-09-30 10:37 | Gastroenterology Consult Note ---
<Nicolas Ramirez - Last Filed: 09/30/17 10:32> Date of Encounter: 09/30/17 Time of Encounter: 10:32 - Assessment and plan (1) Acute blood loss anemia Current Visit: Yes Status: Acute Assessment and plan: hb 5.9 on presentation baseline 9.1 Transfusing 2 units [facility] hemocult + on eliquis for afib NPO: Plan: EGD today CT abdomen/pelvis ordered per primary. (2) GI bleed Current Visit: Yes Status: Acute Assessment and plan: rule out upper GI bleed on eliquis for afib stool occult positive. Qualifiers: GI bleed type/associated pathology: unspecified gastrointestinal hemorrhage type Qualified Code(s): K92.2 - Gastrointestinal hemorrhage, unspecified (3) Acute and chronic respiratory failure ([id number]) Current Visit: Yes Status: Acute Assessment and plan: Patient on ventilator support currently being treated with broad specturm antibiotics for suspected pna as per primary Qualifiers: Respiratory failure complication: hypoxia and hypercapnia Qualified Code(s) : J96.21 - Acute and chronic respiratory failure with hypoxia; J96.22 - Acute and chronic respiratory failure with hypercapnia; J96.22 - Acute and chronic respiratory failure with hypercapnia; J96.22 - Acute and chronic respiratory failure with hypercapnia (4) Afib Current Visit: Yes Status: Acute Assessment and plan: chronic afib on eliquis holding eilquis due to GI bleed. Qualifiers: Atrial fibrillation type: persistent Qualified Code(s): I48.1 - Persistent atrial fibrillation - Time Spent With Patient Total time spent is greater than 50% in coordination of care (as documented) at patient's floor/unit and/or counseling patient: GI History of Present Illness - Data of Consult Patient: new to practice Consult date: 09/30/17 Requesting Physician: El Celestin MD - Consult Narrative Reason for consult: GI bleed History of present illness: Ms. Laurent is a 77 year old female presente from ulcer due to acute respiratory failure and acute blood loss anemia. patient is intubated and unable to answer questions. There is no family at beside. According to medical records patient was found to be unresponssive at skilled nursing and hypoxic. Patient was intubated. Also found to be anemiac with hgb of 5.9 on arrival to [place]. Fecal occult blood positive. On previous admission to [place] she was found to have b/l stroke and started on eliquis due to new onset afib. Consult was placed to evaluate patient for upper GI bleed. Past Med Surg Social Fam HX - Past Medical History Medical history: atrial fibrillation, COPD, CVA, hyperlipidemia, hypertension, RA, thyroid disease Psychiatric history: no psych history - Past Surgical History Surgical History: hysterectomy - Social History Smoking Status: Never smoker Smokeless Tobacco Status: No Alcohol use: none Drug use: none - Family History Mother Living Status: Hx Family Cardiac Disorders: Yes (LA, HTN) Hx Family Endocrine Disorder: Yes (DM) Father Living Status: Hx Family Cardiac Disorders: Yes (LA) Brother Hx Family Cardiac Disorders: Yes (Heart disease) ROS unobtainable: due to endotracheal tube, due to mental status - Constitutional Vitals: Temp Pulse Resp BP Pulse Ox 98.7 F 84 14 103/62 99 09/30/17 09:42 09/30/17 09:42 09/30/17 09:42 09/30/17 09:42 09/30/17 09:35 Exam: intuabted. somnolent. opens eyes to verbal stimulation. - Head Head exam: Present: atraumatic, normocephalic - Eye Eye exam: Absent: sclera anicteric - ENT Additional comments: intubated. - Neck Neck exam general surgery: Present: normal inspection, trachea midline - Respiratory Respiratory exam: Present: CTAB (diminished. clear anteriorly ) - Cardiovascular Cardiovascular exam: Present: irregular rhythm, +S1, +S2 - GI/Abdominal Additional comments: soft non tender non distended +b/s - Extremities Exam Extremities exam: Present: warm. 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 - Skin Skin exam: Present: dry, intact, normal color, warm Results - Labs CBC & Chem 7: 09/30/17 04:09 09/30/17 04:09 Labs: Last Result Calcium 8.1 mg/dL (8.6-10.8) L 09/30/17 04:09 Iron 43 mcg/dL (50-170) L 09/30/17 04:09 % Saturation 20 % (15-50) 09/30/17 04:09 Transferrin 152 mg/dL (180-382) L 09/30/17 04:09 Ferritin 652 ng/ml (5-204) H 09/30/17 04:09 Vitamin B12 417 pg/mL (213-816) 09/30/17 04:09 Folate 16.7 ng/mL (7.0-31.4) 09/30/17 04:09 Entire Visit Hgb 5.9 g/dL (11.5-15.4) L* D 09/30/17 04:09 Hct 18.9 % (35.3-44.9) L 09/30/17 04:09 PT 19.3 Seconds (9.4-12.1) H 09/30/17 04:09 Ferritin 652 ng/ml (5-204) H 09/30/17 04:09 Total Bilirubin 0.8 mg/dL (0.2-1.2) 09/30/17 04:09 AST 33 Units/L (5-34) 09/30/17 04:09 ALT 19 Units/L (0-55) 09/30/17 04:09 Folate 16.7 ng/mL (7.0-31.4) 09/30/17 04:09 - ABG ABG results: ABG ABG pH 7.48 pH Units (7.32-7.45) H 09/30/17 04:08 ABG pCO2 37 mmHg (35-45) 09/30/17 04:08 ABG pO2 80 mmHg (85-104) L D 09/30/17 04:08 ABG O2 Saturation 97 % (95-98) 09/30/17 04:08 PT/INR, D-dimer PT 19.3 Seconds (9.4-12.1) H 09/30/17 04:09 - Impressions Impressions Chest X-Ray 09/29/17 22:51 IMPRESSION: 1. Endotracheal tube tip 3.3 cm above the wade. 2. Enteric tube tip and side-port in the proximal stomach below the gastroesophageal junction. 3. Stable right greater left layering pleural effusions with bibasilar opacity that may reflect atelectasis or pneumonia if the patient has fever or leukocytosis. D/ / Lg Hawthorne / Lg Hawthorne Interpreting Provider: Lg Hawthorne Consult Discharge Plan - Plan Referrals: Yared Akhtar Jr, MD [Primary Care Provider] - <Fartun Hernández - Last Filed: 09/30/17 17:34> Date of Encounter: 09/30/17 Time of Encounter: 17:00 - Time Spent With Patient Total time spent is greater than 50% in coordination of care (as documented) at patient's floor/unit and/or counseling patient: GI History of Present Illness - Data of Consult Requesting Physician: El Celestin MD - Consult Narrative History of present illness: Ms. Laurent is a 77 year old female - Constitutional Vitals: Temp Pulse Resp BP Pulse Ox 98.8 F 89 14 120/65 99 09/30/17 12:06 09/30/17 16:00 09/30/17 16:18 09/30/17 16:00 09/30/17 16:18 Results - Labs CBC & Chem 7: 09/30/17 13:36 09/30/17 04:09 Labs: Last Result Calcium 8.1 mg/dL (8.6-10.8) L 09/30/17 04:09 Iron 43 mcg/dL (50-170) L 09/30/17 04:09 % Saturation 20 % (15-50) 09/30/17 04:09 Transferrin 152 mg/dL (180-382) L 09/30/17 04:09 Ferritin 652 ng/ml (5-204) H 09/30/17 04:09 Vitamin B12 417 pg/mL (213-816) 09/30/17 04:09 Folate 16.7 ng/mL (7.0-31.4) 09/30/17 04:09 Entire Visit Hgb 8.6 g/dL (11.5-15.4) L D 09/30/17 13:36 Hct 26.5 % (35.3-44.9) L 09/30/17 13:36 PT 19.3 Seconds (9.4-12.1) H 09/30/17 04:09 Ferritin 652 ng/ml (5-204) H 09/30/17 04:09 Total Bilirubin 0.8 mg/dL (0.2-1.2) 09/30/17 04:09 AST 33 Units/L (5-34) 09/30/17 04:09 ALT 19 Units/L (0-55) 09/30/17 04:09 Folate 16.7 ng/mL (7.0-31.4) 09/30/17 04:09 - ABG ABG results: ABG ABG pH 7.48 pH Units (7.32-7.45) H 09/30/17 04:08 ABG pCO2 37 mmHg (35-45) 09/30/17 04:08 ABG pO2 80 mmHg (85-104) L D 09/30/17 04:08 ABG O2 Saturation 97 % (95-98) 09/30/17 04:08 PT/INR, D-dimer PT 19.3 Seconds (9.4-12.1) H 09/30/17 04:09 - Impressions Impressions Chest X-Ray 09/29/17 22:51 IMPRESSION: 1. Endotracheal tube tip 3.3 cm above the wade. 2. Enteric tube tip and side-port in the proximal stomach below the gastroesophageal junction. 3. Stable right greater left layering pleural effusions with bibasilar opacity that may reflect atelectasis or pneumonia if the patient has fever or leukocytosis. D/ / Lg Hawthorne / Lg Hawthorne Interpreting Provider: Lg Hawthorne Abdomen/Pelvis CT 09/30/17 08:04 IMPRESSION: 1. Left iliacus muscle hematoma as described above. 2. There is inflammation in the adjacent retroperitoneum, but no evidence of retroperitoneal hemorrhage. 3. Small amount of free fluid in the left peritoneum, dependent. There is a hyperdense linear that does indicate mild hemorrhage within the peritoneal cavity. 4. Bilateral pleural effusions are similar to the patient's prior CT of the chest. There is improved aeration in the right middle lobe and left lower lobe. Increasing patchy opacities in the right upper lobe. 5. Cardiomegaly with mediastinal lymph node enlargement that is difficult to characterize without contrast. There is extrinsic mass effect upon the left mainstem bronchus and right lower lobar bronchus. D/ / Fermin Mariee MD / Fermin Mariee MD Interpreting Provider: Fermin Mariee MD Chest CT 09/30/17 08:04 IMPRESSION: 1. Left iliacus muscle hematoma as described above. 2. There is inflammation in the adjacent retroperitoneum, but no evidence of retroperitoneal hemorrhage. 3. Small amount of free fluid in the left peritoneum, dependent. There is a hyperdense linear that does indicate mild hemorrhage within the peritoneal cavity. 4. Bilateral pleural effusions are similar to the patient's prior CT of the chest. There is improved aeration in the right middle lobe and left lower lobe. Increasing patchy opacities in the right upper lobe. 5. Cardiomegaly with mediastinal lymph node enlargement that is difficult to characterize without contrast. There is extrinsic mass effect upon the left mainstem bronchus and right lower lobar bronchus. D/ / Fermin Mariee MD / Fermin Mariee MD Interpreting Provider: Fermin Mariee MD - Attending Attestation I examined this patient and my medical decision-making was reviewed with the Resident Physician. I agree with the documented findings, disposition and treatment plan as described except to the extent set forth below. Patient with anemia and CT scan showed a large iliac hematoma. No overt GI bleeding. At this point no acute indication to do EGD
[2017-09-30] MEDS: Azithromycin 500 MG in D5% in Water 250 ML IVPB SCH (11:16)
[2017-09-30 14:03] LABS: Hematocrit 26.5 % (35.3-44.9)
[2017-09-30 14:06] LABS: Hemoglobin 8.6 g/dL (11.5-15.4)
[2017-09-30] MEDS: Pantoprazole 40 MG VIAL IVP SCH (19:45)
[2017-09-30 20:07] LABS: Hematocrit 26.3 % (35.3-44.9); Hemoglobin 8.6 g/dL (11.5-15.4)
[2017-09-30 20:13] LABS: BUN/Creatinine Ratio 44 (6-26); Blood Urea Nitrogen 28 mg/dL (7-20); Calcium 8.1 mg/dL (8.6-10.8); Carbon Dioxide 24 mEq/L (19-29); Chloride 105 mEq/L (98-109); Glucose 86 mg/dL (70-99); Magnesium 1.3 mg/dL (1.6-2.6); Osmolality,Calculated 287 (280-300); Phosphorous 2.1 mg/dL (2.3-4.7); Potassium 3.8 mEq/L (3.5-4.5); Sodium 136 mEq/L (136-145); eGFR For African Americans > 60 (> 60); eGFR For Non-African Americans > 60 (> 60)
[2017-09-30 20:14] LABS: VBG HCO3 24 mEq/L (21-27); VBG PCO2 34 mmHg (41-51); VBG PH 7.46 pH Units (7.32-7.42); VBG PO2 168 mmHg (25-50)
[2017-09-30 20:28] LABS: VBG Ionized Calcium 1.07 mmol/L (1.15-1.35)
[2017-10-01] MEDS: Ipratropium/Albuterol Neb 3 ML IH SCH ×5 (00:08→22:35)
[2017-10-01 04:06] LABS: ABG Base Excess -1 mEq/L (-2 to 3); ABG HCO3 24 mEq/L (21-27); ABG Oxygen Saturation 97 % (95-98); ABG PCO2 41 mmHg (35-45); ABG PH 7.38 pH Units (7.32-7.45); ABG PO2 94 mmHg (85-104); ABG TCO2 26 mEq/L (20-26); Blood Gas Modality ASSIST CONTROL; Blood Gas PEEP 5 cm H2O; Blood Gas Respiration Rate 14; Blood Gas VT 450 cc
[2017-10-01] MEDS: Vancomycin 1,000 MG in D5% in Water 250 ML IVPB SCH (04:35)
[2017-10-01 04:52] LABS: INR 1.5; Prothrombin Time 16.7 Seconds (9.4-12.1)
[2017-10-01 04:56] LABS: VBG Ionized Calcium 0.69 mmol/L (1.15-1.35)
[2017-10-01 05:00] LABS: Alanine Aminotransferase 18 Units/L (0-55); Albumin 2.2 g/dL (3.5-5.0); Albumin/Globulin Ratio 0.7 (1.1-2.2); Alkaline Phosphatase 163 Units/L (38-126); Aspartate Amino Transferase 31 Units/L (5-34); BUN/Creatinine Ratio 42 (6-26); Bilirubin,Direct 0.5 mg/dL (0.0-0.5); Bilirubin,Indirect 0.5 mg/dL (0.0-1.2); Blood Urea Nitrogen 26 mg/dL (7-20); Calcium 8.3 mg/dL (8.6-10.8); Carbon Dioxide 22 mEq/L (19-29); Chloride 104 mEq/L (98-109); Globulin 3.3 g/dL (2.4-3.5); Glucose 65 mg/dL (70-99); Magnesium 1.8 mg/dL (1.6-2.6); Osmolality,Calculated 285 (280-300); Potassium 4.6 mEq/L (3.5-4.5); Sodium 136 mEq/L (136-145); Total Protein 5.5 g/dL (6.0-8.3); eGFR For African Americans > 60 (> 60); eGFR For Non-African Americans > 60 (> 60)
[2017-10-01 05:01] LABS: Mean Corpuscular Hemoglobin 29.5 pg (28.0-33.3); Phosphorous 4.7 mg/dL (2.3-4.7)
[2017-10-01 05:03] LABS: Basophils % 0.3 %; Eosinophils # 0.1 K/mcL (0.0-0.6); Eosinophils % 1.5 %; Hematocrit 26.5 % (35.3-44.9); Hemoglobin 8.5 g/dL (11.5-15.4); Immature Granulocytes % 0.9 % (0-4); Lymphocytes # 0.7 K/mcL (0.6-4.6); Lymphocytes % 7.8 %; Mean Corpuscular HGB Conc 32.1 g/dL (31.6-35.5); Monocytes # 0.9 K/mcL (0.0-1.3); Monocytes % 10.7 %; Red Blood Count 2.88 M/mcL (3.82-4.97); Red Cell Distribution Width 16.9 % (11.5-14.5); Segmented Neutrophils % 78.8 %
[2017-10-01] MEDS: Lacri-Lube 3.5 GM TUBE BOTH EYES SCH ×2 (05:19→09:34)
[2017-10-01] MEDS: Cefepime HCl 2,000 MG in Water for inj. (sterile) 20 ML IVP SCH ×2 (05:35→18:16)
[2017-10-01 06:07] LABS: Neutrophils # 6.9 K/mcL (1.6-8.9)
[2017-10-01 06:21] LABS: Immature Platelets 8.9 % (1.1-6.1); Mean Platelet Volume 15.1 fL (9.4-12.4); Platelet Count 100 K/mcL (140-400)
[2017-10-01] MEDS ORDERED: *HR* Midazolam HCl 5 MG/5 ML VIAL IVP ONE (08:24)
--- NOTE | 2017-10-01 08:25 | Pulmonology Progress Note ---
Date of Encounter: 10/01/17 Time of Encounter: 07:45 Assessment and Plan (1) Acute and chronic respiratory failure ([id number]) Current Visit: Yes Status: Acute - With hypoxia (reported O2 sat 60% in residential) and hypercapnia (ABG pCO2 77 at [facility] ED). - Likely multifactorial including significant anemia (Hgb 5.9), pneumonia and mucus plugs in the setting of underlying COPD. - CT chest on 09/30 found occlusion of the left mainstem bronchus, dense consolidation in the left lower lobe with a moderate pleural effusion. Scattered ground-glass and reticular opacities throughout the left lung. Narrowing of the right lower lobar bronchus is also observed with a moderate right-sided pleural effusion. Near complete atelectasis of the right lower lobe. Patchy airspace opacities throughout the right upper lobe. - Brochoscopy on 10/01 found mucus plugs throughout the tracheobronchial tree and left lower lobe. BAL was performed and sent for gram stain and culture. - Continue antibiotics for pneumonia and Duoneb for COPD. - Patient was successfully extubated this morning. Current maintains good O2 sat on 4L NC. - Given patient improves clinically and remains hemodynamically stable, patient can be transferred to telemetry floor for further monitoring and care. Qualifiers: Respiratory failure complication: hypoxia and hypercapnia Qualified Code(s) : J96.21 - Acute and chronic respiratory failure with hypoxia; J96.22 - Acute and chronic respiratory failure with hypercapnia; J96.22 - Acute and chronic respiratory failure with hypercapnia; J96.22 - Acute and chronic respiratory failure with hypercapnia (2) Acute blood loss anemia Current Visit: Yes Status: Acute - Hgb 5.9 today which dropped from Hgb 9.1 on 09/24/17. - Most likely secondary to left iliacus hematoma as noted on CT A/P. Reported positive stool occult test at [facility] ED but doubt GI bleed as major source given lack of significant bloody bowel movement which is anticipated in patient with such significant Hgb drop. - Status post 2 units of pRBC transfusion on 09/30. - Hgb stable today at 8.5 - Continue to monitor H&H closely. Consider more transfusion if Hgb < 7.0. (3) Hematoma Current Visit: Yes Status: Acute - CT A/P found left iliacus hematoma measuring 7.6 x 4.4 cm. - Likely related to anticoagulation use. - Hold anticoagulation and continue to monitor. (4) Pneumonia Current Visit: No Status: Suspected - Found to have multifocal pneumonia, predominately right lower lobe, during prior hospitalization and RLLL BAL cultures from 09/11/17 grew yeast species, MRSA and Serratia marcescens. - Per patient's family, patient did finish 14-day course of vancomycin and cefepime after discharge - CXR on 09/29/17 found stable right greater left layering pleural effusions with bibasilar opacity compared to prior CXR from 09/13/17. - Chest CT on 09/30/17 found dense consolidation in the left lower lobe with a moderate pleural effusion. Scattered ground-glass and reticular opacities throughout the left lung. Patchy airspace opacities throughout the right upper lobe also noted. - Bronchoscopy on 10/01/17 found mucus plugs thrroughout the tracheobronchial tree and left lower lobe. BAL gram stain and culture pending. - Continue IV vancomycin (since 09/30), cefepime (since 09/30) and azithromycin (since 09/30). Further de-escalation based on clinical picture and culture result. Qualifiers: Pneumonia type: due to methicillin-resistant Staphylococcus aureus (MRSA) Laterality: bilateral Lung location: unspecified part of lung Qualified Code (s): J15.212 - Pneumonia due to Methicillin resistant Staphylococcus aureus (5) Afib Current Visit: Yes Status: Acute - Found to have A-fib and started on Eliquis for significant CVA risk (CHADS- VASc Score 5 and had ischemic stroke) on prior hospitalization. - Currently rate-controlled most of time. - Continue Cardizem. - Hold anticoagulation for now given acute blood loss anemia. Qualifiers: Atrial fibrillation type: persistent Qualified Code(s): I48.1 - Persistent atrial fibrillation (6) DVT prophylaxis Current Visit: No Status: Acute - Hold anticoagulation at this time given acute blood loss anemia. - Continue EPCD. Subjective Principal diagnosis: Acute respiratory failure Interval history: Patient was seen and examined this morning. Patient is still intubated but appears to alert and orient as patient spontaneously opens her eyes and shakes her head while asking if she has any pain. Objective PUL Vital signs: Last Vital Signs Temp 97.3 F L 10/01/17 07:27 Pulse 85 10/01/17 07:27 Resp 14 10/01/17 07:50 BP 96/67 10/01/17 07:00 Pulse Ox 100 10/01/17 07:50 General appearance: no acute distress, alert Eyes: nonicteric ENT: other (Intubated) Neck: supple Effort: normal Auscultation: bilateral: other (Coarse breath sounds) Cardiovascular: regular rate and rhythm Gastrointestinal: normoactive bowel sounds, soft, non-tender Integumentary: normal Extremities: no cyanosis, no edema Musculoskeletal: other (Severe bilatral hand arthritis noted.) non-focal exam Ventilator Settings Ventilator Settings: Ventilator Settings, Last 8 Hours Ventilator Mode VC+ Ventilator Mode VC+ Ventilator Mode VC+ Ventilator Mode VC+ Ventilator Mode VC+ Ventilator Mode VC+ Ventilator Mode VC+ Ventilator Mode VC+ Ventilator Mode VC+ Ventilator Mode VC+ Ventilator Mode VC+ Ventilator Mode VC+ Ventilator Tidal Volume 450 Setting Ventilator Tidal Volume 450 Setting Ventilator Tidal Volume 450 Setting Ventilator Tidal Volume 450 Setting Ventilator Tidal Volume 450 Setting Ventilator Tidal Volume 450 Setting Ventilator Tidal Volume 450 Setting Ventilator Tidal Volume 450 Setting Ventilator Tidal Volume 450 Setting Ventilator Tidal Volume 450 Setting Ventilator Tidal Volume 450 Setting Ventilator Tidal Volume 450 Setting Ventilator Respiratory Rate 14 Setting Ventilator Respiratory Rate 14 Setting Ventilator Respiratory Rate 14 Setting Ventilator Respiratory Rate 14 Setting Ventilator Respiratory Rate 14 Setting Ventilator Respiratory Rate 14 Setting Ventilator Respiratory Rate 14 Setting Ventilator Respiratory Rate 14 Setting Ventilator Respiratory Rate 14 Setting Ventilator Respiratory Rate 14 Setting Ventilator Respiratory Rate 14 Setting Ventilator Respiratory Rate 14 Setting Actual Respiratory Rate 14 Actual Respiratory Rate 14 Actual Respiratory Rate 14 Actual Respiratory Rate 14 Actual Respiratory Rate 14 Actual Respiratory Rate 14 Actual Respiratory Rate 14 Actual Respiratory Rate 14 Actual Respiratory Rate 14 Actual Respiratory Rate 14 Actual Respiratory Rate 14 Positive End Expiratory 5 Pressure Positive End Expiratory 5 Pressure Positive End Expiratory 5 Pressure Positive End Expiratory 5 Pressure Positive End Expiratory 5 Pressure Positive End Expiratory 5 Pressure Positive End Expiratory 5 Pressure Positive End Expiratory 5 Pressure Positive End Expiratory 5 Pressure Positive End Expiratory 5 Pressure Positive End Expiratory 5 Pressure Positive End Expiratory 5 Pressure Peak Inspiratory Airway 25 Pressure Peak Inspiratory Airway 24 Pressure Peak Inspiratory Airway 25 Pressure Peak Inspiratory Airway 25 Pressure Peak Inspiratory Airway 25 Pressure Peak Inspiratory Airway 25 Pressure Peak Inspiratory Airway 25 Pressure Peak Inspiratory Airway 24 Pressure Peak Inspiratory Airway 24 Pressure Peak Inspiratory Airway 25 Pressure Peak Inspiratory Airway 25 Pressure Results - Laboratory Findings CBC and BMP: 10/01/17 04:30 10/01/17 04:30 ABG ABG pH 7.38 pH Units (7.32-7.45) 10/01/17 04:04 ABG pCO2 41 mmHg (35-45) 10/01/17 04:04 ABG pO2 94 mmHg (85-104) 10/01/17 04:04 ABG O2 Saturation 97 % (95-98) 10/01/17 04:04 PT/INR, D-dimer PT 16.7 Seconds (9.4-12.1) H 10/01/17 04:30 Abnormal lab findings: Abnormal lab results RBC 2.88 M/mcL (3.82-4.97) L 10/01/17 04:30 Hgb 8.5 g/dL (11.5-15.4) L 10/01/17 04:30 Hct 26.5 % (35.3-44.9) L 10/01/17 04:30 RDW 16.9 % (11.5-14.5) H 10/01/17 04:30 Plt Count 100 K/mcL (140-400) L 10/01/17 04:30 MPV 15.1 fL (9.4-12.4) H 10/01/17 04:30 Platelet Estimate Decreased (Normal) L 09/30/17 04:09 Immature Plt Fraction 8.9 % (1.1-6.1) H 10/01/17 04:30 Percent Retic 3.4 % (1.6-2.8) H 09/30/17 04:09 PT 16.7 Seconds (9.4-12.1) H 10/01/17 04:30 VBG pH 7.46 pH Units (7.32-7.42) H 09/30/17 20:11 VBG pCO2 34 mmHg (41-51) L 09/30/17 20:11 VBG pO2 168 mmHg (25-50) H 09/30/17 20:11 Potassium 4.6 mEq/L (3.5-4.5) H 10/01/17 04:30 BUN 26 mg/dL (7-20) H 10/01/17 04:30 BUN/Creatinine Ratio 42 (6-26) H 10/01/17 04:30 Glucose 65 mg/dL (70-99) L 10/01/17 04:30 Calcium 8.3 mg/dL (8.6-10.8) L 10/01/17 04:30 Venous Ioniz Calcium 0.69 mmol/L (1.15-1.35) L 10/01/17 04:51 Iron 43 mcg/dL (50-170) L 09/30/17 04:09 Transferrin 152 mg/dL (180-382) L 09/30/17 04:09 Ferritin 652 ng/ml (5-204) H 09/30/17 04:09 Alkaline Phosphatase 163 Units/L (38-126) H 10/01/17 04:30 Serum Total Protein 5.5 g/dL (6.0-8.3) L 10/01/17 04:30 Albumin 2.2 g/dL (3.5-5.0) L 10/01/17 04:30 Albumin/Globulin Ratio 0.7 (1.1-2.2) L 10/01/17 04:30 - Microbiology Findings Microbiology Findings: Microbiology, Last 48 Hours 09/30/17 14:10 Sputum Culture - Preliminary Sputum - Diagnostic Findings CT scan - chest: report reviewed, image reviewed - Clinical Findings Intake & Output: Intake & Output 09/30/17 10/01/17 10/01/17 23:59 07:59 15:59 Intake Total 1242 / 1242 0 / 0 Output Total 400 / 400 325 / 325 Balance 842 / 842 -325 / -325 Weight 49 kg - VTE Documentation of Mechanical Device: Intermittent pneumatic compression device Consult Discharge Plan - Plan Referrals: Yared Akhtar Jr, MD [Primary Care Provider] -
[2017-10-01] MEDS: Ringers Solution, Lactated 1,000 ML IVC SCH ×2 (08:36→18:16)
[2017-10-01] MEDS: Chlorhexidine Rinse 15 ML MOUTHWASH MM SCH (09:43)
[2017-10-01] MEDS: Levothyroxine Sodium 100 MCG VIAL IVP SCH (09:43)
[2017-10-01] MEDS: Aspirin 81 MG TAB.CHEW PO SCH (09:43)
[2017-10-01] MEDS: Azithromycin 500 MG in D5% in Water 250 ML IVPB SCH (09:44)
[2017-10-01] MEDS: Pantoprazole 40 MG VIAL IVP SCH (09:44)
[2017-10-01] MEDS ORDERED: Naloxone 0.4 MG/ML INJ IVP PRN (11:37)
[2017-10-01] MEDS ORDERED: Ipratropium/Albuterol Neb 3 ML IH PRN (11:37)
[2017-10-01] MEDS ORDERED: D5% in Water 1,000 ML IVC PRN (16:27)
[2017-10-01] MEDS ORDERED: Dextrose Gel 15 GM PO PRN ×2 (16:27)
[2017-10-01] MEDS: Insulin LISPRO 300 UNITS/3 ML VIAL SQ SCH (18:12)
[2017-10-01] MEDS ORDERED: Insulin LISPRO 300 UNITS/3 ML VIAL SQ SCH (21:00)
[2017-10-02] MEDS ORDERED: Vancomycin 1,000 MG in D5% in Water 250 ML IVPB SCH (03:00)
[2017-10-02] MEDS: Ringers Solution, Lactated 1,000 ML IVC SCH ×3 (03:28→15:48)
[2017-10-02 03:55] LABS: Basophils % 0.1 %; Eosinophils # 0.1 K/mcL (0.0-0.6); Eosinophils % 0.7 %; Immature Granulocytes % 0.9 % (0-4); Lymphocytes # 0.2 K/mcL (0.6-4.6); Lymphocytes % 2.6 %; Mean Corpuscular HGB Conc 31.8 g/dL (31.6-35.5); Mean Corpuscular Volume 94.3 fL (83.0-100.0); Mean Platelet Volume 9.8 fL (9.4-12.4); Monocytes # 0.7 K/mcL (0.0-1.3); Monocytes % 8.1 %; Platelet Count 141 K/mcL (140-400); Red Blood Count 2.97 M/mcL (3.82-4.97); Red Cell Distribution Width 16.7 % (11.5-14.5); Segmented Neutrophils % 87.6 %
[2017-10-02 04:08] LABS: Alanine Aminotransferase 16 Units/L (0-55); Albumin 2.3 g/dL (3.5-5.0); Albumin/Globulin Ratio 0.6 (1.1-2.2); Alkaline Phosphatase 187 Units/L (38-126); Aspartate Amino Transferase 30 Units/L (5-34); BUN/Creatinine Ratio 34 (6-26); Bilirubin,Direct 0.4 mg/dL (0.0-0.5); Bilirubin,Indirect 0.3 mg/dL (0.0-1.2); Bilirubin,Total 0.7 mg/dL (0.2-1.2); Blood Urea Nitrogen 20 mg/dL (7-20); Calcium 8.3 mg/dL (8.6-10.8); Carbon Dioxide 25 mEq/L (19-29); Chloride 103 mEq/L (98-109); Globulin 3.8 g/dL (2.4-3.5); Glucose 110 mg/dL (70-99); Magnesium 1.7 mg/dL (1.6-2.6); Osmolality,Calculated 283 (280-300); Potassium 4.4 mEq/L (3.5-4.5); Sodium 135 mEq/L (136-145); Total Protein 6.1 g/dL (6.0-8.3); eGFR For African Americans > 60 (> 60); eGFR For Non-African Americans > 60 (> 60)
[2017-10-02] MEDS: Ipratropium/Albuterol Neb 3 ML IH SCH ×4 (04:20→23:13)
[2017-10-02 05:28] LABS: Hemoglobin 8.9 g/dL (11.5-15.4)
[2017-10-02 06:17] LABS: INR 1.4; Prothrombin Time 15.3 Seconds (9.4-12.1)
[2017-10-02] MEDS: Cefepime HCl 2,000 MG in Water for inj. (sterile) 20 ML IVP SCH ×2 (06:17→16:57)
[2017-10-02 06:20] LABS: Activated Partial Thrombo Time 29.7 Seconds (26.0-36.0)
[2017-10-02] MEDS: Insulin LISPRO 300 UNITS/3 ML VIAL SQ SCH ×3 (07:45→16:58)
[2017-10-02] MEDS ORDERED: Aminoglycoside Consult 1 EACH MC ONE (08:16)
[2017-10-02] MEDS: Pantoprazole 40 MG VIAL IVP SCH (08:39)
[2017-10-02] MEDS: Aspirin 81 MG TAB.CHEW PO SCH (08:40)
--- NOTE | 2017-10-02 08:57 | Pulmonology Progress Note ---
<KobyMoise barajas M - Last Filed: 10/02/17 11:26> Date of Encounter: 10/02/17 Objective PUL Vital signs: Last Vital Signs Temp 97.4 F L 10/02/17 08:18 Pulse 60 10/02/17 11:00 Resp 14 10/02/17 11:00 BP 88/49 10/02/17 11:00 Pulse Ox 100 10/02/17 11:00 Ventilator Settings Ventilator Settings: Ventilator Settings, Last 8 Hours Ventilator Mode VC+ Ventilator Mode VC+ Ventilator Mode VC+ Ventilator Mode VC+ Ventilator Tidal Volume 450 Setting Ventilator Tidal Volume 450 Setting Ventilator Tidal Volume 450 Setting Ventilator Tidal Volume 450 Setting Ventilator Respiratory Rate 14 Setting Ventilator Respiratory Rate 14 Setting Ventilator Respiratory Rate 14 Setting Ventilator Respiratory Rate 14 Setting Actual Respiratory Rate 14 Actual Respiratory Rate 14 Actual Respiratory Rate 20 Positive End Expiratory 5 Pressure Positive End Expiratory 5 Pressure Positive End Expiratory 5 Pressure Positive End Expiratory 5 Pressure Peak Inspiratory Airway 33 Pressure Peak Inspiratory Airway 33 Pressure Peak Inspiratory Airway 28 Pressure Results - Laboratory Findings CBC and BMP: 10/02/17 03:40 10/02/17 10:45 ABG ABG pH 7.21 pH Units (7.32-7.45) L 10/02/17 10:40 ABG pCO2 65 mmHg (35-45) H 10/02/17 10:40 ABG pO2 283 mmHg (85-104) H 10/02/17 10:40 ABG O2 Saturation 100 % (95-98) H 10/02/17 10:40 PT/INR, D-dimer PT 15.3 Seconds (9.4-12.1) H 10/02/17 05:50 Abnormal lab findings: Abnormal lab results RBC 2.97 M/mcL (3.82-4.97) L 10/02/17 03:40 Hgb 8.9 g/dL (11.5-15.4) L 10/02/17 03:40 Hct 28.0 % (35.3-44.9) L 10/02/17 03:40 RDW 16.7 % (11.5-14.5) H 10/02/17 03:40 Lymphocytes # 0.2 K/mcL (0.6-4.6) L 10/02/17 03:40 Platelet Estimate Decreased (Normal) L 09/30/17 04:09 Immature Plt Fraction 8.9 % (1.1-6.1) H 10/01/17 04:30 Percent Retic 3.4 % (1.6-2.8) H 09/30/17 04:09 PT 15.3 Seconds (9.4-12.1) H 10/02/17 05:50 ABG pH 7.21 pH Units (7.32-7.45) L 10/02/17 10:40 ABG pCO2 65 mmHg (35-45) H 10/02/17 10:40 ABG pO2 283 mmHg (85-104) H 10/02/17 10:40 ABG Total CO2 28 mEq/L (20-26) H 10/02/17 10:40 ABG O2 Saturation 100 % (95-98) H 10/02/17 10:40 VBG pH 7.46 pH Units (7.32-7.42) H 09/30/17 20:11 VBG pCO2 34 mmHg (41-51) L 09/30/17 20:11 VBG pO2 168 mmHg (25-50) H 09/30/17 20:11 Sodium 133 mEq/L (136-145) L 10/02/17 10:45 Potassium 4.8 mEq/L (3.5-4.5) H 10/02/17 10:45 BUN/Creatinine Ratio 30 (6-26) H 10/02/17 10:45 Glucose 193 mg/dL (70-99) H 10/02/17 10:45 POC Glucose 218 (58-89) H 10/01/17 19:12 Lactic Acid 8.7 mmol/L (0.5-2.2) H* 10/02/17 09:55 Calcium 7.9 mg/dL (8.6-10.8) L 10/02/17 10:45 Venous Ioniz Calcium 0.69 mmol/L (1.15-1.35) L 10/01/17 04:51 Iron 43 mcg/dL (50-170) L 09/30/17 04:09 Transferrin 152 mg/dL (180-382) L 09/30/17 04:09 Ferritin 652 ng/ml (5-204) H 09/30/17 04:09 Alkaline Phosphatase 187 Units/L (38-126) H 10/02/17 03:40 Albumin 2.3 g/dL (3.5-5.0) L 10/02/17 03:40 Globulin 3.8 g/dL (2.4-3.5) H 10/02/17 03:40 Albumin/Globulin Ratio 0.6 (1.1-2.2) L 10/02/17 03:40 - Microbiology Findings Microbiology Findings: Microbiology, Last 48 Hours 09/30/17 13:36 Blood Culture - Preliminary Peripheral Venipuncture No growth. 09/30/17 13:36 Blood Culture - Preliminary Peripheral Venipuncture No growth. 10/01/17 09:37 Gram Stain - Final Right Lower Lobe Lung Respiratory Culture - Preliminary Yeast Species 09/30/17 14:10 Sputum Culture - Preliminary Sputum Yeast Species - Clinical Findings Intake & Output: Intake & Output 10/01/17 10/02/17 10/02/17 23:59 07:59 15:59 Intake Total / 1120 / 1120 Output Total 500 / 500 125 / 125 300 / 300 Balance -475 / -475 995 / 995 -300 / -300 Consult Discharge Plan - Plan Referrals: Yared Akhtar Jr, MD [Primary Care Provider] - - Attending Attestation I examined this patient and my medical decision-making was reviewed with the Resident Physician. I agree with the documented findings, disposition and treatment plan as described except to the extent set forth below. Patient seen and examined. Labs, radiology, chart personally reviewed. 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 Pulmonary: Acceptable oxygenation and ventilation first in the morning then unfortunately she had episode of hypoxia that required mechanical invasive ventilation which I suspect could be related to mucous plug and also had hemoptysis which possibly related to her underlying pneumonia or even from procedures and that was treated and possibly has fungal pneumonia which is serious and she will be started on antifungal. Cardiovascular: Patient hypertension which will be treated with fluid and recheck her hemoglobin if needed she will have transfusion. GI: Nutrition per dietary and GI prophylaxis per routine Heme: DVT prophylaxis per routine ID: Continue antibiotics and plan to de-escalation Renal; urine out put and renal funtion reviewed Endorcine: blood glucose is monitored Lines: all lines checked and no evidence of infections Skin: skin care to prevent pressure ulcers per nursing routine care Overall patient has multiple comorbidities and very friable. I'd multiple discussion with the and the rest of the family that her condition and they understand. He should not remain full code I spent 45 min of Critical Care time with this patient. It involved decision making of high complexity to assess, manipulate, and support vital organ system failure and/or to prevent further life threatening deterioration of the patient' s condition. The time involved in the performance of separately reportable procedures was not counted toward critical care time. <Leigh Fuller - Last Filed: 10/02/17 14:22> Date of Encounter: 10/02/17 Time of Encounter: 08:30 Assessment and Plan (1) Acute and chronic respiratory failure ([id number]) Current Visit: Yes Status: Acute - With hypoxia (reported O2 sat 60% in shelter) and hypercapnia (ABG pCO2 77 at [facility] ED). - Likely multifactorial including significant anemia (Hgb 5.9), pneumonia and mucus plugs in the setting of underlying COPD. - CT chest on 09/30 found occlusion of the left mainstem bronchus, dense consolidation in the left lower lobe with a moderate pleural effusion. Scattered ground-glass and reticular opacities throughout the left lung. Narrowing of the right lower lobar bronchus is also observed with a moderate right-sided pleural effusion. Near complete atelectasis of the right lower lobe. Patchy airspace opacities throughout the right upper lobe. - Brochoscopy on 10/01 found mucus plugs throughout the tracheobronchial tree and left lower lobe. BAL was performed and sent for gram stain and culture. - Patient was extubated on 10/01. - Patient had sudden onset of desaturation today and was re-intubated. ABG showed pH 7.21, pCO2 65, pO2 283, HCO3 26. - Continue IV cefepime and add micafungin for pneumonia. Continue Duoneb for COPD. - Currently on ventilation support. Continue to monitor closely in ICU. Qualifiers: Respiratory failure complication: hypoxia and hypercapnia Qualified Code(s) : J96.21 - Acute and chronic respiratory failure with hypoxia; J96.22 - Acute and chronic respiratory failure with hypercapnia; J96.22 - Acute and chronic respiratory failure with hypercapnia; J96.22 - Acute and chronic respiratory failure with hypercapnia (2) Acute blood loss anemia Current Visit: Yes Status: Acute - Hgb 5.9 on 09/30/17 which dropped from Hgb 9.1 on 09/24/17. - Most likely secondary to left iliacus hematoma as noted on CT A/P. Reported positive stool occult test at [facility] ED but doubt GI bleed as major source given lack of significant bloody bowel movement which is anticipated in patient with such significant Hgb drop. - Status post 2 units of pRBC transfusion on 09/30. - Hgb was 8.9 today at 0340 but then dropped to 7.9 at 1045. Likely related to finding of blood clot in left main bronchus. Will give one unit of pRBC transfusion and recheck H&H this afternoon. - Continue to monitor H&H closely. Consider more transfusion if Hgb < 7.0. (3) Hematoma Current Visit: Yes Status: Acute - CT A/P found left iliacus hematoma measuring 7.6 x 4.4 cm. - Likely related to anticoagulation use. - Hold anticoagulation and continue to monitor. - Bronchoscopy today found blood clots within the left mainstem bronchus. (4) Pneumonia Current Visit: No Status: Suspected - Found to have multifocal pneumonia, predominately right lower lobe, during prior hospitalization and RLLL BAL cultures from 09/11/17 grew yeast species, MRSA and Serratia marcescens. - Per patient's family, patient did finish 14-day course of vancomycin and cefepime after discharge - CXR on 09/29/17 found stable right greater left layering pleural effusions with bibasilar opacity compared to prior CXR from 09/13/17. - Chest CT on 09/30/17 found dense consolidation in the left lower lobe with a moderate pleural effusion. Scattered ground-glass and reticular opacities throughout the left lung. Patchy airspace opacities throughout the right upper lobe also noted. - Bronchoscopy on 10/01/17 found mucus plugs thrroughout the tracheobronchial tree and left lower lobe. - RLL BAL culture from 10/01/17 grew yeast species. - Continue IV cefepime (since 09/30). Discontinue vancomycin and azithromycin. Add micafungin to cover yeast infection. Further de-escalation based on clinical picture and culture result. Qualifiers: Pneumonia type: due to methicillin-resistant Staphylococcus aureus (MRSA) Laterality: bilateral Lung location: unspecified part of lung Qualified Code (s): J15.212 - Pneumonia due to Methicillin resistant Staphylococcus aureus (5) Afib Current Visit: Yes Status: Acute - Found to have A-fib and started on Eliquis for significant CVA risk (CHADS- VASc Score 5 and had ischemic stroke) on prior hospitalization. - Currently rate-controlled most of time. - Continue Cardizem. - Hold anticoagulation for now given acute blood loss anemia. Qualifiers: Atrial fibrillation type: persistent Qualified Code(s): I48.1 - Persistent atrial fibrillation (6) DVT prophylaxis Current Visit: No Status: Acute - Hold anticoagulation at this time given acute blood loss anemia. - Continue EPCD. Subjective Principal diagnosis: Acute respiratory failure Interval history: Patient was seen and examined earlier this morning. Patient is alert and orient. Patient is on 4L NC and reports no shortness of breath, chest pain or abdominal pain. At around 0920 am, patient was noted to have sudden O2 sat drop to 75% and become diaphoretic, unresponsive and bradycardic. Patient was re-intubated at 0937 and resumed on ventilation support. Objective PUL Vital signs: Last Vital Signs Temp 97.4 F L 10/02/17 08:18 Pulse 92 10/02/17 07:00 Resp 18 10/02/17 04:20 BP 171/74 10/02/17 03:16 Pulse Ox 100 10/02/17 04:20 General appearance: no acute distress, alert Eyes: nonicteric ENT: oropharynx dry Neck: supple Effort: normal Auscultation: bilateral: rhonchi Cardiovascular: regular rate and rhythm Gastrointestinal: hypoactive bowel sounds, soft, non-tender Integumentary: normal Extremities: no cyanosis, no edema Musculoskeletal: no deformities non-focal exam Results - Laboratory Findings CBC and BMP: 10/02/17 10:45 10/02/17 10:45 ABG ABG pH 7.38 pH Units (7.32-7.45) 10/01/17 04:04 ABG pCO2 41 mmHg (35-45) 10/01/17 04:04 ABG pO2 94 mmHg (85-104) 10/01/17 04:04 ABG O2 Saturation 97 % (95-98) 10/01/17 04:04 PT/INR, D-dimer PT 15.3 Seconds (9.4-12.1) H 10/02/17 05:50 Abnormal lab findings: Abnormal lab results RBC 2.97 M/mcL (3.82-4.97) L 10/02/17 03:40 Hgb 8.9 g/dL (11.5-15.4) L 10/02/17 03:40 Hct 28.0 % (35.3-44.9) L 10/02/17 03:40 RDW 16.7 % (11.5-14.5) H 10/02/17 03:40 Lymphocytes # 0.2 K/mcL (0.6-4.6) L 10/02/17 03:40 Platelet Estimate Decreased (Normal) L 09/30/17 04:09 Immature Plt Fraction 8.9 % (1.1-6.1) H 10/01/17 04:30 Percent Retic 3.4 % (1.6-2.8) H 09/30/17 04:09 PT 15.3 Seconds (9.4-12.1) H 10/02/17 05:50 VBG pH 7.46 pH Units (7.32-7.42) H 09/30/17 20:11 VBG pCO2 34 mmHg (41-51) L 09/30/17 20:11 VBG pO2 168 mmHg (25-50) H 09/30/17 20:11 Sodium 135 mEq/L (136-145) L 10/02/17 03:40 BUN/Creatinine Ratio 34 (6-26) H 10/02/17 03:40 Glucose 110 mg/dL (70-99) H 10/02/17 03:40 POC Glucose 218 (58-89) H 10/01/17 19:12 Calcium 8.3 mg/dL (8.6-10.8) L 10/02/17 03:40 Venous Ioniz Calcium 0.69 mmol/L (1.15-1.35) L 10/01/17 04:51 Iron 43 mcg/dL (50-170) L 09/30/17 04:09 Transferrin 152 mg/dL (180-382) L 09/30/17 04:09 Ferritin 652 ng/ml (5-204) H 09/30/17 04:09 Alkaline Phosphatase 187 Units/L (38-126) H 10/02/17 03:40 Albumin 2.3 g/dL (3.5-5.0) L 10/02/17 03:40 Globulin 3.8 g/dL (2.4-3.5) H 10/02/17 03:40 Albumin/Globulin Ratio 0.6 (1.1-2.2) L 10/02/17 03:40 - Microbiology Findings Microbiology Findings: Microbiology, Last 48 Hours 09/30/17 14:10 Sputum Culture - Preliminary Sputum Yeast Species 10/01/17 09:37 Gram Stain - Final Right Lower Lobe Lung - Clinical Findings Intake & Output: Intake & Output 10/01/17 10/02/17 10/02/17 23:59 07:59 15:59 Intake Total 25 / 25 1120 / 1120 Output Total 500 / 500 125 / 125 150 / 150 Balance -475 / -475 995 / 995 -150 / -150 - VTE Documentation of Mechanical Device: Intermittent pneumatic compression device
[2017-10-02] MEDS ORDERED: Azithromycin 500 MG in D5% in Water 250 ML IVPB SCH (09:00)
[2017-10-02] MEDS ORDERED: Pantoprazole 40 MG VIAL IVP SCH (09:00)
[2017-10-02] MEDS ORDERED: amLODIPine 5 MG TABLET PO SCH (09:00)
--- NOTE | 2017-10-02 09:47 | Procedure Note ---
<Jyajay Will - Last Filed: 10/02/17 10:29> Date of procedure: 10/02/17 Pre-op diagnosis: Acute respiratory failure Post-op diagnosis: same Procedure: Called in room because patient had acute hypoxia with SpO2 75% and severe respiratory distress, paradoxical breathing, and unresponsiveness. The patient was placed in a flat position. Sedation was obtained using Etomidate 10mg. The patient was easily ventilated using an ambu bag. The MAC 3 BLADE was used and inserted into the oropharynx at which time there was a Grade 1 view of the vocal cords. A 7.5-brazilian endotracheal tube was inserted and visualized going through the vocal cords. The stylette was removed. Colorimetric change was visualized on the CO2 meter. Breath sounds were heard in both lung cedeno equally. The endotracheal tube was placed at 22 cm, measured at the teeth. Attending Dr. Aquino was present for the entire procedure. A chest x-ray was ordered to assess for pneumothorax and verify endotracheal tube placement. ETT was advanced and bronchoscopy was performed confirming adequate ETT placement. Chest X-Ray 10/02/17 09:42 IMPRESSION: Endotracheal tube measures 7.8 cm above the wade. Otherwise similar appearing chest. Anesthesia: IV sedation Surgeon: Jayjay Will Plant And Equipment Worker: Moise Aquino Pathology: none sent Condition: critical Disposition: no change <Moise Aquino - Last Filed: 10/02/17 11:25> Procedure: I examined this patient and my medical decision-making was reviewed with the Resident Physician. I agree with the documented findings, disposition and treatment plan as described except to the extent set forth below. Patient was intubated without immediate complications
[2017-10-02] MEDS ORDERED: Lacri-Lube 3.5 GM TUBE BOTH EYES PRN (09:50)
[2017-10-02] MEDS ORDERED: *HR* EPINEPHrine 1 MG/10 ML SYRINGE ONE (10:42)
[2017-10-02 10:45] LABS: ABG Base Excess -2 mEq/L (-2 to 3); ABG HCO3 26 mEq/L (21-27); ABG Oxygen Saturation 100 % (95-98); ABG PCO2 65 mmHg (35-45); ABG PH 7.21 pH Units (7.32-7.45); ABG PO2 283 mmHg (85-104); ABG TCO2 28 mEq/L (20-26); Blood Gas Modality ASSIST CONTROL; Blood Gas PEEP 5 cm H2O; Blood Gas Respiration Rate 14; Blood Gas VT 400 cc
[2017-10-02] MEDS: FentaNYL (PF) 1,000 MCG in 0.9 % Sodium Chloride 80 ML IVC SCH ×2 (10:48→16:44)
[2017-10-02 10:49] LABS: Basophils % 0.1 %; Eosinophils % 0.1 %; Hematocrit 25.2 % (35.3-44.9); Hemoglobin 7.9 g/dL (11.5-15.4); Immature Granulocytes % 0.7 % (0-4); Immature Platelets 4.9 % (1.1-6.1); Lymphocytes # 0.1 K/mcL (0.6-4.6); Lymphocytes % 0.9 %; Mean Corpuscular HGB Conc 31.3 g/dL (31.6-35.5); Mean Corpuscular Hemoglobin 30.2 pg (28.0-33.3); Mean Corpuscular Volume 96.2 fL (83.0-100.0); Mean Platelet Volume 9.9 fL (9.4-12.4); Monocytes # 0.7 K/mcL (0.0-1.3); Monocytes % 7.3 %; Red Blood Count 2.62 M/mcL (3.82-4.97); Red Cell Distribution Width 16.6 % (11.5-14.5); Segmented Neutrophils % 90.9 %
[2017-10-02] MEDS ORDERED: Micafungin 100 MG in 0.9 % Sodium Chloride 100 ML IVPB SCH (11:00)
[2017-10-02 11:03] LABS: BUN/Creatinine Ratio 30 (6-26); Blood Urea Nitrogen 20 mg/dL (7-20); Carbon Dioxide 22 mEq/L (19-29); Chloride 104 mEq/L (98-109); Glucose 193 mg/dL (70-99); Magnesium 1.6 mg/dL (1.6-2.6); Osmolality,Calculated 284 (280-300); Potassium 4.8 mEq/L (3.5-4.5); eGFR For African Americans > 60 (> 60); eGFR For Non-African Americans > 60 (> 60)
[2017-10-02 11:07] LABS: Calcium 7.9 mg/dL (8.6-10.8); Sodium 133 mEq/L (136-145)
[2017-10-02] MEDS: Micafungin 100 MG in 0.9 % Sodium Chloride Mini Bag 100 ML IVPB SCH (11:10)
[2017-10-02] MEDS: Lacri-Lube 3.5 GM TUBE BOTH EYES SCH ×3 (11:11→20:23)
[2017-10-02] MEDS ORDERED: 0.9 % Sodium Chloride 250 ML ONE (12:09)
[2017-10-02] MEDS ORDERED: *HR* Etomidate 20 MG/10 ML AMPUL IVP ONE (13:31)
[2017-10-02 16:03] LABS: Hematocrit 28.6 % (35.3-44.9)
[2017-10-02] MEDS: *HR* Dextrose 50 % in Water (Syg) 50 ML SYRINGE IVP PRN ×2 (16:56→17:31)
[2017-10-02] MEDS: Chlorhexidine Rinse 15 ML MOUTHWASH MM SCH (20:23)
[2017-10-03] MEDS: Insulin LISPRO 300 UNITS/3 ML VIAL SQ SCH ×5 (00:18→23:36)
[2017-10-03] MEDS: Lacri-Lube 3.5 GM TUBE BOTH EYES SCH ×7 (00:19→23:25)
[2017-10-03] MEDS ORDERED: *HR* LORazepam 2 MG/ML VIAL IVP ONE (00:48)
[2017-10-03] MEDS: Ringers Solution, Lactated 1,000 ML IVC SCH ×3 (01:20→23:13)
[2017-10-03] MEDS: FentaNYL (PF) 1,000 MCG in 0.9 % Sodium Chloride 80 ML IVC SCH ×2 (01:21→12:51)
[2017-10-03 03:49] LABS: ABG Base Excess 0 mEq/L (-2 to 3); ABG HCO3 25 mEq/L (21-27); ABG Oxygen Saturation 94 % (95-98); ABG PCO2 40 mmHg (35-45); ABG PO2 71 mmHg (85-104); ABG TCO2 26 mEq/L (20-26); Blood Gas Modality VC; Blood Gas PEEP 5 cm H2O; Blood Gas Respiration Rate 14; Blood Gas VT 450 cc
[2017-10-03 04:08] LABS: BUN/Creatinine Ratio 35 (6-26); Blood Urea Nitrogen 18 mg/dL (7-20); Calcium 7.7 mg/dL (8.6-10.8); Carbon Dioxide 19 mEq/L (19-29); Chloride 105 mEq/L (98-109); Glucose 69 mg/dL (70-99); Magnesium 1.2 mg/dL (1.6-2.6); Osmolality,Calculated 276 (280-300); Potassium 4.2 mEq/L (3.5-4.5); Sodium 133 mEq/L (136-145); eGFR For African Americans > 60 (> 60); eGFR For Non-African Americans > 60 (> 60)
[2017-10-03 04:26] LABS: INR 1.6; Prothrombin Time 17.1 Seconds (9.4-12.1)
[2017-10-03] MEDS: Ipratropium/Albuterol Neb 3 ML IH SCH ×4 (05:08→22:48)
[2017-10-03 05:25] LABS: Basophils % 0.2 %; Eosinophils # 0.1 K/mcL (0.0-0.6); Hematocrit 29.8 % (35.3-44.9); Immature Granulocytes % 0.8 % (0-4); Lymphocytes # 0.6 K/mcL (0.6-4.6); Lymphocytes % 5.3 %; Mean Corpuscular HGB Conc 32.2 g/dL (31.6-35.5); Mean Corpuscular Hemoglobin 30.2 pg (28.0-33.3); Mean Corpuscular Volume 93.7 fL (83.0-100.0); Mean Platelet Volume 9.4 fL (9.4-12.4); Monocytes # 1.7 K/mcL (0.0-1.3); Monocytes % 16.2 %; Neutrophils # 8.1 K/mcL (1.6-8.9); Platelet Count 128 K/mcL (140-400); Red Blood Count 3.18 M/mcL (3.82-4.97); Red Cell Distribution Width 16.6 % (11.5-14.5); Segmented Neutrophils % 76.5 %
[2017-10-03 05:33] LABS: Hemoglobin 9.6 g/dL (11.5-15.4)
[2017-10-03] MEDS: *HR* Dextrose 50 % in Water (Syg) 50 ML SYRINGE IVP PRN (06:07)
[2017-10-03] MEDS: Cefepime HCl 2,000 MG in Water for inj. (sterile) 20 ML IVP SCH ×2 (06:08→18:00)
[2017-10-03] MEDS ORDERED: Potassium Phosphate 44 MEQ in 0.9 % Sodium Chloride 250 ML IVPB PRN (07:48)
--- NOTE | 2017-10-03 08:16 | Pulmonology Progress Note ---
<Sheila Aquinodarrick M - Last Filed: 10/03/17 10:19> Date of Encounter: 10/03/17 Objective PUL Vital signs: Last Vital Signs Temp 97.8 F 10/03/17 07:29 Pulse 80 10/03/17 09:00 Resp 14 10/03/17 09:00 BP 123/80 10/03/17 09:00 Pulse Ox 100 10/03/17 09:00 Ventilator Settings Ventilator Settings: Ventilator Settings, Last 8 Hours Ventilator Mode VC+ Ventilator Mode VC+ Ventilator Mode VC+ Ventilator Mode VC+ Ventilator Mode VC+ Ventilator Mode VC+ Ventilator Mode VC+ Ventilator Mode VC+ Ventilator Mode VC+ Ventilator Mode VC+ Ventilator Tidal Volume 450 Setting Ventilator Tidal Volume 450 Setting Ventilator Tidal Volume 450 Setting Ventilator Tidal Volume 450 Setting Ventilator Tidal Volume 450 Setting Ventilator Tidal Volume 450 Setting Ventilator Tidal Volume 450 Setting Ventilator Tidal Volume 450 Setting Ventilator Tidal Volume 450 Setting Ventilator Tidal Volume 450 Setting Ventilator Respiratory Rate 14 Setting Ventilator Respiratory Rate 14 Setting Ventilator Respiratory Rate 14 Setting Ventilator Respiratory Rate 14 Setting Ventilator Respiratory Rate 14 Setting Ventilator Respiratory Rate 14 Setting Ventilator Respiratory Rate 14 Setting Ventilator Respiratory Rate 14 Setting Ventilator Respiratory Rate 14 Setting Ventilator Respiratory Rate 14 Setting Actual Respiratory Rate 14 Actual Respiratory Rate 14 Actual Respiratory Rate 14 Actual Respiratory Rate 14 Actual Respiratory Rate 14 Actual Respiratory Rate 14 Positive End Expiratory 5 Pressure Positive End Expiratory 5 Pressure Positive End Expiratory 5 Pressure Positive End Expiratory 5 Pressure Positive End Expiratory 5 Pressure Positive End Expiratory 5 Pressure Positive End Expiratory 5 Pressure Positive End Expiratory 5 Pressure Positive End Expiratory 5 Pressure Positive End Expiratory 5 Pressure Peak Inspiratory Airway 28 Pressure Peak Inspiratory Airway 29 Pressure Peak Inspiratory Airway 28 Pressure Results - Laboratory Findings CBC and BMP: 10/03/17 05:18 10/03/17 03:40 ABG ABG pH 7.40 pH Units (7.32-7.45) 10/03/17 03:46 ABG pCO2 40 mmHg (35-45) 10/03/17 03:46 ABG pO2 71 mmHg (85-104) L 10/03/17 03:46 ABG O2 Saturation 94 % (95-98) L 10/03/17 03:46 PT/INR, D-dimer PT 17.1 Seconds (9.4-12.1) H 10/03/17 04:09 Abnormal lab findings: Abnormal lab results RBC 3.18 M/mcL (3.82-4.97) L 10/03/17 05:18 Hgb 9.6 g/dL (11.5-15.4) L 10/03/17 05:18 Hct 29.8 % (35.3-44.9) L 10/03/17 05:18 RDW 16.6 % (11.5-14.5) H 10/03/17 05:18 Plt Count 128 K/mcL (140-400) L 10/03/17 05:18 Monocytes # 1.7 K/mcL (0.0-1.3) H 10/03/17 05:18 Platelet Estimate Decreased (Normal) L 09/30/17 04:09 Percent Retic 3.4 % (1.6-2.8) H 09/30/17 04:09 PT 17.1 Seconds (9.4-12.1) H 10/03/17 04:09 ABG pO2 71 mmHg (85-104) L 10/03/17 03:46 ABG O2 Saturation 94 % (95-98) L 10/03/17 03:46 VBG pH 7.46 pH Units (7.32-7.42) H 09/30/17 20:11 VBG pCO2 34 mmHg (41-51) L 09/30/17 20:11 VBG pO2 168 mmHg (25-50) H 09/30/17 20:11 Sodium 133 mEq/L (136-145) L 10/03/17 03:40 Creatinine 0.51 mg/dL (0.57-1.11) L 10/03/17 03:40 BUN/Creatinine Ratio 35 (6-26) H 10/03/17 03:40 Glucose 69 mg/dL (70-99) L 10/03/17 03:40 POC Glucose 218 (58-89) H 10/01/17 19:12 Calculated Osmolality 276 (280-300) L 10/03/17 03:40 Calcium 7.7 mg/dL (8.6-10.8) L 10/03/17 03:40 Venous Ioniz Calcium 0.69 mmol/L (1.15-1.35) L 10/01/17 04:51 Phosphorus 2.0 mg/dL (2.3-4.7) L 10/03/17 03:40 Magnesium 1.2 mg/dL (1.6-2.6) L 10/03/17 03:40 Iron 43 mcg/dL (50-170) L 09/30/17 04:09 Transferrin 152 mg/dL (180-382) L 09/30/17 04:09 Ferritin 652 ng/ml (5-204) H 09/30/17 04:09 Alkaline Phosphatase 187 Units/L (38-126) H 10/02/17 03:40 Albumin 2.3 g/dL (3.5-5.0) L 10/02/17 03:40 Globulin 3.8 g/dL (2.4-3.5) H 10/02/17 03:40 Albumin/Globulin Ratio 0.6 (1.1-2.2) L 10/02/17 03:40 - Microbiology Findings Microbiology Findings: Microbiology, Last 48 Hours 09/30/17 14:10 Sputum Culture - Final Sputum Yeast Species 09/30/17 13:36 Blood Culture - Preliminary Peripheral Venipuncture No growth. 09/30/17 13:36 Blood Culture - Preliminary Peripheral Venipuncture No growth. 10/01/17 09:37 Gram Stain - Final Right Lower Lobe Lung Respiratory Culture - Preliminary Yeast Species - Clinical Findings Intake & Output: Intake & Output 10/02/17 10/03/17 10/03/17 23:59 07:59 15:59 Intake Total 79 / 79 1100 / 1100 78.5 / 78.5 Output Total 200 / 200 1075 / 1075 Balance -121 / -121 25 / 78.5 / 78.5 Weight 55.45 kg Consult Discharge Plan - Plan Referrals: Yared Akhtar Jr, MD [Primary Care Provider] - - Attending Attestation I examined this patient and my medical decision-making was reviewed with the Resident Physician. I agree with the documented findings, disposition and treatment plan as described except to the extent set forth below. Patient seen and examined. Labs, radiology, chart personally reviewed. Agree with resident's history and physical, assessment, plan with following comments: [employer]: Patient follows commands, Pulmonary: Acceptable oxygenation and ventilation. Patient failed spontaneous breathing trial and it may be related to medication we might attempt again. Continue supportive care. Cardiovascular: stable GI: Nutrition per dietary and GI prophylaxis per routine Heme: DVT prophylaxis per routine. Mechanical anticoagulation and monitor H&H ID: Continue antibiotics and plan to de-escalation Renal; urine out put and renal funtion reviewed Endorcine: blood glucose is monitored Lines: all lines checked and no evidence of infections Skin: skin care to prevent pressure ulcers per nursing routine care <Ashleigh Alejo Kinsey - Last Filed: 10/03/17 11:38> Date of Encounter: 10/03/17 Time of Encounter: 08:10 Assessment and Plan (1) Acute and chronic respiratory failure ([id number]) Current Visit: Yes Status: Acute - With hypoxia (reported O2 sat 60% in group home) and hypercapnia (ABG pCO2 77 at [facility] ED). - Likely multifactorial including significant anemia (Hgb 5.9), pneumonia and mucus plugs in the setting of underlying COPD. - CT chest on 09/30 found occlusion of the left mainstem bronchus, dense consolidation in the left lower lobe with a moderate pleural effusion. Scattered ground-glass and reticular opacities throughout the left lung. Narrowing of the right lower lobar bronchus is also observed with a moderate right-sided pleural effusion. Near complete atelectasis of the right lower lobe. Patchy airspace opacities throughout the right upper lobe. - Brochoscopy on 10/01 found mucus plugs throughout the tracheobronchial tree and left lower lobe. BAL was performed and sent for gram stain and culture. - Patient was extubated on 10/01. - Patient had sudden onset of desaturation yesterday 10/02 and was re- intubated. ABG showed pH 7.21, pCO2 65, pO2 283, HCO3 26. - Second Bronchoscopy on 10/02-blood clot in left mainstem bronchus. - Continue IV cefepime and add micafungin for pneumonia. Continue Duoneb for COPD. -Currently on ventilation support. CPAP trials this morning not tolerated well by patient. -Continue to monitor closely in ICU. Qualifiers: Respiratory failure complication: hypoxia and hypercapnia Qualified Code(s) : J96.21 - Acute and chronic respiratory failure with hypoxia; J96.22 - Acute and chronic respiratory failure with hypercapnia; J96.22 - Acute and chronic respiratory failure with hypercapnia; J96.22 - Acute and chronic respiratory failure with hypercapnia (2) Acute blood loss anemia Current Visit: Yes Status: Acute - Hgb 5.9 on 09/30/17 which dropped from Hgb 9.1 on 09/24/17. - Most likely secondary to left iliacus hematoma as noted on CT A/P. Reported positive stool occult test at [facility] ED but doubt GI bleed as major source given lack of significant bloody bowel movement which is anticipated in patient with such significant Hgb drop. - Status post 2 units of pRBC transfusion on 09/30. - Hgb was 9.6 this morning after receiving one unit of pRBC yesterday after a drop in Hgb in the morning (10/02) thought to be due to blood clot in left main bronchus. - Continue to monitor H&H closely. Consider more transfusion if Hgb < 7.0. (3) Hematoma Current Visit: Yes Status: Acute - CT A/P found left iliacus hematoma measuring 7.6 x 4.4 cm. - Likely related to anticoagulation use. - Bronchoscopy on 10/02 found blood clots within the left mainstem bronchus. - Hold anticoagulation and continue to monitor. (4) Pneumonia Current Visit: No Status: Acute - Found to have multifocal pneumonia, predominately right lower lobe, during prior hospitalization and RLLL BAL cultures from 09/11/17 grew yeast species, MRSA and Serratia marcescens. - Per patient's family, patient did finish 14-day course of vancomycin and cefepime after discharge - CXR on 09/29/17 found stable right greater left layering pleural effusions with bibasilar opacity compared to prior CXR from 09/13/17. - Chest CT on 09/30/17 found dense consolidation in the left lower lobe with a moderate pleural effusion. Scattered ground-glass and reticular opacities throughout the left lung. Patchy airspace opacities throughout the right upper lobe also noted. - Bronchoscopy on 10/01/17 found mucus plugs thrroughout the tracheobronchial tree and left lower lobe. - RLL BAL culture from 10/01/17 grew yeast species. - Continue IV cefepime (since 09/30). Discontinued vancomycin and azithromycin ( 10/02). - Micafungin (started 10/02) to cover yeast infection. Further de-escalation based on clinical picture and culture result. Qualifiers: Pneumonia type: due to methicillin-resistant Staphylococcus aureus (MRSA) Laterality: right Lung location: lower lobe of lung Qualified Code(s): J15.212 - Pneumonia due to Methicillin resistant Staphylococcus aureus (5) Afib Current Visit: Yes Status: Acute - Found to have A-fib and started on Eliquis for significant CVA risk (CHADS- VASc Score 5 and had ischemic stroke) on prior hospitalization. - Currently rate-controlled most of time. - Continue Cardizem. - Hold anticoagulation for now given acute blood loss anemia. Qualifiers: Atrial fibrillation type: persistent Qualified Code(s): I48.1 - Persistent atrial fibrillation (6) DVT prophylaxis Current Visit: No Status: Acute - Hold anticoagulation at this time given acute blood loss anemia. - Continue EPCD. Subjective Principal diagnosis: Acute respiratory failure Interval history: Patient had some episodes of agitation overnight and was given Ativan at approximately 1 PM. Per respiratory therapy, the patient was only able to tolerate CPAP this morning for 5 minutes. Likely sequelae of medication administration. Objective PUL Vital signs: Last Vital Signs Temp 97.8 F 10/03/17 07:29 Pulse 79 10/03/17 07:00 Resp 20 10/03/17 07:26 BP 83/53 10/03/17 07:00 Pulse Ox 92 10/03/17 07:26 General appearance: no acute distress Eyes: nonicteric ENT: oropharynx dry Neck: supple Effort: normal Auscultation: bilateral: rhonchi Cardiovascular: regular rate and rhythm Gastrointestinal: hypoactive bowel sounds, soft, non-tender Extremities: no cyanosis, no edema Musculoskeletal: no deformities Ventilator Settings Ventilator Settings: Ventilator Settings, Last 8 Hours Ventilator Mode VC+ Ventilator Mode VC+ Ventilator Mode VC+ Ventilator Mode VC+ Ventilator Mode VC+ Ventilator Mode VC+ Ventilator Mode VC+ Ventilator Mode VC+ Ventilator Mode VC+ Ventilator Mode VC+ Ventilator Tidal Volume 450 Setting Ventilator Tidal Volume 450 Setting Ventilator Tidal Volume 450 Setting Ventilator Tidal Volume 450 Setting Ventilator Tidal Volume 450 Setting Ventilator Tidal Volume 450 Setting Ventilator Tidal Volume 450 Setting Ventilator Tidal Volume 450 Setting Ventilator Tidal Volume 450 Setting Ventilator Tidal Volume 450 Setting Ventilator Respiratory Rate 14 Setting Ventilator Respiratory Rate 14 Setting Ventilator Respiratory Rate 14 Setting Ventilator Respiratory Rate 14 Setting Ventilator Respiratory Rate 14 Setting Ventilator Respiratory Rate 14 Setting Ventilator Respiratory Rate 14 Setting Ventilator Respiratory Rate 14 Setting Ventilator Respiratory Rate 14 Setting Ventilator Respiratory Rate 14 Setting Actual Respiratory Rate 14 Actual Respiratory Rate 14 Actual Respiratory Rate 14 Actual Respiratory Rate 14 Actual Respiratory Rate 14 Positive End Expiratory 5 Pressure Positive End Expiratory 5 Pressure Positive End Expiratory 5 Pressure Positive End Expiratory 5 Pressure Positive End Expiratory 5 Pressure Positive End Expiratory 5 Pressure Positive End Expiratory 5 Pressure Positive End Expiratory 5 Pressure Positive End Expiratory 5 Pressure Positive End Expiratory 5 Pressure Peak Inspiratory Airway 28 Pressure Peak Inspiratory Airway 29 Pressure Peak Inspiratory Airway 28 Pressure Peak Inspiratory Airway 29 Pressure Peak Inspiratory Airway 26 Pressure Results - Laboratory Findings CBC and BMP: 10/03/17 05:18 10/03/17 03:40 ABG ABG pH 7.40 pH Units (7.32-7.45) 10/03/17 03:46 ABG pCO2 40 mmHg (35-45) 10/03/17 03:46 ABG pO2 71 mmHg (85-104) L 10/03/17 03:46 ABG O2 Saturation 94 % (95-98) L 10/03/17 03:46 PT/INR, D-dimer PT 17.1 Seconds (9.4-12.1) H 10/03/17 04:09 Abnormal lab findings: Abnormal lab results RBC 3.18 M/mcL (3.82-4.97) L 10/03/17 05:18 Hgb 9.6 g/dL (11.5-15.4) L 10/03/17 05:18 Hct 29.8 % (35.3-44.9) L 10/03/17 05:18 RDW 16.6 % (11.5-14.5) H 10/03/17 05:18 Plt Count 128 K/mcL (140-400) L 10/03/17 05:18 Monocytes # 1.7 K/mcL (0.0-1.3) H 10/03/17 05:18 Platelet Estimate Decreased (Normal) L 09/30/17 04:09 Percent Retic 3.4 % (1.6-2.8) H 09/30/17 04:09 PT 17.1 Seconds (9.4-12.1) H 10/03/17 04:09 ABG pO2 71 mmHg (85-104) L 10/03/17 03:46 ABG O2 Saturation 94 % (95-98) L 10/03/17 03:46 VBG pH 7.46 pH Units (7.32-7.42) H 09/30/17 20:11 VBG pCO2 34 mmHg (41-51) L 09/30/17 20:11 VBG pO2 168 mmHg (25-50) H 09/30/17 20:11 Sodium 133 mEq/L (136-145) L 10/03/17 03:40 Creatinine 0.51 mg/dL (0.57-1.11) L 10/03/17 03:40 BUN/Creatinine Ratio 35 (6-26) H 10/03/17 03:40 Glucose 69 mg/dL (70-99) L 10/03/17 03:40 POC Glucose 218 (58-89) H 10/01/17 19:12 Calculated Osmolality 276 (280-300) L 10/03/17 03:40 Calcium 7.7 mg/dL (8.6-10.8) L 10/03/17 03:40 Venous Ioniz Calcium 0.69 mmol/L (1.15-1.35) L 10/01/17 04:51 Phosphorus 2.0 mg/dL (2.3-4.7) L 10/03/17 03:40 Magnesium 1.2 mg/dL (1.6-2.6) L 10/03/17 03:40 Iron 43 mcg/dL (50-170) L 09/30/17 04:09 Transferrin 152 mg/dL (180-382) L 09/30/17 04:09 Ferritin 652 ng/ml (5-204) H 09/30/17 04:09 Alkaline Phosphatase 187 Units/L (38-126) H 10/02/17 03:40 Albumin 2.3 g/dL (3.5-5.0) L 10/02/17 03:40 Globulin 3.8 g/dL (2.4-3.5) H 10/02/17 03:40 Albumin/Globulin Ratio 0.6 (1.1-2.2) L 10/02/17 03:40 - Microbiology Findings Microbiology Findings: Microbiology, Last 48 Hours 09/30/17 13:36 Blood Culture - Preliminary Peripheral Venipuncture No growth. 09/30/17 13:36 Blood Culture - Preliminary Peripheral Venipuncture No growth. 10/01/17 09:37 Gram Stain - Final Right Lower Lobe Lung Respiratory Culture - Preliminary Yeast Species 09/30/17 14:10 Sputum Culture - Preliminary Sputum Yeast Species - Clinical Findings Intake & Output: Intake & Output 10/02/17 10/03/17 10/03/17 23:59 07:59 15:59 Intake Total 79 / 79 1100 / 1100 Output Total 200 / 200 1075 / 1075 Balance -121 / -121 25 / 25 Weight 55.45 kg - VTE Documentation of Mechanical Device: Intermittent pneumatic compression device
[2017-10-03] MEDS: Chlorhexidine Rinse 15 ML MOUTHWASH MM SCH ×2 (08:24→19:53)
[2017-10-03] MEDS: Aspirin 81 MG TAB.CHEW PO SCH (08:24)
[2017-10-03] MEDS: Pantoprazole 40 MG VIAL IVP SCH (08:25)
[2017-10-03] MEDS: Micafungin 100 MG in 0.9 % Sodium Chloride Mini Bag 100 ML IVPB SCH (11:30)
[2017-10-03] MEDS: Dexmedetomidine HCl 400 MCG/100 ML MLS IVC SCH (17:52)
[2017-10-04] MEDS: FentaNYL (PF) 1,000 MCG in 0.9 % Sodium Chloride 80 ML IVC SCH ×3 (02:58→21:11)
[2017-10-04 04:22] LABS: Basophils % 0.1 %; Eosinophils # 0.1 K/mcL (0.0-0.6); Eosinophils % 1.7 %; Hematocrit 27.8 % (35.3-44.9); Hemoglobin 8.9 g/dL (11.5-15.4); Immature Granulocytes % 1.1 % (0-4); Lymphocytes # 0.4 K/mcL (0.6-4.6); Lymphocytes % 4.9 %; Mean Corpuscular Hemoglobin 30.1 pg (28.0-33.3); Mean Corpuscular Volume 93.9 fL (83.0-100.0); Mean Platelet Volume 9.7 fL (9.4-12.4); Monocytes # 0.7 K/mcL (0.0-1.3); Monocytes % 8.6 %; Platelet Count 129 K/mcL (140-400); Red Blood Count 2.96 M/mcL (3.82-4.97); Red Cell Distribution Width 16.3 % (11.5-14.5); Segmented Neutrophils % 83.6 %
[2017-10-04 04:28] LABS: INR 1.6; Prothrombin Time 17.7 Seconds (9.4-12.1)
[2017-10-04] MEDS: Ipratropium/Albuterol Neb 3 ML IH SCH ×4 (04:40→22:05)
[2017-10-04 04:41] LABS: BUN/Creatinine Ratio 30 (6-26); Blood Urea Nitrogen 18 mg/dL (7-20); Calcium 8.3 mg/dL (8.6-10.8); Carbon Dioxide 22 mEq/L (19-29); Chloride 104 mEq/L (98-109); Glucose 98 mg/dL (70-99); Osmolality,Calculated 278 (280-300); Potassium 3.8 mEq/L (3.5-4.5); Sodium 133 mEq/L (136-145); eGFR For African Americans > 60 (> 60); eGFR For Non-African Americans > 60 (> 60)
[2017-10-04] MEDS: Insulin LISPRO 300 UNITS/3 ML VIAL SQ SCH ×4 (05:02→22:09)
[2017-10-04] MEDS: Lacri-Lube 3.5 GM TUBE BOTH EYES SCH ×6 (05:02→23:18)
[2017-10-04] MEDS: Cefepime HCl 2,000 MG in Water for inj. (sterile) 20 ML IVP SCH ×2 (06:04→17:24)
[2017-10-04] MEDS: Chlorhexidine Rinse 15 ML MOUTHWASH MM SCH ×2 (09:01→20:15)
[2017-10-04] MEDS: Pantoprazole 40 MG VIAL IVP SCH (09:01)
[2017-10-04] MEDS: Aspirin 81 MG TAB.CHEW PO SCH (09:01)
--- NOTE | 2017-10-04 09:40 | Pulmonology Progress Note ---
<Ashleigh Alejo - Last Filed: 10/04/17 10:46> Date of Encounter: 10/04/17 Time of Encounter: 09:40 Assessment and Plan (1) Acute and chronic respiratory failure ([id number]) Current Visit: Yes Status: Acute - With hypoxia (reported O2 sat 60% in [facility]) and hypercapnia (ABG pCO2 77 at [facility] ED). - Likely multifactorial including significant anemia (Hgb 5.9), pneumonia and mucus plugs in the setting of underlying COPD. - CT chest on 09/30 found occlusion of the left mainstem bronchus, dense consolidation in the left lower lobe with a moderate pleural effusion. Scattered ground-glass and reticular opacities throughout the left lung. Narrowing of the right lower lobar bronchus is also observed with a moderate right-sided pleural effusion. Near complete atelectasis of the right lower lobe. Patchy airspace opacities throughout the right upper lobe. - Brochoscopy on 10/01 found mucus plugs throughout the tracheobronchial tree and left lower lobe. BAL was performed and sent for gram stain and culture. - Patient was extubated on 10/01. - Patient had sudden onset of desaturation on 10/02 and was re-intubated. ABG showed pH 7.21, pCO2 65, pO2 283, HCO3 26. - Second Bronchoscopy on 10/02-blood clot in left mainstem bronchus. - Continue IV cefepime and add micafungin for pneumonia. Continue Duoneb for COPD. -Currently on ventilation support. CPAP trials this morning resulted in apnea after approximately 15 minutes. Will re-evaluate. -Continue to monitor closely in ICU. Qualifiers: Respiratory failure complication: hypoxia and hypercapnia Qualified Code(s) : J96.21 - Acute and chronic respiratory failure with hypoxia; J96.22 - Acute and chronic respiratory failure with hypercapnia; J96.22 - Acute and chronic respiratory failure with hypercapnia; J96.22 - Acute and chronic respiratory failure with hypercapnia (2) Acute blood loss anemia Current Visit: Yes Status: Acute - Hgb 5.9 on 09/30/17 which dropped from Hgb 9.1 on 09/24/17. - Most likely secondary to left iliacus hematoma as noted on CT A/P. Reported positive stool occult test at [facility] ED but doubt GI bleed as major source given lack of significant bloody bowel movement which is anticipated in patient with such significant Hgb drop. - Status post 2 units of pRBC transfusion on 09/30. - Patient's hemoglobin 8.9 this morning. This is stable after transfusion of 1 unit packed red blood cells on 10/02. This was thought to be due to a blood clot in the left main bronchus. - Continue to monitor H&H closely. Consider more transfusion if Hgb < 7.0. (3) Hematoma Current Visit: Yes Status: Acute - CT A/P found left iliacus hematoma measuring 7.6 x 4.4 cm. - Likely related to anticoagulation use. - Bronchoscopy on 10/02 found blood clots within the left mainstem bronchus. - Hold anticoagulation and continue to monitor. (4) Pneumonia Current Visit: No Status: Acute - Found to have multifocal pneumonia, predominately right lower lobe, during prior hospitalization and RLLL BAL cultures from 09/11/17 grew yeast species, MRSA and Serratia marcescens. - Per patient's family, patient did finish 14-day course of vancomycin and cefepime after discharge - CXR on 09/29/17 found stable right greater left layering pleural effusions with bibasilar opacity compared to prior CXR from 09/13/17. - Chest CT on 09/30/17 found dense consolidation in the left lower lobe with a moderate pleural effusion. Scattered ground-glass and reticular opacities throughout the left lung. Patchy airspace opacities throughout the right upper lobe also noted. - Bronchoscopy on 10/01/17 found mucus plugs thrroughout the tracheobronchial tree and left lower lobe. - RLL BAL culture from 10/01/17 grew yeast species. - Continue IV cefepime (since 09/30). Discontinued vancomycin and azithromycin ( 10/02). - Micafungin (started 10/02) to cover yeast infection. Further de-escalation based on clinical picture and culture result. Qualifiers: Pneumonia type: due to methicillin-resistant Staphylococcus aureus (MRSA) Laterality: right Lung location: lower lobe of lung Qualified Code(s): J15.212 - Pneumonia due to Methicillin resistant Staphylococcus aureus (5) Afib Current Visit: Yes Status: Acute - Found to have A-fib and started on Eliquis for significant CVA risk (CHADS- VASc Score 5 and had ischemic stroke) on prior hospitalization. - Currently rate-controlled most of time. - Continue Cardizem. - Hold anticoagulation for now given acute blood loss anemia. Qualifiers: Atrial fibrillation type: persistent Qualified Code(s): I48.1 - Persistent atrial fibrillation (6) DVT prophylaxis Current Visit: No Status: Acute - Hold anticoagulation at this time given acute blood loss anemia. - Continue EPCD. Subjective Principal diagnosis: Acute respiratory failure Interval history: No acute events overnight. Patient tolerated CPAP this morning for 15 minutes. 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.) Extremities: no edema unable to assess due to mental status Ventilator Settings Ventilator Settings: Ventilator Settings, Last 8 Hours Ventilator Mode VC+ Ventilator Mode VC+ Ventilator Mode VC+ Ventilator Mode VC+ Ventilator Mode VC+ Ventilator Tidal Volume 450 Setting Ventilator Tidal Volume 450 Setting Ventilator Tidal Volume 450 Setting Ventilator Tidal Volume 450 Setting Ventilator Tidal Volume 450 Setting Ventilator Respiratory Rate 14 Setting Ventilator Respiratory Rate 14 Setting Ventilator Respiratory Rate 14 Setting Ventilator Respiratory Rate 14 Setting Ventilator Respiratory Rate 14 Setting Actual Respiratory Rate 17 Actual Respiratory Rate 14 Actual Respiratory Rate 14 Actual Respiratory Rate 27 Actual Respiratory Rate 14 Positive End Expiratory 5 Pressure Positive End Expiratory 5 Pressure Positive End Expiratory 5 Pressure Positive End Expiratory 5 Pressure Positive End Expiratory 5 Pressure Peak Inspiratory Airway 29 Pressure Peak Inspiratory Airway 33 Pressure Peak Inspiratory Airway 32 Pressure Results - Laboratory Findings CBC and BMP: 10/04/17 04:15 10/04/17 04:15 ABG ABG pH 7.40 pH Units (7.32-7.45) 10/03/17 03:46 ABG pCO2 40 mmHg (35-45) 10/03/17 03:46 ABG pO2 71 mmHg (85-104) L 10/03/17 03:46 ABG O2 Saturation 94 % (95-98) L 10/03/17 03:46 PT/INR, D-dimer PT 17.7 Seconds (9.4-12.1) H 10/04/17 04:15 Abnormal lab findings: Abnormal lab results RBC 2.96 M/mcL (3.82-4.97) L 10/04/17 04:15 Hgb 8.9 g/dL (11.5-15.4) L 10/04/17 04:15 Hct 27.8 % (35.3-44.9) L 10/04/17 04:15 RDW 16.3 % (11.5-14.5) H 10/04/17 04:15 Plt Count 129 K/mcL (140-400) L 10/04/17 04:15 Lymphocytes # 0.4 K/mcL (0.6-4.6) L 10/04/17 04:15 Platelet Estimate Decreased (Normal) L 09/30/17 04:09 Percent Retic 3.4 % (1.6-2.8) H 09/30/17 04:09 PT 17.7 Seconds (9.4-12.1) H 10/04/17 04:15 ABG pO2 71 mmHg (85-104) L 10/03/17 03:46 ABG O2 Saturation 94 % (95-98) L 10/03/17 03:46 VBG pH 7.46 pH Units (7.32-7.42) H 09/30/17 20:11 VBG pCO2 34 mmHg (41-51) L 09/30/17 20:11 VBG pO2 168 mmHg (25-50) H 09/30/17 20:11 Sodium 133 mEq/L (136-145) L 10/04/17 04:15 BUN/Creatinine Ratio 30 (6-26) H 10/04/17 04:15 Calculated Osmolality 278 (280-300) L 10/04/17 04:15 Calcium 8.3 mg/dL (8.6-10.8) L 10/04/17 04:15 Venous Ioniz Calcium 0.69 mmol/L (1.15-1.35) L 10/01/17 04:51 Phosphorus 2.0 mg/dL (2.3-4.7) L 10/03/17 03:40 Magnesium 1.2 mg/dL (1.6-2.6) L 10/03/17 03:40 Iron 43 mcg/dL (50-170) L 09/30/17 04:09 Transferrin 152 mg/dL (180-382) L 09/30/17 04:09 Ferritin 652 ng/ml (5-204) H 09/30/17 04:09 Alkaline Phosphatase 187 Units/L (38-126) H 10/02/17 03:40 Albumin 2.3 g/dL (3.5-5.0) L 10/02/17 03:40 Globulin 3.8 g/dL (2.4-3.5) H 10/02/17 03:40 Albumin/Globulin Ratio 0.6 (1.1-2.2) L 10/02/17 03:40 - Microbiology Findings Microbiology Findings: Microbiology, Last 48 Hours 10/01/17 09:37 Gram Stain - Final Right Lower Lobe Lung Respiratory Culture - Final Amalia albicans 09/30/17 14:10 Sputum Culture - Final Sputum Yeast Species 09/30/17 13:36 Blood Culture - Preliminary Peripheral Venipuncture No growth. 09/30/17 13:36 Blood Culture - Preliminary Peripheral Venipuncture No growth. - Clinical Findings Intake & Output: Intake & Output 10/03/17 10/04/17 10/04/17 23:59 07:59 15:59 Intake Total 1348 / 1348 29 / 29 203 / 203 Output Total 250 / 250 225 / 225 Balance 1098 / 1098 -196 / -196 203 / 203 Weight 57 kg - VTE Documentation of Mechanical Device: Intermittent pneumatic compression device Consult Discharge Plan - Plan Referrals: Yared Akhtar Jr, MD [Primary Care Provider] - <Moise Aquino - Last Filed: 10/04/17 11:05> Date of Encounter: 10/04/17 Objective PUL Vital signs: Last Vital Signs Temp 98.9 F 10/04/17 04:19 Pulse 64 10/04/17 10:00 Resp 14 10/04/17 10:00 BP 118/87 10/04/17 10:00 Pulse Ox 100 10/04/17 10:00 Ventilator Settings Ventilator Settings: Ventilator Settings, Last 8 Hours Ventilator Mode VC+ Ventilator Mode VC+ Ventilator Mode VC+ Ventilator Mode VC+ Ventilator Mode VC+ Ventilator Mode VC+ Ventilator Mode VC+ Ventilator Tidal Volume 450 Setting Ventilator Tidal Volume 450 Setting Ventilator Tidal Volume 450 Setting Ventilator Tidal Volume 450 Setting Ventilator Tidal Volume 450 Setting Ventilator Tidal Volume 450 Setting Ventilator Tidal Volume 450 Setting Ventilator Respiratory Rate 14 Setting Ventilator Respiratory Rate 14 Setting Ventilator Respiratory Rate 14 Setting Ventilator Respiratory Rate 14 Setting Ventilator Respiratory Rate 14 Setting Ventilator Respiratory Rate 14 Setting Ventilator Respiratory Rate 14 Setting Actual Respiratory Rate 14 Actual Respiratory Rate 14 Actual Respiratory Rate 14 Actual Respiratory Rate 17 Actual Respiratory Rate 14 Actual Respiratory Rate 14 Actual Respiratory Rate 27 Positive End Expiratory 5 Pressure Positive End Expiratory 5 Pressure Positive End Expiratory 5 Pressure Positive End Expiratory 5 Pressure Positive End Expiratory 5 Pressure Positive End Expiratory 5 Pressure Positive End Expiratory 5 Pressure Peak Inspiratory Airway 28 Pressure Peak Inspiratory Airway 29 Pressure Peak Inspiratory Airway 33 Pressure Results - Laboratory Findings CBC and BMP: 10/04/17 04:15 10/04/17 04:15 ABG ABG pH 7.40 pH Units (7.32-7.45) 10/03/17 03:46 ABG pCO2 40 mmHg (35-45) 10/03/17 03:46 ABG pO2 71 mmHg (85-104) L 10/03/17 03:46 ABG O2 Saturation 94 % (95-98) L 10/03/17 03:46 PT/INR, D-dimer PT 17.7 Seconds (9.4-12.1) H 10/04/17 04:15 Abnormal lab findings: Abnormal lab results RBC 2.96 M/mcL (3.82-4.97) L 10/04/17 04:15 Hgb 8.9 g/dL (11.5-15.4) L 10/04/17 04:15 Hct 27.8 % (35.3-44.9) L 10/04/17 04:15 RDW 16.3 % (11.5-14.5) H 10/04/17 04:15 Plt Count 129 K/mcL (140-400) L 10/04/17 04:15 Lymphocytes # 0.4 K/mcL (0.6-4.6) L 10/04/17 04:15 Platelet Estimate Decreased (Normal) L 09/30/17 04:09 Percent Retic 3.4 % (1.6-2.8) H 09/30/17 04:09 PT 17.7 Seconds (9.4-12.1) H 10/04/17 04:15 ABG pO2 71 mmHg (85-104) L 10/03/17 03:46 ABG O2 Saturation 94 % (95-98) L 10/03/17 03:46 VBG pH 7.46 pH Units (7.32-7.42) H 09/30/17 20:11 VBG pCO2 34 mmHg (41-51) L 09/30/17 20:11 VBG pO2 168 mmHg (25-50) H 09/30/17 20:11 Sodium 133 mEq/L (136-145) L 10/04/17 04:15 BUN/Creatinine Ratio 30 (6-26) H 10/04/17 04:15 Calculated Osmolality 278 (280-300) L 10/04/17 04:15 Calcium 8.3 mg/dL (8.6-10.8) L 10/04/17 04:15 Venous Ioniz Calcium 0.69 mmol/L (1.15-1.35) L 10/01/17 04:51 Phosphorus 2.0 mg/dL (2.3-4.7) L 10/03/17 03:40 Magnesium 1.2 mg/dL (1.6-2.6) L 10/03/17 03:40 Iron 43 mcg/dL (50-170) L 09/30/17 04:09 Transferrin 152 mg/dL (180-382) L 09/30/17 04:09 Ferritin 652 ng/ml (5-204) H 09/30/17 04:09 Alkaline Phosphatase 187 Units/L (38-126) H 10/02/17 03:40 Albumin 2.3 g/dL (3.5-5.0) L 10/02/17 03:40 Globulin 3.8 g/dL (2.4-3.5) H 10/02/17 03:40 Albumin/Globulin Ratio 0.6 (1.1-2.2) L 10/02/17 03:40 - Microbiology Findings Microbiology Findings: Microbiology, Last 48 Hours 10/01/17 09:37 Gram Stain - Final Right Lower Lobe Lung Respiratory Culture - Final Amalia albicans 09/30/17 14:10 Sputum Culture - Final Sputum Yeast Species 09/30/17 13:36 Blood Culture - Preliminary Peripheral Venipuncture No growth. 09/30/17 13:36 Blood Culture - Preliminary Peripheral Venipuncture No growth. - Clinical Findings Intake & Output: Intake & Output 10/03/17 10/04/17 10/04/17 23:59 07:59 15:59 Intake Total 1348 / 1348 29 / 29 1293 / 1293 Output Total 250 / 250 225 / 225 Balance 1098 / 1098 -196 / -196 1293 / 1293 Weight 57 kg - Attending Attestation I examined this patient and my medical decision-making was reviewed with the Resident Physician. I agree with the documented findings, disposition and treatment plan as described except to the extent set forth below. Patient seen and examined. Labs, radiology, chart personally reviewed. 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 Pulmonary: Acceptable oxygenation and ventilation. Patient is failing spontaneous breathing trial and this could be multifactorial. Explained to the family about her overall prognosis is poor. Attempt spontaneous breathing trial tomorrow. Cardiovascular: stable and paroxysmal A. fib GI: Nutrition per dietary and GI prophylaxis per routine Heme: DVT prophylaxis per routine ID: Continue antibiotics and plan to de-escalation Renal; urine out put and renal funtion reviewed Endorcine: blood glucose is monitored Lines: all lines checked and no evidence of infections Skin: skin care to prevent pressure ulcers per nursing routine care
[2017-10-04] MEDS: Ringers Solution, Lactated 1,000 ML IVC SCH ×2 (09:49→19:23)
[2017-10-04] MEDS: Dexmedetomidine HCl 400 MCG/100 ML MLS IVC SCH ×2 (09:50→19:24)
[2017-10-04] MEDS: Micafungin 100 MG in 0.9 % Sodium Chloride Mini Bag 100 ML IVPB SCH (11:59)
[2017-10-05] MEDS: Dexmedetomidine HCl 400 MCG/100 ML MLS IVC SCH ×4 (01:26→23:35)
[2017-10-05] MEDS: Lacri-Lube 3.5 GM TUBE BOTH EYES SCH ×6 (03:16→23:09)
[2017-10-05 03:24] LABS: Basophils % 0.1 %; Eosinophils # 0.2 K/mcL (0.0-0.6); Eosinophils % 2.4 %; Hematocrit 27.7 % (35.3-44.9); Hemoglobin 8.9 g/dL (11.5-15.4); Immature Granulocytes % 0.9 % (0-4); Lymphocytes # 0.3 K/mcL (0.6-4.6); Lymphocytes % 4.5 %; Mean Corpuscular HGB Conc 32.1 g/dL (31.6-35.5); Mean Corpuscular Hemoglobin 30.1 pg (28.0-33.3); Mean Corpuscular Volume 93.6 fL (83.0-100.0); Mean Platelet Volume 9.6 fL (9.4-12.4); Monocytes # 0.8 K/mcL (0.0-1.3); Monocytes % 10.4 %; Neutrophils # 6.1 K/mcL (1.6-8.9); Platelet Count 137 K/mcL (140-400); Red Blood Count 2.96 M/mcL (3.82-4.97); Red Cell Distribution Width 16.1 % (11.5-14.5); Segmented Neutrophils % 81.7 %
[2017-10-05] MEDS: Ipratropium/Albuterol Neb 3 ML IH SCH ×4 (03:34→23:30)
[2017-10-05 03:40] LABS: ABG Base Excess 2 mEq/L (-2 to 3); ABG HCO3 27 mEq/L (21-27); ABG Oxygen Saturation 95 % (95-98); ABG PCO2 45 mmHg (35-45); ABG PH 7.39 pH Units (7.32-7.45); ABG PO2 75 mmHg (85-104); ABG TCO2 29 mEq/L (20-26); Blood Gas Modality VC; Blood Gas PEEP 5 cm H2O; Blood Gas Respiration Rate 14; Blood Gas VT 450 cc
[2017-10-05 03:42] LABS: BUN/Creatinine Ratio 28 (6-26); Blood Urea Nitrogen 15 mg/dL (7-20); Calcium 7.7 mg/dL (8.6-10.8); Carbon Dioxide 24 mEq/L (19-29); Chloride 106 mEq/L (98-109); Glucose 132 mg/dL (70-99); Osmolality,Calculated 283 (280-300); Potassium 3.7 mEq/L (3.5-4.5); Sodium 135 mEq/L (136-145); eGFR For African Americans > 60 (> 60); eGFR For Non-African Americans > 60 (> 60)
[2017-10-05] MEDS: Insulin LISPRO 300 UNITS/3 ML VIAL SQ SCH ×4 (04:02→23:09)
[2017-10-05] MEDS: Ringers Solution, Lactated 1,000 ML IVC SCH (04:24)
[2017-10-05] MEDS: FentaNYL (PF) 1,000 MCG in 0.9 % Sodium Chloride 80 ML IVC SCH ×3 (04:25→21:53)
[2017-10-05] MEDS: Cefepime HCl 2,000 MG in Water for inj. (sterile) 20 ML IVP SCH ×2 (05:09→17:09)
[2017-10-05 07:59] LABS: Magnesium 1.3 mg/dL (1.6-2.6)
[2017-10-05] MEDS: Furosemide 40 MG/4 ML VIAL IVP SCH ×2 (08:44→20:00)
[2017-10-05] MEDS: Chlorhexidine Rinse 15 ML MOUTHWASH MM SCH ×2 (08:44→20:00)
[2017-10-05] MEDS: Pantoprazole 40 MG VIAL IVP SCH (08:44)
[2017-10-05] MEDS: Aspirin 81 MG TAB.CHEW PO SCH (08:44)
--- NOTE | 2017-10-05 09:35 | Pulmonology Progress Note ---
<Stewart Dela Cruz - Last Filed: 10/05/17 14:36> Date of Encounter: 10/05/17 Time of Encounter: 09:33 Assessment and Plan (1) Acute respiratory failure with hypoxia Current Visit: Yes Status: Acute Acute on chronic respiratory failure likely multifactorial secondary to pneumonia, COPD, mucous plugging Status post extubation 10/01/17, requiring reintubation on 10/02/17 Current ventilator settings with a rate of 16, FiO2 of 30, PEEP of 5, tidal volume 380 Status post bronchoscopy on 10/02/17 with findings of left main stem blood clot Gram stain and sputum culture positive for Amalia albicans Chest x-ray 10/05/17 showing right upper and basilar opacities likely representing pneumonia versus atelectasis Plan Attempt to wean ventilator, will attempt spontaneous breathing trial tomorrow Continue cefepime day 6 of 7, micofungin Add Lasix 40 mg IV twice a day for suspected fluid overload Continue ventilatory support including duo nebs, Precedex drip, fentanyl drip, Protonix Tinea closely monitored in intensive care unit (2) Pneumonia Current Visit: Yes Status: Acute As above for acute on chronic respiratory failure Plan Continue cefepime day 6 of 7, micofungin Currently requiring intubation will continue to monitor closely and attempts at weaning trials Qualifiers: Pneumonia type: due to unspecified organism Laterality: right Lung location: lower lobe of lung Qualified Code(s): J18.1 - Lobar pneumonia, unspecified organism (3) Acute blood loss anemia Current Visit: Yes Status: Acute H/H is stable at 8.9/27.7 Loss most likely related to hematoma is noted on CT left leg Status post 2 units of packed red blood cells transfusion on 09/30/17 and 1 additional unit on 10/02/17 Noted positive Hemoccult in [facility] emergency department where patient has not been noticed to have bloody bowel movements Bronchoscopy noted to have a blood clot in the left main bronchus Stable at this time Plan Continue to monitor with daily CBCs Continue holding anticoagulation, DVT prophylaxis with SCDs (4) Hyponatremia Current Visit: Yes Status: Resolved Sodium this morning of 135, trending from yesterday at 133 Likely secondary to decreased oral intake in the setting of intubation and sedation Plan We will continue to monitor (5) Hypertension Current Visit: Yes Status: Chronic Currently well-controlled at 145/91 Continue to monitor Qualifiers: Hypertension type: essential hypertension Qualified Code(s): I10 - Essential (primary) hypertension (6) Hypothyroidism Current Visit: Yes Status: Chronic Continue home Synthroid Qualifiers: Hypothyroidism type: acquired Qualified Code(s): E03.9 - Hypothyroidism, unspecified (7) Afib Current Visit: Yes Status: Acute She continues to be in atrial fibrillation Rate currently at 101 bpm Holding anticoagulation in the setting of acute blood loss anemia with hematoma on left leg Attempting rate control with home Cardizem Plan Heart rate noted to be fluctuating from 60 to 100s We will continue home dose of Cardizem and monitoring Qualifiers: Atrial fibrillation type: persistent Qualified Code(s): I48.1 - Persistent atrial fibrillation (8) Hematoma Current Visit: Yes Status: Acute Report hematoma on left leg as noted on CT H/H stable at 8.9/27.7 Plan Holding Anticoagulation, monitor (9) DVT prophylaxis Current Visit: Yes Status: Acute SCDs. Holding anticoagulation in the setting of blood loss anemia due to hematoma on leg Subjective Principal diagnosis: Acute respiratory failure Interval history: Patient is seen and examined at bedside this morning. She remains intubated and sedated and was unable to answer any questions. Objective PUL Vital signs: Last Vital Signs Temp 98.1 F 10/05/17 07:11 Pulse 101 10/05/17 07:00 Resp 19 10/05/17 07:00 BP 131/84 10/05/17 07:00 Pulse Ox 100 10/05/17 07:00 General appearance: no acute distress, asleep Effort: other (On mechanical ventilation) Auscultation: right: rales, bilateral: rhonchi (More prominent on left) Cardiovascular: regular rate and rhythm Gastrointestinal: normoactive bowel sounds, soft Integumentary: normal Extremities: no edema, no clubbing, pink and warm unable to assess due to mental status Ventilator Settings Ventilator Settings: Ventilator Settings, Last 8 Hours Ventilator Mode VC+ Ventilator Mode VC+ Ventilator Mode VC+ Ventilator Mode VC+ Ventilator Mode VC+ Ventilator Mode VC+ Ventilator Mode VC+ Ventilator Mode VC+ Ventilator Mode VC+ Ventilator Tidal Volume 450 Setting Ventilator Tidal Volume 450 Setting Ventilator Tidal Volume 450 Setting Ventilator Tidal Volume 450 Setting Ventilator Tidal Volume 450 Setting Ventilator Tidal Volume 450 Setting Ventilator Tidal Volume 450 Setting Ventilator Tidal Volume 450 Setting Ventilator Tidal Volume 450 Setting Ventilator Respiratory Rate 14 Setting Ventilator Respiratory Rate 14 Setting Ventilator Respiratory Rate 14 Setting Ventilator Respiratory Rate 14 Setting Ventilator Respiratory Rate 14 Setting Ventilator Respiratory Rate 14 Setting Ventilator Respiratory Rate 14 Setting Ventilator Respiratory Rate 14 Setting Ventilator Respiratory Rate 14 Setting Actual Respiratory Rate 15 Actual Respiratory Rate 15 Actual Respiratory Rate 14 Actual Respiratory Rate 14 Actual Respiratory Rate 14 Actual Respiratory Rate 14 Actual Respiratory Rate 14 Actual Respiratory Rate 14 Positive End Expiratory 5 Pressure Positive End Expiratory 5 Pressure Positive End Expiratory 5 Pressure Positive End Expiratory 5 Pressure Positive End Expiratory 5 Pressure Positive End Expiratory 5 Pressure Positive End Expiratory 5 Pressure Positive End Expiratory 5 Pressure Positive End Expiratory 5 Pressure Peak Inspiratory Airway 34 Pressure Peak Inspiratory Airway 32 Pressure Peak Inspiratory Airway 31 Pressure Peak Inspiratory Airway 31 Pressure Peak Inspiratory Airway 31 Pressure Peak Inspiratory Airway 45 Pressure Peak Inspiratory Airway 33 Pressure Peak Inspiratory Airway 32 Pressure Results - Laboratory Findings CBC and BMP: 10/05/17 03:06 10/05/17 03:06 ABG ABG pH 7.39 pH Units (7.32-7.45) 10/05/17 03:37 ABG pCO2 45 mmHg (35-45) 10/05/17 03:37 ABG pO2 75 mmHg (85-104) L 10/05/17 03:37 ABG O2 Saturation 95 % (95-98) 10/05/17 03:37 PT/INR, D-dimer PT 17.7 Seconds (9.4-12.1) H 10/04/17 04:15 Abnormal lab findings: Abnormal lab results RBC 2.96 M/mcL (3.82-4.97) L 10/05/17 03:06 Hgb 8.9 g/dL (11.5-15.4) L 10/05/17 03:06 Hct 27.7 % (35.3-44.9) L 10/05/17 03:06 RDW 16.1 % (11.5-14.5) H 10/05/17 03:06 Plt Count 137 K/mcL (140-400) L 10/05/17 03:06 Lymphocytes # 0.3 K/mcL (0.6-4.6) L 10/05/17 03:06 Platelet Estimate Decreased (Normal) L 09/30/17 04:09 Percent Retic 3.4 % (1.6-2.8) H 09/30/17 04:09 PT 17.7 Seconds (9.4-12.1) H 10/04/17 04:15 ABG pO2 75 mmHg (85-104) L 10/05/17 03:37 ABG Total CO2 29 mEq/L (20-26) H 10/05/17 03:37 VBG pH 7.46 pH Units (7.32-7.42) H 09/30/17 20:11 VBG pCO2 34 mmHg (41-51) L 09/30/17 20:11 VBG pO2 168 mmHg (25-50) H 09/30/17 20:11 Sodium 135 mEq/L (136-145) L 10/05/17 03:06 Creatinine 0.54 mg/dL (0.57-1.11) L 10/05/17 03:06 BUN/Creatinine Ratio 28 (6-26) H 10/05/17 03:06 Glucose 132 mg/dL (70-99) H 10/05/17 03:06 POC Glucose 109 (58-89) H 10/04/17 22:09 Calcium 7.7 mg/dL (8.6-10.8) L 10/05/17 03:06 Venous Ioniz Calcium 0.69 mmol/L (1.15-1.35) L 10/01/17 04:51 Phosphorus 2.0 mg/dL (2.3-4.7) L 10/03/17 03:40 Magnesium 1.3 mg/dL (1.6-2.6) L 10/05/17 03:06 Iron 43 mcg/dL (50-170) L 09/30/17 04:09 Transferrin 152 mg/dL (180-382) L 09/30/17 04:09 Ferritin 652 ng/ml (5-204) H 09/30/17 04:09 Alkaline Phosphatase 187 Units/L (38-126) H 10/02/17 03:40 Albumin 2.3 g/dL (3.5-5.0) L 10/02/17 03:40 Globulin 3.8 g/dL (2.4-3.5) H 10/02/17 03:40 Albumin/Globulin Ratio 0.6 (1.1-2.2) L 10/02/17 03:40 - Microbiology Findings Microbiology Findings: Microbiology, Last 48 Hours 10/01/17 09:37 Gram Stain - Final Right Lower Lobe Lung Respiratory Culture - Final Amalia albicans 09/30/17 14:10 Sputum Culture - Final Sputum Yeast Species - Clinical Findings Intake & Output: Intake & Output 10/04/17 10/05/17 10/05/17 23:59 07:59 15:59 Intake Total 1587 / 1587 1663 / 1663 Output Total 825 / 825 300 / 300 Balance 762 / 762 1363 / 1363 Weight 57.4 kg - VTE Documentation of Mechanical Device: Intermittent pneumatic compression device Consult Discharge Plan - Plan Referrals: Yared Akhtar Jr, MD [Primary Care Provider] - <Niles Huber - Last Filed: 10/05/17 22:17> Date of Encounter: 10/05/17 Objective PUL Vital signs: Last Vital Signs Temp 98.5 F 10/05/17 15:44 Pulse 90 10/05/17 18:00 Resp 16 10/05/17 18:00 BP 146/76 10/05/17 18:00 Pulse Ox 100 10/05/17 18:00 Ventilator Settings Ventilator Settings: Ventilator Settings, Last 8 Hours Ventilator Mode VC+ Ventilator Mode VC+ Ventilator Mode VC+ Ventilator Mode VC+ Ventilator Mode VC+ Ventilator Mode VC+ Ventilator Mode VC+ Ventilator Mode VC+ Ventilator Mode VC+ Ventilator Mode VC+ Ventilator Mode VC+ Ventilator Tidal Volume 380 Setting Ventilator Tidal Volume 380 Setting Ventilator Tidal Volume 380 Setting Ventilator Tidal Volume 380 Setting Ventilator Tidal Volume 380 Setting Ventilator Tidal Volume 380 Setting Ventilator Tidal Volume 380 Setting Ventilator Tidal Volume 380 Setting Ventilator Tidal Volume 380 Setting Ventilator Tidal Volume 380 Setting Ventilator Tidal Volume 380 Setting Ventilator Respiratory Rate 16 Setting Ventilator Respiratory Rate 16 Setting Ventilator Respiratory Rate 16 Setting Ventilator Respiratory Rate 14 Setting Ventilator Respiratory Rate 16 Setting Ventilator Respiratory Rate 14 Setting Ventilator Respiratory Rate 14 Setting Ventilator Respiratory Rate 16 Setting Ventilator Respiratory Rate 14 Setting Ventilator Respiratory Rate 14 Setting Ventilator Respiratory Rate 16 Setting Actual Respiratory Rate 16 Actual Respiratory Rate 16 Actual Respiratory Rate 16 Actual Respiratory Rate 17 Actual Respiratory Rate 16 Actual Respiratory Rate 17 Actual Respiratory Rate 29 Actual Respiratory Rate 18 Actual Respiratory Rate 29 Actual Respiratory Rate 29 Actual Respiratory Rate 16 Positive End Expiratory 5 Pressure Positive End Expiratory 5 Pressure Positive End Expiratory 5 Pressure Positive End Expiratory 5 Pressure Positive End Expiratory 5 Pressure Positive End Expiratory 5 Pressure Positive End Expiratory 5 Pressure Positive End Expiratory 5 Pressure Positive End Expiratory 5 Pressure Positive End Expiratory 5 Pressure Positive End Expiratory 5 Pressure Peak Inspiratory Airway 35 Pressure Peak Inspiratory Airway 35 Pressure Peak Inspiratory Airway 30 Pressure Peak Inspiratory Airway 27 Pressure Peak Inspiratory Airway 30 Pressure Peak Inspiratory Airway 30 Pressure Peak Inspiratory Airway 27 Pressure Peak Inspiratory Airway 30 Pressure Peak Inspiratory Airway 30 Pressure Peak Inspiratory Airway 29 Pressure Results - Laboratory Findings CBC and BMP: 10/05/17 03:06 10/05/17 03:06 ABG ABG pH 7.39 pH Units (7.32-7.45) 10/05/17 03:37 ABG pCO2 45 mmHg (35-45) 10/05/17 03:37 ABG pO2 75 mmHg (85-104) L 10/05/17 03:37 ABG O2 Saturation 95 % (95-98) 10/05/17 03:37 PT/INR, D-dimer PT 17.7 Seconds (9.4-12.1) H 10/04/17 04:15 Abnormal lab findings: Abnormal lab results RBC 2.96 M/mcL (3.82-4.97) L 10/05/17 03:06 Hgb 8.9 g/dL (11.5-15.4) L 10/05/17 03:06 Hct 27.7 % (35.3-44.9) L 10/05/17 03:06 RDW 16.1 % (11.5-14.5) H 10/05/17 03:06 Plt Count 137 K/mcL (140-400) L 10/05/17 03:06 Lymphocytes # 0.3 K/mcL (0.6-4.6) L 10/05/17 03:06 Platelet Estimate Decreased (Normal) L 09/30/17 04:09 Percent Retic 3.4 % (1.6-2.8) H 09/30/17 04:09 PT 17.7 Seconds (9.4-12.1) H 10/04/17 04:15 ABG pO2 75 mmHg (85-104) L 10/05/17 03:37 ABG Total CO2 29 mEq/L (20-26) H 10/05/17 03:37 VBG pH 7.46 pH Units (7.32-7.42) H 09/30/17 20:11 VBG pCO2 34 mmHg (41-51) L 09/30/17 20:11 VBG pO2 168 mmHg (25-50) H 09/30/17 20:11 Sodium 135 mEq/L (136-145) L 10/05/17 03:06 Creatinine 0.54 mg/dL (0.57-1.11) L 10/05/17 03:06 BUN/Creatinine Ratio 28 (6-26) H 10/05/17 03:06 Glucose 132 mg/dL (70-99) H 10/05/17 03:06 POC Glucose 109 (58-89) H 10/04/17 22:09 Calcium 7.7 mg/dL (8.6-10.8) L 10/05/17 03:06 Venous Ioniz Calcium 0.69 mmol/L (1.15-1.35) L 10/01/17 04:51 Phosphorus 2.0 mg/dL (2.3-4.7) L 10/03/17 03:40 Magnesium 1.3 mg/dL (1.6-2.6) L 10/05/17 03:06 Iron 43 mcg/dL (50-170) L 09/30/17 04:09 Transferrin 152 mg/dL (180-382) L 09/30/17 04:09 Ferritin 652 ng/ml (5-204) H 09/30/17 04:09 Alkaline Phosphatase 187 Units/L (38-126) H 10/02/17 03:40 Albumin 2.3 g/dL (3.5-5.0) L 10/02/17 03:40 Globulin 3.8 g/dL (2.4-3.5) H 10/02/17 03:40 Albumin/Globulin Ratio 0.6 (1.1-2.2) L 10/02/17 03:40 - Microbiology Findings Microbiology Findings: Microbiology, Last 48 Hours 10/01/17 09:37 Gram Stain - Final Right Lower Lobe Lung Respiratory Culture - Final Amalia albicans - Clinical Findings Intake & Output: Intake & Output 10/05/17 10/05/17 10/05/17 07:59 15:59 23:59 Intake Total 1663 / 1663 468 / 468 200 / 200 Output Total 300 / 300 2300 / 2300 Balance 1363 / 1363 -1832 / -1832 200 / 200 - Attending Attestation I saw the patient with the resident agree with History and Physical exam findings. Labs and Radiology were reviewed Ventilator data were reviewed, Low Tidal volume strategy SALESPERSON FLYING SQUAD: Patient is conscious following commands NECK : No JVD appreciated Pulmonary : Patient failed SBT yesterday , CXR more of pulmonary edema and bilateral pleural effusions to continue diuresing as hemodynamic and renal function tolerates , if she faills SBT will attempt bronchoscopy to see for any mucous plugs Cardiac : Hemodynamically stale Nutrition/GI: Patient is on tube feeds, PPI prophylaxis Renal : Labs and output reviewed Heme onc : No acute issues ID : To continue current antimicrobial Musculo skeletal / skin issues : No acute issues Disposition : Remain critically ill Code status: Full Code Family/POA: Informed , Son and Grand Daughter about overall prognosis possibility recurrent mucous plugs and hypoxic respiratory failure might need re intubation in the future that she will need tracheostomy to aid bronchopulmonary toileting Spent 35 minutes of critical care time in preventing further vital organ decline .
[2017-10-05] MEDS: Micafungin 100 MG in 0.9 % Sodium Chloride Mini Bag 100 ML IVPB SCH (11:44)
--- NOTE | 2017-10-05 16:45 | Electrocardiograph Report ---
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
[2017-10-06] MEDS: Lacri-Lube 3.5 GM TUBE BOTH EYES SCH ×6 (02:24→23:37)
[2017-10-06 03:36] LABS: ABG Base Excess 7 mEq/L (-2 to 3); ABG HCO3 32 mEq/L (21-27); ABG Oxygen Saturation 96 % (95-98); ABG PCO2 49 mmHg (35-45); ABG PH 7.42 pH Units (7.32-7.45); ABG PO2 81 mmHg (85-104); ABG TCO2 34 mEq/L (20-26); Blood Gas Modality VC; Blood Gas PEEP 5 cm H2O; Blood Gas Respiration Rate 16; Blood Gas VT 380 cc
[2017-10-06] MEDS: Insulin LISPRO 300 UNITS/3 ML VIAL SQ SCH ×4 (04:17→23:27)
[2017-10-06] MEDS: FentaNYL (PF) 1,000 MCG in 0.9 % Sodium Chloride 80 ML IVC SCH ×3 (04:45→23:18)
[2017-10-06] MEDS: Cefepime HCl 2,000 MG in Water for inj. (sterile) 20 ML IVP SCH (05:00)
[2017-10-06] MEDS: Ipratropium/Albuterol Neb 3 ML IH SCH ×5 (05:08→21:45)
[2017-10-06] MEDS: Aspirin 81 MG TAB.CHEW PO SCH (08:09)
[2017-10-06] MEDS: Furosemide 40 MG/4 ML VIAL IVP SCH ×2 (08:09→20:07)
[2017-10-06] MEDS: Dexmedetomidine HCl 400 MCG/100 ML MLS IVC SCH ×2 (08:10→18:27)
[2017-10-06] MEDS: Pantoprazole 40 MG VIAL IVP SCH (08:10)
[2017-10-06] MEDS: Chlorhexidine Rinse 15 ML MOUTHWASH MM SCH ×2 (08:10→20:07)
[2017-10-06 08:26] LABS: Basophils % 0.2 %; Eosinophils # 0.2 K/mcL (0.0-0.6); Eosinophils % 1.5 %; Hematocrit 29.5 % (35.3-44.9); Hemoglobin 9.2 g/dL (11.5-15.4); Lymphocytes # 0.3 K/mcL (0.6-4.6); Lymphocytes % 3.1 %; Mean Corpuscular HGB Conc 31.2 g/dL (31.6-35.5); Mean Corpuscular Hemoglobin 29.5 pg (28.0-33.3); Mean Corpuscular Volume 94.6 fL (83.0-100.0); Mean Platelet Volume 9.4 fL (9.4-12.4); Monocytes # 1.1 K/mcL (0.0-1.3); Monocytes % 10.3 %; Neutrophils # 8.9 K/mcL (1.6-8.9); Platelet Count 129 K/mcL (140-400); Red Blood Count 3.12 M/mcL (3.82-4.97); Red Cell Distribution Width 15.9 % (11.5-14.5); Segmented Neutrophils % 83.9 %
[2017-10-06 08:58] LABS: Alanine Aminotransferase 10 Units/L (0-55); Albumin/Globulin Ratio 0.5 (1.1-2.2); Alkaline Phosphatase 146 Units/L (38-126); Aspartate Amino Transferase 21 Units/L (5-34); BUN/Creatinine Ratio 28 (6-26); Bilirubin,Total 0.6 mg/dL (0.2-1.2); Blood Urea Nitrogen 18 mg/dL (7-20); Calcium 8.1 mg/dL (8.6-10.8); Carbon Dioxide 27 mEq/L (19-29); Chloride 102 mEq/L (98-109); Globulin 3.5 g/dL (2.4-3.5); Glucose 119 mg/dL (70-99); Osmolality,Calculated 289 (280-300); Potassium 3.1 mEq/L (3.5-4.5); Sodium 138 mEq/L (136-145); Total Protein 5.3 g/dL (6.0-8.3); eGFR For African Americans > 60 (> 60); eGFR For Non-African Americans > 60 (> 60)
[2017-10-06 08:59] LABS: Albumin 1.8 g/dL (3.5-5.0)
[2017-10-06] MEDS ORDERED: Furosemide 40 MG/4 ML VIAL IVP ONE (09:16)
--- NOTE | 2017-10-06 11:14 | Pulmonology Progress Note ---
<Troy Phelps - Last Filed: 10/06/17 11:12> Date of Encounter: 10/06/17 Time of Encounter: 09:00 Assessment and Plan (1) Acute respiratory failure with hypoxia Current Visit: Yes Status: Acute Acute on chronic respiratory failure likely multifactorial secondary to pneumonia, COPD, mucous plugging Status post extubation 10/01/17, requiring reintubation on 10/02/17 - Patient failed CPAP trial this morning. - Underwent bronchoscopy with findings of bilateral atelectasis, mucous plugs, airway was normal, mucous plugs sent for culture. - CXR 10/06: Unchanged bilateral effusions and underlying bibasilar airspace opacities likely representing pneumonia and atelectasis. Unchanged right upper lobe airspace opacity, potentially pneumonia or alveolar edema. Diffuse interstitial opacities suspected represents interstitial edema. Plan: - Continue mechanical ventilations, goal of reducing FiO2 needs tolerated - Continue IV diuresis with extra dose of 40 mg Lasix. - Continue bronchodilators as scheduled. - Continue antibiotic coverage with Micofungin, discontinue cefepime (2) Pneumonia Current Visit: Yes Status: Acute As above for acute on chronic respiratory failure. Qualifiers: Pneumonia type: due to unspecified organism Laterality: right Lung location: lower lobe of lung Qualified Code(s): J18.1 - Lobar pneumonia, unspecified organism (3) Afib Current Visit: Yes Status: Acute She continues to be in atrial fibrillation Rate controlled. Holding anticoagulation in the setting of acute blood loss anemia with hematoma on left leg Plan Heart rate noted to be fluctuating from 60 to 100s - Continue Cardizem 30 mg by mouth every 6 hours Qualifiers: Atrial fibrillation type: persistent Qualified Code(s): I48.1 - Persistent atrial fibrillation (4) Hyponatremia Current Visit: Yes Status: Resolved Resolved. (5) Hypertension Current Visit: Yes Status: Chronic Currently controlled. No changes in current medications. Qualifiers: Hypertension type: essential hypertension Qualified Code(s): I10 - Essential (primary) hypertension (6) Acute blood loss anemia Current Visit: Yes Status: Acute Hemoglobin stable, continue holding anticoagulation with the recent bleed. (7) Hematoma Current Visit: Yes Status: Acute Report hematoma on left leg as noted on CT H/H stable at 9.0, no change from previous. Plan Holding Anticoagulation, continue to monitor. (8) DVT prophylaxis Current Visit: Yes Status: Acute SCDs Subjective Principal diagnosis: Acute respiratory failure Interval history: Patient is seen in the patient's bedside this morning. She is currently receiving mechanical ventilation, failed CPAP trial this morning. She responds when spoken to by opening her eyes. She is currently tolerating mechanical ventilation does not appear to be any acute distress. Objective PUL Vital signs: Last Vital Signs Temp 99.5 F 10/06/17 07:24 Pulse 99 10/06/17 10:00 Resp 16 10/06/17 10:00 BP 147/90 10/06/17 10:00 Pulse Ox 100 10/06/17 10:00 General appearance: no acute distress Eyes: nonicteric ENT: oropharynx moist, other (Endotracheal tube in place mechanical ventilated.) Neck: supple Effort: other (Diffuse rhonchi and diminished breath sounds lung bases.) Cardiovascular: irregular rhythm Gastrointestinal: normoactive bowel sounds, non-distended Extremities: no cyanosis, edema (trace edema bilateral LE) Ventilator Settings Ventilator Settings: Ventilator Settings, Last 8 Hours Ventilator Mode VC+ Ventilator Mode VC+ Ventilator Mode VC+ Ventilator Mode VC+ Ventilator Mode VC+ Ventilator Mode VC+ Ventilator Mode VC+ Ventilator Mode VC+ Ventilator Mode VC+ Ventilator Mode VC+ Ventilator Mode VC+ Ventilator Tidal Volume 380 Setting Ventilator Tidal Volume 380 Setting Ventilator Tidal Volume 380 Setting Ventilator Tidal Volume 380 Setting Ventilator Tidal Volume 380 Setting Ventilator Tidal Volume 380 Setting Ventilator Tidal Volume 380 Setting Ventilator Tidal Volume 380 Setting Ventilator Tidal Volume 380 Setting Ventilator Tidal Volume 380 Setting Ventilator Tidal Volume 380 Setting Ventilator Respiratory Rate 16 Setting Ventilator Respiratory Rate 16 Setting Ventilator Respiratory Rate 16 Setting Ventilator Respiratory Rate 16 Setting Ventilator Respiratory Rate 16 Setting Ventilator Respiratory Rate 16 Setting Ventilator Respiratory Rate 16 Setting Ventilator Respiratory Rate 16 Setting Ventilator Respiratory Rate 16 Setting Ventilator Respiratory Rate 16 Setting Ventilator Respiratory Rate 16 Setting Actual Respiratory Rate 16 Actual Respiratory Rate 16 Actual Respiratory Rate 17 Actual Respiratory Rate 16 Actual Respiratory Rate 17 Actual Respiratory Rate 16 Actual Respiratory Rate 16 Actual Respiratory Rate 16 Actual Respiratory Rate 16 Actual Respiratory Rate 16 Positive End Expiratory 5 Pressure Positive End Expiratory 5 Pressure Positive End Expiratory 5 Pressure Positive End Expiratory 5 Pressure Positive End Expiratory 5 Pressure Positive End Expiratory 5 Pressure Positive End Expiratory 5 Pressure Positive End Expiratory 5 Pressure Positive End Expiratory 5 Pressure Positive End Expiratory 5 Pressure Positive End Expiratory 5 Pressure Peak Inspiratory Airway 25 Pressure Peak Inspiratory Airway 23 Pressure Peak Inspiratory Airway 23 Pressure Peak Inspiratory Airway 24 Pressure Peak Inspiratory Airway 24 Pressure Peak Inspiratory Airway 24 Pressure Results - Laboratory Findings CBC and BMP: 10/06/17 08:15 10/06/17 08:15 ABG ABG pH 7.42 pH Units (7.32-7.45) 10/06/17 03:31 ABG pCO2 49 mmHg (35-45) H 10/06/17 03:31 ABG pO2 81 mmHg (85-104) L 10/06/17 03:31 ABG O2 Saturation 96 % (95-98) 10/06/17 03:31 PT/INR, D-dimer PT 17.7 Seconds (9.4-12.1) H 10/04/17 04:15 Abnormal lab findings: Abnormal lab results RBC 3.12 M/mcL (3.82-4.97) L 10/06/17 08:15 Hgb 9.2 g/dL (11.5-15.4) L 10/06/17 08:15 Hct 29.5 % (35.3-44.9) L 10/06/17 08:15 MCHC 31.2 g/dL (31.6-35.5) L 10/06/17 08:15 RDW 15.9 % (11.5-14.5) H 10/06/17 08:15 Plt Count 129 K/mcL (140-400) L 10/06/17 08:15 Lymphocytes # 0.3 K/mcL (0.6-4.6) L 10/06/17 08:15 Platelet Estimate Decreased (Normal) L 09/30/17 04:09 Percent Retic 3.4 % (1.6-2.8) H 09/30/17 04:09 PT 17.7 Seconds (9.4-12.1) H 10/04/17 04:15 ABG pCO2 49 mmHg (35-45) H 10/06/17 03:31 ABG pO2 81 mmHg (85-104) L 10/06/17 03:31 ABG HCO3 32 mEq/L (21-27) H 10/06/17 03:31 ABG Total CO2 34 mEq/L (20-26) H 10/06/17 03:31 ABG Base Excess 7 mEq/L (-2 to 3) H 10/06/17 03:31 VBG pH 7.46 pH Units (7.32-7.42) H 09/30/17 20:11 VBG pCO2 34 mmHg (41-51) L 09/30/17 20:11 VBG pO2 168 mmHg (25-50) H 09/30/17 20:11 Potassium 3.1 mEq/L (3.5-4.5) L 10/06/17 08:15 BUN/Creatinine Ratio 28 (6-26) H 10/06/17 08:15 Glucose 119 mg/dL (70-99) H 10/06/17 08:15 POC Glucose 126 (58-89) H 10/05/17 22:20 Calcium 8.1 mg/dL (8.6-10.8) L 10/06/17 08:15 Venous Ioniz Calcium 0.69 mmol/L (1.15-1.35) L 10/01/17 04:51 Phosphorus 2.0 mg/dL (2.3-4.7) L 10/03/17 03:40 Magnesium 1.3 mg/dL (1.6-2.6) L 10/05/17 03:06 Iron 43 mcg/dL (50-170) L 09/30/17 04:09 Transferrin 152 mg/dL (180-382) L 09/30/17 04:09 Ferritin 652 ng/ml (5-204) H 09/30/17 04:09 Alkaline Phosphatase 146 Units/L (38-126) H 10/06/17 08:15 Serum Total Protein 5.3 g/dL (6.0-8.3) L 10/06/17 08:15 Albumin 1.8 g/dL (3.5-5.0) L 10/06/17 08:15 Albumin/Globulin Ratio 0.5 (1.1-2.2) L 10/06/17 08:15 - Microbiology Findings Microbiology Findings: Microbiology, Last 48 Hours 09/30/17 13:36 Blood Culture - Final Peripheral Venipuncture No growth. 09/30/17 13:36 Blood Culture - Final Peripheral Venipuncture No growth. 10/01/17 09:37 Gram Stain - Final Right Lower Lobe Lung Respiratory Culture - Final Amalia albicans - Clinical Findings Intake & Output: Intake & Output 10/05/17 10/06/17 10/06/17 23:59 07:59 15:59 Intake Total 730 / 730 393 / 393 160 / 160 Output Total 1000 / 1000 1750 / 1750 Balance -270 / -270 -1357 / -1357 160 / 160 Weight 58 kg - VTE Documentation of Mechanical Device: Intermittent pneumatic compression device Consult Discharge Plan - Plan Referrals: Yared Akhtar Jr, MD [Primary Care Provider] - <Niles Huber - Last Filed: 10/06/17 22:51> Date of Encounter: 10/06/17 Objective PUL Vital signs: Last Vital Signs Temp 99.0 F 10/06/17 20:41 Pulse 92 10/06/17 22:00 Resp 16 10/06/17 22:00 BP 124/81 10/06/17 22:00 Pulse Ox 100 10/06/17 22:00 Ventilator Settings Ventilator Settings: Ventilator Settings, Last 8 Hours Ventilator Mode VC+ Ventilator Mode VC+ Ventilator Mode VC+ Ventilator Mode VC+ Ventilator Mode VC+ Ventilator Mode VC+ Ventilator Mode CPAP Ventilator Mode CPAP Ventilator Mode CPAP Ventilator Mode CPAP Ventilator Mode CPAP Ventilator Mode VC+ Ventilator Mode VC+ Ventilator Tidal Volume 380 Setting Ventilator Tidal Volume 380 Setting Ventilator Tidal Volume 380 Setting Ventilator Tidal Volume 380 Setting Ventilator Tidal Volume 380 Setting Ventilator Tidal Volume 380 Setting Ventilator Tidal Volume 380 Setting Ventilator Tidal Volume 380 Setting Ventilator Respiratory Rate 16 Setting Ventilator Respiratory Rate 16 Setting Ventilator Respiratory Rate 16 Setting Ventilator Respiratory Rate 16 Setting Ventilator Respiratory Rate 16 Setting Ventilator Respiratory Rate 16 Setting Ventilator Respiratory Rate 16 Setting Ventilator Respiratory Rate 16 Setting Actual Respiratory Rate 16 Actual Respiratory Rate 16 Actual Respiratory Rate 16 Actual Respiratory Rate 24 Actual Respiratory Rate 16 Actual Respiratory Rate 16 Actual Respiratory Rate 16 Actual Respiratory Rate 25 Actual Respiratory Rate 25 Actual Respiratory Rate 20 Actual Respiratory Rate 16 Actual Respiratory Rate 16 Positive End Expiratory 5 Pressure Positive End Expiratory 5 Pressure Positive End Expiratory 5 Pressure Positive End Expiratory 5 Pressure Positive End Expiratory 5 Pressure Positive End Expiratory 5 Pressure Positive End Expiratory 5 Pressure Positive End Expiratory 5 Pressure Positive End Expiratory 5 Pressure Positive End Expiratory 5 Pressure Positive End Expiratory 5 Pressure Positive End Expiratory 5 Pressure Positive End Expiratory 5 Pressure Peak Inspiratory Airway 26 Pressure Peak Inspiratory Airway 23 Pressure Peak Inspiratory Airway 26 Pressure Peak Inspiratory Airway 26 Pressure Peak Inspiratory Airway 22 Pressure Peak Inspiratory Airway 24 Pressure Peak Inspiratory Airway 15 Pressure Peak Inspiratory Airway 22 Pressure Results - Laboratory Findings CBC and BMP: 10/06/17 08:15 10/06/17 08:15 ABG ABG pH 7.45 pH Units (7.32-7.45) 10/06/17 18:07 ABG pCO2 51 mmHg (35-45) H 10/06/17 18:07 ABG pO2 60 mmHg (85-104) L 10/06/17 18:07 ABG O2 Saturation 91 % (95-98) L 10/06/17 18:07 PT/INR, D-dimer PT 17.7 Seconds (9.4-12.1) H 10/04/17 04:15 Abnormal lab findings: Abnormal lab results RBC 3.12 M/mcL (3.82-4.97) L 10/06/17 08:15 Hgb 9.2 g/dL (11.5-15.4) L 10/06/17 08:15 Hct 29.5 % (35.3-44.9) L 10/06/17 08:15 MCHC 31.2 g/dL (31.6-35.5) L 10/06/17 08:15 RDW 15.9 % (11.5-14.5) H 10/06/17 08:15 Plt Count 129 K/mcL (140-400) L 10/06/17 08:15 Lymphocytes # 0.3 K/mcL (0.6-4.6) L 10/06/17 08:15 Platelet Estimate Decreased (Normal) L 09/30/17 04:09 Percent Retic 3.4 % (1.6-2.8) H 09/30/17 04:09 PT 17.7 Seconds (9.4-12.1) H 10/04/17 04:15 ABG pCO2 51 mmHg (35-45) H 10/06/17 18:07 ABG pO2 60 mmHg (85-104) L 10/06/17 18:07 ABG HCO3 36 mEq/L (21-27) H 10/06/17 18:07 ABG Total CO2 37 mEq/L (20-26) H 10/06/17 18:07 ABG O2 Saturation 91 % (95-98) L 10/06/17 18:07 ABG Base Excess 10 mEq/L (-2 to 3) H 10/06/17 18:07 VBG pH 7.46 pH Units (7.32-7.42) H 09/30/17 20:11 VBG pCO2 34 mmHg (41-51) L 09/30/17 20:11 VBG pO2 168 mmHg (25-50) H 09/30/17 20:11 Potassium 3.1 mEq/L (3.5-4.5) L 10/06/17 08:15 BUN/Creatinine Ratio 28 (6-26) H 10/06/17 08:15 Glucose 119 mg/dL (70-99) H 10/06/17 08:15 POC Glucose 126 (58-89) H 10/05/17 22:20 Calcium 8.1 mg/dL (8.6-10.8) L 10/06/17 08:15 Venous Ioniz Calcium 0.69 mmol/L (1.15-1.35) L 10/01/17 04:51 Phosphorus 2.0 mg/dL (2.3-4.7) L 10/03/17 03:40 Magnesium 1.3 mg/dL (1.6-2.6) L 10/05/17 03:06 Iron 43 mcg/dL (50-170) L 09/30/17 04:09 Transferrin 152 mg/dL (180-382) L 09/30/17 04:09 Ferritin 652 ng/ml (5-204) H 09/30/17 04:09 Alkaline Phosphatase 146 Units/L (38-126) H 10/06/17 08:15 Serum Total Protein 5.3 g/dL (6.0-8.3) L 10/06/17 08:15 Albumin 1.8 g/dL (3.5-5.0) L 10/06/17 08:15 Albumin/Globulin Ratio 0.5 (1.1-2.2) L 10/06/17 08:15 Fluid Appearance Cloudy (Clear) A 10/06/17 16:19 - Microbiology Findings Microbiology Findings: Microbiology, Last 48 Hours 10/06/17 16:19 Gram Stain - Final Left Lower Lobe Lung 10/06/17 16:19 Gram Stain - Final Right Lower Lobe Lung 09/30/17 13:36 Blood Culture - Final Peripheral Venipuncture No growth. 09/30/17 13:36 Blood Culture - Final Peripheral Venipuncture No growth. - Clinical Findings Intake & Output: Intake & Output 10/06/17 10/06/17 10/06/17 07:59 15:59 23:59 Intake Total 393 / 393 514 / 514 384 / 384 Output Total 1750 / 1750 2725 / 2725 1650 / 1650 Balance -1357 / -1357 -2211 / -2211 -1266 / -1266 - Attending Attestation I saw the patient with the resident agree with History and Physical exam findings. Labs and Radiology were reviewed Ventilator data were reviewed, Low Tidal volume strategy [employer]: Patient is conscious following commands will add some seroquel to relieve her anxiety when we try SBT NECK : No JVD appreciated Pulmonary : Patient underwent bronchoscopy today removed all mucous plugs in both right and left lobar airways , patient did well in the SBT which we did in the afternoon with family at bedside will try SBT tomorrow after overnight diuresis if she does well will extubate with family at bedside . To continue diuresis. Cardiac : Hemodynamically stable Nutrition/GI: Patient is on tube feeds, PPI prophylaxis Renal : Labs and output reviewed Heme onc : No acute issues ID : To continue current antimicrobial deescalate accordingly Musculo skeletal / skin issues : No acute issues Disposition : Remain critically ill Code status: Full Code Family/POA: Family updated . Spent 40 minutes of critical care time in medical decision in maintaining vital organ function.
[2017-10-06] MEDS: Micafungin 100 MG in 0.9 % Sodium Chloride Mini Bag 100 ML IVPB SCH (11:28)
[2017-10-06] MEDS: Sennosides/Docusate Sodium TABLET PO SCH ×2 (14:16→20:07)
[2017-10-06 16:21] LABS: Source of Body Fluid LLL BAL; Source of Body Fluid RLL BAL
[2017-10-06 18:10] LABS: ABG Base Excess 10 mEq/L (-2 to 3); ABG HCO3 36 mEq/L (21-27); ABG Oxygen Saturation 91 % (95-98); ABG PCO2 51 mmHg (35-45); ABG PH 7.45 pH Units (7.32-7.45); ABG PO2 60 mmHg (85-104); ABG TCO2 37 mEq/L (20-26)
[2017-10-06 20:14] LABS: Appearance of Body Fluid Hazy (Clear); Volume of Body Fluid 14 mL
[2017-10-06 20:21] LABS: Appearance of Body Fluid Cloudy (Clear)
[2017-10-06 20:22] LABS: Volume of Body Fluid 19 mL
[2017-10-07] MEDS: Dexmedetomidine HCl 400 MCG/100 ML MLS IVC SCH ×3 (01:38→18:38)
[2017-10-07] MEDS: Ipratropium/Albuterol Neb 3 ML IH SCH ×4 (03:17→23:22)
[2017-10-07] MEDS: Lacri-Lube 3.5 GM TUBE BOTH EYES SCH ×6 (03:27→23:14)
[2017-10-07 03:37] LABS: Basophils % 0.2 %; Eosinophils # 0.2 K/mcL (0.0-0.6); Eosinophils % 1.4 %; Hematocrit 28.5 % (35.3-44.9); Hemoglobin 9.2 g/dL (11.5-15.4); Immature Granulocytes % 0.6 % (0-4); Lymphocytes # 0.3 K/mcL (0.6-4.6); Lymphocytes % 3.2 %; Mean Corpuscular HGB Conc 32.3 g/dL (31.6-35.5); Mean Corpuscular Hemoglobin 30.2 pg (28.0-33.3); Mean Corpuscular Volume 93.4 fL (83.0-100.0); Mean Platelet Volume 9.8 fL (9.4-12.4); Monocytes % 9.7 %; Neutrophils # 9.1 K/mcL (1.6-8.9); Platelet Count 123 K/mcL (140-400); Red Blood Count 3.05 M/mcL (3.82-4.97); Red Cell Distribution Width 15.6 % (11.5-14.5); Segmented Neutrophils % 84.9 %
[2017-10-07 04:02] LABS: Alanine Aminotransferase 9 Units/L (7-52); Albumin 2.7 g/dL (3.5-5.7); Alkaline Phosphatase 133 Units/L (34-104); Aspartate Amino Transferase 18 Units/L (13-39); BUN/Creatinine Ratio 31 (6-26); Bilirubin,Total 0.6 mg/dL (0.3-1.0); Blood Urea Nitrogen 18 mg/dL (8-23); Carbon Dioxide 36 mEq/L (23-29); Chloride 94 mEq/L (98-107); Globulin 2.8 g/dL (2.4-3.5); Glucose 116 mg/dL (70-105); Osmolality,Calculated 289 (280-300); Sodium 138 mEq/L (136-145); Total Protein 5.5 g/dL (6.4-8.9); eGFR For African Americans > 60 (> 60); eGFR For Non-African Americans > 60 (> 60)
[2017-10-07] MEDS ORDERED: Potassium Chloride 40 MEQ/200 ML BAG IVPB PRN (04:05)
[2017-10-07] MEDS: FentaNYL (PF) 3,000 MCG in 0.9 % Sodium Chloride 240 ML IVC SCH (04:08)
[2017-10-07] MEDS: Insulin LISPRO 300 UNITS/3 ML VIAL SQ SCH ×4 (04:08→23:14)
[2017-10-07 04:40] LABS: Magnesium 1.5 mg/dL (1.6-2.6); Phosphorous 2.4 mg/dL (2.7-4.5)
[2017-10-07 04:52] LABS: Potassium 2.4 mEq/L (3.5-5.1)
[2017-10-07] MEDS ORDERED: Potassium Chloride Elixir 20 MEQ/15 ML UDC PO ONE ×2 (06:46→11:15)
[2017-10-07] MEDS: Sennosides/Docusate Sodium TABLET PO SCH ×2 (08:03→19:30)
[2017-10-07] MEDS: Aspirin 81 MG TAB.CHEW PO SCH (08:03)
[2017-10-07] MEDS: Chlorhexidine Rinse 15 ML MOUTHWASH MM SCH ×2 (08:03→19:54)
[2017-10-07] MEDS: Pantoprazole 40 MG VIAL IVP SCH (08:04)
--- NOTE | 2017-10-07 09:29 | Pulmonology Progress Note ---
<Troy Phelps - Last Filed: 10/07/17 11:31> Date of Encounter: 10/07/17 Time of Encounter: 09:27 Assessment and Plan (1) Acute respiratory failure with hypoxia Current Visit: Yes Status: Acute Acute on chronic respiratory failure likely multifactorial secondary to pneumonia, COPD, mucous plugging Status post extubation 10/01/17, requiring reintubation on 10/02/17 - Patient failed CPAP trial this morning. - Underwent bronchoscopy with findings of bilateral atelectasis, mucous plugs, airway was normal, mucous plugs sent for culture. - CXR 10/06: Unchanged bilateral effusions and underlying bibasilar airspace opacities likely representing pneumonia and atelectasis. Unchanged right upper lobe airspace opacity, potentially pneumonia or alveolar edema. Diffuse interstitial opacities suspected represents interstitial edema. 10/07: Respiratory status demonstrating improvements, chest x-ray shows mild improvement to lung bases and left-sided pleural effusion. We will plan for CPAP trial this morning and repeat ABG. Requiring less FiO2. - Past 24 hours: Intake 2 L, output 9 L, cumulative hospital stay -1252 and canals Plan: - Continue mechanical ventilations, goal of reducing FiO2 needs tolerated - Hold IV Lasix with contraction alkalosis - Continue bronchodilators as scheduled. - Continue antibiotic coverage with Micofungin (day 6) (2) Pneumonia Current Visit: Yes Status: Acute As above for acute on chronic respiratory failure. Qualifiers: Pneumonia type: due to unspecified organism Laterality: right Lung location: lower lobe of lung Qualified Code(s): J18.1 - Lobar pneumonia, unspecified organism (3) Afib Current Visit: Yes Status: Acute She continues to be in atrial fibrillation Rate controlled. Plan - We will hold by mouth Cardizem and switched to Cardizem drip as patient will potentially be transitioned to BiPAP and unable to eat for 24 hours. Qualifiers: Atrial fibrillation type: persistent Qualified Code(s): I48.1 - Persistent atrial fibrillation (4) Hyponatremia Current Visit: Yes Status: Resolved Resolved. (5) Hypertension Current Visit: Yes Status: Chronic Currently controlled. No changes in current medications. Qualifiers: Hypertension type: essential hypertension Qualified Code(s): I10 - Essential (primary) hypertension (6) Acute blood loss anemia Current Visit: Yes Status: Acute Hemoglobin stable for the past several days. - We will restart subcutaneous heparin every 8 hours - Monitor hemoglobin closely - Replace the PRBC transfusion as necessary. (7) Hematoma Current Visit: Yes Status: Acute Report hematoma on left leg as noted on CT H/H stable at 9.0, no change from previous. Plan Continue to monitor hemoglobin and symptoms. (8) Hypokalemia Current Visit: Yes Status: Acute Potassium 2.4 likely secondary to IV diuresis with -9 L Plan: - 40meq KCL elixir x 2 doses - 40meq KCL IVP over 4 hours - Hold lasix - Repeat potassium this afternoon (9) DVT prophylaxis Current Visit: Yes Status: Acute SCDs, subcutaneous heparin every 8 hours Subjective Principal diagnosis: Acute respiratory failure Interval history: Patient is seen in the patient's bedside this morning. Continues to require mechanical ventilation, will attempt CPAP trial this afternoon may need to transition to BiPAP. Patient responds to verbal commands, no acute changes overnight. Objective PUL Vital signs: Last Vital Signs Temp 98.4 F 10/07/17 05:51 Pulse 104 10/07/17 09:00 Resp 16 10/07/17 09:00 BP 100/65 10/07/17 09:00 Pulse Ox 99 10/07/17 09:00 General appearance: no acute distress Eyes: nonicteric ENT: oropharynx moist Neck: supple Effort: normal Auscultation: bilateral: clear, diminished breath sounds (Diminished breath sounds in bilateral lung bases), rhonchi (Appreciated more so on the right lung base compared to the left, clear to auscultation the apices and right middle lobe.) Percussion: bilateral: not dull Tactile fremitus: bilateral: normal Cardiovascular: regular rate and rhythm Gastrointestinal: normoactive bowel sounds, non-distended Integumentary: normal Extremities: no cyanosis, no edema, no clubbing Musculoskeletal: no deformities, ROM normal normal mental status, non-focal exam mood appropriate, affect normal Ventilator Settings Ventilator Settings: Ventilator Settings, Last 8 Hours Ventilator Mode VC+ Ventilator Mode VC+ Ventilator Mode VC+ Ventilator Mode VC+ Ventilator Mode VC+ Ventilator Mode VC+ Ventilator Mode VC+ Ventilator Mode VC+ Ventilator Mode VC+ Ventilator Mode VC+ Ventilator Mode VC+ Ventilator Mode VC+ Ventilator Tidal Volume 380 Setting Ventilator Tidal Volume 380 Setting Ventilator Tidal Volume 380 Setting Ventilator Tidal Volume 380 Setting Ventilator Tidal Volume 380 Setting Ventilator Tidal Volume 380 Setting Ventilator Tidal Volume 380 Setting Ventilator Tidal Volume 380 Setting Ventilator Tidal Volume 380 Setting Ventilator Tidal Volume 380 Setting Ventilator Tidal Volume 380 Setting Ventilator Tidal Volume 380 Setting Ventilator Respiratory Rate 16 Setting Ventilator Respiratory Rate 16 Setting Ventilator Respiratory Rate 16 Setting Ventilator Respiratory Rate 16 Setting Ventilator Respiratory Rate 16 Setting Ventilator Respiratory Rate 16 Setting Ventilator Respiratory Rate 16 Setting Ventilator Respiratory Rate 16 Setting Ventilator Respiratory Rate 16 Setting Ventilator Respiratory Rate 16 Setting Ventilator Respiratory Rate 16 Setting Ventilator Respiratory Rate 16 Setting Actual Respiratory Rate 16 Actual Respiratory Rate 16 Actual Respiratory Rate 16 Actual Respiratory Rate 16 Actual Respiratory Rate 16 Actual Respiratory Rate 16 Actual Respiratory Rate 16 Actual Respiratory Rate 16 Actual Respiratory Rate 16 Actual Respiratory Rate 16 Actual Respiratory Rate 16 Actual Respiratory Rate 16 Positive End Expiratory 5 Pressure Positive End Expiratory 5 Pressure Positive End Expiratory 5 Pressure Positive End Expiratory 5 Pressure Positive End Expiratory 5 Pressure Positive End Expiratory 5 Pressure Positive End Expiratory 5 Pressure Positive End Expiratory 5 Pressure Positive End Expiratory 5 Pressure Positive End Expiratory 5 Pressure Positive End Expiratory 5 Pressure Positive End Expiratory 5 Pressure Peak Inspiratory Airway 22 Pressure Peak Inspiratory Airway 21 Pressure Peak Inspiratory Airway 21 Pressure Peak Inspiratory Airway 21 Pressure Peak Inspiratory Airway 21 Pressure Peak Inspiratory Airway 23 Pressure Peak Inspiratory Airway 23 Pressure Peak Inspiratory Airway 23 Pressure Peak Inspiratory Airway 23 Pressure Results - Laboratory Findings CBC and BMP: 10/07/17 03:20 10/07/17 03:20 ABG ABG pH 7.45 pH Units (7.32-7.45) 10/06/17 18:07 ABG pCO2 51 mmHg (35-45) H 10/06/17 18:07 ABG pO2 60 mmHg (85-104) L 10/06/17 18:07 ABG O2 Saturation 91 % (95-98) L 10/06/17 18:07 PT/INR, D-dimer PT 17.7 Seconds (9.4-12.1) H 10/04/17 04:15 Abnormal lab findings: Abnormal lab results RBC 3.05 M/mcL (3.82-4.97) L 10/07/17 03:20 Hgb 9.2 g/dL (11.5-15.4) L 10/07/17 03:20 Hct 28.5 % (35.3-44.9) L 10/07/17 03:20 RDW 15.6 % (11.5-14.5) H 10/07/17 03:20 Plt Count 123 K/mcL (140-400) L 10/07/17 03:20 Neutrophils # 9.1 K/mcL (1.6-8.9) H 10/07/17 03:20 Lymphocytes # 0.3 K/mcL (0.6-4.6) L 10/07/17 03:20 Platelet Estimate Decreased (Normal) L 09/30/17 04:09 Percent Retic 3.4 % (1.6-2.8) H 09/30/17 04:09 PT 17.7 Seconds (9.4-12.1) H 10/04/17 04:15 ABG pCO2 51 mmHg (35-45) H 10/06/17 18:07 ABG pO2 60 mmHg (85-104) L 10/06/17 18:07 ABG HCO3 36 mEq/L (21-27) H 10/06/17 18:07 ABG Total CO2 37 mEq/L (20-26) H 10/06/17 18:07 ABG O2 Saturation 91 % (95-98) L 10/06/17 18:07 ABG Base Excess 10 mEq/L (-2 to 3) H 10/06/17 18:07 VBG pH 7.46 pH Units (7.32-7.42) H 09/30/17 20:11 VBG pCO2 34 mmHg (41-51) L 09/30/17 20:11 VBG pO2 168 mmHg (25-50) H 09/30/17 20:11 Potassium 2.4 mEq/L (3.5-5.1) L* 10/07/17 03:20 Chloride 94 mEq/L (98-107) L 10/07/17 03:20 Carbon Dioxide 36 mEq/L (23-29) H 10/07/17 03:20 Creatinine 0.58 mg/dL (0.60-1.20) L 10/07/17 03:20 BUN/Creatinine Ratio 31 (6-26) H 10/07/17 03:20 Glucose 116 mg/dL (70-105) H 10/07/17 03:20 POC Glucose 112 (58-89) H 10/06/17 23:22 Calcium 8.0 mg/dL (8.6-10.3) L 10/07/17 03:20 Venous Ioniz Calcium 0.69 mmol/L (1.15-1.35) L 10/01/17 04:51 Phosphorus 2.4 mg/dL (2.7-4.5) L 10/07/17 03:20 Magnesium 1.5 mg/dL (1.6-2.6) L 10/07/17 03:20 Iron 43 mcg/dL (50-170) L 09/30/17 04:09 Transferrin 152 mg/dL (180-382) L 09/30/17 04:09 Ferritin 652 ng/ml (5-204) H 09/30/17 04:09 Alkaline Phosphatase 133 Units/L (34-104) H 10/07/17 03:20 Serum Total Protein 5.5 g/dL (6.4-8.9) L 10/07/17 03:20 Albumin 2.7 g/dL (3.5-5.7) L 10/07/17 03:20 Albumin/Globulin Ratio 1.0 (1.1-2.2) L 10/07/17 03:20 Fluid Appearance Cloudy (Clear) A 10/06/17 16:19 - Microbiology Findings Microbiology Findings: Microbiology, Last 48 Hours 10/06/17 16:19 Gram Stain - Final Left Lower Lobe Lung 10/06/17 16:19 Gram Stain - Final Right Lower Lobe Lung 09/30/17 13:36 Blood Culture - Final Peripheral Venipuncture No growth. 09/30/17 13:36 Blood Culture - Final Peripheral Venipuncture No growth. - Clinical Findings Intake & Output: Intake & Output 10/06/17 10/07/17 10/07/17 23:59 07:59 15:59 Intake Total 614 / 614 264 / 264 150 / 150 Output Total 3450 / 3450 900 / 900 Balance -2836 / -2836 -636 / -636 150 / 150 - VTE Documentation of Mechanical Device: Intermittent pneumatic compression device Consult Discharge Plan - Plan Referrals: Yared Akhtar Jr, MD [Primary Care Provider] - <Niles Huber - Last Filed: 10/07/17 21:44> Date of Encounter: 10/07/17 Objective PUL Vital signs: Last Vital Signs Temp 98.7 F 10/07/17 20:44 Pulse 65 10/07/17 21:00 Resp 19 10/07/17 21:00 BP 103/63 10/07/17 21:00 Pulse Ox 99 10/07/17 21:00 Ventilator Settings Ventilator Settings: Ventilator Settings, Last 8 Hours Ventilator Mode VC+ Ventilator Mode CPAP Ventilator Mode CPAP Ventilator Mode VC+ Ventilator Mode VC+ Ventilator Tidal Volume 380 Setting Ventilator Tidal Volume 380 Setting Ventilator Tidal Volume 380 Setting Ventilator Respiratory Rate 16 Setting Ventilator Respiratory Rate 7 Setting Ventilator Respiratory Rate 16 Setting Ventilator Respiratory Rate 16 Setting Actual Respiratory Rate 31 Actual Respiratory Rate 27 Actual Respiratory Rate 24 Actual Respiratory Rate 32 Positive End Expiratory 5 Pressure Positive End Expiratory 5 Pressure Positive End Expiratory 5 Pressure Positive End Expiratory 5 Pressure Positive End Expiratory 5 Pressure Peak Inspiratory Airway 15 Pressure Results - Laboratory Findings CBC and BMP: 10/07/17 03:20 10/07/17 16:18 ABG ABG pH 7.43 pH Units (7.32-7.45) 10/07/17 15:48 ABG pCO2 57 mmHg (35-45) H 10/07/17 15:48 ABG pO2 76 mmHg (85-104) L 10/07/17 15:48 ABG O2 Saturation 95 % (95-98) 10/07/17 15:48 PT/INR, D-dimer PT 17.7 Seconds (9.4-12.1) H 10/04/17 04:15 Abnormal lab findings: Abnormal lab results RBC 3.05 M/mcL (3.82-4.97) L 10/07/17 03:20 Hgb 9.2 g/dL (11.5-15.4) L 10/07/17 03:20 Hct 28.5 % (35.3-44.9) L 10/07/17 03:20 RDW 15.6 % (11.5-14.5) H 10/07/17 03:20 Plt Count 123 K/mcL (140-400) L 10/07/17 03:20 Neutrophils # 9.1 K/mcL (1.6-8.9) H 10/07/17 03:20 Lymphocytes # 0.3 K/mcL (0.6-4.6) L 10/07/17 03:20 Platelet Estimate Decreased (Normal) L 09/30/17 04:09 Percent Retic 3.4 % (1.6-2.8) H 09/30/17 04:09 PT 17.7 Seconds (9.4-12.1) H 10/04/17 04:15 ABG pCO2 57 mmHg (35-45) H 10/07/17 15:48 ABG pO2 76 mmHg (85-104) L 10/07/17 15:48 ABG HCO3 38 mEq/L (21-27) H 10/07/17 15:48 ABG Total CO2 40 mEq/L (20-26) H 10/07/17 15:48 ABG Base Excess 11 mEq/L (-2 to 3) H 10/07/17 15:48 VBG pH 7.46 pH Units (7.32-7.42) H 09/30/17 20:11 VBG pCO2 34 mmHg (41-51) L 09/30/17 20:11 VBG pO2 168 mmHg (25-50) H 09/30/17 20:11 Chloride 94 mEq/L (98-107) L 10/07/17 03:20 Carbon Dioxide 36 mEq/L (23-29) H 10/07/17 03:20 Creatinine 0.58 mg/dL (0.60-1.20) L 10/07/17 03:20 BUN/Creatinine Ratio 31 (6-26) H 10/07/17 03:20 Glucose 116 mg/dL (70-105) H 10/07/17 03:20 POC Glucose 112 (58-89) H 10/06/17 23:22 Calcium 8.0 mg/dL (8.6-10.3) L 10/07/17 03:20 Venous Ioniz Calcium 0.69 mmol/L (1.15-1.35) L 10/01/17 04:51 Iron 43 mcg/dL (50-170) L 09/30/17 04:09 Transferrin 152 mg/dL (180-382) L 09/30/17 04:09 Ferritin 652 ng/ml (5-204) H 09/30/17 04:09 Alkaline Phosphatase 133 Units/L (34-104) H 10/07/17 03:20 Serum Total Protein 5.5 g/dL (6.4-8.9) L 10/07/17 03:20 Albumin 2.7 g/dL (3.5-5.7) L 10/07/17 03:20 Albumin/Globulin Ratio 1.0 (1.1-2.2) L 10/07/17 03:20 Fluid Appearance Cloudy (Clear) A 10/06/17 16:19 - Microbiology Findings Microbiology Findings: Microbiology, Last 48 Hours 10/06/17 16:19 Gram Stain - Final Left Lower Lobe Lung Respiratory Culture - Preliminary No growth. 10/06/17 16:19 Gram Stain - Final Right Lower Lobe Lung Respiratory Culture - Preliminary No growth. 09/30/17 13:36 Blood Culture - Final Peripheral Venipuncture No growth. 09/30/17 13:36 Blood Culture - Final Peripheral Venipuncture No growth. - Clinical Findings Intake & Output: Intake & Output 10/07/17 10/07/17 10/07/17 07:59 15:59 23:59 Intake Total 514 / 514 660 / 660 125 / 125 Output Total 1450 / 1450 150 / 150 450 / 450 Balance -936 / -936 510 / 510 -325 / -325 - Attending Attestation I saw the patient with the resident agree with History and Physical exam findings. Labs and Radiology were reviewed Ventilator data were reviewed, Low Tidal volume strategy will give pressure support try spontaneous breathing trial today [employer]: Patient is conscious following commands will added some seroquel to relieve her anxiety when we try SBT NECK : No JVD appreciated Pulmonary : In the presence of family patient did a SBT with pressure support between 8-10 cm H2O did well over 2 hrs did well with no desaturation , ABG at the end of 2 hrs was good with adequate gas exchange with compensated PH Cardiac : Hemodynamically stable , Atrial fibrillation to start on cardizem drips to continue diuresis Nutrition/GI: NPO as patient is on BIPAP PPI prophylaxis Renal : Labs and output reviewed Heme onc : No acute issues ID : To continue current antimicrobial deescalate accordingly Musculo skeletal / skin issues : No acute issues Disposition : Remain critically ill has high chance of reintubation Code status: Full Code Family/POA: Family updated and they were bed side on extubation. Spent 45 minutes of critical time in medical decision making to maintain vital organ function and to prevent further deterioration.
[2017-10-07] MEDS: Micafungin 100 MG in 0.9 % Sodium Chloride Mini Bag 100 ML IVPB SCH (11:31)
[2017-10-07] MEDS: dilTIAZem HCl 100 MG in D5% in Water 50 ML IVC SCH ×2 (11:32→22:15)
[2017-10-07] MEDS: *HR* Heparin 5,000 UNIT/ML VIAL SQ SCH ×2 (15:11→23:14)
[2017-10-07 15:52] LABS: ABG Base Excess 11 mEq/L (-2 to 3); ABG HCO3 38 mEq/L (21-27); ABG Oxygen Saturation 95 % (95-98); ABG PCO2 57 mmHg (35-45); ABG PH 7.43 pH Units (7.32-7.45); ABG PO2 76 mmHg (85-104); ABG TCO2 40 mEq/L (20-26); Blood Gas Modality CPAP/PS; Blood Gas Pressure Support 10 cm H2O
[2017-10-07 16:47] LABS: Magnesium 1.9 mg/dL (1.6-2.6); Phosphorous 3.5 mg/dL (2.7-4.5); Potassium 4.5 mEq/L (3.5-5.1)
[2017-10-07] MEDS ORDERED: Haloperidol Lactate 5 MG/ML VIAL IVP ONE (19:55)
[2017-10-08] MEDS: Dexmedetomidine HCl 400 MCG/100 ML MLS IVC SCH ×2 (03:06→09:17)
[2017-10-08 03:40] LABS: Basophils # 0.1 K/mcL (0.0-0.2); Basophils % 0.4 %; Eosinophils # 0.1 K/mcL (0.0-0.6); Eosinophils % 0.4 %; Hematocrit 29.7 % (35.3-44.9); Immature Granulocytes % 0.7 % (0-4); Lymphocytes # 0.3 K/mcL (0.6-4.6); Lymphocytes % 2.7 %; Mean Corpuscular HGB Conc 30.3 g/dL (31.6-35.5); Mean Corpuscular Hemoglobin 29.5 pg (28.0-33.3); Mean Corpuscular Volume 97.4 fL (83.0-100.0); Mean Platelet Volume 10.1 fL (9.4-12.4); Monocytes # 1.1 K/mcL (0.0-1.3); Monocytes % 9.6 %; Neutrophils # 9.7 K/mcL (1.6-8.9); Platelet Count 120 K/mcL (140-400); Red Blood Count 3.05 M/mcL (3.82-4.97); Red Cell Distribution Width 15.7 % (11.5-14.5); Segmented Neutrophils % 86.2 %
[2017-10-08 04:05] LABS: Alanine Aminotransferase 9 Units/L (7-52); Albumin 2.8 g/dL (3.5-5.7); Albumin/Globulin Ratio 0.9 (1.1-2.2); Alkaline Phosphatase 136 Units/L (34-104); Aspartate Amino Transferase 21 Units/L (13-39); BUN/Creatinine Ratio 37 (6-26); Bilirubin,Total 0.7 mg/dL (0.3-1.0); Blood Urea Nitrogen 19 mg/dL (8-23); Calcium 8.4 mg/dL (8.6-10.3); Carbon Dioxide 32 mEq/L (23-29); Chloride 100 mEq/L (98-107); Glucose 94 mg/dL (70-105); Magnesium 1.9 mg/dL (1.6-2.6); Osmolality,Calculated 300 (280-300); Potassium 4.2 mEq/L (3.5-5.1); Sodium 144 mEq/L (136-145); Total Protein 5.8 g/dL (6.4-8.9); eGFR For African Americans > 60 (> 60); eGFR For Non-African Americans > 60 (> 60)
[2017-10-08] MEDS: Ipratropium/Albuterol Neb 3 ML IH SCH ×4 (04:12→23:24)
[2017-10-08] MEDS: Lacri-Lube 3.5 GM TUBE BOTH EYES SCH ×6 (04:18→23:03)
[2017-10-08] MEDS: Insulin LISPRO 300 UNITS/3 ML VIAL SQ SCH ×4 (04:23→20:29)
[2017-10-08 04:45] LABS: ABG Base Excess 10 mEq/L (-2 to 3); ABG HCO3 36 mEq/L (21-27); ABG Oxygen Saturation 97 % (95-98); ABG PCO2 53 mmHg (35-45); ABG PH 7.44 pH Units (7.32-7.45); ABG PO2 93 mmHg (85-104); ABG TCO2 38 mEq/L (20-26)
[2017-10-08] MEDS: *HR* Heparin 5,000 UNIT/ML VIAL SQ SCH ×3 (05:53→19:14)
--- NOTE | 2017-10-08 07:58 | Pulmonology Progress Note ---
<MattieTroy Fraga - Last Filed: 10/08/17 11:07> Date of Encounter: 10/08/17 Time of Encounter: 07:58 Assessment and Plan (1) Acute respiratory failure with hypoxia Current Visit: Yes Status: Acute Acute on chronic respiratory failure likely multifactorial secondary to pneumonia, COPD, mucous plugging Status post extubation 10/01/17, requiring reintubation on 10/02/17 - Underwent bronchoscopy with findings of bilateral atelectasis, mucous plugs, airway was normal, mucous plugs sent for culture. - CXR 10/06: Unchanged bilateral effusions and underlying bibasilar airspace opacities likely representing pneumonia and atelectasis. Unchanged right upper lobe airspace opacity, potentially pneumonia or alveolar edema. Diffuse interstitial opacities suspected represents interstitial edema. 10/08: Tolerating BiPAP settings 14/6, continues to have pulmonary edema will continue IV diuresis today at 40 mg IV twice a day. Continue BiPAP overnight with potential wean high flow oxygen tomorrow. Plan: - Continue BiPAP with settings of 14/6 - Restart IV Lasix 40 mg twice a day, may require Acetasol at [place] bicarbonate continues to rise. Renal function tolerating diuresis. - Continue bronchodilators as scheduled. - Continue antibiotic coverage with Micofungin (day 7) plan for a total of 10 days (2) Pneumonia Current Visit: Yes Status: Acute As above for acute on chronic respiratory failure. Qualifiers: Pneumonia type: due to unspecified organism Laterality: right Lung location: lower lobe of lung Qualified Code(s): J18.1 - Lobar pneumonia, unspecified organism (3) Afib Current Visit: Yes Status: Acute Patient is atrial fibrillation, had a heart rate down to 30s last evening. Currently heart rate of 90, - suspect much AV mary blockade. Plan - Reduce Cardizem drip to 2.5 mg per hour Qualifiers: Atrial fibrillation type: persistent Qualified Code(s): I48.1 - Persistent atrial fibrillation (4) Hyponatremia Current Visit: Yes Status: Resolved Resolved. (5) Hypertension Current Visit: Yes Status: Chronic Currently controlled. No changes in current medications. Qualifiers: Hypertension type: essential hypertension Qualified Code(s): I10 - Essential (primary) hypertension (6) Acute blood loss anemia Current Visit: Yes Status: Acute Hemoglobin stable for the past several days. - Continue subcutaneous heparin every 8 hours - Monitor hemoglobin closely - Replace the PRBC transfusion as necessary. (7) Hematoma Current Visit: Yes Status: Acute Report hematoma on left leg as noted on CT H/H stable at 9.0, no change from previous. Plan Continue to monitor hemoglobin and symptoms. (8) Hypokalemia Current Visit: Yes Status: Acute Potassium stable this morning, diuresis was held yesterday. Will restart diuresis today we will continue monitor potassium daily. Plan: - Continue to monitor potassium daily (9) DVT prophylaxis Current Visit: Yes Status: Acute SCDs, subcutaneous heparin every 8 hours Subjective Principal diagnosis: Acute respiratory failure Interval history: Patient is seen in the patient's bedside this morning. She tolerated CPAP trial yesterday and was placed on BiPAP with settings of 14/6. She is currently tolerating her BiPAP given her pulmonary edema she will require BiPAP and minimal sedation as she becomes very agitated and hypoxic while off Fentanyl and Precedex. Objective PUL Vital signs: Last Vital Signs Temp 98.2 F 10/08/17 04:00 Pulse 84 10/08/17 07:49 Resp 28 10/08/17 07:00 BP 133/95 10/08/17 07:00 Pulse Ox 100 10/08/17 07:00 General appearance: no acute distress, other (On BiPAP) Eyes: nonicteric ENT: oropharynx moist Neck: supple Effort: mildly labored Auscultation: bilateral: rhonchi (Bilateral lung bases) Percussion: bilateral: not dull Tactile fremitus: bilateral: normal Cardiovascular: regular rate and rhythm, irregular rhythm (Rate controlled) Gastrointestinal: normoactive bowel sounds, non-distended Integumentary: normal Extremities: no cyanosis, no edema, no clubbing, other (Severe arthritis) Musculoskeletal: ROM normal mood appropriate, affect normal Ventilator Settings Ventilator Settings: Ventilator Settings, Last 8 Hours Ventilator Respiratory Rate 8 Setting Results - Laboratory Findings CBC and BMP: 10/08/17 03:30 10/08/17 03:30 ABG ABG pH 7.44 pH Units (7.32-7.45) 10/08/17 04:42 ABG pCO2 53 mmHg (35-45) H 10/08/17 04:42 ABG pO2 93 mmHg (85-104) 10/08/17 04:42 ABG O2 Saturation 97 % (95-98) 10/08/17 04:42 PT/INR, D-dimer PT 17.7 Seconds (9.4-12.1) H 10/04/17 04:15 Abnormal lab findings: Abnormal lab results WBC 11.3 K/mcL (4.3-11.1) H 10/08/17 03:30 RBC 3.05 M/mcL (3.82-4.97) L 10/08/17 03:30 Hgb 9.0 g/dL (11.5-15.4) L 10/08/17 03:30 Hct 29.7 % (35.3-44.9) L 10/08/17 03:30 MCHC 30.3 g/dL (31.6-35.5) L 10/08/17 03:30 RDW 15.7 % (11.5-14.5) H 10/08/17 03:30 Plt Count 120 K/mcL (140-400) L 10/08/17 03:30 Neutrophils # 9.7 K/mcL (1.6-8.9) H 10/08/17 03:30 Lymphocytes # 0.3 K/mcL (0.6-4.6) L 10/08/17 03:30 Platelet Estimate Decreased (Normal) L 09/30/17 04:09 Percent Retic 3.4 % (1.6-2.8) H 09/30/17 04:09 PT 17.7 Seconds (9.4-12.1) H 10/04/17 04:15 ABG pCO2 53 mmHg (35-45) H 10/08/17 04:42 ABG HCO3 36 mEq/L (21-27) H 10/08/17 04:42 ABG Total CO2 38 mEq/L (20-26) H 10/08/17 04:42 ABG Base Excess 10 mEq/L (-2 to 3) H 10/08/17 04:42 VBG pH 7.46 pH Units (7.32-7.42) H 09/30/17 20:11 VBG pCO2 34 mmHg (41-51) L 09/30/17 20:11 VBG pO2 168 mmHg (25-50) H 09/30/17 20:11 Carbon Dioxide 32 mEq/L (23-29) H 10/08/17 03:30 Creatinine 0.52 mg/dL (0.60-1.20) L 10/08/17 03:30 BUN/Creatinine Ratio 37 (6-26) H 10/08/17 03:30 POC Glucose 104 (58-89) H 10/07/17 23:11 Calcium 8.4 mg/dL (8.6-10.3) L 10/08/17 03:30 Venous Ioniz Calcium 0.69 mmol/L (1.15-1.35) L 10/01/17 04:51 Iron 43 mcg/dL (50-170) L 09/30/17 04:09 Transferrin 152 mg/dL (180-382) L 09/30/17 04:09 Ferritin 652 ng/ml (5-204) H 09/30/17 04:09 Alkaline Phosphatase 136 Units/L (34-104) H 10/08/17 03:30 Serum Total Protein 5.8 g/dL (6.4-8.9) L 10/08/17 03:30 Albumin 2.8 g/dL (3.5-5.7) L 10/08/17 03:30 Albumin/Globulin Ratio 0.9 (1.1-2.2) L 10/08/17 03:30 Fluid Appearance Cloudy (Clear) A 10/06/17 16:19 - Microbiology Findings Microbiology Findings: Microbiology, Last 48 Hours 10/06/17 16:19 Gram Stain - Final Left Lower Lobe Lung Respiratory Culture - Preliminary No growth. 10/06/17 16:19 Gram Stain - Final Right Lower Lobe Lung Respiratory Culture - Preliminary No growth. 09/30/17 13:36 Blood Culture - Final Peripheral Venipuncture No growth. 09/30/17 13:36 Blood Culture - Final Peripheral Venipuncture No growth. - Clinical Findings Intake & Output: Intake & Output 10/07/17 10/07/17 10/08/17 15:59 23:59 07:59 Intake Total 660 / 660 150 / 150 100 / 100 Output Total 150 / 150 550 / 550 150 / 150 Balance 510 / 510 -400 / -400 -50 / -50 Weight 51.8 kg - VTE Documentation of Mechanical Device: Intermittent pneumatic compression device Consult Discharge Plan - Plan Referrals: Yared Akhtar Jr, MD [Primary Care Provider] - <Niles Huber S - Last Filed: 10/08/17 22:20> Date of Encounter: 10/08/17 Objective PUL Vital signs: Last Vital Signs Temp 98.2 F 10/08/17 19:55 Pulse 107 10/08/17 19:55 Resp 32 10/08/17 19:55 BP 146/103 10/08/17 16:00 Pulse Ox 97 10/08/17 16:00 Results - Laboratory Findings CBC and BMP: 10/08/17 03:30 10/08/17 03:30 ABG ABG pH 7.44 pH Units (7.32-7.45) 10/08/17 04:42 ABG pCO2 53 mmHg (35-45) H 10/08/17 04:42 ABG pO2 93 mmHg (85-104) 10/08/17 04:42 ABG O2 Saturation 97 % (95-98) 10/08/17 04:42 PT/INR, D-dimer PT 17.7 Seconds (9.4-12.1) H 10/04/17 04:15 Abnormal lab findings: Abnormal lab results WBC 11.3 K/mcL (4.3-11.1) H 10/08/17 03:30 RBC 3.05 M/mcL (3.82-4.97) L 10/08/17 03:30 Hgb 9.0 g/dL (11.5-15.4) L 10/08/17 03:30 Hct 29.7 % (35.3-44.9) L 10/08/17 03:30 MCHC 30.3 g/dL (31.6-35.5) L 10/08/17 03:30 RDW 15.7 % (11.5-14.5) H 10/08/17 03:30 Plt Count 120 K/mcL (140-400) L 10/08/17 03:30 Neutrophils # 9.7 K/mcL (1.6-8.9) H 10/08/17 03:30 Lymphocytes # 0.3 K/mcL (0.6-4.6) L 10/08/17 03:30 Platelet Estimate Decreased (Normal) L 09/30/17 04:09 Percent Retic 3.4 % (1.6-2.8) H 09/30/17 04:09 PT 17.7 Seconds (9.4-12.1) H 10/04/17 04:15 ABG pCO2 53 mmHg (35-45) H 10/08/17 04:42 ABG HCO3 36 mEq/L (21-27) H 10/08/17 04:42 ABG Total CO2 38 mEq/L (20-26) H 10/08/17 04:42 ABG Base Excess 10 mEq/L (-2 to 3) H 10/08/17 04:42 VBG pH 7.46 pH Units (7.32-7.42) H 09/30/17 20:11 VBG pCO2 34 mmHg (41-51) L 09/30/17 20:11 VBG pO2 168 mmHg (25-50) H 09/30/17 20:11 Carbon Dioxide 32 mEq/L (23-29) H 10/08/17 03:30 Creatinine 0.52 mg/dL (0.60-1.20) L 10/08/17 03:30 BUN/Creatinine Ratio 37 (6-26) H 10/08/17 03:30 POC Glucose 104 (58-89) H 10/07/17 23:11 Calcium 8.4 mg/dL (8.6-10.3) L 10/08/17 03:30 Venous Ioniz Calcium 0.69 mmol/L (1.15-1.35) L 10/01/17 04:51 Iron 43 mcg/dL (50-170) L 09/30/17 04:09 Transferrin 152 mg/dL (180-382) L 09/30/17 04:09 Ferritin 652 ng/ml (5-204) H 09/30/17 04:09 Alkaline Phosphatase 136 Units/L (34-104) H 10/08/17 03:30 Serum Total Protein 5.8 g/dL (6.4-8.9) L 10/08/17 03:30 Albumin 2.8 g/dL (3.5-5.7) L 10/08/17 03:30 Albumin/Globulin Ratio 0.9 (1.1-2.2) L 10/08/17 03:30 Fluid Appearance Cloudy (Clear) A 10/06/17 16:19 - Microbiology Findings Microbiology Findings: Microbiology, Last 48 Hours 10/06/17 16:19 Gram Stain - Final Right Lower Lobe Lung Respiratory Culture - Preliminary Yeast Species 10/06/17 16:19 Gram Stain - Final Left Lower Lobe Lung Respiratory Culture - Preliminary Yeast Species - Clinical Findings Intake & Output: Intake & Output 10/08/17 10/08/17 10/08/17 07:59 15:59 23:59 Intake Total 100 / 100 400 / 400 0 / 0 Output Total 150 / 150 2750 / 2750 Balance -50 / -50 -2350 / -2350 0 / 0 - Attending Attestation I saw the patient with the resident agree with History and Physical exam findings. 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 Cardiac : Hemodynamically stable , Atrial fibrillation to continue cardizem drip and diuresis Nutrition/GI: NPO as patient is on BIPAP PPI prophylaxis Renal : Labs and output reviewed Heme onc : No acute issues ID : To continue current antimicrobial deescalate accordingly Musculo skeletal / skin issues : No acute issues Disposition : Remain critically ill has high chance of reintubation Code status: Full Code Family/POA: Family meeting today at 4 pm.
[2017-10-08] MEDS: Aspirin 81 MG TAB.CHEW PO SCH (08:15)
[2017-10-08] MEDS: Sennosides/Docusate Sodium TABLET PO SCH ×2 (08:15→19:14)
[2017-10-08] MEDS: Chlorhexidine Rinse 15 ML MOUTHWASH MM SCH ×2 (08:15→19:14)
[2017-10-08] MEDS: Pantoprazole 40 MG VIAL IVP SCH (08:18)
[2017-10-08] MEDS: Furosemide 40 MG/4 ML VIAL IVP SCH ×2 (08:18→19:14)
[2017-10-08] MEDS: FentaNYL (PF) 3,000 MCG in 0.9 % Sodium Chloride 240 ML IVC SCH (08:18)
[2017-10-08] MEDS: Micafungin 100 MG in 0.9 % Sodium Chloride Mini Bag 100 ML IVPB SCH (11:36)
[2017-10-08] MEDS ORDERED: Haloperidol Oral Conc 10 MG/5 ML UDC PO PRN (16:43)
[2017-10-08] MEDS ORDERED: *HR* LORazepam Oral Conc 2 MG/ML PO PRN (16:43)
[2017-10-08] MEDS ORDERED: *HR* Morphine 2 MG/ML SYRINGE IVP PRN (16:43)
[2017-10-08] MEDS ORDERED: Atropine Sulfate 1% 40 DROP/2 ML BOTTLE SL PRN (16:43)
--- NOTE | 2017-10-08 16:45 | Event Note ---
Date of Encounter: 10/08/17 Time of Encounter: 16:30 Spoke with Family , Daughter and Sons due to poor prognosis of recovery to the baseline status family decided to keep her comfortable with main goal to be comfort only , code status changed to DNRCCA , palliative order sets was ordered.
[2017-10-08] MEDS: dilTIAZem HCl 100 MG in D5% in Water 50 ML IVC SCH (23:03)
[2017-10-09] MEDS: FentaNYL (PF) 3,000 MCG in 0.9 % Sodium Chloride 240 ML IVC SCH (03:45)
[2017-10-09] MEDS: Insulin LISPRO 300 UNITS/3 ML VIAL SQ SCH (03:46)
[2017-10-09] MEDS: *HR* Heparin 5,000 UNIT/ML VIAL SQ SCH (03:46)
[2017-10-09] MEDS: Lacri-Lube 3.5 GM TUBE BOTH EYES SCH ×2 (03:46→07:38)
[2017-10-09] MEDS: Ipratropium/Albuterol Neb 3 ML IH SCH (03:48)
[2017-10-09] MEDS: Aspirin 81 MG TAB.CHEW PO SCH (07:38)
[2017-10-09] MEDS: Chlorhexidine Rinse 15 ML MOUTHWASH MM SCH (07:38)
[2017-10-09] MEDS: Sennosides/Docusate Sodium TABLET PO SCH ×3 (07:39→20:48)
[2017-10-09] MEDS: Pantoprazole 40 MG VIAL IVP SCH (07:39)
[2017-10-09] MEDS: Furosemide 40 MG/4 ML VIAL IVP SCH (07:39)
[2017-10-09] MEDS ORDERED: Ipratropium/Albuterol Neb 3 ML IH PRN (08:55)
[2017-10-09] MEDS ORDERED: Atropine Sulfate 1% 40 DROP/2 ML BOTTLE SL PRN (08:55)
[2017-10-09] MEDS ORDERED: *HR* Morphine 2 MG/ML SYRINGE IVP PRN (08:55)
[2017-10-09] MEDS ORDERED: *HR* LORazepam Oral Conc 2 MG/ML PO PRN (08:55)
[2017-10-09] MEDS ORDERED: FentaNYL (PF) 3,000 MCG in 0.9 % Sodium Chloride 240 ML IVC SCH (08:55)
[2017-10-09] MEDS ORDERED: Dexmedetomidine HCl 400 MCG/100 ML MLS IVC SCH (08:55)
[2017-10-09] MEDS ORDERED: Haloperidol Oral Conc 10 MG/5 ML UDC PO PRN (08:55)
--- NOTE | 2017-10-09 09:08 | Palliative - Consult Note ---
<Madyson Scherer - Last Filed: 10/09/17 09:05> Date of Encounter: 10/09/17 Time of Encounter: 09:05 - Assessment and Plan (1) Goals of care, counseling/discussion Current Visit: Yes Status: Acute Assessment and plan: Yester afternoon the and sons decided to change the code status of the patient to DNR-CC. She will be transferred from ICU to a palliative floor. Hospitalist will be caring for her due to no palliative coverage this until Thursday. The palliative orders for pain control and other comfort management have been confirmed and ordered. We will see her Thursday unless she has already been transferred to hospice. Upon evaluation today of the patient, the sons were at bedside and the plan was discussed with them. Questions were answered and they stated a clear understanding. (2) Acute respiratory failure with hypoxia Current Visit: Yes Status: Acute Assessment and plan: Patient presented with acute on chronic respiratory failure secondary to pneumonia, COPD, and mucus plugging. She required multiple intubation/ extuabtion. Then placed on bipap. Family changed code status to DNR-CC. Patient now on nasal cannula. Palliative-CN HPI - Data of Consult Consult date: 10/09/17 Requesting Physician: El Celestin MD Primary Care Provider: Yared Akhtar Jr, MD - Consult Narrative Palliative Care/Comfort Measures: Hospice care History of present illness: Ms. Laurent is a 77 year old female with a past medical history of HTN, COPD, HLD, hypothyroidism who presented to the [facility] as a transfer from [facility] for AMS and hypercapnia. She was intubated at [facility] ED. She came from an SNF were she was found unresponsive. The she was found to be hypoxic 60s pulse ox. PCO2 77. She also had fecal hemoccult postive so anticoagulation stopped. She was in the SNF from the last admission because of fall and multi-focal pneumonia, with new afib placed on anticoagulation. The patient's records were reviewed, upon evaluation her sons were at bedside. During the course of admission she has been extubated in which next day required re-intubation due to sudden drop in oxygen saturation. Later extubated and placed on Bipap. Her and sons then decided to change code status to DNR -CC and requested a palliative consult to pursue hospice. Antibiotics were stopped. The family and nursing reported that she has been unresponsive, just sleeping comfortably. The family was informed that there would be no palliative coverage over the weekend until Thursday so the hospitalist would be continuing care. The palliative orders are in place for pain control and other comfort measures. The patient will be discharged to hospice. If still here on Thursday, palliative will see her. CC: El Celestin MD Past Med Surg Social Fam HX - Past Medical History Medical history: atrial fibrillation, COPD, CVA, hyperlipidemia, hypertension, RA, thyroid disease Psychiatric history: no psych history - Past Surgical History Surgical History: hysterectomy - Social History Smoking Status: Never smoker Smokeless Tobacco Status: No Alcohol use: none Drug use: none - Family History Mother Living Status: Hx Family Cardiac Disorders: Yes (AR, HTN) Hx Family Endocrine Disorder: Yes (DM) Father Living Status: Hx Family Cardiac Disorders: Yes (AR) Brother Hx Family Cardiac Disorders: Yes (Heart disease) Medications and Allergies Amlodipine Besylate 2.5 mg PO DAILY 02/03/17 [History] Folic Acid 1 mg PO DAILY 02/03/17 [History] Levothyroxine [Synthroid] 100 mcg PO 0630 02/03/17 [History] Losartan Potassium [Cozaar] 100 mg PO DAILY 02/03/17 [History] Omeprazole 20 mg PO DAILY 02/03/17 [History] Multivit-Min/Iron/Folic/Lutein [Centrum Silver Women Tablet] 1 each PO DAILY 07/05 [History] Propranolol [Inderal] 20 mg PO BID 09/07/17 [History] predniSONE [PredniSONE] 5 mg PO DAILY 09/07/17 [History] Apixaban [Eliquis] 5 mg PO BID tablet 09/24/17 [Rx] Aspirin 81 mg PO DAILY tab.chew 09/24/17 [Rx] Atorvastatin [Lipitor] 40 mg PO HS tablet 09/24/17 [Rx] Cefepime HCl [Maxipime] 2,000 mg IVPB Q8HR 3 Days vial 09/24/17 [Rx] Diltiazem [Cardizem] 30 mg PO Q6HR tablet 09/24/17 [Rx] Vancomycin HCl in Dextrose 5 % [Vancomycin 1 Gram/250 ml-D5w] 1 gm IV Q24H #3 mls 09/24/17 [Rx] 3 Allergy/AdvReac Type Severity Reaction Status Date / Time No Known Allergies Allergy Verified 07/31/16 13:26 ROS unobtainable: due to mental status Palliative Care-Exam - Constitutional Vitals: Temp Pulse Resp BP Pulse Ox 98.0 F 140 26 139/78 98 10/08/17 23:02 10/09/17 07:23 10/09/17 07:15 10/09/17 07:15 10/09/17 07:15 General appearance: Present: no acute distress - Head Head Exam: Present: normal inspection - Respiratory Respiratory exam: Present: rhonchi. Absent: CTAB - Cardiovascular Cardiovascular exam: Present: RRR, +S1, +S2 Internal Medicine - CN: Reslt - Labs CBC & Chem 7: 10/08/17 03:30 10/08/17 03:30 - ABG Interpretation ABG results: ABG ABG pH 7.44 pH Units (7.32-7.45) 10/08/17 04:42 ABG pCO2 53 mmHg (35-45) H 10/08/17 04:42 ABG pO2 93 mmHg (85-104) 10/08/17 04:42 ABG O2 Saturation 97 % (95-98) 10/08/17 04:42 PT/INR, D-dimer PT 17.7 Seconds (9.4-12.1) H 10/04/17 04:15 Consult Discharge Plan - Plan Referrals: Yared Akhtar Jr, MD [Primary Care Provider] - Palliative Quality Palliative Quality: Screen for Code Status: Yes, Screen for Goals of Care: Yes, Screen for Pain: Yes, If Pain Regimen Started, Initiate Bowel Regimen: No, Screen for Nausea/Vomitting: No Code Status: 10/08/17 16:35 Resuscitation Status: Active [RES] Routine Comment: Resuscitation Status: DNR-Comfort Care <TjmkieLeonardo Nadya - Last Filed: 10/09/17 12:37> Date of Encounter: 10/09/17 Palliative-CN HPI - Data of Consult Requesting Physician: El Celestin MD Primary Care Provider: Yared Akhtar Jr, MD - Consult Narrative History of present illness: Ms. Laurent is a 77 year old female CC: El Celestin MD Palliative Care-Exam - Constitutional Vitals: Temp Pulse Resp BP Pulse Ox 98.0 F 140 26 139/78 98 10/08/17 23:02 10/09/17 07:23 10/09/17 07:15 10/09/17 07:15 10/09/17 07:15 Internal Medicine - CN: Reslt - Labs CBC & Chem 7: 10/08/17 03:30 10/08/17 03:30 - ABG Interpretation ABG results: ABG ABG pH 7.44 pH Units (7.32-7.45) 10/08/17 04:42 ABG pCO2 53 mmHg (35-45) H 10/08/17 04:42 ABG pO2 93 mmHg (85-104) 10/08/17 04:42 ABG O2 Saturation 97 % (95-98) 10/08/17 04:42 PT/INR, D-dimer PT 17.7 Seconds (9.4-12.1) H 10/04/17 04:15 - Attending Attestation I examined this patient and my medical decision-making was reviewed with the Resident Physician. I agree with the documented findings, disposition and treatment plan as described except to the extent set forth below. Palliative Quality Code Status: 10/08/17 16:35 Resuscitation Status: Active [RES] Routine Comment: Resuscitation Status: DNR-Comfort Care
--- NOTE | 2017-10-09 13:48 | Pulmonology Progress Note ---
<Troy Phelps - Last Filed: 10/09/17 13:45> Date of Encounter: 10/09/17 Time of Encounter: 07:30 Assessment and Plan (1) Acute respiratory failure with hypoxia Current Visit: Yes Status: Acute Acute on chronic respiratory failure likely multifactorial secondary to pneumonia, COPD, mucous plugging Status post extubation 10/01/17, requiring reintubation on 10/02/17 - Underwent bronchoscopy with findings of bilateral atelectasis, mucous plugs, airway was normal, mucous plugs sent for culture. - CXR 10/06: Unchanged bilateral effusions and underlying bibasilar airspace opacities likely representing pneumonia and atelectasis. Unchanged right upper lobe airspace opacity, potentially pneumonia or alveolar edema. Diffuse interstitial opacities suspected represents interstitial edema. 10/08: Tolerating BiPAP settings /, continues to have pulmonary edema will continue IV diuresis today at 40 mg IV twice a day. Continue BiPAP overnight with potential wean high flow oxygen tomorrow. 10/09: Patient DNR- CC since last evening. Medications on board to keep her comfortable. All monitors off. Patient transferring to Palliative unit. Plan: - Continue IV Lasix 40 mg twice a day - Continue bronchodilators as scheduled. (2) Pneumonia Current Visit: Yes Status: Acute As above for acute on chronic respiratory failure. Qualifiers: Pneumonia type: due to unspecified organism Laterality: right Lung location: lower lobe of lung Qualified Code(s): J18.1 - Lobar pneumonia, unspecified organism (3) Afib Current Visit: Yes Status: Acute Patient is atrial fibrillation, rate controlled. Plan - Off Cardizem drip. Qualifiers: Atrial fibrillation type: persistent Qualified Code(s): I48.1 - Persistent atrial fibrillation (4) Hyponatremia Current Visit: Yes Status: Resolved Resolved. (5) Hypertension Current Visit: Yes Status: Chronic Currently controlled. No changes in current medications. Qualifiers: Hypertension type: essential hypertension Qualified Code(s): I10 - Essential (primary) hypertension (6) Acute blood loss anemia Current Visit: Yes Status: Acute Hemoglobin stable. (7) Hematoma Current Visit: Yes Status: Acute Report hematoma on left leg as noted on CT H/H stable at 9.0, no change from previous. Plan Continue to monitor hemoglobin and symptoms. (8) Hypokalemia Current Visit: Yes Status: Acute Potassium stable this morning, diuresis was held yesterday. Will restart diuresis today we will continue monitor potassium daily. Plan: - Continue to monitor potassium daily (9) DVT prophylaxis Current Visit: Yes Status: Acute SCDs, subcutaneous heparin every 8 hours Subjective Principal diagnosis: Acute respiratory failure Interval history: Patient is seen in the patient's bedside this morning. She is resting comfortably. Family at bedside. They had no further questions. Patient to be seen by Palliative care. Objective PUL Vital signs: Last Vital Signs Temp 98.0 F 10/08/17 23:02 Pulse 140 10/09/17 07:23 Resp 26 10/09/17 07:15 BP 139/78 10/09/17 07:15 Pulse Ox 98 10/09/17 07:15 General appearance: no acute distress Eyes: nonicteric ENT: oropharynx moist Neck: supple Auscultation: bilateral: diminished breath sounds Cardiovascular: irregular rhythm Gastrointestinal: normoactive bowel sounds Results - Laboratory Findings CBC and BMP: 10/08/17 03:30 10/08/17 03:30 ABG ABG pH 7.44 pH Units (7.32-7.45) 10/08/17 04:42 ABG pCO2 53 mmHg (35-45) H 10/08/17 04:42 ABG pO2 93 mmHg (85-104) 10/08/17 04:42 ABG O2 Saturation 97 % (95-98) 10/08/17 04:42 PT/INR, D-dimer PT 17.7 Seconds (9.4-12.1) H 10/04/17 04:15 Abnormal lab findings: Abnormal lab results WBC 11.3 K/mcL (4.3-11.1) H 10/08/17 03:30 RBC 3.05 M/mcL (3.82-4.97) L 10/08/17 03:30 Hgb 9.0 g/dL (11.5-15.4) L 10/08/17 03:30 Hct 29.7 % (35.3-44.9) L 10/08/17 03:30 MCHC 30.3 g/dL (31.6-35.5) L 10/08/17 03:30 RDW 15.7 % (11.5-14.5) H 10/08/17 03:30 Plt Count 120 K/mcL (140-400) L 10/08/17 03:30 Neutrophils # 9.7 K/mcL (1.6-8.9) H 10/08/17 03:30 Lymphocytes # 0.3 K/mcL (0.6-4.6) L 10/08/17 03:30 Platelet Estimate Decreased (Normal) L 09/30/17 04:09 Percent Retic 3.4 % (1.6-2.8) H 09/30/17 04:09 PT 17.7 Seconds (9.4-12.1) H 10/04/17 04:15 ABG pCO2 53 mmHg (35-45) H 10/08/17 04:42 ABG HCO3 36 mEq/L (21-27) H 10/08/17 04:42 ABG Total CO2 38 mEq/L (20-26) H 10/08/17 04:42 ABG Base Excess 10 mEq/L (-2 to 3) H 10/08/17 04:42 VBG pH 7.46 pH Units (7.32-7.42) H 09/30/17 20:11 VBG pCO2 34 mmHg (41-51) L 09/30/17 20:11 VBG pO2 168 mmHg (25-50) H 09/30/17 20:11 Carbon Dioxide 32 mEq/L (23-29) H 10/08/17 03:30 Creatinine 0.52 mg/dL (0.60-1.20) L 10/08/17 03:30 BUN/Creatinine Ratio 37 (6-26) H 10/08/17 03:30 Calcium 8.4 mg/dL (8.6-10.3) L 10/08/17 03:30 Venous Ioniz Calcium 0.69 mmol/L (1.15-1.35) L 10/01/17 04:51 Iron 43 mcg/dL (50-170) L 09/30/17 04:09 Transferrin 152 mg/dL (180-382) L 09/30/17 04:09 Ferritin 652 ng/ml (5-204) H 09/30/17 04:09 Alkaline Phosphatase 136 Units/L (34-104) H 10/08/17 03:30 Serum Total Protein 5.8 g/dL (6.4-8.9) L 10/08/17 03:30 Albumin 2.8 g/dL (3.5-5.7) L 10/08/17 03:30 Albumin/Globulin Ratio 0.9 (1.1-2.2) L 10/08/17 03:30 Fluid Appearance Cloudy (Clear) A 10/06/17 16:19 - Microbiology Findings Microbiology Findings: Microbiology, Last 48 Hours 10/06/17 16:19 Gram Stain - Final Right Lower Lobe Lung Respiratory Culture - Preliminary Yeast Species 10/06/17 16:19 Gram Stain - Final Left Lower Lobe Lung Respiratory Culture - Preliminary Yeast Species - Clinical Findings Intake & Output: Intake & Output 10/08/17 10/09/17 10/09/17 23:59 07:59 15:59 Intake Total 0 / 0 0 / 0 170 / 170 Output Total 200 / 200 Balance -200 / -200 0 / 0 170 / 170 - VTE Documentation of Mechanical Device: Intermittent pneumatic compression device Consult Discharge Plan - Plan Referrals: Yared Akhtar Jr, MD [Primary Care Provider] - <Niles Huber - Last Filed: 10/09/17 22:52> Date of Encounter: 10/09/17 Objective PUL Vital signs: Last Vital Signs Temp 98.2 F 10/09/17 21:26 Pulse 160 10/09/17 21:26 Resp 17 10/09/17 21:26 BP 97/78 10/09/17 21:26 Pulse Ox 92 10/09/17 21:26 Results - Laboratory Findings CBC and BMP: 10/08/17 03:30 10/08/17 03:30 ABG ABG pH 7.44 pH Units (7.32-7.45) 10/08/17 04:42 ABG pCO2 53 mmHg (35-45) H 10/08/17 04:42 ABG pO2 93 mmHg (85-104) 10/08/17 04:42 ABG O2 Saturation 97 % (95-98) 10/08/17 04:42 PT/INR, D-dimer PT 17.7 Seconds (9.4-12.1) H 10/04/17 04:15 Abnormal lab findings: Abnormal lab results WBC 11.3 K/mcL (4.3-11.1) H 10/08/17 03:30 RBC 3.05 M/mcL (3.82-4.97) L 10/08/17 03:30 Hgb 9.0 g/dL (11.5-15.4) L 10/08/17 03:30 Hct 29.7 % (35.3-44.9) L 10/08/17 03:30 MCHC 30.3 g/dL (31.6-35.5) L 10/08/17 03:30 RDW 15.7 % (11.5-14.5) H 10/08/17 03:30 Plt Count 120 K/mcL (140-400) L 10/08/17 03:30 Neutrophils # 9.7 K/mcL (1.6-8.9) H 10/08/17 03:30 Lymphocytes # 0.3 K/mcL (0.6-4.6) L 10/08/17 03:30 Platelet Estimate Decreased (Normal) L 09/30/17 04:09 Percent Retic 3.4 % (1.6-2.8) H 09/30/17 04:09 PT 17.7 Seconds (9.4-12.1) H 10/04/17 04:15 ABG pCO2 53 mmHg (35-45) H 10/08/17 04:42 ABG HCO3 36 mEq/L (21-27) H 10/08/17 04:42 ABG Total CO2 38 mEq/L (20-26) H 10/08/17 04:42 ABG Base Excess 10 mEq/L (-2 to 3) H 10/08/17 04:42 VBG pH 7.46 pH Units (7.32-7.42) H 09/30/17 20:11 VBG pCO2 34 mmHg (41-51) L 09/30/17 20:11 VBG pO2 168 mmHg (25-50) H 09/30/17 20:11 Carbon Dioxide 32 mEq/L (23-29) H 10/08/17 03:30 Creatinine 0.52 mg/dL (0.60-1.20) L 10/08/17 03:30 BUN/Creatinine Ratio 37 (6-26) H 10/08/17 03:30 Calcium 8.4 mg/dL (8.6-10.3) L 10/08/17 03:30 Venous Ioniz Calcium 0.69 mmol/L (1.15-1.35) L 10/01/17 04:51 Iron 43 mcg/dL (50-170) L 09/30/17 04:09 Transferrin 152 mg/dL (180-382) L 09/30/17 04:09 Ferritin 652 ng/ml (5-204) H 09/30/17 04:09 Alkaline Phosphatase 136 Units/L (34-104) H 10/08/17 03:30 Serum Total Protein 5.8 g/dL (6.4-8.9) L 10/08/17 03:30 Albumin 2.8 g/dL (3.5-5.7) L 10/08/17 03:30 Albumin/Globulin Ratio 0.9 (1.1-2.2) L 10/08/17 03:30 Fluid Appearance Cloudy (Clear) A 10/06/17 16:19 - Microbiology Findings Microbiology Findings: Microbiology, Last 48 Hours 10/06/17 16:19 Gram Stain - Final Right Lower Lobe Lung Respiratory Culture - Preliminary Yeast Species 10/06/17 16:19 Gram Stain - Final Left Lower Lobe Lung Respiratory Culture - Preliminary Yeast Species - Clinical Findings Intake & Output: Intake & Output 10/09/17 10/09/17 10/09/17 07:59 15:59 23:59 Intake Total 0 / 0 170 / 170 0 / 0 Balance 0 / 0 170 / 170 0 / 0 - Attending Attestation I saw the patient with the resident agree with History and Physical exam findings. Labs and Radiology were reviewed Did exam at bedside , patient is comfortable with the current regimen , patient was transferred to symptom control bed
[2017-10-10] MEDS: Sennosides/Docusate Sodium TABLET PO SCH ×2 (07:48→19:58)
--- NOTE | 2017-10-10 11:47 | Internal Med Progress Note ---
Date of Encounter: 10/10/17 Time of Encounter: 08:45 - Assessment and plan (1) Acute respiratory failure with hypoxia Current Visit: Yes Status: Acute Assessment and plan: Acute on chronic respiratory failure likely multifactorial secondary to pneumonia, COPD, mucous plugging Status post extubation 10/01/17, requiring reintubation on 10/02/17 - Underwent bronchoscopy with findings of bilateral atelectasis, mucous plugs, airway was normal, mucous plugs sent for culture. 10/09: Family has changed patient's CODE STATUS to DNR- CC since last evening. Medications on board to keep her comfortable. All monitors off. Patient transferred to Palliative unit. 10/10 - patient is resting comfortably on fentanyl drip. Palliative orders are in place for pain control and other comfort measures. Son is at bedside, and states that patient has been resting comfortably. Patient now on nasal cannula. (2) Goals of care, counseling/discussion Current Visit: Yes Status: Acute Assessment and plan: Patient's family have decided to change the patient's CODE STATUS to DNR-CC. Patient is currently under palliative care. Palliative orders for pain control and other comfort measures are in place. Son is at bedside and states that patient has been resting comfortably. We will discuss with her significant family later today. - Time Spent With Patient 25 - 35 minutes - Subjective Interval history: Patient examined this morning. She seems to be resting comfortably. Currently on fentanyl drip and also on morphine as needed. Son is at bedside. He states that patient was comfortable last night. Patient is tachycardic. Patient is currently DNR comfort care. Antibiotics were stopped. Plan is for discharge to hospice. Continue current medications and management. I will also discuss with the rest of family later today. - Constitutional Vitals: Temp Pulse Resp BP Pulse Ox 98.4 F 158 15 176/105 91 10/10/17 07:10 10/10/17 07:10 10/10/17 07:10 10/10/17 07:10 10/10/17 07:10 General appearance: Present: cachectic, no acute distress Exam: Resting comfortably on the fentanyl drip. - Head Head exam: Present: atraumatic - Eye Eye exam: Present: sclera anicteric - ENT ENT exam: Present: mucous membranes dry - Respiratory Respiratory exam: Present: rhonchi (Bilateral). Absent: accessory muscle use, chest wall tenderness, rales, respiratory distress, wheezes, tachypnea - Cardiovascular Cardiovascular exam: Present: +S1, +S2, systolic murmur, tachycardia - GI/Abdominal GI/Abdominal exam: Present: soft. Absent: distended, firm, guarding, tenderness - Extremities Exam Extremities exam: Present: radial pulses palpable and symmetrical. Absent: cyanotic, pedal edema Internal Medicine: Result - Labs CBC & Chem 7: 10/08/17 03:30 10/08/17 03:30 - ABG Interpretation ABG results: ABG ABG pH 7.44 pH Units (7.32-7.45) 10/08/17 04:42 ABG pCO2 53 mmHg (35-45) H 10/08/17 04:42 ABG pO2 93 mmHg (85-104) 10/08/17 04:42 ABG O2 Saturation 97 % (95-98) 10/08/17 04:42 PT/INR, D-dimer PT 17.7 Seconds (9.4-12.1) H 10/04/17 04:15 - VTE Documentation of Mechanical Device: Intermittent pneumatic compression device Consult Discharge Plan - Plan Referrals: Yared Akhtar Jr, MD [Primary Care Provider] -
[2017-10-10] MEDS ORDERED: FentaNYL (PF) 1,000 MCG in 0.9 % Sodium Chloride 80 ML IVC SCH (15:30)
[2017-10-10] MEDS ORDERED: 0.9 % Sodium Chloride 1,000 ML ONE (18:50)
[2017-10-11 04:06] VITALS: BP 38/26
--- NOTE | 2017-10-11 17:40 | Death Note ---
Pronouncement Note - Date and Time of Date of : 10/11/17 Time of : 04:30 - PCOD Preliminary cause of : Pneumonia - Summary Additional details: RN informed the fabrication and layout craftsman about patient being pronounced. I was informed about the patient passing away during the day. - Additional Data Confirmation of : no pulse, no respirations Family: at bedside, contacted Attending physician: El Celestin MD Was code activated?: No examiner of currency notified?: No Advance directives: Yes
== END 2017-10-11 04:39 | disposition expired | DRG 163 ==
LOC: ICNU 21:45 → 2ANU 10-09 09:47
PROVIDERS: ADMIT Family Medicine; ATTEND Internal Medicine
PROC: ENDOBRF (2017-10-02 09:00)